=== PATIENT | male | born 1940 | race Caucasian/White ===

== ENCOUNTER 2016-05-03 09:15 | Day surgery (SDC) | payer OTHER ==
[2016-05-03] MEDS ORDERED: ACETAMINOPHEN 500 MG TABLET (FP) PO PRN (09:36)
[2016-05-03 09:57] VITALS: BP 121/79; PULSE 64; TEMP 97.5
[2016-05-03] MEDS ORDERED: DENOSUMAB 120 MG/1.7 ML VIAL SQ ONE (10:00)
[2016-05-03 11:01] LABS: ALBUMIN 3.2 g/dl (3.4-5.0); ALK PHOS 76 U/L (45-117); ANION GAP 7 (8-16); BILIRUBIN,TOTAL 0.5 mg/dL (0.2-1.0); CALCIUM 8.6 mg/dL (8.5-10.1); CO2 28 mmol/L (21-32); CREATININE 1.1 mg/dL (0.7-1.3); GLUCOSE,RANDOM 134 mg/dL (74-106); SGOT/AST 11 U/L (15-37); SGPT/ALT 16 U/L (12-78); TOT PROT 6.2 g/dl (6.4-8.2)
== END 2016-05-03 12:00 | disposition home or self-care (01) ==
LOC: JINFUSION 09:15 → J7W 09:16 → JINFUSION 12:00
PROVIDERS: ATTEND Internal Medicine
PROC: 3E013GC Introduction of Other Therapeutic Substance into Subcutaneous Tissue, Percutaneous Approach (ICD-10-PCS; principal; 2016-05-03)
DX: C73 Malignant neoplasm of thyroid gland (principal); C79.51 Secondary malignant neoplasm of bone
CPT/HCPCS: 96372; J0897; 36415; 80053; 96401

== ENCOUNTER 2016-07-06 10:57 | Day surgery (SDC) | payer OTHER ==
[2016-07-06] MEDS ORDERED: ACETAMINOPHEN 500 MG TABLET (FP) PO PRN (13:26)
[2016-07-06] MEDS ORDERED: DENOSUMAB 120 MG/1.7 ML VIAL SQ ONE (13:30)
[2016-07-06 14:13] VITALS: BP 129/72; PULSE 69; TEMP 97.6
== END 2016-07-06 14:13 | disposition home or self-care (01) ==
LOC: JCHEMO 10:57
PROVIDERS: ATTEND Internal Medicine
PROC: 3E013GC Introduction of Other Therapeutic Substance into Subcutaneous Tissue, Percutaneous Approach (ICD-10-PCS; principal; 2016-07-06)
DX: C73 Malignant neoplasm of thyroid gland (principal); C79.51 Secondary malignant neoplasm of bone
CPT/HCPCS: 96372; J0897; 96401

== ENCOUNTER 2016-08-26 09:50 | Day surgery (SDC) | payer OTHER ==
[2016-08-26] MEDS ORDERED: ACETAMINOPHEN 500 MG TABLET (FP) PO PRN (10:06)
[2016-08-26] MEDS ORDERED: DENOSUMAB 120 MG/1.7 ML VIAL SQ ONE (10:30)
[2016-08-26 11:05] VITALS: BP 112/56; PULSE 66; TEMP 98.8
== END 2016-08-26 11:05 | disposition home or self-care (01) ==
LOC: JINFUSION 09:50
PROVIDERS: ATTEND Internal Medicine
PROC: 3E033GC Introduction of Other Therapeutic Substance into Peripheral Vein, Percutaneous Approach (ICD-10-PCS; principal; 2016-08-26)
DX: C73 Malignant neoplasm of thyroid gland (principal); C79.51 Secondary malignant neoplasm of bone
CPT/HCPCS: 96372; 96401; J0897

== ENCOUNTER 2016-10-07 10:52 | Day surgery (SDC) | payer OTHER ==
[2016-10-07] MEDS ORDERED: ACETAMINOPHEN 500 MG TABLET (FP) PO PRN (11:20)
[2016-10-07] MEDS ORDERED: DENOSUMAB 120 MG/1.7 ML VIAL SQ ONE (11:30)
[2016-10-07 11:36] VITALS: BP 144/88; PULSE 62; TEMP 97.9
== END 2016-10-07 11:42 | disposition home or self-care (01) ==
LOC: JCHEMO 10:52
PROVIDERS: ATTEND Internal Medicine
PROC: 3E013GC Introduction of Other Therapeutic Substance into Subcutaneous Tissue, Percutaneous Approach (ICD-10-PCS; principal; 2016-10-07)
DX: C73 Malignant neoplasm of thyroid gland (principal); C79.51 Secondary malignant neoplasm of bone
CPT/HCPCS: 96372; J0897; 96401

== ENCOUNTER 2016-11-08 10:58 | Day surgery (SDC) | payer OTHER ==
[2016-11-08] MEDS ORDERED: ACETAMINOPHEN 500 MG TABLET (FP) PO PRN (11:13)
[2016-11-08] MEDS ORDERED: ACETAMINOPHEN 500 MG TABLET (FP) ONE (11:25)
[2016-11-08] MEDS ORDERED: DENOSUMAB 120 MG/1.7 ML VIAL SQ ONE (11:30)
[2016-11-08 11:57] VITALS: BP 133/83; PULSE 53; TEMP 97.8
== END 2016-11-08 11:55 | disposition home or self-care (01) ==
LOC: JCHEMO 10:58
PROVIDERS: ATTEND Internal Medicine
PROC: 3E013GC Introduction of Other Therapeutic Substance into Subcutaneous Tissue, Percutaneous Approach (ICD-10-PCS; principal; 2016-11-08)
DX: C73 Malignant neoplasm of thyroid gland (principal); C79.51 Secondary malignant neoplasm of bone
CPT/HCPCS: 96372; 96401; J0897

== ENCOUNTER 2016-12-08 10:03 | Day surgery (SDC) | payer OTHER ==
[2016-12-08] MEDS ORDERED: ACETAMINOPHEN 500 MG TABLET (FP) PO PRN (10:41)
[2016-12-08] MEDS ORDERED: DENOSUMAB 120 MG/1.7 ML VIAL SQ ONE (10:45)
[2016-12-08 11:13] VITALS: BP 140/94; PULSE 76; TEMP 97.9
== END 2016-12-08 11:13 | disposition home or self-care (01) ==
LOC: JASU-ENDO 10:03
PROVIDERS: ATTEND Internal Medicine
PROC: 3E013GC Introduction of Other Therapeutic Substance into Subcutaneous Tissue, Percutaneous Approach (ICD-10-PCS; principal; 2016-12-08)
DX: C73 Malignant neoplasm of thyroid gland (principal); C79.51 Secondary malignant neoplasm of bone
CPT/HCPCS: 96372; J0897

== ENCOUNTER 2017-01-10 11:03 | Day surgery (SDC) | payer OTHER ==
[2017-01-10] MEDS ORDERED: ACETAMINOPHEN 500 MG TABLET (FP) PO PRN (11:23)
[2017-01-10] MEDS ORDERED: DENOSUMAB 120 MG/1.7 ML VIAL SQ ONE (11:30)
[2017-01-10] MEDS ORDERED: ACETAMINOPHEN 500 MG TABLET (FP) ONE (11:40)
[2017-01-10 14:28] VITALS: BP 132/87; PULSE 63; TEMP 97.8
== END 2017-01-10 11:50 | disposition home or self-care (01) ==
LOC: JCHEMO 11:03
PROVIDERS: ATTEND Internal Medicine
PROC: 3E013GC Introduction of Other Therapeutic Substance into Subcutaneous Tissue, Percutaneous Approach (ICD-10-PCS; principal; 2017-01-10)
DX: C73 Malignant neoplasm of thyroid gland (principal); C79.51 Secondary malignant neoplasm of bone
CPT/HCPCS: 96372; J0897

== ENCOUNTER 2017-02-03 10:59 | Day surgery (SDC) | payer OTHER ==
[2017-02-03] MEDS ORDERED: ACETAMINOPHEN 325 MG TABLET (FP) ONE (11:09)
[2017-02-03 11:16] VITALS: BP 132/89; PULSE 59; TEMP 98.1
[2017-02-03] MEDS ORDERED: ACETAMINOPHEN 500 MG TABLET (FP) PO PRN (11:23)
[2017-02-03] MEDS ORDERED: DENOSUMAB 120 MG/1.7 ML VIAL SQ ONE (12:15)
== END 2017-02-03 14:34 | disposition home or self-care (01) ==
LOC: JASU-ENDO 10:59
PROVIDERS: ATTEND Internal Medicine
PROC: 3E013GC Introduction of Other Therapeutic Substance into Subcutaneous Tissue, Percutaneous Approach (ICD-10-PCS; principal; 2017-02-03)
DX: C73 Malignant neoplasm of thyroid gland (principal)
CPT/HCPCS: 96372; 96401

== ENCOUNTER 2017-05-03 09:16 | Day surgery (SDC) | payer OTHER ==
[2017-05-03] MEDS ORDERED: ACETAMINOPHEN 500 MG TABLET (FP) PO PRN (09:31)
[2017-05-03] MEDS ORDERED: DENOSUMAB 120 MG/1.7 ML VIAL SQ ONE (10:00)
[2017-05-03 12:18] VITALS: BP 147/93; PULSE 60; TEMP 97.8
== END 2017-05-03 10:35 | disposition home or self-care (01) ==
LOC: JASU-ENDO 09:16
PROVIDERS: ATTEND Internal Medicine
PROC: 3E013GC Introduction of Other Therapeutic Substance into Subcutaneous Tissue, Percutaneous Approach (ICD-10-PCS; principal; 2017-05-03)
DX: C73 Malignant neoplasm of thyroid gland (principal); C79.51 Secondary malignant neoplasm of bone
CPT/HCPCS: 96372; 96401; J0897

== ENCOUNTER 2017-09-09 10:16 | Day surgery (SDC) | payer OTHER ==
[2017-09-09] MEDS ORDERED: ACETAMINOPHEN 500 MG TABLET (FP) PO PRN (10:35)
[2017-09-09 10:45] VITALS: BP 123/74; PULSE 59; TEMP 97
[2017-09-09] MEDS ORDERED: DENOSUMAB 120 MG/1.7 ML VIAL SQ ONE (10:45)
== END 2017-09-09 11:47 | disposition home or self-care (01) ==
LOC: JINFUSION 10:16
PROVIDERS: ATTEND Internal Medicine
PROC: 3E013GC Introduction of Other Therapeutic Substance into Subcutaneous Tissue, Percutaneous Approach (ICD-10-PCS; principal; 2017-09-09)
DX: C73 Malignant neoplasm of thyroid gland (principal); C79.51 Secondary malignant neoplasm of bone
CPT/HCPCS: 96372; 96401; J0897

== ENCOUNTER 2017-12-15 10:25 | Day surgery (SDC) | payer OTHER ==
[~2017-12-15 10:25] MED LIST: ACETAMINOPHEN 500 MG TABLET (FP) PO PRN; DENOSUMAB 120 MG/1.7 ML VIAL SQ ONE
[2017-12-15 11:23] VITALS: PULSE 54
[2017-12-15 11:48] VITALS: BP 143/73; TEMP 98.3
== END 2017-12-15 11:49 | disposition home or self-care (01) ==
LOC: JINFUSION 10:25
PROVIDERS: ATTEND Internal Medicine
PROC: 3E013GC Introduction of Other Therapeutic Substance into Subcutaneous Tissue, Percutaneous Approach (ICD-10-PCS; principal; 2017-12-15)
DX: C73 Malignant neoplasm of thyroid gland (principal); C79.51 Secondary malignant neoplasm of bone
CPT/HCPCS: 96372; 96401; J0897

== ENCOUNTER 2018-02-06 19:29 | Emergency (ER) | payer OTHER ==
[2018-02-06] MEDS ORDERED: DIPHTH,PERTUSS(ACELL),TET 0.5 ML DISP.SYRIN IM ONE (19:37)
--- NOTE | 2018-02-06 19:40 | PDOC ---
Rapid Medical Evaluation Chief Complaint: Bite Time Seen by Provider: 02/06/18 19:35 Medical Evaluation: Allergies Allergy/AdvReac Type Severity Reaction Status Date / Time No Known Drug Allergies Allergy Verified 11/08/17 11:14 02/06/18 19:36 I have performed a brief in-person evaluation of this patient. The patient presents with a chief complaint of: states was on porch where Raccoon was climbing up railing . and animal scratched/ bite? - washed with soap and water. Pertinent physical exam findings: scratches and puncture to dorsum of left hand , 3rd digit. I have ordered the following: Rabies Vaccine/ prophylaxis needed.. Boostrix The patient will proceed to the ED for further evaluation. 02/06/18 19:38
[2018-02-06 19:45] VITALS: BP 145/79; PULSE 75; TEMP 98; BMI 20.3
[2018-02-06] MEDS ORDERED: RABIES IMMUNE GLOBULIN 300 UNITS/1 ML VIAL IM ONE (20:25)
[2018-02-06] MEDS ORDERED: RABIES VACCINE (PCEC)/PF 2.5 UNIT/VIAL IM ONE (20:25)
[2018-02-06] MEDS ORDERED: AMOX TR/POT CLAV 875MG/125MG TABLETS (FP) PO ONE (20:53)
--- NOTE | 2018-02-06 20:59 | PDOC ---
History of Present Illness - General Chief Complaint: Bite Stated Complaint: ANIMAL BITE Time Seen by Provider: 02/06/18 19:35 - History of Present Illness Initial Comments: 02/06/18 20:50 77-year-old male currently undergoing chemotherapy for thyroid cancer was bitten by a raccoon today while smoking a cigarette on his deck. Past History - Past Medical History Allergies/Adverse Reactions: Allergies Allergy/AdvReac Type Severity Reaction Status Date / Time No Known Drug Allergies Allergy Verified 02/06/18 19:38 Home Medications: Ambulatory Orders Atorvastatin Ca [Lipitor] 20 mg PO HS 06/17/11 clonazePAM [Klonopin -] 0.25 mg PO DAILY 06/17/11 Escitalopram Oxalate [Lexapro -] 20 mg PO DAILY 07/18/15 Levothyroxine Sodium [Unithroid] 175 mcg PO ASDIR 07/24/15 Cholecalciferol (Vitamin D3) [Vitamin D3] 1,000 unit PO DAILY 07/25/15 Vitamin E 400 unit PO DAILY 07/25/15 Acetaminophen [Pain Reliever] 500 mg PO PRN PRN 10/07/16 Cyanocobalamin Vit B-12 Inj. [Redisol] 1,000 mcg IM MONTHLY 10/07/16 Denosumab [Xgeva] 120 mg SCJ MONTHLY 10/07/16 Lenvatinib Mesylate [Lenvima] 24 mg PO DAILY 10/07/16 Amox-Tr/K Cl [Augmentin - 875Mg Tablet] 1 tab PO BID #20 tablet 02/06/18 Atenolol [Tenormin -] 25 mg PO DAILY 02/06/18 Anemia: Yes Asthma: No Cancer: Yes (papillary thryroid ca) Cardiac Disorders: No CVA: No COPD: No CHF: No Dementia: No Diabetes: No GI Disorders: Yes (GASTRIC ULCER) Disorders: No HTN: No Hypercholesterolemia: Yes Liver Disease: No Psychiatric Problems: Yes Seizures: No Thyroid Disease: Yes (thyroid ca) - Surgical History Abdominal Surgery: Yes (BILATERAL INGUINAL HERNIA,) Appendectomy: No Cardiac Surgery: No Cholecystectomy: No GI Surgery: Yes (DUODEAL ULCER GASTRECTOMY) Lung Surgery: No Neurologic Surgery: No Orthopedic Surgery: No - Immunization History Immunization Up to Date: Yes - Suicide/Smoking/Psychosocial Hx Smoking History: Current some day smoker Have you smoked in the past 12 months: Yes Number of Cigarettes Smoked Daily: 10 Information on smoking cessation initiated: No 'Breaking Loose' booklet given: 10/17/14 Hx Alcohol Use: No Drug/Substance Use Hx: No Substance Use Type: None Hx Substance Use Treatment: No Review of Systems - Review of Systems Integumentary: Yes: See HPI *Physical Exam - Vital Signs Last Vital Signs Temp Pulse Resp BP Pulse Ox 98 F 75 18 145/79 98 02/06/18 19:31 02/06/18 19:31 02/06/18 19:31 02/06/18 19:31 02/06/18 19:31 - Physical Exam Comments: 02/06/18 20:51 HEAD: NC/AT EYES: Conjuntiva clear MS: Full ROM in all joints without edema NEUROLOGIC: No gross sensory or motor deficits, NVID SKIN: Normal color and temperature no lesions or rashes There are 3 superficial abrasions on the left hand which were cleaned day. To be superficial dermal avulsions. Medical Decision Making - Medical Decision Making 02/06/18 20:52 Rabies vaccine tetanus immunoglobulin given. I will given the rabies vaccination schedule based on his immunocompromise status Augmentin also sent to his pharmacy *DC/Admit/Observation/Transfer Diagnosis at time of Disposition: Raccoon bite - Discharge Dispostion Disposition: HOME Condition at time of disposition: Stable Decision to Admit order: No - Referrals Referrals: Mariam May MD [Primary Care Provider] - - Patient Instructions Printed Discharge Instructions: DI for Animal Bites Additional Instructions: Return to the Emergency Room the following dates for continuation of rabies vaccination schedule. 02/09/18 02/13/18 02/10/18 03/06/18 Please take the antibiotics as prescribed and finish the entire course. Keep your hand clean with soap and water and left open to air. Follow-up with your primary care physician for further evaluation and wound management as well as and surgery for further evaluation and wound management. Vaccination will be given in the emergency room return to the emergency room sooner if problems develop - Post Discharge Activity
[2018-02-06] MEDS ORDERED: AMOX TR/POT CLAV 875MG/125MG TABLETS (FP) ONE (21:08)
== END 2018-02-06 21:17 | disposition home or self-care (01) ==
LOC: JER 19:29 → JERFT 19:29
PROC: 3E0234Z Introduction of Serum, Toxoid and Vaccine into Muscle, Percutaneous Approach (ICD-10-PCS; principal; 2018-02-06)
PROC: 3E0234Z Introduction of Serum, Toxoid and Vaccine into Muscle, Percutaneous Approach (ICD-10-PCS; 2018-02-06)
PROC: 3E0234Z Introduction of Serum, Toxoid and Vaccine into Muscle, Percutaneous Approach (ICD-10-PCS; 2018-02-06)
DX: S61.253A Open bite of left middle finger without damage to nail, initial encounter (principal); S60.512A Abrasion of left hand, initial encounter; W55.51XA Bitten by raccoon, initial encounter; Y93.89 Activity, other specified; Y92.018 Other place in single-family (private) house as the place of occurrence of the external cause; Y99.8 Other external cause status; D64.9 Anemia, unspecified; E78.00 Pure hypercholesterolemia, unspecified; C73 Malignant neoplasm of thyroid gland
CPT/HCPCS: 90375; 90471; 90675; 90715; 96372; 99281-25

== ENCOUNTER 2018-02-09 09:19 | Emergency (ER) | payer OTHER ==
[2018-02-09 09:31] VITALS: BP 133/77; PULSE 67; TEMP 97.8; BMI 20.3
[2018-02-09] MEDS ORDERED: RABIES VACCINE (PCEC)/PF 2.5 UNIT/VIAL IM ONE (10:47)
--- NOTE | 2018-02-09 10:58 | PDOC ---
History of Present Illness - General Chief Complaint: Revisit,Rabies Injection Stated Complaint: REVISIT, RABIES INJECTION Time Seen by Provider: 02/09/18 10:35 History Source: Patient Exam Limitations: No Limitations - History of Present Illness Initial Comments: 02/09/18 10:59 Patient came for second rabies vaccination. Was exposed and bitten by a stray/ wild raccoon 3 days ago, came for rabies evaluation and was treated with immunoglobulin and first rabies vaccine. Patient denies any fevers, problems with the vaccinations, or any problems with the wounds. Has been using soap and water and dressing those wounds as needed. Pain Location: reports: upper extremity (left hand) Past History - Travel Traveled outside of the country in the last 30 days: No Close contact w/someone who was outside of country & ill: No - Past Medical History Allergies/Adverse Reactions: Allergies Allergy/AdvReac Type Severity Reaction Status Date / Time No Known Drug Allergies Allergy Verified 02/09/18 09:25 Home Medications: Ambulatory Orders Atorvastatin Ca [Lipitor] 20 mg PO HS 06/17/11 clonazePAM [Klonopin -] 0.25 mg PO DAILY 06/17/11 Escitalopram Oxalate [Lexapro -] 20 mg PO DAILY 07/18/15 Levothyroxine Sodium [Unithroid] 175 mcg PO ASDIR 07/24/15 Cholecalciferol (Vitamin D3) [Vitamin D3] 1,000 unit PO DAILY 07/25/15 Vitamin E 400 unit PO DAILY 07/25/15 Acetaminophen [Pain Reliever] 500 mg PO PRN PRN 10/07/16 Cyanocobalamin Vit B-12 Inj. [Redisol] 1,000 mcg IM MONTHLY 10/07/16 Denosumab [Xgeva] 120 mg SCJ MONTHLY 10/07/16 Lenvatinib Mesylate [Lenvima] 24 mg PO DAILY 10/07/16 Amox-Tr/K Cl [Augmentin - 875Mg Tablet] 1 tab PO BID #20 tablet 02/06/18 Atenolol [Tenormin -] 25 mg PO DAILY 02/06/18 Anemia: Yes Asthma: No Cancer: Yes (papillary thryroid ca) Cardiac Disorders: No CVA: No COPD: No CHF: No Dementia: No Diabetes: No GI Disorders: Yes (GASTRIC ULCER) Disorders: No HTN: No Hypercholesterolemia: Yes Liver Disease: No Psychiatric Problems: Yes Seizures: No Thyroid Disease: Yes (thyroid ca) - Surgical History Abdominal Surgery: Yes (BILATERAL INGUINAL HERNIA,) Appendectomy: No Cardiac Surgery: No Cholecystectomy: No GI Surgery: Yes (DUODEAL ULCER GASTRECTOMY) Lung Surgery: No Neurologic Surgery: No Orthopedic Surgery: No - Immunization History Immunization Up to Date: Yes - Suicide/Smoking/Psychosocial Hx Smoking History: Current some day smoker Have you smoked in the past 12 months: Yes Number of Cigarettes Smoked Daily: 10 Information on smoking cessation initiated: No 'Breaking Loose' booklet given: 10/17/14 Hx Alcohol Use: No Drug/Substance Use Hx: No Substance Use Type: None Hx Substance Use Treatment: No *Physical Exam - Vital Signs Last Vital Signs Temp Pulse Resp BP Pulse Ox 97.8 F 67 17 133/77 100 02/09/18 09:25 02/09/18 09:25 02/09/18 09:25 02/09/18 09:25 02/09/18 09:25 - Physical Exam General Appearance: Yes: Nourished, Appropriately Dressed. No: Apparent Distress HEENT: positive: RUPERT, Normal ENT Inspection, TMs Normal, Pharynx Normal Neck: positive: Supple. negative: Tender Extremity: positive: Normal Capillary Refill, Normal Range of Motion. negative : Normal Inspection (healing scabs to left thumb, and dorsum of left hand. No redness, swelling, exudate or evidence of infection) Integumentary: positive: Dry, Bruising Neurologic: positive: account executive key accounts II-XII NML intact, Fully Oriented, Alert, Normal Mood/ Affect, Normal Response, Motor Strength 5/5 *DC/Admit/Observation/Transfer Diagnosis at time of Disposition: Need for rabies vaccination - Discharge Dispostion Disposition: HOME Condition at time of disposition: Stable Decision to Admit order: No - Referrals Referrals: Mariam May MD [Primary Care Provider] - - Patient Instructions Printed Discharge Instructions: DI for Rabies Vaccine Additional Instructions: Return on February 13 rabies vaccination as directed wound care until healed - Post Discharge Activity
== END 2018-02-09 11:06 | disposition home or self-care (01) ==
LOC: JERFT 09:19
PROC: 3E0234Z Introduction of Serum, Toxoid and Vaccine into Muscle, Percutaneous Approach (ICD-10-PCS; principal; 2018-02-09)
DX: Z20.3 Contact with and (suspected) exposure to rabies (principal); W55.51XD Bitten by raccoon, subsequent encounter
CPT/HCPCS: 90675; 99281-25

== ENCOUNTER 2018-02-13 09:32 | Emergency (ER) | payer OTHER ==
[2018-02-13 09:37] VITALS: BP 152/81; PULSE 71; TEMP 97.8; BMI 20.3
[2018-02-13] MEDS ORDERED: RABIES VACCINE (PCEC)/PF 2.5 UNIT/VIAL IM ONE (10:04)
--- NOTE | 2018-02-13 10:08 | PDOC ---
Rapid Medical Evaluation Chief Complaint: Revisit,Rabies Injection Time Seen by Provider: 02/13/18 10:04 Medical Evaluation: Allergies Allergy/AdvReac Type Severity Reaction Status Date / Time No Known Drug Allergies Allergy Verified 02/13/18 09:37 Vital Signs Temp Pulse Resp BP Pulse Ox 97.8 F 71 16 152/81 98 02/13/18 09:35 02/13/18 09:35 02/13/18 09:35 02/13/18 09:35 02/13/18 09:35 I have performed a brief in-person evaluation of this patient. The patient presents with a chief complaint of: Patient present for rabbis vaccine s/p being bit by a raccoon on 02/06/18 to right hand. patient report no complains . Denies pain or redness to bite area. Pertinent physical exam findings: no erythema or swelling to bite area. no evidence of wound infection. no pain to bite site I have ordered the following: rabbis vaccine Discharge Disposition - Diagnosis Need for rabies vaccination - Discharge Dispostion Disposition: HOME Condition at time of disposition: Stable Last Admission D/C Date: 01/04/14 Decision to Admit order: No - Referrals - Patient Instructions Printed Discharge Instructions: DI for Rabies Vaccine Additional Instructions: come back on 02/20 for 3rd dose of vaccine - Post Discharge Activity
== END 2018-02-13 10:13 | disposition home or self-care (01) ==
LOC: JERFT 09:32
PROC: 3E0234Z Introduction of Serum, Toxoid and Vaccine into Muscle, Percutaneous Approach (ICD-10-PCS; principal; 2018-02-13)
DX: Z20.3 Contact with and (suspected) exposure to rabies (principal); W55.51XD Bitten by raccoon, subsequent encounter
CPT/HCPCS: 90471; 90675; 99281-25

== ENCOUNTER 2018-02-20 09:30 | Emergency (ER) | payer OTHER ==
[2018-02-20 09:45] VITALS: BP 134/70; PULSE 61; TEMP 98.2; BMI 20.3
[2018-02-20] MEDS ORDERED: RABIES VACCINE (PCEC)/PF 2.5 UNIT/VIAL IM ONE (09:59)
--- NOTE | 2018-02-20 09:59 | PDOC ---
History of Present Illness - General Chief Complaint: Revisit,Rabies Injection Stated Complaint: RABIES SHOT Time Seen by Provider: 02/20/18 09:45 - History of Present Illness Initial Comments: 02/20/18 10:29 Patient is a 77-year-old male with past medical history of metastatic thyroid cancer, who presents to the emergency department today for his fourth rabies vaccination. Patient also states he has swelling to his legs. He was seen by his cancer doctor for this who thinks it might be due to his new cancer medication. He was started on Lasix 20 mg daily. He states that he still has swelling. Denies fevers, chills, shortness of breath, difficulty breathing, difficulty breathing on exertion, orthopnea, chest pain, palpitations, nausea, vomiting and diarrhea. New cancer medication dabrafenib 75mg BID, trametinib 2mg daily Past History - Travel Traveled outside of the country in the last 30 days: No Close contact w/someone who was outside of country & ill: No - Past Medical History Allergies/Adverse Reactions: Allergies Allergy/AdvReac Type Severity Reaction Status Date / Time No Known Drug Allergies Allergy Verified 02/20/18 09:43 Home Medications: Ambulatory Orders Atorvastatin Ca [Lipitor] 20 mg PO HS 06/17/11 clonazePAM [Klonopin -] 0.25 mg PO DAILY 06/17/11 Escitalopram Oxalate [Lexapro -] 20 mg PO DAILY 07/18/15 Levothyroxine Sodium [Unithroid] 175 mcg PO ASDIR 07/24/15 Cholecalciferol (Vitamin D3) [Vitamin D3] 1,000 unit PO DAILY 07/25/15 Vitamin E 400 unit PO DAILY 07/25/15 Acetaminophen [Pain Reliever] 500 mg PO PRN PRN 10/07/16 Cyanocobalamin Vit B-12 Inj. [Redisol] 1,000 mcg IM MONTHLY 10/07/16 Denosumab [Xgeva] 120 mg SCJ MONTHLY 10/07/16 Lenvatinib Mesylate [Lenvima] 24 mg PO DAILY 10/07/16 Amox-Tr/K Cl [Augmentin - 875Mg Tablet] 1 tab PO BID #20 tablet 02/06/18 Atenolol [Tenormin -] 25 mg PO DAILY 02/06/18 Anemia: Yes Asthma: No Cancer: Yes (papillary thryroid ca) Cardiac Disorders: No CVA: No COPD: No CHF: No Dementia: No Diabetes: No GI Disorders: Yes (GASTRIC ULCER) Disorders: No HTN: No Hypercholesterolemia: Yes Liver Disease: No Psychiatric Problems: Yes Seizures: No Thyroid Disease: Yes (thyroid ca) - Surgical History Abdominal Surgery: Yes (BILATERAL INGUINAL HERNIA,) Appendectomy: No Cardiac Surgery: No Cholecystectomy: No GI Surgery: Yes (DUODEAL ULCER GASTRECTOMY) Lung Surgery: No Neurologic Surgery: No Orthopedic Surgery: No - Immunization History Immunization Up to Date: Yes - Suicide/Smoking/Psychosocial Hx Smoking History: Never smoked Have you smoked in the past 12 months: No Number of Cigarettes Smoked Daily: 10 'Breaking Loose' booklet given: 10/17/14 Hx Alcohol Use: No Drug/Substance Use Hx: No Substance Use Type: None Hx Substance Use Treatment: No Review of Systems - Review of Systems Able to Perform ROS?: Yes Comments:: 02/20/18 11:36 CONSTITUTIONAL: Absent: fever, chills, diaphoresis, generalized weakness, malaise, loss of appetite HEENT: Absent: rhinorrhea, nasal congestion, throat pain, throat swelling, difficulty swallowing, mouth swelling, ear pain, eye pain, visual Changes CARDIOVASCULAR: Present: edema Absent: chest pain, loss of consciousness, palpitations, irregular heart rate RESPIRATORY: Absent: cough, shortness of breath, dyspnea with exertion, orthopnea, wheezing, stridor, hemoptysis GASTROINTESTINAL: Absent: abdominal pain, abdominal distension, nausea, vomiting, diarrhea, constipation, melena, hematochezia GENITOURINARY: Absent: dysuria, frequency, urgency, hesitancy, hematuria, flank pain, genital pain MUSCULOSKELETAL: Absent: myalgia, arthralgia, joint swelling SKIN: Absent: rash, itching, pallor HEMATOLOGIC/IMMUNOLOGIC: Absent: easy bleeding, easy bruising, lymphadenopathy, frequent infections ENDOCRINE: Absent: unexplained weight gain, unexplained weight loss, heat intolerance, cold intolerance NEUROLOGIC: Absent: headache, focal weakness or paresthesias, dizziness, unsteady gait, seizure, mental status changes, bladder or bowel incontinence PSYCHIATRIC: Absent: anxiety, depression, suicidal or homicidal ideation, hallucinations. Is the patient limited Latvian proficient: No *Physical Exam - Vital Signs Last Vital Signs Temp Pulse Resp BP Pulse Ox 98.2 F 61 15 134/70 98 02/20/18 09:43 02/20/18 09:43 02/20/18 09:43 02/20/18 09:43 02/20/18 09:43 - Physical Exam Comments: 02/20/18 11:37 GENERAL: Well developed, well nourished. Awake and alert. No acute distress. HEENT: Normocephalic, atraumatic. PERRLA, EOMI. No conjunctival pallor. Sclera are non- icteric. Moist mucous membranes. Oropharynx is clear. NECK: Supple. Full ROM. No JVD. Carotid pulses 2+ and symmetric, without bruits. No thyromegaly. No lymphadenopathy. CARDIOVASCULAR: Regular rate and rhythm. No murmurs, rubs, or gallops. Distal pulses are 2+ and symmetric. PULMONARY: No evidence of respiratory distress. Lungs clear to auscultation bilaterally. No wheezing, rales or rhonchi. ABDOMINAL: Soft. Non-tender. Non-distended. No rebound or guarding. No organomegaly. Normoactive bowel sounds. MUSCULOSKELETAL Normal range of motion at all joints. No bony deformities or tenderness. No CVA tenderness. EXTREMITIES: 3+ pitting edema to the knees. No cyanosis. No clubbing. No calf tenderness. SKIN: Warm and dry. Normal capillary refill. No rashes. No jaundice. NEUROLOGICAL: Alert, awake, appropriate. Cranial nerves 2-12 intact. No deficits to light touch and temperature in face, upper extremities and lower extremities. No motor deficits in the in face, upper extremities and lower extremities. Normoreflexic in the upper and lower extremities. Normal speech. Toes are down- going bilaterally. Gait is normal without ataxia. PSYCHIATRIC: Cooperative. Good eye contact. Appropriate mood and affect. Medical Decision Making - Medical Decision Making 02/20/18 11:39 Patient is a 77-year-old male with past medical history of patient is a 77-year- old male past medical history of metastatic thyroid cancer, who presents to the emergency department today for his fourth rabies vaccination as well as edema to his lower extremities. -On exam patient with 3+ pitting edema to the knees bilaterally. Lungs are clear to auscultation bilaterally without crackles or rales. -Patient reports feeling fine despite the edema. Denies chest pain, SOB, orthopnea -Patient currently taking 20 mg of Lasix daily. -Possible that the edema is from his new cancer medications -Rabies vaccination administered today. -Patient to come back on 03/07/18 for his last vaccination. -Patient feels comfortable following up with his primary care doctor tomorrow regarding his edema. We'll discharge home. -I discussed the physical exam findings, ancillary test results and final diagnoses with the patient. I answered all of the patient's questions. The patient was satisfied with the care received and felt comfortable with the discharge plan and treatment plan. The Patient agrees to follow up with the primary care physician/specialist within 24-72 hours. Return precautions were given. *DC/Admit/Observation/Transfer Diagnosis at time of Disposition: Need for rabies vaccination Edema Qualifiers: Edema type: unspecified Qualified Code(s): R60.9 - Edema, unspecified - Discharge Dispostion Disposition: HOME Condition at time of disposition: Stable Decision to Admit order: No - Referrals Referrals: Mariam May MD [Primary Care Provider] - - Patient Instructions Additional Instructions: You had her next rabies shot today. Your next and final rabies shot is for 03/06/18. You also have edema or swelling to your legs Continue your Lasix as previously prescribed. Follow up with her primary care doctor tomorrow. Return to emergency department for shortness of breath, difficulty breathing, chest pain, or if you have any changes in your symptoms. - Post Discharge Activity
== END 2018-02-20 10:43 | disposition home or self-care (01) ==
LOC: JERFT 09:30
PROC: 3E0234Z Introduction of Serum, Toxoid and Vaccine into Muscle, Percutaneous Approach (ICD-10-PCS; principal; 2018-02-20)
DX: Z20.3 Contact with and (suspected) exposure to rabies (principal); W55.51XD Bitten by raccoon, subsequent encounter; R60.0 Localized edema
CPT/HCPCS: 90471; 90675; 99281-25

== ENCOUNTER 2018-02-27 12:05 | Emergency (ER) | payer OTHER ==
[2018-02-27 12:23] VITALS: BP 131/65; PULSE 65; TEMP 97.9; BMI 20.3
--- NOTE | 2018-02-27 12:47 | PDOC ---
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 As per patient, he was on 20mg once a day of Lasix which was recently raised to 20mg BID, without relief. He denies any recent fevers, chills, headache or dizziness. He denies any recent nausea, vomit, diarrhea or constipation. He denies any recent chest pain or shortness of breath. He denies any recent dysuria, frequency, urgency or hematuria. Allergies: NKDA. Social History: Current some day smoker. No reported alcohol or drug use. Surgical History: Bilateral inguinal hernia PCP: Dr. May - Physicial Exam PE: 02/27/18 15:19 Exam: Vitals: Triage Vital signs reviewed General Appearance: no acute distress, well nourished well developed, Head: Atraumatic, normocephalic Neck: Supple;No Nuchal rigidity Chest Wall: Nontender Cardiac: Regular rate and rhythm, no murmurs, no rubs, no gallops, Lungs: Clear to auscultation bilateral, good air movement bilaterally, Abdomen: Soft, nondistended, normal bowel sounds, nontender to palpation Rectal: Exam deferred Extremities: 2+ pitting edema to the bilateral lower extremities with mild redness, not cellulitic. No streaking or purulent discharge. Full range of motion to all extremities, no cyanosis or clubbing Neuro: AOX3; Cranial Nerves 2-12 grossly intact, Strength intact to all extremities, Sensation intact to all extremities Psych: normal mood, normal affect <Sunil Esteban - Last Filed: 02/27/18 15:16> - Resident Resident Name: Becki Coelho - ED Attending Attestation I have performed the following: I have examined & evaluated the patient, The case was reviewed & discussed with the resident, I agree w/resident's findings & plan, Exceptions are as noted - Medical Decision Making 02/27/18 16:33 Well-appearing no apparent distress chronic lower extremity swelling not responding to Lasix DVT study negative Creatinine within normal limits. We will increase Lasix to 40 mg twice a day patient has follow-up with his doctor on Tuesday. Pt. with chronic hypocalcemia no evidence of physical exam of symptomatic hypocalcemia. Findings, need for follow-up and strict return instructions discussed with patient. <Jaxon Cooper - Last Filed: 02/27/18 16:33> Attestations - Attestations 02/27/18 15:16 Documentation prepared by Sunil Esteban, acting as medical record administrator for Jaxon Cooper MD. <Sunil Esteban - Last Filed: 02/27/18 15:16>
--- NOTE | 2018-02-27 12:52 | PDOC ---
History of Present Illness - General Chief Complaint: Edema Stated Complaint: SWOLLEN ANKLE Time Seen by Provider: 02/27/18 12:26 History Source: Patient Exam Limitations: No Limitations - History of Present Illness Initial Comments: 02/27/18 14:00 Pt is a 78yo m with PMH of metastatic thyroid ca s/p thyroidectomy 4 years ago presenting to ED with one week of worsening lower extremity edema. Pt says he has been having bilateral painless leg swelling for the past week. He denies pain in the calves, shortness of breath, chest pain, syncope, lightheadedness, palpitations, difficulty walking, new numbness/tingling, recent travel, hemoptysis, fevers/chills, abdominal pain, n/v/d. He is not taking blood thinners. He was started on Lasix but it has not reduced the swelling. PMD: Yadira PMH: see hpi PSH: see hpi Meds: see med rec Social: smokes 10 cigarettes/day Allergies: nkda Past History - Past Medical History Allergies/Adverse Reactions: Allergies Allergy/AdvReac Type Severity Reaction Status Date / Time No Known Drug Allergies Allergy Verified 02/20/18 09:43 Home Medications: Ambulatory Orders Atorvastatin Ca [Lipitor] 20 mg PO HS 06/17/11 clonazePAM [Klonopin -] 0.25 mg PO DAILY 06/17/11 Escitalopram Oxalate [Lexapro -] 20 mg PO DAILY 07/18/15 Levothyroxine Sodium [Unithroid] 175 mcg PO ASDIR 07/24/15 Cholecalciferol (Vitamin D3) [Vitamin D3] 1,000 unit PO DAILY 07/25/15 Vitamin E 400 unit PO DAILY 07/25/15 Acetaminophen [Pain Reliever] 500 mg PO PRN PRN 10/07/16 Cyanocobalamin Vit B-12 Inj. [Redisol] 1,000 mcg IM MONTHLY 10/07/16 Atenolol [Tenormin -] 25 mg PO DAILY 02/06/18 Dabrafenib Mesylate [Tafinlar] 150 mg PO Q12H 02/27/18 Denosumab [Xgeva] 120 mg SQ MONTHLY 02/27/18 Furosemide [Lasix -] 40 mg PO BID #10 tablet 02/27/18 Trametinib Dimethyl Sulfoxide [Mekinist] 2 mg PO DAILY 02/27/18 Anemia: Yes Asthma: No Cancer: Yes (papillary thryroid ca) Cardiac Disorders: No CVA: No COPD: No CHF: No Dementia: No Diabetes: No GI Disorders: Yes (GASTRIC ULCER) Disorders: No HTN: No Hypercholesterolemia: Yes Liver Disease: No Psychiatric Problems: Yes Seizures: No Thyroid Disease: Yes (thyroid ca) - Surgical History Abdominal Surgery: Yes (BILATERAL INGUINAL HERNIA,) Appendectomy: No Cardiac Surgery: No Cholecystectomy: No GI Surgery: Yes (DUODEAL ULCER GASTRECTOMY) Lung Surgery: No Neurologic Surgery: No Orthopedic Surgery: No - Immunization History Immunization Up to Date: Yes - Suicide/Smoking/Psychosocial Hx Smoking History: Former smoker Have you smoked in the past 12 months: No Number of Cigarettes Smoked Daily: 10 Information on smoking cessation initiated: No 'Breaking Loose' booklet given: 10/17/14 Hx Alcohol Use: No Drug/Substance Use Hx: No Substance Use Type: None Hx Substance Use Treatment: No Review of Systems - Review of Systems Constitutional: Yes: Weight Stable. No: Chills, Fever, Weakness HEENTM: No: Blurred Vision, Recent change in vision Respiratory: No: Cough, Orthopnea, Shortness of Breath, Hemoptysis Cardiac (ROS): Yes: See HPI, Edema. No: Chest Pain, Lightheadedness, Palpitations, Syncope ABD/GI: No: Constipated, Diarrhea, Nausea, Rectal Bleeding, Vomiting : No: Burning, Dysuria, Incontinence Musculoskeletal: No: Back Pain, Joint Pain, Neck Pain Integumentary: No: Bruising, Dryness, Erythema, Pruritus, Rash Neurological: No: Headache, Numbness, Weakness *Physical Exam - Vital Signs Last Vital Signs Temp Pulse Resp BP Pulse Ox 97.9 F 65 20 131/65 97 02/27/18 12:22 02/27/18 12:22 02/27/18 12:22 02/27/18 12:22 02/27/18 12:22 - Physical Exam General Appearance: Yes: Appropriately Dressed, Thin. No: Apparent Distress HEENT: positive: EOMI, RUPERT, Pharynx Normal. negative: Pale Conjunctivae, Scleral Icterus (R), Scleral Icterus (L) Neck: positive: Trachea midline, Supple. negative: Lymphadenopathy (R), Lymphadenopathy (L) Respiratory/Chest: positive: Crackles (lower lung bases). negative: Accessory Muscle Use Cardiovascular: positive: Regular Rhythm, Regular Rate, S1, S2. negative: Edema , JVD, Murmur Vascular Pulses: Carotid (R): 2+, Carotid (L): 2+ Gastrointestinal/Abdominal: positive: Normal Bowel Sounds, Soft. negative: Distended, Guarding, Rebound, Tenderness Musculoskeletal: negative: CVA Tenderness Extremity: positive: Normal Capillary Refill, Pelvis Stable, Pedal Edema ( bilateral pitting edema to knees), Swelling. negative: Coldness, Cyanosis, Calf Tenderness, Erythema Integumentary: positive: Normal Color, Dry, Warm, Other (no signs of skin breakdown, no varicose veins). negative: Cyanotic, Clammy, Diaphoresis, Rash, Ecchymosis, Bruising Neurologic: positive: manager [place] II-XII NML intact, Fully Oriented, Alert, Normal Mood/ Affect, Normal Response, Motor Strength 5/5 Deep Tendon Reflexes: Knee (L): 2+, Knee (R): 2+ Moderate Sedation - Procedure Monitoring Vital Signs: Procedure Monitoring Vital Signs Temperature 97.9 F 02/27/18 12:22 Pulse Rate 65 02/27/18 12:22 Respiratory Rate 20 02/27/18 12:22 Blood Pressure 131/65 02/27/18 12:22 O2 Sat by Pulse Oximetry (%) 97 02/27/18 12:22 ED Treatment Course - LABORATORY CBC & Chemistry Diagram: 02/27/18 13:00 02/27/18 13:00 Medical Decision Making - Medical Decision Making 02/27/18 12:52 Pt is a 78yo m with PMH of metastatic thyroid ca s/p thyroidectomy 4 years ago presenting to ED with one week of worsening lower extremity edema. Pt says he has been having bilateral painless leg swelling for the past week. Vitals: wnl PE: bilateral pitting edema to knees, not tender to palpation, no visible veins. Crackles at lower lung bases DDx: DVT, CHF, NICOLE, dependent edema, cellulitis, compression of lymphatics Because of history of malignancy will order u/s to check for DVT. CXR ordered to check for fluid, however pt is on lasix. No symptoms of sob, cp, lightheadedness. have lower suspicion for chf/copd. Labs do not show evidence of kidney injury. blood counts wnl. Calcium 7.7 however pt does not have signs of hypocalcemia (negative [place] and Trousseau) CXR does not show acute changes from prior cxr. DVT study: negative for DVT. Will increase dose of Lasix to 40mg BID. Pt has follow up on Tuesday, no DVT, no signs of CHF. Can be dc home. Pt given strict return precautions and verbalized understanding. *DC/Admit/Observation/Transfer Diagnosis at time of Disposition: Lower extremity edema - Discharge Dispostion Disposition: HOME Condition at time of disposition: Good Decision to Admit order: No - Prescriptions Prescriptions: Furosemide [Lasix -] 40 mg PO BID #10 tablet - Referrals Referrals: Mariam May MD [Primary Care Provider] - - Patient Instructions Additional Instructions: You were seen here today for swelling of your legs. Your blood tests, xray and ultrasound studies were normal. Your calcium level is a little low. Please continue to see Dr. May for further evaluation and management of your symptoms. Please keep your oncology appointments as well. Keep your legs propped up when you are sitting or sleeping and wear compression stockings. A prescription was sent to your pharmacy for Lasix 40mg Take it twice a day unless otherwise directed by your doctor. Come back to the emergency room if: swelling gets worse, you develop chest pain , you pass out, you feel short of breath, you have palpitations, you develop fever, your skin starts changing colors or if any new concerning symptom develops. Thank you - Post Discharge Activity
[2018-02-27 13:05] LABS: EOS % 2.6 % (0-4.5); HEMATOCRIT 38.8 % (35.4-49); LYMPH % 25.8 % (8-40); MCH 31.5 pg (25.7-33.7); MCHC 33.6 g/dl (32.0-35.9); MEAN CELL VOLUME 93.9 fl (80-96); MEAN PLT VOLUME 7.4 fl (7.5-11.1); MONO % 11.6 % (3.8-10.2); PLATELET COUNT 208 K/MM3 (134-434); RBC 4.13 M/mm3 (4.00-5.60); RDW 16.7 % (11.9-15.9); WHITE BLOOD COUNT 5.7 K/mm3 (4.0-10.0)
[2018-02-27 13:23] LABS: ALBUMIN 2.6 g/dl (3.4-5.0); ALK PHOS 120 U/L (45-117); ANION GAP 8 MMOL/L (8-16); BILIRUBIN,TOTAL 0.2 mg/dL (0.2-1); BLOOD UREA NITROGEN 47 mg/dL (7-18); CALCIUM 7.7 mg/dL (8.5-10.1); CHLORIDE 104 mmol/L (98-107); CO2 29 mmol/L (21-32); CREATININE 0.9 mg/dL (0.55-1.3); GLUCOSE,RANDOM 172 mg/dL (74-106); POTASSIUM 3.9 mmol/L (3.5-5.1); SGOT/AST 26 U/L (15-37); SGPT/ALT 26 U/L (13-61); SODIUM 142 mmol/L (136-145); TOT PROT 5.7 g/dl (6.4-8.2)
== END 2018-02-27 16:01 | disposition home or self-care (01) ==
LOC: JER 12:05
DX: M79.89 Other specified soft tissue disorders (principal); Z85.850 Personal history of malignant neoplasm of thyroid; Z87.891 Personal history of nicotine dependence; E78.00 Pure hypercholesterolemia, unspecified
CPT/HCPCS: 36415; 71046-TC-FY; 80053; 85025; 93970-TC; 99282-25

== ENCOUNTER 2018-03-07 10:37 | Emergency (ER) | payer OTHER ==
[2018-03-07 10:57] VITALS: TEMP 97.6; BMI 20.9
[2018-03-07] MEDS ORDERED: RABIES VACCINE (PCEC)/PF 2.5 UNIT/VIAL IM ONE ×2 (11:14→11:21)
--- NOTE | 2018-03-07 11:21 | PDOC ---
History of Present Illness - General Chief Complaint: Revisit,Wound Recheck Stated Complaint: TREATMENT Time Seen by Provider: 03/07/18 11:14 History Source: Patient Exam Limitations: No Limitations - History of Present Illness Initial Comments: 03/07/18 11:15 Here for last of rabies vaccine series. Denies any issues with previous injections. With this discussion patient reports that he has recurrence and worsening of his bilateral lower extremity edema. Was seen on February 27 in this ER for same. Was recommended compression stockings Lasix and followed up with his PMD. States PMD recommended same treatment but those recommendations have not resolved issue. Denies fevers, denies chest pain or palpitations, denies any breathing problems or shortness of breath. Denies any changes in his activity although is primarily sedentary due to chronic low back pain. 03/07/18 11:19 Timing/Duration: unsure Severity: moderate, severe Past History - Travel Traveled outside of the country in the last 30 days: No Close contact w/someone who was outside of country & ill: No - Past Medical History Allergies/Adverse Reactions: Allergies Allergy/AdvReac Type Severity Reaction Status Date / Time No Known Drug Allergies Allergy Verified 02/20/18 09:43 Home Medications: Ambulatory Orders Atorvastatin Ca [Lipitor] 20 mg PO HS 06/17/11 clonazePAM [Klonopin -] 0.25 mg PO DAILY 06/17/11 Escitalopram Oxalate [Lexapro -] 20 mg PO DAILY 07/18/15 Levothyroxine Sodium [Unithroid] 175 mcg PO ASDIR 07/24/15 Cholecalciferol (Vitamin D3) [Vitamin D3] 1,000 unit PO DAILY 07/25/15 Vitamin E 400 unit PO DAILY 07/25/15 Acetaminophen [Pain Reliever] 500 mg PO PRN PRN 10/07/16 Cyanocobalamin Vit B-12 Inj. [Redisol] 1,000 mcg IM MONTHLY 10/07/16 Atenolol [Tenormin -] 25 mg PO DAILY 02/06/18 Dabrafenib Mesylate [Tafinlar] 150 mg PO Q12H 02/27/18 Denosumab [Xgeva] 120 mg SQ MONTHLY 02/27/18 Furosemide [Lasix -] 40 mg PO BID #10 tablet 02/27/18 Trametinib Dimethyl Sulfoxide [Mekinist] 2 mg PO DAILY 02/27/18 Furosemide [Lasix -] 40 mg PO BID #14 tablet 03/07/18 Anemia: Yes Asthma: No Cancer: Yes (papillary thryroid ca) Cardiac Disorders: No CVA: No COPD: No CHF: No Dementia: No Diabetes: No GI Disorders: Yes (GASTRIC ULCER) Disorders: No HTN: No Hypercholesterolemia: Yes Liver Disease: No Psychiatric Problems: Yes Seizures: No Thyroid Disease: Yes (thyroid ca) - Surgical History Abdominal Surgery: Yes (BILATERAL INGUINAL HERNIA,) Appendectomy: No Cardiac Surgery: No Cholecystectomy: No GI Surgery: Yes (DUODEAL ULCER GASTRECTOMY) Lung Surgery: No Neurologic Surgery: No Orthopedic Surgery: No - Immunization History Immunization Up to Date: Yes - Suicide/Smoking/Psychosocial Hx Smoking History: Current every day smoker Have you smoked in the past 12 months: No Number of Cigarettes Smoked Daily: 10 Information on smoking cessation initiated: No 'Breaking Loose' booklet given: 10/17/14 Hx Alcohol Use: No Drug/Substance Use Hx: No Substance Use Type: None Hx Substance Use Treatment: No Review of Systems - Review of Systems Able to Perform ROS?: Yes Is the patient limited [place] proficient: Yes Constitutional: Yes: Symptoms Reported, See HPI, Malaise. No: Chills, Fever, Loss of Appetite HEENTM: Yes: See HPI. No: Symptoms Reported Respiratory: Yes: See HPI. No: Cough, Shortness of Breath, Wheezing ABD/GI: No: Symptoms Reported : No: Symptoms Reported Musculoskeletal: Yes: Symptoms Reported, See HPI, Back Pain (chronic) Integumentary: Yes: Symptoms Reported, See HPI, Pallor, Pruritus (weeping and swollen) All Other Systems: Reviewed and Negative *Physical Exam - Vital Signs Last Vital Signs Temp Pulse Resp BP Pulse Ox 97.6 F 64 16 122/62 98 03/07/18 10:55 03/07/18 10:55 03/07/18 10:55 03/07/18 10:55 03/07/18 10:55 - Physical Exam General Appearance: Yes: Nourished, Appropriately Dressed, Apparent Distress HEENT: positive: RUPERT, TMs Normal Neck: positive: Supple. negative: Tender, Lymphadenopathy (R), Lymphadenopathy (L) Respiratory/Chest: positive: Lungs Clear (but diminshed. ), Normal Breath Sounds Gastrointestinal/Abdominal: positive: Soft Extremity: positive: Normal Capillary Refill, Tender, Other (weeping and pitting edema to bilateral lower extremities , severe pVD skin changes and sensation diminished ~ mid tibial ). negative: Normal Inspection, Normal Range of Motion Integumentary: positive: Warm, Pale Neurologic: positive: auditor internal II-XII NML intact, Fully Oriented, Alert, Normal Mood/ Affect, Normal Response, Motor Strength 5/5 Moderate Sedation - Procedure Monitoring Vital Signs: Procedure Monitoring Vital Signs Temperature 97.6 F 03/07/18 10:55 Pulse Rate 64 03/07/18 10:55 Respiratory Rate 16 03/07/18 10:55 Blood Pressure 122/62 03/07/18 10:55 O2 Sat by Pulse Oximetry (%) 98 03/07/18 10:55 ED Treatment Course - LABORATORY CBC & Chemistry Diagram: 03/07/18 13:26 03/07/18 13:26 Medical Decision Making - Medical Decision Making 03/07/18 11:35 RABIES VACCINE GIVEN- last of series for prophylaxis. Due to more extensive nature of complaints, patient requests to be seen in Main ER as knows may need another workup for worsening peripheral edema. Taken to [facility],laboratory cureman Elizabeth hodgson, will give turnover when Dr assigned. 03/07/18 11:35 *DC/Admit/Observation/Transfer Diagnosis at time of Disposition: Lower extremity edema - Discharge Dispostion Disposition: HOME Condition at time of disposition: Stable Decision to Admit order: No - Prescriptions Prescriptions: Furosemide [Lasix -] 40 mg PO BID #14 tablet - Referrals Referrals: Mariam May MD [Primary Care Provider] - - Patient Instructions Printed Discharge Instructions: DI for Peripheral Edema -- Bilateral Additional Instructions: You were seen for swelling in your lower extremities. The ultrasound and lab work were normal other than a low albumin level which is likely contributing to the swelling in your legs. Please follow up with your primary care physician in 1-3 days. Please return to the ER if you have any signs or symptoms of chest pain, shortness of breath, uncontrollable fever, chills, nausea, vomiting, numbness, tingling, or weakness in any part of your body, changes in vision, or slurred speech.. Please take your medications as prescribed. Please return to the ER if symptoms persist, worsen, or new symptoms arise. - Post Discharge Activity
--- NOTE | 2018-03-07 13:48 | PDOC ---
History of Present Illness - General Chief Complaint: Revisit,Wound Recheck Stated Complaint: TREATMENT Time Seen by Provider: 03/07/18 11:14 History Source: Patient Exam Limitations: No Limitations - History of Present Illness Initial Comments: 03/07/18 13:48 The patient is a 78M with a PMH of metastatic thyroid cancer w/ mets to lung and bones on oral chemo, HTN, sciatica who presents to the ER with complaints of leg swelling. The patient was seen in our fast track for rabies and then expressed concern of worsening leg swelling. The patient states that for the last 2 weeks, his b/l lower extremities have had worsening swelling with weeping. He denies any CP, SOB, numbness, tingling, and weakness. Past History - Past Medical History Allergies/Adverse Reactions: Allergies Allergy/AdvReac Type Severity Reaction Status Date / Time No Known Drug Allergies Allergy Verified 02/20/18 09:43 Home Medications: Ambulatory Orders Atorvastatin Ca [Lipitor] 20 mg PO HS 06/17/11 clonazePAM [Klonopin -] 0.25 mg PO DAILY 06/17/11 Escitalopram Oxalate [Lexapro -] 20 mg PO DAILY 07/18/15 Levothyroxine Sodium [Unithroid] 175 mcg PO ASDIR 07/24/15 Cholecalciferol (Vitamin D3) [Vitamin D3] 1,000 unit PO DAILY 07/25/15 Vitamin E 400 unit PO DAILY 07/25/15 Acetaminophen [Pain Reliever] 500 mg PO PRN PRN 10/07/16 Cyanocobalamin Vit B-12 Inj. [Redisol] 1,000 mcg IM MONTHLY 10/07/16 Atenolol [Tenormin -] 25 mg PO DAILY 02/06/18 Dabrafenib Mesylate [Tafinlar] 150 mg PO Q12H 02/27/18 Denosumab [Xgeva] 120 mg SQ MONTHLY 02/27/18 Furosemide [Lasix -] 40 mg PO BID #10 tablet 02/27/18 Trametinib Dimethyl Sulfoxide [Mekinist] 2 mg PO DAILY 02/27/18 Anemia: Yes Asthma: No Cancer: Yes (papillary thryroid ca) Cardiac Disorders: No CVA: No COPD: No CHF: No Dementia: No Diabetes: No GI Disorders: Yes (GASTRIC ULCER) Disorders: No HTN: No Hypercholesterolemia: Yes Liver Disease: No Psychiatric Problems: Yes Seizures: No Thyroid Disease: Yes (thyroid ca) - Surgical History Abdominal Surgery: Yes (BILATERAL INGUINAL HERNIA,) Appendectomy: No Cardiac Surgery: No Cholecystectomy: No GI Surgery: Yes (DUODEAL ULCER GASTRECTOMY) Lung Surgery: No Neurologic Surgery: No Orthopedic Surgery: No - Immunization History Immunization Up to Date: Yes - Suicide/Smoking/Psychosocial Hx Smoking History: Current every day smoker Have you smoked in the past 12 months: No Number of Cigarettes Smoked Daily: 10 Information on smoking cessation initiated: No 'Breaking Loose' booklet given: 10/17/14 Hx Alcohol Use: No Drug/Substance Use Hx: No Substance Use Type: None Hx Substance Use Treatment: No Review of Systems - Review of Systems Able to Perform ROS?: Yes Comments:: 03/07/18 14:00 GENERAL/CONSTITUTIONAL: No fever or chills. No weakness. HEAD, EYES, EARS, NOSE AND THROAT: No change in vision. No ear pain or discharge. No sore throat. CARDIOVASCULAR: No chest pain, palpitations, or lightheadedness. RESPIRATORY: No cough, wheezing, shortness of breath, or hemoptysis. GASTROINTESTINAL: No nausea, vomiting, diarrhea, constipation, or abdominal pain. GENITOURINARY: No dysuria, frequency, hematuria, or change in urination. MUSCULOSKELETAL: Positive for b/l LE edema. No joint or muscle swelling or pain. No neck or back pain. SKIN: No rash or lesions. NEUROLOGIC: No headache, numbness, tingling, focal weakness, loss of consciousness, or change in strength/sensation. Is the patient limited [place] proficient: No *Physical Exam - Vital Signs Last Vital Signs Temp Pulse Resp BP Pulse Ox 97.6 F 64 16 122/62 98 03/07/18 10:55 03/07/18 10:55 03/07/18 10:55 03/07/18 10:55 03/07/18 10:55 - Physical Exam Comments: 03/07/18 14:01 GENERAL: Well developed, well nourished. Awake and alert. No acute distress. HEENT: Normocephalic, atraumatic. Hearing grossly normal. Moist mucous membranes. PERRLA, EOMI. No conjunctival pallor. Sclera are non-icteric. NECK: Supple. Full ROM. No JVD. CARDIOVASCULAR: Regular rate and rhythm. No murmurs, rubs, or gallops. PULMONARY: No evidence of respiratory distress. Diffuse rales in all lung zamorano. ABDOMINAL: Soft. Non-tender. Non-distended. No rebound or guarding. GENITOURINARY: No CVA tenderness bilaterally. MUSCULOSKELETAL: Normal range of motion at all joints. No bony deformities or tenderness. EXTREMITIES: No cyanosis. No clubbing. 3-4+ pitting edema in b/l LE, R>L. No calf tenderness or swelling. SKIN: Warm and dry. Normal capillary refill. No rashes. No jaundice. NEUROLOGICAL: Alert, awake, appropriate. Cranial nerves 2-12 grossly intact. Normal speech. Gait is normal without ataxia. PSYCHIATRIC: Cooperative. Good eye contact. Appropriate mood and affect. Moderate Sedation - Procedure Monitoring Vital Signs: Procedure Monitoring Vital Signs Temperature 97.6 F 03/07/18 10:55 Pulse Rate 64 03/07/18 10:55 Respiratory Rate 16 03/07/18 10:55 Blood Pressure 122/62 03/07/18 10:55 O2 Sat by Pulse Oximetry (%) 98 03/07/18 10:55 ED Treatment Course - LABORATORY CBC & Chemistry Diagram: 03/07/18 13:26 03/07/18 13:26 - RADIOLOGY Radiology Studies Ordered: Category Date Time Status CHEST PA & LAT [RAD] Stat Radiology 03/07/18 13:14 Ordered DUPLEX VASCUL US-2LEGS [US] Stat Ultrasound 03/07/18 13:15 Ordered - Medications Given in the ED: ED Medications Discontinued Medications Generic Name Dose Route Start Last Admin Trade Name Freq PRN Reason Stop Dose Admin Rabies Vaccine 2.5 unit 03/07/18 11:14 03/07/18 11:27 Rabavert Rabies Vaccine IM 03/07/18 11:15 2.5 unit .ONCE ONE Administration Medical Decision Making - Medical Decision Making 03/07/18 13:50 The patient is a 78M with a PMH of metastatic thyroid CA, HTN, and chronic LE edema who presents to the ER for subjectively worsening lower extremity edema. I have spoken with the pt's PCP who states that the patient chronically has hypoalbuminemia and venous stasis. He has not had an echo recently at her office , but may have been done at [facility] (Dr. Marek Aguilar). The patient was seen here 1 week ago but did not have rales on their exam. Ordering duplex of b/l LE , BNP, troponin, and CXR to evaluate for new causes of edema. 03/07/18 14:58 Preliminary read of CXR negative. Pt has low albumin on labs, BNP in 600's, with unremarkable CXR likely not CHF exacerbation. DVT study negative. Will refill lasix and d/c with PCP f/u. *DC/Admit/Observation/Transfer Diagnosis at time of Disposition: Lower extremity edema - Discharge Dispostion Disposition: HOME Condition at time of disposition: Stable Decision to Admit order: No - Referrals Referrals: Mariam May MD [Primary Care Provider] - - Patient Instructions Printed Discharge Instructions: Getting to the Heart of a Healthy Diet: Protein -Rich Foods Additional Instructions: You were seen for swelling in your lower extremities. The ultrasound and labwork were normal. Please follow up with your primary care physician in 1-3 days. Please return to the ER if you have any signs or symptoms of chest pain, shortness of breath, uncontrollable fever, chills, nausea, vomiting, numbness, tingling, or weakness in any part of your body, changes in vision, or slurred speech. Please take your medications as prescribed. Please return to the ER if symptoms persist, worsen, or new symptoms arise. - Post Discharge Activity
[2018-03-07] MEDS ORDERED: FUROSEMIDE 40 MG/4 ML INJECTABLE VIAL ONE (13:50)
[2018-03-07 14:05] LABS: EOS % 3.2 % (0-4.5); HEMATOCRIT 35.6 % (35.4-49); HEMOGLOBIN 11.1 GM/dL (11.7-16.9); LYMPH % 22.5 % (8-40); MCH 30.2 pg (25.7-33.7); MCHC 31.1 g/dl (32.0-35.9); MEAN CELL VOLUME 96.9 fl (80-96); MEAN PLT VOLUME 7.1 fl (7.5-11.1); NEUT % 62.3 % (42.8-82.8); PLATELET COUNT 218 K/MM3 (134-434); RBC 3.67 M/mm3 (4.00-5.60); RDW 16.6 % (11.9-15.9); WHITE BLOOD COUNT 6.8 K/mm3 (4.0-10.0)
[2018-03-07 14:38] LABS: ALBUMIN 2.4 g/dl (3.4-5.0); ALK PHOS 87 U/L (45-117); ANION GAP 5 MMOL/L (8-16); BILIRUBIN,TOTAL 0.2 mg/dL (0.2-1); BLOOD UREA NITROGEN 36 mg/dL (7-18); CALCIUM 8.2 mg/dL (8.5-10.1); CHLORIDE 106 mmol/L (98-107); CO2 33 mmol/L (21-32); CREATININE 0.9 mg/dL (0.55-1.3); GLUCOSE,RANDOM 81 mg/dL (74-106); POTASSIUM 4.6 mmol/L (3.5-5.1); SGOT/AST 27 U/L (15-37); SGPT/ALT 33 U/L (13-61); SODIUM 144 mmol/L (136-145); TOT PROT 5.5 g/dl (6.4-8.2)
[2018-03-07] MEDS: FUROSEMIDE 40 MG/4 ML INJECTABLE VIAL IVPUSH ONE ×2 (14:39→15:03)
[2018-03-07] MEDS ORDERED: FUROSEMIDE 40 MG TABLET (FP) PO ONE (14:52)
--- NOTE | 2018-03-07 15:02 | PDOC ---
Attending Attestation - Resident Resident Name: Tip Salguero - ED Attending Attestation I have performed the following: I have examined & evaluated the patient, The case was reviewed & discussed with the resident, I agree w/resident's findings & plan, Exceptions are as noted - HPI HPI: 03/07/18 15:01 The patient is a 78 year old male with a significant PMH of metastatic thyroid cancer and HTN who presents to the emergency department initially for his last rabies vaccine for a raccoon bite but is also complaining of recurrent lower extremity swelling. Patient was seen on February 27 in this ER for similar symptoms and was prescribed lasix 40mg BID. Patient states the lasix has helped with the swelling but ran out of it yesterday morning. at bedside, states the patient's oncologist told them the lower leg swelling may be a result of a new thyroid cancer medicine he is on. We also spoke with Dr. Garcia, PCP, who states he always has lower extremity edema and it is a chronic issue. The patient denies chest pain, shortness of breath, headache and dizziness. Denies fever, chills, nausea, vomit, diarrhea and constipation. Denies dysuria, frequency, urgency and hematuria. Allergies: NKA Past surgical history: None reported. Social history: No reported alcohol, drug or cigarette use. - Physicial Exam PE: 03/07/18 15:02 GENERAL: Awake, alert, and fully oriented, in no acute distress EYES: PERRLA, EOMI, sclera anicteric, conjunctiva clear ENT: Oropharynx clear without exudates. Moist mucosa NECK: Normal ROM, supple, no lymphadenopathy, JVD, or masses LUNGS: Breath sounds equal, clear to auscultation bilaterally. No wheezes, and no crackles HEART: Regular rate and rhythm, normal S1 and S2, no murmurs, rubs or gallops ABDOMEN: Soft, nontender, normoactive bowel sounds. No guarding, no rebound. No masses EXTREMITIES: Normal range of motion, 1+ pitting edema to the knees b/l RLE>LLE. No clubbing or cyanosis. No cords, erythema, or tenderness BACK: No midline spinal tenderness in cervical/thoracic/lumbar region NEUROLOGICAL: Normal speech, cranial nerves intact, equal strength and sensation b/l SKIN: Warm, Dry, normal turgor, no rashes or lesions noted. - Medical Decision Making 03/07/18 15:09 78yo M presents to the ED for rabies vaccine redose as well as for increasing LE edema. Vitals wnl. Exam with clear lungs, +R>L LE edema. Per PMD, pt has chronic LE edema due to venous stasis as well as hypoalbuminemia. also reports their oncologist reported the new thyroid ca could exacerbate LE swelling. Labs here unremarkable. BNP mildly elevated but pt does not appear to be in CHF , lungs clear, CXR clear on my read, satting well, in no resp distress Rpt US neg for DVT Swelling likely 2/2 hypoalbuminema, venous stasis, and new chemo medication Will refill lasix 40mg BID as states his swelling improved when he was taking it Pt feels well, will f/u with PMD in 1-2 days I discussed the physical exam findings, ancillary test results and final diagnoses with the patient. I answered all of the patient's questions. The patient was satisfied with the care received and felt comfortable with the discharge plan and treatment plan. The patient will call their primary care physician within 24 hours to arrange follow-up and will return to the Emergency Department with any new, persistent or worsening symptoms. Heart Score/ECG Review #1 03/07/18 15:25 Twelve-lead EKG was performed and reviewed by me. Sinus rhythm, rate 62. + PACs. When compared to EKG from 11/08/2017, no significant changes.
[2018-03-07] MEDS ORDERED: FUROSEMIDE 40 MG TABLET (FP) ONE (15:03)
[2018-03-07 15:11] VITALS: BP 138/78; PULSE 77
--- NOTE | 2018-03-07 15:31 | EKG ---
Test Reason : Blood Pressure : / mmHG Vent. Rate : 062 BPM Atrial Rate : 062 BPM P-R Int : 124 ms QRS Dur : 086 ms QT Int : 466 ms P-R-T Axes : 000 -03 034 degrees QTc Int : 472 ms POOR DATA QUALITY, INTERPRETATION MAY BE ADVERSELY AFFECTED SINUS RHYTHM WITH PREMATURE SUPRAVENTRICULAR COMPLEXES NONSPECIFIC T WAVE ABNORMALITY ABNORMAL ECG WHEN COMPARED WITH ECG OF 08-NOV-2017 11:56, NO SIGNIFICANT CHANGE WAS FOUND Confirmed by Simon Marinelli ([id number]) on 03/07/2018 3:31:14 PM Referred By: Confirmed By:Simon Marinelli
== END 2018-03-07 15:11 | disposition home or self-care (01) ==
LOC: JERFT 10:37 → JER 10:37
PROC: 3E0234Z Introduction of Serum, Toxoid and Vaccine into Muscle, Percutaneous Approach (ICD-10-PCS; principal; 2018-03-07)
DX: M79.89 Other specified soft tissue disorders (principal); I10 Essential (primary) hypertension; Z85.850 Personal history of malignant neoplasm of thyroid
CPT/HCPCS: 36415; 71046-TC-FY; 80053; 83880; 85025; 90471; 90675; 93005; 93010; 93970-TC; 99283-25

== ENCOUNTER 2018-03-18 13:10 | Inpatient (IN) | payer OTHER ==
--- NOTE | 2018-03-18 13:28 | PDOC ---
History of Present Illness - General Chief Complaint: Edema Stated Complaint: SWOLLEN LEGS, BLISTERS TO LEGS Time Seen by Provider: 03/18/18 13:23 - History of Present Illness Initial Comments: 03/18/18 14:19 78yo male with hx of thyroid ca on 2 oral chemo agents x 2 months presents for eval of persistent LE swelling and drainage. Pt has been seen multiple times in the ED at [facility] for the swelling - has increased dose of lasix. Pt follows with Heme/Onc at [facility]. States LE swelling is a side effect of his chemo agents and to continue lasix therapy. Pt states despite lasix therapy, the swelling has continued to increase - now with blistering and redness. Now with purulent drainage from the blisters and increased redness. No ttp. No warmth. Pt with 4+ pitting edema to LE. Multiple duplex ultrasound negative for dvt. Pt also with a nonproductive cough x 2 weeks. No f/c. No cp/sob. No abd pain. No n/v/d. No rhinorrhea or sore throat. No dysuria. No other complaints. 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 on oral chemo, HTN, sciatica pshx: thyroidectomy allergies: NKDA 03/18/18 14:23 Past History - Past Medical History Allergies/Adverse Reactions: Allergies Allergy/AdvReac Type Severity Reaction Status Date / Time No Known Drug Allergies Allergy Verified 03/18/18 13:17 Home Medications: Ambulatory Orders Atenolol [Tenormin -] 25 mg PO DAILY 03/18/18 Atorvastatin Ca [Lipitor] 40 mg PO DAILY 03/18/18 Calcium Carbonate [Oysco-500] 500 mg PO DAILY 03/18/18 Cholecalciferol (Vitamin D3) [Vitamin D3] 1,000 unit PO DAILY 03/18/18 Clonazepam 0.5 mg PO DAILY 03/18/18 Dabrafenib Mesylate [Tafinlar] 75 mg PO Q12H 03/18/18 Denosumab [Xgeva] 120 mg IJ ASDIR 03/18/18 Escitalopram Oxalate [Lexapro -] 20 mg PO DAILY 03/18/18 Ferrous Sulfate 325 mg PO DAILY 03/18/18 Furosemide 20 mg PO BID 03/18/18 Levothyroxine Sodium [Synthroid] 225 mcg PO DAILY 03/18/18 Anemia: Yes Asthma: No Cancer: Yes (papillary thryroid ca) Cardiac Disorders: No CVA: No COPD: No CHF: No Dementia: No Diabetes: No GI Disorders: Yes (GASTRIC ULCER) Disorders: No HTN: No Hypercholesterolemia: Yes Liver Disease: No Psychiatric Problems: Yes Seizures: No Thyroid Disease: Yes (thyroid ca) - Surgical History Abdominal Surgery: Yes (BILATERAL INGUINAL HERNIA,) Appendectomy: No Cardiac Surgery: No Cholecystectomy: No GI Surgery: Yes (DUODEAL ULCER GASTRECTOMY) Lung Surgery: No Neurologic Surgery: No Orthopedic Surgery: No - Immunization History Immunization Up to Date: Yes - Suicide/Smoking/Psychosocial Hx Smoking History: Current every day smoker Have you smoked in the past 12 months: No Number of Cigarettes Smoked Daily: 10 'Breaking Loose' booklet given: 10/17/14 Hx Alcohol Use: No Drug/Substance Use Hx: No Substance Use Type: None Hx Substance Use Treatment: No Review of Systems - Review of Systems Able to Perform ROS?: Yes Is the patient limited Arabic proficient: No Constitutional: No: Chills, Fever HEENTM: No: Nose Congestion, Throat Pain Respiratory: Yes: Cough. No: Shortness of Breath, SOB with Exertion, SOB at Rest, Productive cough Cardiac (ROS): Yes: Edema. No: Chest Pain, Lightheadedness, Palpitations ABD/GI: No: Abdominal Distended, Diarrhea, Nausea, Vomiting, Indigestion : No: Burning, Dysuria Musculoskeletal: No: Back Pain Integumentary: Yes: Erythema, Rash, Other (swelling to b/l LE with blisters and purulent drainage from the wounds) Neurological: No: Headache, Numbness, Paresthesia, Tingling All Other Systems: Reviewed and Negative *Physical Exam - Vital Signs 03/18/18 14:25 Selected Entries 03/18/18 13:10 Temperature 97.8 F Pulse Rate 70 Respiratory 18 Rate Respiratory Normal Depth Respiratory Non-Labored Effort Blood Pressure 137/73 Blood Pressure 94 Mean O2 Sat by Pulse 96 Oximetry (%) Weight 70.307 kg - Physical Exam General Appearance: Yes: Nourished, Appropriately Dressed. No: Apparent Distress HEENT: positive: EOMI, Normal Voice Neck: positive: Supple Respiratory/Chest: positive: Crackles (L base). negative: Chest Tender, Respiratory Distress, Rales, Rhonchi, Wheezing Cardiovascular: positive: Regular Rhythm, Regular Rate, S1, S2, Edema Gastrointestinal/Abdominal: positive: Normal Bowel Sounds, Soft. 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 operator II-XII NML intact, Alert, Motor Strength 07/30 ED Treatment Course - LABORATORY CBC & Chemistry Diagram: 03/18/18 13:54 03/18/18 13:54 Medical Decision Making - Medical Decision Making 03/18/18 14:27 a/p: 78yo male with b/l LE swelling, blisters, now with purulent drainage -increasing swelling despite increased lasix dosing -now with redness, blisters, purulent drainage -concern for infected blisters to LE -will send labs, cultures, lactate also cough - on oral chemo -will send labs, cxr -will monitor and reassess pt is nontoxic in appearance and speaking in full sentences 03/18/18 14:31 cxr clear increasing wbc will start iv vanco will send microblog to [facility] will admit for iv abx 03/18/18 14:42 pt updated on labs and cxr findings case discussed with Dr. Holloway from [facility] who accepts pt to service 03/18/18 14:45 pt agrees to stay for further eval *DC/Admit/Observation/Transfer Diagnosis at time of Disposition: Cellulitis, Cough - Discharge Dispostion Condition at time of disposition: Fair Decision to Admit order: Yes - Referrals Referrals: Mariam May MD [Primary Care Provider] - - Patient Instructions - Post Discharge Activity
[2018-03-18 14:11] LABS: BASO % 0.5 % (0-2.0); EOS % 0.8 % (0-4.5); HEMATOCRIT 33.3 % (35.4-49); HEMOGLOBIN 10.6 GM/dl (11.7-16.9); LYMPH % 13.6 % (8-40); MCH 31.3 pg (25.7-33.7); MCHC 31.7 g/dl (32.0-35.9); MEAN CELL VOLUME 98.7 fl (80-96); MEAN PLT VOLUME 7.3 fl (7.5-11.1); MONO % 5.8 % (3.8-10.2); NEUT % 79.3 % (42.8-82.8); PLATELET COUNT 312 K/MM3 (134-434); RBC 3.37 M/mm3 (4.00-5.60); RDW 15.3 % (11.9-15.9); WHITE BLOOD COUNT 13.9 K/mm3 (4.0-10.8)
[2018-03-18 14:20] LABS: ACTIVATED PTT 29.1 SECONDS (25.2-36.5)
[2018-03-18 14:22] LABS: ALBUMIN 2.5 g/dl (3.5-5.0); ALK PHOS 68 U/L (32-92); ANION GAP 10 MMOL/L (8-16); BILIRUBIN,TOTAL 0.5 mg/dl (0.2-1.0); BLOOD UREA NITROGEN 34 mg/dl (7-18); CALCIUM 7.5 mg/dl (8.4-10.2); CHLORIDE 100 mmol/L (98-107); CO2 29 mmol/L (22-28); GLUCOSE,RANDOM 93 mg/dl (74-106); MAGNESIUM 2.2 mg/dL (1.8-2.4); POTASSIUM 4.1 mmol/L (3.5-5.1); SGOT/AST 30 U/L (10-42); SGPT/ALT 25 U/L (10-40); SODIUM 139 mmol/L (136-145); TOT PROT 5.6 g/dl (6.4-8.3)
[2018-03-18 14:24] LABS: INR 1.21 (0.82-1.09); PROTHROMBIN TIME (PATIENT) 13.5 SEC (10.2-13.0)
[2018-03-18] MEDS ORDERED: VANCOMYCIN 1 GRAM (PRE-DOCKED) 1,000 MG/250 ML BAG IVPB ONE (14:33)
[2018-03-18] MEDS ORDERED: VANCOMYCIN 1,000 MG VIAL (RESTRICTED TO ID ONLY) ONE (14:40)
--- NOTE | 2018-03-18 15:38 | EKG ---
Test Reason : Blood Pressure : / mmHG Vent. Rate : 074 BPM Atrial Rate : 074 BPM P-R Int : 138 ms QRS Dur : 086 ms QT Int : 454 ms P-R-T Axes : 054 011 028 degrees QTc Int : 503 ms SINUS RHYTHM WITH PREMATURE ATRIAL COMPLEXES WITH ABERRANT CONDUCTION PROLONGED QT ABNORMAL ECG WHEN COMPARED WITH ECG OF 07-MAR-2018 14:42, NO SIGNIFICANT CHANGE WAS FOUND Confirmed by GRACIE MILAN, EVGENY ([id number]) on 03/18/2018 3:38:26 PM Referred By: BARBI TAYLOR Confirmed By:EVGENY BOWMAN MD
[2018-03-18 16:49] VITALS: BMI 24.6
[2018-03-18] MEDS: HEPARIN NA (PORCINE) 5,000 UNITS/ML 1ML VIAL SQ SCH (22:02)
--- NOTE | 2018-03-18 22:17 | HP ---
Admitting History and Physical - Primary Care Physician PCP: Mariam May - Admission Chief Complaint: Lower Extremity Swelling, Redness and Discharge History of Present Illness: This is a 78 y/o man with a PMHx of:Thyroid Ca w/mets Lung, Bone (on Chemo), HTN, HLD, Sciatica. Who presents to the ED with increased swelling, redness and weeping to his lower extremities started 2 weeks ago worse today. Patient reports having a productive cough with thick white phlegm. Patient reports having Doppler studies of bilateral LE 02/27, 03/07- neg DVT. Patient denies fever,dizziness, SOLANO, CP, palpitations, AP, N/V/D, constipation, dysuria. Patient reports being UTD with Influenza and Pneumoccal vaccines. 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) - Past Surgical History Past Surgical History: Yes: Hernia Repair (thyroidectomy) - Smoking History Smoking history: Current every day smoker Have you smoked in the past 12 months: Yes Aproximately how many cigarettes per day: 10 - Alcohol/Substance Use Hx Alcohol Use: No History of Substance Use: reports: None - Social History Usual Living Arrangement: Yes: With Spouse ADL: Independent (with walker) History of Recent Travel: No Home Medications - Allergies Allergies/Adverse Reactions: Allergies Allergy/AdvReac Type Severity Reaction Status Date / Time No Known Drug Allergies Allergy Verified 03/18/18 13:17 - Home Medications Home Medications: Ambulatory Orders Atenolol [Tenormin -] 25 mg PO DAILY 03/18/18 Atorvastatin Ca [Lipitor] 40 mg PO DAILY 03/18/18 Calcium Carbonate [Oysco-500] 500 mg PO DAILY 03/18/18 Cholecalciferol (Vitamin D3) [Vitamin D3] 1,000 unit PO DAILY 03/18/18 Clonazepam 0.5 mg PO DAILY 03/18/18 Dabrafenib Mesylate [Tafinlar] 75 mg PO Q12H 03/18/18 Denosumab [Xgeva] 120 mg IJ ASDIR 03/18/18 Escitalopram Oxalate [Lexapro -] 20 mg PO DAILY 03/18/18 Ferrous Sulfate 325 mg PO DAILY 03/18/18 Furosemide 20 mg PO BID 03/18/18 Levothyroxine Sodium [Synthroid] 225 mcg PO DAILY 03/18/18 Trametinib Dimethyl Sulfoxide [Mekinist] 2 mg PO DAILY 03/18/18 Review of Systems - Review of Systems Constitutional: reports: Chills. denies: Fever Eyes: reports: No Symptoms HENT: reports: No Symptoms Neck: reports: No Symptoms Cardiovascular: reports: No Symptoms Respiratory: reports: Cough Gastrointestinal: reports: No Symptoms Genitourinary: reports: No Symptoms Breasts: reports: No Symptoms Reported Musculoskeletal: reports: No Symptoms Integumentary: reports: Erythema (weeping to LE) Neurological: reports: Unsteady Gait Endocrine: reports: No Symptoms Hematology/Lymphatic: reports: No Symptoms Psychiatric: reports: No Symptoms Physical Examination Vital Signs: Vital Signs Temperature 99.5 F 03/18/18 21:57 Pulse Rate 83 03/18/18 21:57 Respiratory Rate 18 03/18/18 21:57 Blood Pressure 115/65 03/18/18 21:57 O2 Sat by Pulse Oximetry (%) 95 03/18/18 21:58 Constitutional: Yes: Ashen, Diaphoresis Eyes: Yes: Conjunctiva Clear, EOM Intact, PERRL HENT: Yes: WNL, Atraumatic, Normocephalic Neck: Yes: Supple, Trachea Midline Cardiovascular: Yes: Regular Rate and Rhythm, Murmur, S1, S2 Respiratory: Yes: Rhonchi, Wheezes Gastrointestinal: Yes: WNL, Normal Bowel Sounds, Soft Renal/: Yes: WNL Breast(s): Yes: WNL Musculoskeletal: Yes: WNL Extremities: Yes: Erythema (b/l LE) Edema: Yes Edema: LLE: 2+, RLE: 3+ Peripheral Pulses WNL: Yes Integumentary: Yes: Erythema, Venous Stasis Changes Wound/Incision: Yes: Reddened Neurological: Yes: Alert, Oriented, Ataxia, Tremors (upper extremities), Unsteady Gait Psychiatric: Yes: WNL, Alert, Oriented Labs: CBC, BMP 03/18/18 13:54 03/18/18 13:54 Laboratory Results - last 24 hr 03/18/18 03/18/18 03/18/18 13:54 13:54 13:54 WBC RBC Hgb Hct MCV MCH MCHC RDW Plt Count MPV Absolute Neuts (auto) Neutrophils % Lymphocytes % Monocytes % Eosinophils % Basophils % PT with INR 13.5 H INR 1.21 PTT (Actin FS) 29.1 Sodium 139 Potassium 4.1 Chloride 100 Carbon Dioxide 29 H Anion Gap 10 BUN 34 H Creatinine 1.0 Creat Clearance w eGFR > 60 Random Glucose 93 Lactic Acid 1.8 Calcium 7.5 L Magnesium 2.2 Total Bilirubin 0.5 AST 30 ALT 25 D Alkaline Phosphatase 68 Creatine Kinase Creatine Kinase Index CK-MB (CK-2) Troponin I B-Natriuretic Peptide Total Protein 5.6 L Albumin 2.5 L 03/18/18 03/18/18 03/18/18 13:54 13:54 13:54 WBC 13.9 H RBC 3.37 L Hgb 10.6 L Hct 33.3 L MCV 98.7 H MCH 31.3 MCHC 31.7 L RDW 15.3 Plt Count 312 D MPV 7.3 L Absolute Neuts (auto) 11.0 Neutrophils % 79.3 Lymphocytes % 13.6 Monocytes % 5.8 Eosinophils % 0.8 Basophils % 0.5 PT with INR INR PTT (Actin FS) Sodium Potassium Chloride Carbon Dioxide Anion Gap BUN Creatinine Creat Clearance w eGFR Random Glucose Lactic Acid Calcium Magnesium Total Bilirubin AST ALT Alkaline Phosphatase Creatine Kinase Creatine Kinase Index CK-MB (CK-2) Troponin I < 0.03 B-Natriuretic Peptide 290.8 Total Protein Albumin 03/18/18 13:54 WBC RBC Hgb Hct MCV MCH MCHC RDW Plt Count MPV Absolute Neuts (auto) Neutrophils % Lymphocytes % Monocytes % Eosinophils % Basophils % PT with INR INR PTT (Actin FS) Sodium Potassium Chloride Carbon Dioxide Anion Gap BUN Creatinine Creat Clearance w eGFR Random Glucose Lactic Acid Calcium Magnesium Total Bilirubin AST ALT Alkaline Phosphatase Creatine Kinase 278 Creatine Kinase Index 1.9 CK-MB (CK-2) 5.4 H Troponin I B-Natriuretic Peptide Total Protein Albumin Intake & Output 03/16/18 03/17/18 03/18/18 03/19/18 23:59 23:59 23:59 23:59 Intake Total 490 120 Output Total 100 Balance 490 20 Weight 75.756 kg 72.595 kg Current Medications Generic Name Dose Route Start Last Admin Trade Name Freq PRN Reason Stop Dose Admin Albuterol/Ipratropium 1 amp 03/19/18 06:36 Duoneb - NEB Q6H PRN SHORTNESS OF BREATH Atorvastatin Calcium 40 mg 03/19/18 22:00 Lipitor - PO HS JOCE Calcium Carbonate 500 mg 03/19/18 10:00 Os-Sergio 500mg - PO DAILY JOCE Cholecalciferol 1,000 unit 03/19/18 10:00 Vitamin D3 - PO DAILY JOCE Clonazepam 0.5 mg 03/19/18 01:10 Klonopin - PO DAILY PRN ANXIETY Escitalopram Oxalate 20 mg 03/19/18 10:00 Lexapro - PO DAILY JOCE Ferrous Sulfate 325 mg 03/19/18 10:00 Feosol - PO DAILY JOCE Furosemide 20 mg 03/19/18 06:00 03/19/18 06:41 Lasix - PO 20 mg BIDLASIX JOCE Administration Heparin Sodium (Porcine) 5,000 unit 03/18/18 22:00 03/19/18 06:41 Heparin - SQ 5,000 unit TID JOCE Administration Vancomycin HCl 1,000 mg in 250 mls @ 166.667 mls/hr 03/19/18 10:00 Vancomycin (Pre-Docked) IVPB Q12H [facility] Protocol Levothyroxine Sodium 125 mcg/ 225 mcg 03/19/18 07:00 03/19/18 06:40 Levothyroxine Sodium 100 mcg PO 225 mcg DAILY@0700 JOCE Administration Non-Formulary Medication 2 mg 03/19/18 10:00 Trametinib Dimethyl Sulfoxide [Mekinist] PO DAILY JOCE Vancomycin HCl 1,000 mg 03/19/18 10:00 Vancomycin (Pre-Docked) IVPB 03/19/18 10:01 ONCE ONE Imaging - Results Chest X-ray: Report Reviewed, Image Reviewed EKG: Report Reviewed, Image Reviewed Problem List - Problems (1) Cellulitis Assessment/Plan: Patient reports increased swelling with erythema and weeping Blood Cultures-pending Vancomycin for MRSA Appreciate ID consult Will monitor CBC, BMP Monitor vitals Code(s): L03.90 - CELLULITIS, UNSPECIFIED (2) Lower extremity edema Assessment/Plan: Likely secondary to Cellulitis vs Lymph Edema from Chemo vs DVT Blood Cultures- pending WBC 13.9, LA-nl Vancomycin given in ED, will continue Vancomycin Trough in am Appreciate ID consult Elevate extremities Wells Score 2 Duplex of LE done 02/27, 03/07- both neg DVT Compression hose CBC, BMP in am Code(s): R60.0 - LOCALIZED EDEMA (3) Cough Assessment/Plan: Likely secondary to COPD vs Lung Mets Duonebs prn Guaifenesin prn Monitor vitals Code(s): R05 - COUGH (4) Thyroid cancer Assessment/Plan: s/p Thyroidectomy Continue Mekinist Code(s): C73 - MALIGNANT NEOPLASM OF THYROID GLAND (5) HTN (hypertension) Assessment/Plan: Stable Monitor BP Continue home meds Monitor renal function Code(s): I10 - ESSENTIAL (PRIMARY) HYPERTENSION (6) HLD (hyperlipidemia) Assessment/Plan: Stable Continue Lipitor Monitor LFTs Code(s): E78.5 - HYPERLIPIDEMIA, UNSPECIFIED (7) Hypothyroid Assessment/Plan: Stable Continue Levothyroxine TSH in am Code(s): E03.9 - HYPOTHYROIDISM, UNSPECIFIED (8) Hypocalcemia Assessment/Plan: corrected calcium 8.7 Code(s): E83.51 - HYPOCALCEMIA (9) Ataxia, unspecified Assessment/Plan: Likely secondary to Chemo vs Sciatica PT eval Bedrest Fall Precautions Code(s): R27.0 - ATAXIA, UNSPECIFIED Assessment/Plan This is a 78 y/o man with a PMHx of: Thyroid Ca with mets Lung/Bone (on Chemo), HTN, HLD, Sciatica. Admitted for Cellulitis of Lower Extremity, Lymph Edema for further evaluation of their emergent condition. Plan: FEN Fluid Restriction 1L Replete lytes prn Low Na Diet DVT ppx OOB Heparin SQ Dispo: Requires Inpatient Care Visit type - Emergency Visit Emergency Visit: Yes ED Registration Date: 03/18/18 Care time: The patient presented to the Emergency Department on the above date and was hospitalized for further evaluation of their emergent condition. - New Patient This patient is new to me today: Yes Date on this admission: 03/18/18 - Critical Care Critical Care patient: No
[2018-03-19] MEDS ORDERED: MELATONIN 5 MG TABLETS PO ONE (01:09)
[2018-03-19] MEDS ORDERED: ALBUTEROL SO4 2.5/IPRATROPIUM 0.5 INH SOL 3 ML VIAL.NEB. NEB PRN (06:36)
[2018-03-19] MEDS ORDERED: LEVOTHYROXINE NA 125 MCG TABLET (FP) ONE (06:37)
[2018-03-19] MEDS ORDERED: LEVOTHYROXINE NA 100 MCG TABLET (FP) ONE (06:37)
[2018-03-19] MEDS: LEVOTHYROXINE 125 MCG, LEVOTHYROXINE 100 MCG PO SCH (06:40)
[2018-03-19] MEDS: HEPARIN NA (PORCINE) 5,000 UNITS/ML 1ML VIAL SQ SCH ×3 (06:41→21:18)
[2018-03-19] MEDS: FUROSEMIDE 20 MG TABLET (FP) PO SCH ×2 (06:41→13:39)
[2018-03-19 09:36] LABS: ANION GAP 8 MMOL/L (8-16); BLOOD UREA NITROGEN 29 mg/dl (7-18); CHLORIDE 104 mmol/L (98-107); CO2 27 mmol/L (22-28); CREATININE 0.9 mg/dl (0.6-1.3); GLUCOSE,RANDOM 92 mg/dl (74-106); POTASSIUM 4.5 mmol/L (3.5-5.1); SODIUM 139 mmol/L (136-145)
[2018-03-19 09:38] LABS: BASO % 0.5 % (0-2.0); EOS % 0.7 % (0-4.5); HEMATOCRIT 30.4 % (35.4-49); HEMOGLOBIN 9.6 GM/dl (11.7-16.9); LYMPH % 15.4 % (8-40); MCH 30.9 pg (25.7-33.7); MCHC 31.5 g/dl (32.0-35.9); MEAN CELL VOLUME 98.3 fl (80-96); MEAN PLT VOLUME 7.8 fl (7.5-11.1); MONO % 7.7 % (3.8-10.2); NEUT % 75.7 % (42.8-82.8); PLATELET COUNT 285 K/MM3 (134-434); RBC 3.09 M/mm3 (4.00-5.60); RDW 15.7 % (11.9-15.9); WHITE BLOOD COUNT 12.8 K/mm3 (4.0-10.8)
--- NOTE | 2018-03-19 09:56 | PN ---
Progress Note (short form) - Note Progress Note: ID Consult dictated Cellulitis LE bilaterally R >L Leukocytosis possible sepsis secondary to skin source L groin cellulitis ? Lymphadenopathy/ lymphangitis Metastatic thyroid ca Await c/s Empiric vancomycin/ cerftriaxone
[2018-03-19] MEDS ORDERED: CEFTRIAXONE 2 GM-D5W BAG 2 GM/50 ML BAG IVPB SCH (10:00)
[2018-03-19] MEDS ORDERED: VANCOMYCIN 1 GRAM (PRE-DOCKED) 1,000 MG/250 ML BAG IVPB SCH (10:00)
[2018-03-19] MEDS ORDERED: VANCOMYCIN 1 GRAM (PRE-DOCKED) 1,000 MG/250 ML BAG IVPB ONE (10:00)
[2018-03-19] MEDS ORDERED: TRAMETINIB DIMETHYL SULFOXIDE 2 MG PO SCH (10:00)
[2018-03-19] MEDS ORDERED: VANCOMYCIN 1,000 MG in DEXTROSE 5%-WATER - 250 ML IVPB SCH (10:00)
[2018-03-19] MEDS ORDERED: LEVOTHYROXINE NA 88 MCG TABLET (FP) PO SCH (10:00)
[2018-03-19] MEDS: FERROUS SO4 325 MG TABLET (FP) PO SCH (10:11)
[2018-03-19] MEDS: CHOLECALCIFEROL (VITAMIN D3) 1,000 UNIT TABLET (FP) PO SCH (10:11)
[2018-03-19] MEDS: ESCITALOPRAM OXALATE 20 MG TABLET (FP) PO SCH (10:11)
[2018-03-19] MEDS: CALCIUM (OYSTER SHELL) 500 MG TABLET (FP) PO SCH (10:11)
[2018-03-19] MEDS: clonazePAM 0.5 MG TABLET PO PRN (10:12)
--- NOTE | 2018-03-19 11:23 | CONS ---
DATE OF CONSULTATION: DATE OF DICTATION: 03/19/2018 The patient is a 78-year-old male evaluated for bilateral lower extremity cellulitis. He has a history of metastatic thyroid cancer and is followed at [facility]. He is on chemotherapy. He has had chronic lower extremity swelling. Most recently, he developed worsening swelling associated with development of blisters and erythema. He noted weepage and then drainage of prince pus. According to the notes, he has had several emergency room visits, where he was evaluated and treated symptomatically. He now reports worsening erythema, warmth, and swelling of the lower extremities, right greater than left. He denies any associated fever or chills. He is up-to-date with respect to his influenza and pneumococcal vaccines. He denies any traumatic injury to his lower extremities. No insect or animal bites or scratches. PAST MEDICAL HISTORY: Positive for metastatic thyroid cancer with lung and bone involvement, on chemotherapy, history of hypertension, hyperlipidemia, sciatica, COPD. PAST SURGICAL HISTORY: Status post thyroid surgery and bilateral inguinal hernia repair. No known allergies. MEDICATIONS: Atenolol; Lipitor; clonazepam; Lexapro; Lasix; Synthroid; Tafinlar. Medications at the present time include heparin; Lexapro; Klonopin; DuoNeb; Robitussin; Lipitor; Lasix; levothyroxine. SOCIAL HISTORY: Positive for tobacco use. Lives at home in the community. SYSTEMS REVIEW: Neurologic: No loss of consciousness, seizure activity, focal weakenss. Cardiac: Negative chest pain or palpitations. Respiratory: Positive for cough, nonproductive. No chest pain or dyspnea. Gastrointestinal: Negative vomiting or diarrhea. Genitourinary: Negative for urinary tract infection. LABORATORY DATA: White count 13.9 with 79% neutrophils, hematocrit 33.3, platelet count 312. BUN 34, creatinine 1.0. Blood and wound cultures are pending. PHYSICAL EXAMINATION: General: He is out of bed to chair. He is not acutely toxic-appearing. Vital Signs: Temperature 98.5, blood pressure 94/78, pulse 76 and regular, respirations 18/min. HEENT: Sclerae anicteric. Heart Sounds: S1, S2. Lungs: Few rhonchi bilaterally. Abdomen: Soft. No tenderness elicited. No mass, rebound, or rigidity. On examination of the right groin, there is slight erythema present in the right inguinal area above the inguinal ligament with induration. Lower Extremities: Two-plus lower extremity edema bilaterally. There is confluent erythema present in the right pretibial area, approximately 12 x 6 cm. There are shallow-based ulcers present with no purulent drainage. On examination of the left lower extremity, patchy erythema present to a lesser extent. No purulent drainage is noted. IMPRESSION: 1. Cellulitis, lower extremities, bilaterally, right greater than left. 2. Right groin cellulitis with induration, possible lymphadenopathy. 3. Metastatic thyroid cancer. Await culture results, empiric antibiotic coverage with vancomycin and ceftriaxone, elevation, local wound care. Thank you for the kind referral. ARMANDO GARCIA M.D. OCTAVIO/[id number]
--- NOTE | 2018-03-19 12:26 | PN ---
Progress Note (short form) - Note Progress Note: Subjective: The patient was seen and examined at the bedside, is at the bedside as well. Both report worsening lower extremity pustules and drainage. However, the is reporting the erythema has improved since yesterday. Chest X-ray with no acute process Seen by Dr. Hart and placed on empiric Vancomycin and Ceftriaxone Call placed to Dr. Merritt (patients oncologist- ), spoke to covering physician, Dr. Evelia Morillo who is recommending holding oral chemotherapy , Mekinist, until he is reevaluated by Dr. Merritt Current Medications Generic Name Dose Route Start Last Admin Trade Name Freq PRN Reason Stop Dose Admin Albuterol/Ipratropium 1 amp 03/19/18 06:36 Duoneb - NEB Q6H PRN SHORTNESS OF BREATH Atorvastatin Calcium 40 mg 03/19/18 22:00 Lipitor - PO HS JOCE Calcium Carbonate 500 mg 03/19/18 10:00 03/19/18 10:11 Os-Sergio 500mg - PO 500 mg DAILY JOCE Administration Cholecalciferol 1,000 unit 03/19/18 10:00 03/19/18 10:11 Vitamin D3 - PO 1,000 unit DAILY JOCE Administration Clonazepam 0.5 mg 03/19/18 01:10 03/19/18 10:12 Klonopin - PO 0.5 mg DAILY PRN Administration ANXIETY Escitalopram Oxalate 20 mg 03/19/18 10:00 03/19/18 10:11 Lexapro - PO 20 mg DAILY JOCE Administration Ferrous Sulfate 325 mg 03/19/18 10:00 03/19/18 10:11 Feosol - PO 325 mg DAILY JOCE Administration Furosemide 20 mg 03/19/18 06:00 03/19/18 06:41 Lasix - PO 20 mg BIDLASIX JOCE Administration Guaifenesin 10 ml 03/19/18 06:57 Robitussin - PO Q6H PRN COUGH Heparin Sodium (Porcine) 5,000 unit 03/18/18 22:00 03/19/18 06:41 Heparin - SQ 5,000 unit TID JOCE Administration Vancomycin HCl 1,000 mg/ 250 mls @ 166.667 mls/hr 03/19/18 10:00 03/19/18 11: 00 Dextrose IVPB 166.667 mls/hr Q12H JOCE Administration Protocol Ceftriaxone Sodium 2 gm in 50 mls @ 100 mls/hr 03/19/18 10:00 03/19/18 10:10 Ceftriaxone 2 Gm-D5w Bag IVPB 100 mls/hr DAILY JOCE Administration Protocol Levothyroxine Sodium 125 mcg/ 225 mcg 03/19/18 07:00 03/19/18 06:40 Levothyroxine Sodium 100 mcg PO 225 mcg DAILY@0700 JOCE Administration Non-Formulary Medication 2 mg 03/19/18 10:00 Trametinib Dimethyl Sulfoxide [Mekinist] PO DAILY JOCE Objective: Vital Signs Period Temp Pulse Resp BP Sys/Perez Pulse Ox Last 24 Hr 97.8 F-99.5 F 70-88 17-22 94-137/56-78 93-98 Physical Exam: General: NAD, A&Ox3 Lungs: + cough. B/l rhonchi Heart: RRR, S1S2 Abd: Soft, non-tender, non-distended Ext: B/l lower extremity cellulitis R>L. Open wound with purulent drainage b/l. + Edema bilaterally CBCD WBC 12.8 K/mm3 (4.0-10.8) H 03/19/18 08:00 RBC 3.09 M/mm3 (4.00-5.60) L 03/19/18 08:00 Hgb 9.6 GM/dl (11.7-16.9) L 03/19/18 08:00 Hct 30.4 % (35.4-49) L 03/19/18 08:00 MCV 98.3 fl (80-96) H 03/19/18 08:00 MCHC 31.5 g/dl (32.0-35.9) L 03/19/18 08:00 RDW 15.7 % (11.9-15.9) 03/19/18 08:00 Plt Count 285 K/MM3 (134-434) 03/19/18 08:00 MPV 7.8 fl (7.5-11.1) 03/19/18 08:00 CMP Sodium 139 mmol/L (136-145) 03/19/18 08:00 Potassium 4.5 mmol/L (3.5-5.1) 03/19/18 08:00 Chloride 104 mmol/L (98-107) 03/19/18 08:00 Carbon Dioxide 27 mmol/L (22-28) 03/19/18 08:00 Anion Gap 8 MMOL/L (8-16) 03/19/18 08:00 BUN 29 mg/dl (7-18) H 03/19/18 08:00 Creatinine 0.9 mg/dl (0.6-1.3) 03/19/18 08:00 Creat Clearance w eGFR > 60 (>60) 03/19/18 08:00 Random Glucose 92 mg/dl (74-106) 03/19/18 08:00 Calcium 7.0 mg/dl (8.4-10.2) L 03/19/18 08:00 Total Bilirubin 0.5 mg/dl (0.2-1.0) 03/18/18 13:54 AST 30 U/L (10-42) 03/18/18 13:54 ALT 25 U/L (10-40) D 03/18/18 13:54 Alkaline Phosphatase 68 U/L (32-92) 03/18/18 13:54 Total Protein 5.6 g/dl (6.4-8.3) L 03/18/18 13:54 Albumin 2.5 g/dl (3.5-5.0) L 03/18/18 13:54 CARDIAC ENZYMES Creatine Kinase 278 IU/L (26-308) 03/18/18 13:54 Troponin I < 0.03 ng/ml (0.00-0.06) 03/18/18 13:54 Assessment: This is a 78 year old male with PMHx of thyroid cancer with mets to lung, bone (on Mekinist oral chemo), HTN, hyperlipidemia, sciatica, who presented to the ED with b/l lower extremity erythema and edema. Plan: 1) B/l lower extremity cellulitis - WBC remain elevated, trending down 13.9->12.8 - Remains afebrile - F/u cultures - Continue empiric Vancomycin and Ceftriaxone - Appreciate ID consult 2) Metastatic thyroid cancer - Discussed with Dr. Morillo, holding Mekinist (oral chemo) until reevaluated by outpatient oncologist 3) Hypothyroidism - TSH now low, 0.07 - F/u T3, T4 - Continue same dose of Synthroid for now 4) HTN - Continue home medications 5) Hyperlipidemia - Continue Lipitor 6) F/E/N: - Sodium controlled diet - Monitor electrolytes 7) Dispo: - Requires continued inpatient care CODE STATUS: FULL CODE Visit type - Emergency Visit Emergency Visit: Yes ED Registration Date: 03/18/18 Care time: The patient presented to the Emergency Department on the above date and was hospitalized for further evaluation of their emergent condition. - New Patient This patient is new to me today: Yes Date on this admission: 03/19/18 - Critical Care Critical Care patient: No
[2018-03-19] MEDS: VANCOMYCIN 1 GRAM (PRE-DOCKED) 1,000 MG/250 ML BAG IVPB SCH (12:33)
[2018-03-19] MEDS: guaiFENesin 200 MG/10 ML 10 ML UNIT-DOSE CUPS PO PRN ×2 (13:19→21:19)
[2018-03-19] MEDS: ATORVASTATIN CA 40 MG TABLET (FP) PO SCH (21:18)
[2018-03-19] MEDS: MELATONIN 5 MG TABLETS PO PRN (21:19)
[2018-03-20] MEDS: VANCOMYCIN 1 GRAM (PRE-DOCKED) 1,000 MG/250 ML BAG IVPB SCH ×2 (00:40→15:35)
[2018-03-20] MEDS ORDERED: LEVOTHYROXINE NA 100 MCG TABLET (FP) ONE (06:02)
[2018-03-20] MEDS ORDERED: LEVOTHYROXINE NA 125 MCG TABLET (FP) ONE (06:02)
[2018-03-20] MEDS: LEVOTHYROXINE 125 MCG, LEVOTHYROXINE 100 MCG PO SCH (06:08)
[2018-03-20] MEDS: FUROSEMIDE 20 MG TABLET (FP) PO SCH ×2 (06:08→15:22)
[2018-03-20] MEDS: HEPARIN NA (PORCINE) 5,000 UNITS/ML 1ML VIAL SQ SCH ×3 (06:08→22:50)
[2018-03-20 08:26] LABS: BASO % 0.6 % (0-2.0); HEMATOCRIT 31.6 % (35.4-49); HEMOGLOBIN 9.9 GM/dl (11.7-16.9); MCHC 31.5 g/dl (32.0-35.9); MEAN CELL VOLUME 98.4 fl (80-96); MEAN PLT VOLUME 7.4 fl (7.5-11.1); MONO % 7.3 % (3.8-10.2); NEUT % 77.1 % (42.8-82.8); PLATELET COUNT 310 K/MM3 (134-434); RBC 3.21 M/mm3 (4.00-5.60); RDW 15.4 % (11.9-15.9); WHITE BLOOD COUNT 11.5 K/mm3 (4.0-10.8)
[2018-03-20 08:42] LABS: ALBUMIN 2.2 g/dl (3.5-5.0); ALK PHOS 74 U/L (32-92); ANION GAP 8 MMOL/L (8-16); BILIRUBIN,TOTAL 0.7 mg/dl (0.2-1.0); BLOOD UREA NITROGEN 23 mg/dl (7-18); CALCIUM 7.3 mg/dl (8.4-10.2); CHLORIDE 102 mmol/L (98-107); CO2 27 mmol/L (22-28); CREATININE 0.8 mg/dl (0.6-1.3); GLUCOSE,RANDOM 94 mg/dl (74-106); POTASSIUM 4.6 mmol/L (3.5-5.1); SGOT/AST 36 U/L (10-42); SGPT/ALT 33 U/L (10-40); SODIUM 137 mmol/L (136-145); TOT PROT 5.2 g/dl (6.4-8.3)
[2018-03-20] MEDS ORDERED: DEXTROSE 5%-WATER 100 ML IVPB ONE (09:30)
[2018-03-20] MEDS: CEFTRIAXONE 2 GM in DEXTROSE 5%-WATER 100 ML IVPB SCH (09:38)
[2018-03-20] MEDS: CALCIUM (OYSTER SHELL) 500 MG TABLET (FP) PO SCH (09:38)
[2018-03-20] MEDS: ESCITALOPRAM OXALATE 20 MG TABLET (FP) PO SCH (09:38)
[2018-03-20] MEDS: FERROUS SO4 325 MG TABLET (FP) PO SCH (09:38)
[2018-03-20] MEDS: CHOLECALCIFEROL (VITAMIN D3) 1,000 UNIT TABLET (FP) PO SCH (10:00)
--- NOTE | 2018-03-20 10:26 | PN ---
Physical Exam: SUBJECTIVE: Patient seen and examined at bedside. Voices no complaints. OBJECTIVE: Vital Signs Period Temp Pulse Resp BP Sys/Perez Pulse Ox Last 24 Hr 98.4 F-99.0 F 78-84 18-20 117-132/58-80 94-95 GENERAL: The patient is awake, alert, and fully oriented, in no acute distress. LUNGS: Breath sounds equal, clear to auscultation bilaterally, no wheezes, no crackles, no accessory muscle use. HEART: Regular rate and rhythm, S1, S2 ABDOMEN: Soft, nontender, nondistended LEFT GROIN: 6cm area of induration, skin is erythematous and warm to touch, + tenderness EXTREMITIES: bilateral erythema R>L; multiple excoriations on left which are prurulent NEUROLOGICAL: Cranial nerves II through XII grossly intact. Normal speech, gait not observed. SKIN: Papular rash across chest, neck Laboratory Results - last 24 hr 03/19/18 03/19/18 03/20/18 08:00 08:00 07:27 WBC RBC Hgb Hct MCV MCH MCHC RDW Plt Count MPV Absolute Neuts (auto) Neutrophils % Lymphocytes % Monocytes % Eosinophils % Basophils % Sodium 137 Potassium 4.6 Chloride 102 Carbon Dioxide 27 Anion Gap 8 BUN 23 H Creatinine 0.8 Creat Clearance w eGFR > 60 Random Glucose 94 Calcium 7.3 L Total Bilirubin 0.7 AST 36 ALT 33 D Alkaline Phosphatase 74 Total Protein 5.2 L Albumin 2.2 L TSH 0.07 L D Random Vancomycin 5.2 L 03/20/18 07:27 WBC 11.5 H RBC 3.21 L Hgb 9.9 L Hct 31.6 L MCV 98.4 H MCH 31.0 MCHC 31.5 L RDW 15.4 Plt Count 310 MPV 7.4 L Absolute Neuts (auto) 8.9 Neutrophils % 77.1 Lymphocytes % 14.0 Monocytes % 7.3 Eosinophils % 1.0 Basophils % 0.6 Sodium Potassium Chloride Carbon Dioxide Anion Gap BUN Creatinine Creat Clearance w eGFR Random Glucose Calcium Total Bilirubin AST ALT Alkaline Phosphatase Total Protein Albumin TSH Random Vancomycin Active Medications Generic Name Dose Route Start Last Admin Trade Name Freq PRN Reason Stop Dose Admin Albuterol/Ipratropium 1 amp 03/19/18 06:36 03/19/18 13:18 Duoneb - NEB 1 amp Q6H PRN Administration SHORTNESS OF BREATH Atorvastatin Calcium 40 mg 03/19/18 22:00 03/19/18 21:18 Lipitor - PO 40 mg HS JOCE Administration Calcium Carbonate 500 mg 03/19/18 10:00 03/20/18 09:38 Os-Sergio 500mg - PO 500 mg DAILY JOCE Administration Cholecalciferol 1,000 unit 03/19/18 10:00 03/19/18 10:11 Vitamin D3 - PO 1,000 unit DAILY JOCE Administration Clonazepam 0.5 mg 03/19/18 01:10 03/19/18 10:12 Klonopin - PO 0.5 mg DAILY PRN Administration ANXIETY Escitalopram Oxalate 20 mg 03/19/18 10:00 03/20/18 09:38 Lexapro - PO 20 mg DAILY JOCE Administration Ferrous Sulfate 325 mg 03/19/18 10:00 03/20/18 09:38 Feosol - PO 325 mg DAILY JOCE Administration Furosemide 20 mg 03/19/18 06:00 03/20/18 06:08 Lasix - PO 20 mg BIDLASIX JOCE Administration Guaifenesin 10 ml 03/19/18 06:57 03/19/18 21:19 Robitussin - PO 10 ml Q6H PRN Administration COUGH Heparin Sodium (Porcine) 5,000 unit 03/18/18 22:00 03/20/18 06:08 Heparin - SQ 5,000 unit TID JOCE Administration Ceftriaxone Sodium 2 gm/ 100 mls @ 100 mls/hr 03/19/18 12:29 03/20/18 09:38 Dextrose IVPB 100 mls/hr DAILY JOCE Administration Protocol Vancomycin HCl 1,000 mg in 250 mls @ 166.667 mls/hr 03/19/18 12:31 03/20/18 00:40 Vancomycin (Pre-Docked) IVPB 166.667 mls/hr Q12H JOCE Administration Protocol Levothyroxine Sodium 125 mcg/ 225 mcg 03/19/18 07:00 03/20/18 06:08 Levothyroxine Sodium 100 mcg PO 225 mcg DAILY@0700 JOCE Administration Melatonin 5 mg 03/19/18 20:57 03/19/18 21:19 Melatonin PO 5 mg HS PRN Administration INSOMNIA ASSESSMENT/PLAN 78 year-old male with PMH of HTN, HLD, COPD, metastatic thyroid cancer (on Mekinist oral chemo), s/p infrarenal AAA repair (2013), s/p bilateral open inguinal repair (x 20 years). Recent raccoon bit 02/06/18. Admitted for bilateral LE cellulitis. Now with left groin collection. Bilateral lower extremity MRSA cellulitis --immunocompromised on Mikinist (on hold) --WBC 13.9k on admission, trending down 11.5k today; afebrile --culture presumptive +MRSA and GNB --continue vanc (day #2) and ceftriaxone (day #2) --daily dressing changes --ID following Left groin collection and cellulitis --remote h/o bilateral hernia repair --03/20 US: well-circumscribed complex fluid collection 4.6 x 4.5 x 3.6cm, abscess v. hematoma --CT w/contrast ordered --surgery consult requested Recent raccoon bite on left hand --received immunoglobin, rabies series completed on 03/07/18 --also treated with Augmentin Metastatic follicuar thyroid cancer --s/p thyroidectomy 2013 --per patient's oncology team, hold Mekinist until reevaluated as outpatient Hypothyroidism --TSH low, 0.07 --free T3, free T4 pending --continue same dose of Synthroid for now Hypertension --BP stable --not on home antihypertensives Hyperlipidemia --continue atorvastatin Anxiety --continue lexapro, clonazepam PRN COPD --stable --duonebs PRN FEN Fluids: PO intake adequate Electrolytes: replete as indicated Nutrition: low sodium DVT prophylaxis: subq heparin Physical therapy Dispo: continues to require inpatient care. Full code. Visit type - Emergency Visit Emergency Visit: Yes ED Registration Date: 03/18/18 Care time: The patient presented to the Emergency Department on the above date and was hospitalized for further evaluation of their emergent condition. - New Patient This patient is new to me today: Yes Date on this admission: 03/20/18 - Critical Care Critical Care patient: No
[2018-03-20] MEDS ORDERED: KETOCONAZOLE 2% CREAM - 60GM TUBE TP SCH (11:30)
[2018-03-20] MEDS ORDERED: PT OWN MED DRAWER 7, Y5N ONE (14:56)
[2018-03-20] MEDS: ATENOLOL 25 MG TABLET (FP) PO SCH (15:21)
[2018-03-20] MEDS: KETOCONAZOLE 2% CREAM - 60GM TUBE TP SCH (15:21)
--- NOTE | 2018-03-20 16:26 | CONSULT ---
- Consultation REQUESTING PROVIDER: Neetu Cool DIRECTOR OF MANUFACTURING OPERATIONS CONSULT REQUEST: We have been asked to surgically evaluate this patient for e/m of a mass of the left groin PCP:Agnes Cool HISTORY OF PRESENT ILLNESS: Admitted for infected lower extremity ulcers and cellulitis and found to have a mass in the left groin which a/t the patient has been present for a long time and that his Vascular Surgeon; Dr. Swartz has been well aware of again a/t the patient. PMHx: HTN; PVD/thyroid disease/ PSHx: endovascular AAA Home Medications Medication Instructions Recorded Atenolol [Tenormin -] 25 mg PO DAILY 03/18/18 Atorvastatin Ca [Lipitor] 40 mg PO DAILY 03/18/18 Calcium Carbonate [Oysco-500] 500 mg PO DAILY 03/18/18 Cholecalciferol (Vitamin D3) 1,000 unit PO DAILY 03/18/18 [Vitamin D3] Clonazepam 0.5 mg PO DAILY 03/18/18 Dabrafenib Mesylate [Tafinlar] 75 mg PO Q12H 03/18/18 Denosumab [Xgeva] 120 mg IJ ASDIR 03/18/18 Escitalopram Oxalate [Lexapro -] 20 mg PO DAILY 03/18/18 Ferrous Sulfate 325 mg PO DAILY 03/18/18 Furosemide 20 mg PO BID 03/18/18 Levothyroxine Sodium [Synthroid] 225 mcg PO DAILY 03/18/18 Trametinib Dimethyl Sulfoxide 2 mg PO DAILY 03/18/18 [Mekinist] Allergies Allergy/AdvReac Type Severity Reaction Status Date / Time No Known Drug Allergies Allergy Verified 03/18/18 13:17 PHYSICAL EXAM: GENERAL: Awake, alert, and fully oriented, in no acute distress. HEAD: Normal with no signs of trauma. EYES: sclera anicteric, conjunctiva clear. NECK: Normal ROM, supple without lymphadenopathy, JVD, or masses. ABDOMEN: Soft, nontender, not distended, normoactive bowel sounds, no guarding, no rebound, no masses. No organomegaly. MUSCULOSKELETAL: Normal ROM at all joints. No bony deformities or tenderness. No CVA tenderness. UPPER EXTREMITIES: 2+ pulses, warm, well-perfused. No cyanosis. Cap refill <2 seconds. peripheral edema is present. LOWER EXTREMITIES: 2+ pulses, warm, well-perfused. No calf tenderness. peripheral edema is present. NEUROLOGICAL: Normal speech, gait not observed. PSYCH: Cooperative. Good eye contact. Appropriate mood and affect. SKIN: Warm, dry, normal turgor, no rashes or lesions noted.Cellulitis and open wounds of both lowere extremities; soft tissue mass left groin; appears fluid filled. Vital Signs Temperature 98.1 F 03/20/18 14:22 Pulse Rate 99 H 03/20/18 14:22 Respiratory Rate 18 03/20/18 14:22 Blood Pressure 130/74 03/20/18 14:22 O2 Sat by Pulse Oximetry (%) 95 03/20/18 14:22 Lab Results WBC 11.5 K/mm3 (4.0-10.8) H 03/20/18 07:27 RBC 3.21 M/mm3 (4.00-5.60) L 03/20/18 07:27 Hgb 9.9 GM/dl (11.7-16.9) L 03/20/18 07:27 Hct 31.6 % (35.4-49) L 03/20/18 07:27 MCV 98.4 fl (80-96) H 03/20/18 07:27 MCHC 31.5 g/dl (32.0-35.9) L 03/20/18 07:27 RDW 15.4 % (11.9-15.9) 03/20/18 07:27 Plt Count 310 K/MM3 (134-434) 03/20/18 07:27 Sodium 137 mmol/L (136-145) 03/20/18 07:27 Potassium 4.6 mmol/L (3.5-5.1) 03/20/18 07:27 Chloride 102 mmol/L (98-107) 03/20/18 07:27 Carbon Dioxide 27 mmol/L (22-28) 03/20/18 07:27 Anion Gap 8 MMOL/L (8-16) 03/20/18 07:27 BUN 23 mg/dl (7-18) H 03/20/18 07:27 Creatinine 0.8 mg/dl (0.6-1.3) 03/20/18 07:27 Random Glucose 94 mg/dl (74-106) 03/20/18 07:27 Calcium 7.3 mg/dl (8.4-10.2) L 03/20/18 07:27 INR 1.21 (0.82-1.09) 03/18/18 13:54 imaging reviewed IMP: soft tissue mass appears by hx. and imaging to be related to previous vascular surgery intervention. PLAN: Suggest Vascular Surgery evaluation by DR. Clem Swartz on a nonurgent basis. Jeferson Holley MD FACS
--- NOTE | 2018-03-20 21:26 | ED.PROV ---
Physicial Exam I was called to see this pateint s/p fall from standing I saw this patient in his room He was trying to get to the bathroom, did not wait for help He was found falling down the door He landed on his bottom No LOC, no amnesia no vomiting - Vital Signs Last Vital Signs Temp Pulse Resp BP Pulse Ox 98.0 F 93 H 17 131/77 94 L 03/20/18 18:00 03/20/18 18:00 03/20/18 18:00 03/20/18 18:00 03/20/18 18:00 - Physical Exam Reason for Response: 03/20/18 21:22 Fall from standing in his room General Appearance: Yes: Nourished. No: Apparent Distress, Mild Distress, Moderate Distress HEENT: positive: EOMI, Normal Voice Neck: positive: Supple. negative: Tender, Decreased range of motion, Tender midline Respiratory/Chest: positive: Lungs Clear, Normal Breath Sounds, Crackles. negative: Chest Tender, Respiratory Distress Cardiovascular: positive: Regular Rhythm, Regular Rate, S1, S2 Gastrointestinal/Abdominal: positive: Soft. negative: Tender, Flat, Organomegaly Musculoskeletal: positive: Normal Inspection, Other (Normal range of motion) Extremity: positive: Normal Capillary Refill, Normal Inspection, Normal Range of Motion, Pelvis Stable. negative: Tender, Erythema Integumentary: positive: Bruising (on arms, no bruising noted on buttocks) Neurologic: positive: appian bpm developer II-XII NML intact, Fully Oriented, Alert, Normal Response, Motor Strength 5/5 Critical Care Time/MDM Note - Medical Decision Making Note: 03/20/18 21:24 Pt not on any oral anticoagulants (on hep subq) Will send for CT head 03/21/18 00:37 CT negative for acute intracranial pathology Pt did not require xrays of the long bones
[2018-03-20] MEDS: MELATONIN 5 MG TABLETS PO PRN (22:50)
[2018-03-20] MEDS: ATORVASTATIN CA 40 MG TABLET (FP) PO SCH (22:50)
[2018-03-21] MEDS: VANCOMYCIN 1 GRAM (PRE-DOCKED) 1,000 MG/250 ML BAG IVPB SCH ×2 (00:44→14:18)
[2018-03-21] MEDS ORDERED: LEVOTHYROXINE NA 100 MCG TABLET (FP) ONE (06:05)
[2018-03-21] MEDS ORDERED: LEVOTHYROXINE NA 125 MCG TABLET (FP) ONE (06:06)
[2018-03-21] MEDS: LEVOTHYROXINE 125 MCG, LEVOTHYROXINE 100 MCG PO SCH (06:08)
[2018-03-21] MEDS: HEPARIN NA (PORCINE) 5,000 UNITS/ML 1ML VIAL SQ SCH ×3 (06:08→21:43)
[2018-03-21] MEDS: FUROSEMIDE 20 MG TABLET (FP) PO SCH ×2 (06:09→14:18)
[2018-03-21] MEDS: clonazePAM 0.5 MG TABLET PO PRN (06:17)
[2018-03-21] MEDS ORDERED: DEXTROSE 5%-WATER 100 ML IVPB ONE (09:34)
[2018-03-21] MEDS: CEFTRIAXONE 2 GM in DEXTROSE 5%-WATER 100 ML IVPB SCH (09:44)
[2018-03-21] MEDS: FERROUS SO4 325 MG TABLET (FP) PO SCH (09:45)
[2018-03-21] MEDS: ESCITALOPRAM OXALATE 20 MG TABLET (FP) PO SCH (09:45)
[2018-03-21] MEDS: CALCIUM (OYSTER SHELL) 500 MG TABLET (FP) PO SCH (09:45)
[2018-03-21] MEDS: CHOLECALCIFEROL (VITAMIN D3) 1,000 UNIT TABLET (FP) PO SCH (09:45)
[2018-03-21] MEDS: KETOCONAZOLE 2% CREAM - 60GM TUBE TP SCH (09:46)
[2018-03-21] MEDS: ATENOLOL 25 MG TABLET (FP) PO SCH (09:46)
--- NOTE | 2018-03-21 18:19 | PN ---
Physical Exam: SUBJECTIVE: Patient seen and examined. S/p fall overnight. No injury. Pt denies complaints. Would like to go home. Pt reports normal BMs OBJECTIVE: Vital Signs 3 Period Temp Pulse Resp BP Sys/Perez Pulse Ox Last 24 Hr 98.1 F-98.9 F 64-99 17-20 93-141/58-74 94-98 GENERAL: The patient is awake, alert, and fully oriented, in no acute distress. HEAD: Normal with no signs of trauma. EYES: PERRL, extraocular movements intact, sclera anicteric, conjunctiva clear. No ptosis. ENT: Ears normal, nares patent, oropharynx clear without exudates, moist mucous membranes. NECK: Trachea midline, full range of motion, supple. LUNGS: Breath sounds equal, mild expiratory wheezing bilat meron upper, no crackles, no accessory muscle use. HEART: Regular rate and rhythm, S1, S2 without murmur, rub or gallop. ABDOMEN: Soft, nontender, nondistended, normoactive bowel sounds, no guarding, no rebound, no hepatosplenomegaly, no masses. LEFT GROIN: 6cm area of induration, skin is erythematous and warm to touch, + tenderness EXTREMITIES: 2+ pulses, warm, well-perfused, no edema left lower extremity. 1+ right, mild erythema surrounding abrasions right anterior lower leg NEUROLOGICAL: Cranial nerves II through XII grossly intact. Normal speech, gait not observed. PSYCH: Normal mood, normal affect. SKIN: Warm, dry, normal turgor, no rashes or lesions noted Laboratory Results - last 24 hr 3 03/20/18 03/20/18 03/21/18 07:27 21:23 11:30 POC Glucometer 162 Free T3 1.8 L Vancomycin Pre-Dose 14.2 L Active Medications 3 Generic Name Dose Route Start Last Admin Trade Name Freq PRN Reason Stop Dose Admin Albuterol/Ipratropium 1 amp 03/19/18 06:36 03/19/18 13:18 Duoneb - NEB 1 amp Q6H PRN Administration SHORTNESS OF BREATH Atenolol 25 mg 03/20/18 12:15 03/21/18 09:46 Tenormin - PO Not Given DAILY JOCE Atorvastatin Calcium 40 mg 03/19/18 22:00 03/20/18 22:50 Lipitor - PO 40 mg HS JOCE Administration Calcium Carbonate 500 mg 03/19/18 10:00 03/21/18 09:45 Os-Sergio 500mg - PO 500 mg DAILY JOCE Administration Cholecalciferol 1,000 unit 03/19/18 10:00 03/21/18 09:45 Vitamin D3 - PO 1,000 unit DAILY JOCE Administration Clonazepam 0.5 mg 03/19/18 01:10 03/21/18 06:17 Klonopin - PO 0.5 mg DAILY PRN Administration ANXIETY Escitalopram Oxalate 20 mg 03/19/18 10:00 03/21/18 09:45 Lexapro - PO 20 mg DAILY JOCE Administration Ferrous Sulfate 325 mg 03/19/18 10:00 03/21/18 09:45 Feosol - PO 325 mg DAILY JOCE Administration Furosemide 20 mg 03/19/18 06:00 03/21/18 14:18 Lasix - PO 20 mg BIDLASIX JOCE Administration Guaifenesin 10 ml 03/19/18 06:57 03/19/18 21:19 Robitussin - PO 10 ml Q6H PRN Administration COUGH Heparin Sodium (Porcine) 5,000 unit 03/18/18 22:00 03/21/18 14:17 Heparin - SQ 5,000 unit TID JOCE Administration Ceftriaxone Sodium 2 gm/ 100 mls @ 100 mls/hr 03/19/18 12:29 03/21/18 09:44 Dextrose IVPB 100 mls/hr DAILY JOCE Administration Protocol Vancomycin HCl 1,000 mg in 250 mls @ 166.667 mls/hr 03/19/18 12:31 03/21/18 14:18 Vancomycin (Pre-Docked) IVPB 166.667 mls/hr Q12H JOCE Administration Protocol Ketoconazole 1 applic 03/20/18 11:30 03/21/18 09:46 Nizoral 2% Cream - TP 1 applic DAILY JOCE Administration Levothyroxine Sodium 125 mcg/ 225 mcg 03/19/18 07:00 03/21/18 06:08 Levothyroxine Sodium 100 mcg PO 225 mcg DAILY@0700 JOCE Administration Melatonin 5 mg 03/19/18 20:57 03/20/18 22:50 Melatonin PO 5 mg HS PRN Administration INSOMNIA CT abd/pelvis: Impression: In comparison to a 2014 CT study interval development of an approximately 5.3 x 4.3 x 3.9 cm nonspecific mildly thick-walled nonenhancing fluid structure is seen within the left inguinal subcutaneous region centered over the lower aspect of the common femoral artery - ? Chronic hematoma , abscess, thrombosed pseudoaneurysm. Status post endovascular repair of an abdominal aortic aneurysm with aortobiiliac endograft in place as on the prior study. 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 Diminished size of the infrarenal aortic aneurysm sac is seen currently measuring 5.7 cm in diameter, previously 7 cm. Bilateral flank subcutaneous edema is noted which may be mildly increased. Prominent diffuse colonic fecal retention. Stable L4 vertebral body osteolytic lesion with an associated moderate chronic compression fracture. Correlate with medical history. Reported By: Madi Littlejohn MD 03/20/182016 ASSESSMENT/PLAN: 78 year-old male with PMH of HTN, HLD, COPD, metastatic thyroid cancer (on Mekinist oral chemo), s/p infrarenal AAA repair (2013), s/p bilateral open inguinal repair (x 20 years). Recent raccoon bit 02/06/18. Admitted for bilateral LE cellulitis. Now with left groin collection. Bilateral lower extremity MRSA cellulitis - immunocompromised on Mikinist (on hold) - WBC 13.9k on admission, trending down 11.5k today; afebrile - culture presumptive +MRSA and GNB - continue vanc (day #3) and ceftriaxone (day #3) - daily dressing changes - ID following Left groin collection and cellulitis - remote h/o bilateral hernia repair - 03/20 US: well-circumscribed complex fluid collection 4.6 x 4.5 x 3.6cm, abscess v. hematoma - CT w/contrast done, results above - surgery consult appreciated, rec f/u as outpt with mansi (vascular sx ) Metastatic follicuar thyroid cancer - s/p thyroidectomy 2013 - per patient's oncology team, hold Mekinist until reevaluated as outpatient Hypothyroidism - TSH low, 0.07 - free T3 low, free T4 slightly elevated - continue same dose of Synthroid for now, consider endo consult Hypertension - BP stable - not on home antihypertensives, cont to monitor BP Hyperlipidemia - continue atorvastatin Anxiety - continue lexapro, clonazepam PRN COPD - slight wheeze noted today - cont duonebs PRN FEN Fluids: PO intake adequate Electrolytes: replete as indicated Nutrition: low sodium DVT prophylaxis: subq heparin Cont Physical therapy Dispo: continues to require inpatient care. Full code. Visit type - Emergency Visit Emergency Visit: Yes ED Registration Date: 03/18/18 Care time: The patient presented to the Emergency Department on the above date and was hospitalized for further evaluation of their emergent condition. - New Patient This patient is new to me today: Yes Date on this admission: 03/21/18 - Critical Care Critical Care patient: No
[2018-03-21] MEDS: MELATONIN 5 MG TABLETS PO PRN (21:43)
[2018-03-21] MEDS: ATORVASTATIN CA 40 MG TABLET (FP) PO SCH (21:43)
[2018-03-22] MEDS: VANCOMYCIN 1 GRAM (PRE-DOCKED) 1,000 MG/250 ML BAG IVPB SCH ×2 (00:26→12:15)
[2018-03-22] MEDS: clonazePAM 0.5 MG TABLET PO PRN (03:11)
[2018-03-22] MEDS ORDERED: LEVOTHYROXINE NA 100 MCG TABLET (FP) ONE (06:10)
[2018-03-22] MEDS ORDERED: LEVOTHYROXINE NA 125 MCG TABLET (FP) ONE (06:10)
[2018-03-22] MEDS: LEVOTHYROXINE 125 MCG, LEVOTHYROXINE 100 MCG PO SCH (06:15)
[2018-03-22] MEDS: HEPARIN NA (PORCINE) 5,000 UNITS/ML 1ML VIAL SQ SCH (06:15)
[2018-03-22] MEDS: FUROSEMIDE 20 MG TABLET (FP) PO SCH (06:15)
[2018-03-22 08:42] LABS: ANION GAP 7 MMOL/L (8-16); BLOOD UREA NITROGEN 24 mg/dl (7-18); CALCIUM 7.8 mg/dl (8.4-10.2); CHLORIDE 104 mmol/L (98-107); CO2 29 mmol/L (22-28); CREATININE 0.9 mg/dl (0.6-1.3); GLUCOSE,RANDOM 105 mg/dl (74-106); PHOSPHOROUS 4.1 mg/dl (2.5-4.6); POTASSIUM 4.9 mmol/L (3.5-5.1); SODIUM 140 mmol/L (136-145)
[2018-03-22 08:44] LABS: BASO % 0.4 % (0-2.0); EOS % 1.6 % (0-4.5); HEMATOCRIT 31.1 % (35.4-49); HEMOGLOBIN 9.8 GM/dl (11.7-16.9); LYMPH % 13.8 % (8-40); MCH 30.9 pg (25.7-33.7); MCHC 31.6 g/dl (32.0-35.9); MEAN CELL VOLUME 97.7 fl (80-96); MEAN PLT VOLUME 7.7 fl (7.5-11.1); MONO % 9.2 % (3.8-10.2); PLATELET COUNT 316 K/MM3 (134-434); RBC 3.18 M/mm3 (4.00-5.60); RDW 15.7 % (11.9-15.9); WHITE BLOOD COUNT 11.7 K/mm3 (4.0-10.8)
[2018-03-22 09:10] VITALS: BP 110/69; PULSE 72; TEMP 97.5
[2018-03-22] MEDS ORDERED: DEXTROSE 5%-WATER 100 ML IVPB ONE (09:25)
--- NOTE | 2018-03-22 09:25 | PN ---
Progress Note, Physician History of Present Illness: Awake, alert Supine in bed No c/o leg pain No fever/ chills Wound c/s polymicrobial - Current Medication List Current Medications: Active Medications Albuterol/Ipratropium (Duoneb -) 1 amp NEB Q6H PRN PRN Reason: SHORTNESS OF BREATH Last Admin: 03/19/18 13:18 Dose: 1 amp Atenolol (Tenormin -) 25 mg PO DAILY [facility] Last Admin: 03/21/18 09:46 Dose: Not Given Atorvastatin Calcium (Lipitor -) 40 mg PO HS [facility] Last Admin: 03/21/18 21:43 Dose: 40 mg Calcium Carbonate (Os-Sergio 500mg -) 500 mg PO DAILY [facility] Last Admin: 03/21/18 09:45 Dose: 500 mg Cholecalciferol (Vitamin D3 -) 1,000 unit PO DAILY [facility] Last Admin: 03/21/18 09:45 Dose: 1,000 unit Clonazepam (Klonopin -) 0.5 mg PO DAILY PRN PRN Reason: ANXIETY Last Admin: 03/22/18 03:11 Dose: 0.5 mg Escitalopram Oxalate (Lexapro -) 20 mg PO DAILY [facility] Last Admin: 03/21/18 09:45 Dose: 20 mg Ferrous Sulfate (Feosol -) 325 mg PO DAILY [facility] Last Admin: 03/21/18 09:45 Dose: 325 mg Furosemide (Lasix -) 20 mg PO BIDLASIX [facility] Last Admin: 03/22/18 06:15 Dose: 20 mg Guaifenesin (Robitussin -) 10 ml PO Q6H PRN PRN Reason: COUGH Last Admin: 03/19/18 21:19 Dose: 10 ml Heparin Sodium (Porcine) (Heparin -) 5,000 unit SQ TID [facility] Last Admin: 03/22/18 06:15 Dose: 5,000 unit Ceftriaxone Sodium 2 gm/ (Dextrose) 100 mls @ 100 mls/hr IVPB DAILY [facility]; Protocol Last Admin: 03/21/18 09:44 Dose: 100 mls/hr Vancomycin HCl (Vancomycin (Pre-Docked)) 1,000 mg in 250 mls @ 166.667 mls/hr IVPB Q12H [facility]; Protocol Last Admin: 03/22/18 00:26 Dose: 166.667 mls/hr Ketoconazole (Nizoral 2% Cream -) 1 applic TP DAILY [facility] Last Admin: 03/21/18 09:46 Dose: 1 applic Levothyroxine Sodium 125 mcg/ (Levothyroxine Sodium 100 mcg) 225 mcg PO DAILY@ 0700 [facility] Last Admin: 03/22/18 06:15 Dose: 225 mcg Melatonin (Melatonin) 5 mg PO HS PRN PRN Reason: INSOMNIA Last Admin: 03/21/18 21:43 Dose: 5 mg - Objective Vital Signs: Vital Signs Temperature 97.5 F L 03/22/18 09:00 Pulse Rate 72 03/22/18 09:00 Respiratory Rate 18 03/22/18 09:00 Blood Pressure 110/69 03/22/18 09:00 O2 Sat by Pulse Oximetry (%) 96 03/22/18 09:00 Constitutional: Yes: No Distress Eyes: Yes: Conjunctiva Clear Cardiovascular: Yes: Regular Rate and Rhythm, S1, S2 Respiratory: Yes: CTA Bilaterally Gastrointestinal: Yes: Normal Bowel Sounds, Soft. No: Tenderness Extremities: Yes: Other (erythema R LE almost completely resolved. Wounds dry) Labs: CBC, BMP 03/22/18 07:30 03/22/18 07:30 INR, PTT INR 1.21 (0.82-1.09) 03/18/18 13:54 Assessment/Plan Cellulitis LE Leukocytosis improved Substitute Bactrim DS po bid x 7d
[2018-03-22] MEDS: FERROUS SO4 325 MG TABLET (FP) PO SCH (10:41)
[2018-03-22] MEDS: CHOLECALCIFEROL (VITAMIN D3) 1,000 UNIT TABLET (FP) PO SCH (10:41)
[2018-03-22] MEDS: CEFTRIAXONE 2 GM in DEXTROSE 5%-WATER 100 ML IVPB SCH (10:41)
[2018-03-22] MEDS: CALCIUM (OYSTER SHELL) 500 MG TABLET (FP) PO SCH (10:41)
[2018-03-22] MEDS: ATENOLOL 25 MG TABLET (FP) PO SCH (10:41)
[2018-03-22] MEDS: ESCITALOPRAM OXALATE 20 MG TABLET (FP) PO SCH (10:41)
[2018-03-22] MEDS: MELATONIN 5 MG TABLETS PO PRN (10:42)
[2018-03-22] MEDS: KETOCONAZOLE 2% CREAM - 60GM TUBE TP SCH (10:43)
--- NOTE | 2018-03-22 12:07 | PN ---
Physical Exam: SUBJECTIVE: Patient seen and examined at bedside. OBJECTIVE: Vital Signs Period Temp Pulse Resp BP Sys/Perez Pulse Ox Last 24 Hr 97.5 F-99.1 F 71-84 18-19 110-146/63-80 95-98 GENERAL: The patient is awake, alert, and fully oriented, in no acute distress. LUNGS: Breath sounds equal, clear to auscultation bilaterally, no wheezes, no crackles, no accessory muscle use. HEART: Regular rate and rhythm, S1, S2 ABDOMEN: Soft, nontender, nondistended LEFT GROIN: 6cm area of induration, skin is erythematous and warm to touch, tenderness resolved EXTREMITIES: bilateral erythema R>L; multiple excoriations on left which are prurulent NEUROLOGICAL: Cranial nerves II through XII grossly intact. Normal speech, gait not observed. SKIN: Papular rash across chest, neck Laboratory Results - last 24 hr 03/21/18 03/22/18 03/22/18 11:30 07:30 07:30 WBC 11.7 H RBC 3.18 L Hgb 9.8 L Hct 31.1 L MCV 97.7 H MCH 30.9 MCHC 31.6 L RDW 15.7 Plt Count 316 MPV 7.7 Absolute Neuts (auto) 8.8 Neutrophils % 75.0 Lymphocytes % 13.8 Monocytes % 9.2 Eosinophils % 1.6 Basophils % 0.4 Sodium 140 Potassium 4.9 Chloride 104 Carbon Dioxide 29 H Anion Gap 7 L BUN 24 H Creatinine 0.9 Creat Clearance w eGFR > 60 Random Glucose 105 Calcium 7.8 L Phosphorus 4.1 Magnesium 2.0 Vancomycin Pre-Dose 14.2 L Active Medications Generic Name Dose Route Start Last Admin Trade Name Freq PRN Reason Stop Dose Admin Albuterol/Ipratropium 1 amp 03/19/18 06:36 03/19/18 13:18 Duoneb - NEB 1 amp Q6H PRN Administration SHORTNESS OF BREATH Atenolol 25 mg 03/20/18 12:15 03/22/18 10:41 Tenormin - PO 25 mg DAILY [facility] Administration Atorvastatin Calcium 40 mg 03/19/18 22:00 03/21/18 21:43 Lipitor - PO 40 mg HS [facility]OCE Administration Calcium Carbonate 500 mg 03/19/18 10:00 03/22/18 10:41 Os-Sergio 500mg - PO 500 mg DAILY [facility] Administration Cholecalciferol 1,000 unit 03/19/18 10:00 03/22/18 10:41 Vitamin D3 - PO 1,000 unit DAILY [facility] Administration Clonazepam 0.5 mg 03/19/18 01:10 03/22/18 03:11 Klonopin - PO 0.5 mg DAILY PRN Administration ANXIETY Escitalopram Oxalate 20 mg 03/19/18 10:00 03/22/18 10:41 Lexapro - PO 20 mg DAILY [facility] Administration Ferrous Sulfate 325 mg 03/19/18 10:00 03/22/18 10:41 Feosol - PO 325 mg DAILY [facility] Administration Furosemide 20 mg 03/19/18 06:00 03/22/18 06:15 Lasix - PO 20 mg BIDLASIX JOCE Administration Guaifenesin 10 ml 03/19/18 06:57 03/19/18 21:19 Robitussin - PO 10 ml Q6H PRN Administration COUGH Heparin Sodium (Porcine) 5,000 unit 03/18/18 22:00 03/22/18 06:15 Heparin - SQ 5,000 unit TID [facility]OC[facility] Administration Ceftriaxone Sodium 2 gm/ 100 mls @ 100 mls/hr 03/19/18 12:29 03/22/18 10:41 Dextrose IVPB 100 mls/hr DAILY [facility] Administration Protocol Vancomycin HCl 1,000 mg in 250 mls @ 166.667 mls/hr 03/19/18 12:31 03/22/18 00:26 Vancomycin (Pre-Docked) IVPB 166.667 mls/hr Q12H [facility] Administration Protocol Ketoconazole 1 applic 03/20/18 11:30 03/22/18 10:43 Nizoral 2% Cream - TP 1 applic DAILY [facility] Administration Levothyroxine Sodium 125 mcg/ 225 mcg 03/19/18 07:00 03/22/18 06:15 Levothyroxine Sodium 100 mcg PO 225 mcg DAILY@0700 [facility] Administration Melatonin 5 mg 03/19/18 20:57 03/22/18 10:42 Melatonin PO 5 mg HS PRN Administration INSOMNIA ASSESSMENT/PLAN:
--- NOTE | 2018-03-22 12:28 | DS ---
Physical Exam: SUBJECTIVE: Patient seen and examined OBJECTIVE: Vital Signs Period Temp Pulse Resp BP Sys/Perez Pulse Ox Last 24 Hr 97.5 F-99.1 F 71-84 18-19 110-146/63-80 95-98 PHYSICAL EXAM GENERAL: The patient is awake, alert, and fully oriented, in no acute distress. HEAD: Normal with no signs of trauma. EYES: PERRL, extraocular movements intact, sclera anicteric, conjunctiva clear. ENT: Ears normal, nares patent, oropharynx clear without exudates, moist mucous membranes. NECK: Trachea midline, full range of motion, supple. LUNGS: Breath sounds equal, clear to auscultation bilaterally, no wheezes, no crackles, no accessory muscle use. HEART: Regular rate and rhythm, S1, S2 without murmur, rub or gallop. ABDOMEN: Soft, nontender, nondistended, normoactive bowel sounds, no guarding, no rebound, no hepatosplenomegaly, no masses. EXTREMITIES: 2+ pulses, warm, well-perfused, no edema. NEUROLOGICAL: Cranial nerves II through XII grossly intact. Normal speech, gait not observed. PSYCH: Normal mood, normal affect. SKIN: Warm, dry, normal turgor, no rashes or lesions noted. LABS Laboratory Results - last 24 hr 03/21/18 03/22/18 03/22/18 11:30 07:30 07:30 WBC 11.7 H RBC 3.18 L Hgb 9.8 L Hct 31.1 L MCV 97.7 H MCH 30.9 MCHC 31.6 L RDW 15.7 Plt Count 316 MPV 7.7 Absolute Neuts (auto) 8.8 Neutrophils % 75.0 Lymphocytes % 13.8 Monocytes % 9.2 Eosinophils % 1.6 Basophils % 0.4 Sodium 140 Potassium 4.9 Chloride 104 Carbon Dioxide 29 H Anion Gap 7 L BUN 24 H Creatinine 0.9 Creat Clearance w eGFR > 60 Random Glucose 105 Calcium 7.8 L Phosphorus 4.1 Magnesium 2.0 Vancomycin Pre-Dose 14.2 L HOSPITAL COURSE: Date of Admission:03/18/18 Date of Discharge: 03/22/18 Discharge Summary Reason For Visit: CELLULITIS, COUGH Current Active Problems Ataxia, unspecified (Acute) Cellulitis (Acute) Cough (Acute) HLD (hyperlipidemia) (Acute) HTN (hypertension) (Acute) Hypocalcemia (Acute) Hypothyroid (Acute) Thyroid cancer (Acute) Condition: Guarded - Instructions Diet, Activity, Other Instructions: You are signing out of the hospital AGAINST MEDICAL ADVICE. You have been advised that you have a possible abscess, hematoma or pseudoanuerysm in your left groin. You have been told that you also have a new, possible second aneurysm in you left leg. You have been advised that if you leave the hospital you may develop a worsening infection and you could . You have been told that you could develop bleeding, you could lose a limb, and you could . You have chosen to leave the hospital anyway. You are STRONGLY ADVISED to follow up with Dr. Serrano or some other vascular surgeon KEO. An antibiotic has been sent to your pharmacy to continue to treat you cellulitis. Take this medication as directed and be sure to FINISH all the medication. Referrals: Mariam May MD [Staff Physician] - Disposition: AGAINST MEDICAL ADVICE - Home Medications Comprehensive Discharge Medication List: Ambulatory Orders Atenolol [Tenormin -] 25 mg PO DAILY 03/18/18 Atorvastatin Ca [Lipitor] 40 mg PO DAILY 03/18/18 Calcium Carbonate [Oysco-500] 500 mg PO DAILY 03/18/18 Cholecalciferol (Vitamin D3) [Vitamin D3] 1,000 unit PO DAILY 03/18/18 Clonazepam 0.5 mg PO DAILY 03/18/18 Dabrafenib Mesylate [Tafinlar] 75 mg PO Q12H 03/18/18 Denosumab [Xgeva -] 120 mg IJ ASDIR 03/18/18 Escitalopram Oxalate [Lexapro -] 20 mg PO DAILY 03/18/18 Ferrous Sulfate 325 mg PO DAILY 03/18/18 Furosemide 20 mg PO BID 03/18/18 Levothyroxine Sodium [Synthroid] 225 mcg PO DAILY 03/18/18 Sulfamethoxazole/Trimethoprim [Bactrim Ds -] 1 tab PO BID #14 tablet 03/22/18
== END 2018-03-22 12:57 | disposition left against medical advice (07) | DRG 603 ==
LOC: FER 13:10 → FM/S 14:45
PROVIDERS: ATTEND Nurse Practitioner Acute Care
DX: L03.115 Cellulitis of right lower limb (principal); C79.51 Secondary malignant neoplasm of bone; L02.214 Cutaneous abscess of groin; L03.116 Cellulitis of left lower limb; R59.1 Generalized enlarged lymph nodes; C73 Malignant neoplasm of thyroid gland; I72.4 Aneurysm of artery of lower extremity; E78.5 Hyperlipidemia, unspecified; F17.210 Nicotine dependence, cigarettes, uncomplicated; I10 Essential (primary) hypertension; E83.51 Hypocalcemia; E03.9 Hypothyroidism, unspecified; D72.829 Elevated white blood cell count, unspecified; J44.9 Chronic obstructive pulmonary disease, unspecified; F41.9 Anxiety disorder, unspecified
CPT/HCPCS: 36415; 70450-TC; 71046-TC-FY; 74177-TC; 76705; 80048; 80053; 82550; 82553; 82962; 83605; 83735; 83880; 84100; 84439; 84443; 84481; 84484; 85025; 85610; 85730; 87040; 87070; 87186; 87205; 93005; 94640; 97116-GP; 97161-GP; 99285-25; G0480; J1644

== ENCOUNTER 2018-03-25 12:30 | Inpatient (IN) | payer OTHER ==
[2018-03-25 13:04] VITALS: BMI 24.7
--- NOTE | 2018-03-25 14:31 | PDOC ---
History of Present Illness - General Chief Complaint: Redness To Affected Area Stated Complaint: CELLLULITIS History Source: Patient, Family, Spouse Exam Limitations: No Limitations - History of Present Illness Initial Comments: 03/25/18 14:23 Pt. is a 78 y.o. M w/ PMHx. 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 Pt. signed out AMA during last admission and was advised to follow up with Dr. Serrano(on vacation currently) or another vascular surgeon for evaluation of the left groin and 7 day course of Bactrim. Pt. endorses a chronic numbness and weakness in both lower extremities that he feels from the lower back down to the feet. Pt. endorses b/l lower extremity pain that he feels from the buttocks down to the backs of both knees. Pt. states that the numbness, weakness and pain are intermittent, fluctuating in severity depending on the day. Pt. states his extremities are usually cool to touch. Pt. also states that he has developed a non-pruritic skin rash since starting Bactrim on his face, scalp and thorax. CBC, CMP, PT/INR, WCx, BCx, Abdominal US 03/25/18 17:[address] Rodriguez, Pt. to be admitted to Med/Surg. Timing/Duration: changing over time Modifying Factors: improves with: rest Associated Symptoms: reports: rash, weakness. denies: chest pain, cough, fever/ chills, loss of appetite, shortness of breath Aspirin Received prior to arrival: Yes: no aspirin today Beta Mary Kay Taken at Home(Core Measure): Yes Past History - Travel Traveled outside of the country in the last 30 days: No Close contact w/someone who was outside of country & ill: No - Past Medical History Allergies/Adverse Reactions: Allergies Allergy/AdvReac Type Severity Reaction Status Date / Time sulfamethoxazole Allergy Intermediate Hives Verified 03/25/18 14:47 [From Bactrim] trimethoprim [From Bactrim] Allergy Intermediate Hives Verified 03/25/18 14:47 Home Medications: Ambulatory Orders Atenolol [Tenormin -] 25 mg PO DAILY 03/18/18 Atorvastatin Ca [Lipitor] 40 mg PO DAILY 03/18/18 Calcium Carbonate [Oysco-500] 500 mg PO DAILY 03/18/18 Cholecalciferol (Vitamin D3) [Vitamin D3] 1,000 unit PO DAILY 03/18/18 Clonazepam 0.5 mg PO DAILY 03/18/18 Dabrafenib Mesylate [Tafinlar] 75 mg PO Q12H 03/18/18 Denosumab [Xgeva -] 120 mg IJ ASDIR 03/18/18 Escitalopram Oxalate [Lexapro -] 20 mg PO DAILY 03/18/18 Ferrous Sulfate 325 mg PO DAILY 03/18/18 Furosemide 20 mg PO BID 03/18/18 Levothyroxine Sodium [Synthroid] 225 mcg PO DAILY 03/18/18 Sulfamethoxazole/Trimethoprim [Bactrim Ds -] 1 tab PO BID #14 tablet 03/22/18 Anemia: Yes Asthma: No 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) Cardiac Disorders: No CVA: No COPD: Yes CHF: No Dementia: No Diabetes: No GI Disorders: Yes (GASTRIC ULCER) Disorders: No HTN: No Hypercholesterolemia: Yes Liver Disease: No Psychiatric Problems: Yes Seizures: No Thyroid Disease: Yes (thyroid ca) - Surgical History Abdominal Surgery: Yes (BILATERAL INGUINAL HERNIA,) Appendectomy: No Cardiac Surgery: No Cholecystectomy: No GI Surgery: Yes (DUODEAL ULCER GASTRECTOMY) Lung Surgery: No Neurologic Surgery: No Orthopedic Surgery: No Other Surgical History: 03/25/18 14:48 AAA repair, thyroidectomy 03/25/18 14:48 - Immunization History Immunization Up to Date: Yes - Suicide/Smoking/Psychosocial Hx Smoking History: Never smoked Have you smoked in the past 12 months: Yes Number of Cigarettes Smoked Daily: 10 'Breaking Loose' booklet given: 03/18/18 Hx Alcohol Use: No Drug/Substance Use Hx: No Substance Use Type: None Hx Substance Use Treatment: No Review of Systems - Review of Systems Able to Perform ROS?: Yes Is the patient limited Marshallese proficient: No Constitutional: Yes: Weakness. No: Chills, Fever, Loss of Appetite, Malaise HEENTM: No: Recent change in vision, Difficulty Swallowing Respiratory: Yes: SOB with Exertion. No: Cough, Shortness of Breath, Wheezing Cardiac (ROS): Yes: Symptoms Reported, Edema. No: Chest Pain, Lightheadedness, Palpitations, Syncope, Chest Tightness ABD/GI: No: Symptoms Reported, Constipated, Diarrhea, Nausea, Poor Appetite, Rectal Bleeding, Vomiting, Indigestion : No: Symptoms Reported, Burning, Dysuria, Discharge, Frequency, Flank Pain, Hematuria, Incontinence, Pain, Urgency Musculoskeletal: Yes: Symptoms Reported, Back Pain, Joint Pain, Joint Stiffness Integumentary: Yes: Symptoms Reported, Erythema, Rash Neurological: Yes: Numbness, Weakness, Unsteady Gait, Dizziness. No: Seizure *Physical Exam - Vital Signs Last Vital Signs Temp Pulse Resp BP Pulse Ox 97.7 F 64 18 130/70 99 03/25/18 12:59 03/25/18 12:59 03/25/18 12:59 03/25/18 12:59 03/25/18 12:59 - Physical Exam General Appearance: Yes: Nourished, Appropriately Dressed, Mild Distress HEENT: positive: Normal ENT Inspection, Normal Voice, Symmetrical, Pharynx Normal, Hearing Grossly Normal. negative: Scleral Icterus (R), Scleral Icterus (L) Neck: positive: Trachea midline, Supple. negative: Carotid bruit Respiratory/Chest: positive: Lungs Clear, Normal Breath Sounds. negative: Respiratory Distress, Accessory Muscle Use, Crackles, Rales, Rhonchi, Wheezing Cardiovascular: positive: Regular Rate, S1, S2, Edema, JVD, Irregular. negative : Murmur, Bradycardia, Tachycardia Vascular Pulses: Dorsalis-Pedis (R): 0 (radial 2+), Doralis-Pedis (L): 0 ( radial 2+) Gastrointestinal/Abdominal: positive: Normal Bowel Sounds, Soft, Tenderness, Mass (left groin mass). negative: Protuberent, Guarding, Rebound Male Genitalia: positive: normal genitalia Rectal Exam: positive: deferred Musculoskeletal: positive: Normal Inspection. negative: CVA Tenderness Extremity: positive: Coldness, Pedal Edema, Swelling. negative: Calf Tenderness Integumentary: positive: Cold, Hives (face, scalp and thorax ), Rash Neurologic: positive: Fully Oriented, Alert, Normal Response, Numbness Moderate Sedation - Procedure Monitoring Vital Signs: Procedure Monitoring Vital Signs Temperature 97.7 F 03/25/18 12:59 Pulse Rate 64 03/25/18 12:59 Respiratory Rate 18 03/25/18 12:59 Blood Pressure 130/70 03/25/18 12:59 O2 Sat by Pulse Oximetry (%) 99 03/25/18 12:59 ED Treatment Course - LABORATORY CBC & Chemistry Diagram: 03/25/18 15:20 03/25/18 15:20 *DC/Admit/Observation/Transfer Diagnosis at time of Disposition: Abdominopelvic abscess - Discharge Dispostion Decision to Admit order: Yes - Referrals Referrals: Mariam May MD [Primary Care Provider] - - Patient Instructions - Post Discharge Activity
--- NOTE | 2018-03-25 15:12 | PDOC ---
Attending Attestation - HPI HPI: 03/25/18 16:41 The patient is a 78 year old male with a significant past medical history of thyroid ca (mets to lungs and bone), hypertension, hyperlipidemia, anemia and MRSA (+) who presents to the emergency department with worsening groin pain and redness for several days. The patient reports that he was recently seen in the ED for cellulitis 3 days ago by which he signed out AMA. The patient reports that he was sent home with bactrim and, subsequently has been experiencing a reaction to the meds on his skin (facem chest and back); he denies any itching. He reports some associated numbness and weakness in his legs secondary to his cellulitis. The patient reports that he had a mass on his groin previously but, it has gotten progressively bigger and painful. The patient denies other symptoms. He denies any fever, chills, nausea, vomiting, diarrhea, constipation or urinary symptoms. He denies any chest pain, shortness of breath, headache. The patient denies any other symptoms. Documentation prepared by Ravindra Faria, acting as medical front desk coordinator for Brianna Rider MD. <Ravindra Faria - Last Filed: 03/25/18 16:41> - Resident Resident Name: Andrade Rosario - HPI HPI: 03/25/18 22:[address] Brianna Rider attest that the scribes documentation that appears above has been prepared under my direction and personally reviewed by me. - Physicial Exam PE: 03/25/18 22:55 78 y/o male seen and examined in the ED sitting in a wheel chair. PT examined in the prescence of his . General:non toxic appearing and not in acute distress HEENT:NCAT DHRUV Neck: supple Lungs: + bs hardy cta Heart: S1S2 regular abd: + bs abd soft no guarding or tenderness ext: hardy lower extremity edema rt leg gretaer than left leg but recent sono negative for dvt. Left groin mass noted looks like and abcess, but is firm to touch, Skin: pt with rash noted on face and back since taking bactrim for cellulitis and MRSA of lower leg wound Neuro: alert and oriented x3, donaldson;s, no focal deficits - Medical Decision Making 03/25/18 23:05 64 y/o male presents to ED for evaluation of increasing erythema and size of mass vs abcess vs aneurysm to his left groin. Pt signed out ama from hospital a few days ago. Pt was being treated for cellulitis of rt lower leg with MRSA. Pt sent home with Bactrim and then developed rash and groin mass has increased in size prompting his return to the ED. Pt's labs reviewed and noted. Sonogram of left groin mass noted positive for abcess vs hematoma. Will admit to hospital as pt failed out pt antibiotic treatment of this probable abcess. This lesion may require incision and drainage by a surgeon,will obtain blood cultures and start antibiotcs. Pt appears to also have an allergic reaction to Bactrim. Pt has agreed to admisison. Will admit to hospital. <Brianna Rider - Last Filed: 03/25/18 23:10>
[2018-03-25 15:40] LABS: BASO % 1.4 % (0-2.0); EOS % 1.4 % (0-4.5); HEMATOCRIT 31.9 % (35.4-49); HEMOGLOBIN 10.8 GM/dL (11.7-16.9); LYMPH % 11.2 % (8-40); MCH 32.8 pg (25.7-33.7); MCHC 33.8 g/dl (32.0-35.9); MEAN CELL VOLUME 96.9 fl (80-96); MEAN PLT VOLUME 7.5 fl (7.5-11.1); PLATELET COUNT 296 K/MM3 (134-434); RBC 3.29 M/mm3 (4.00-5.60); RDW 16.3 % (11.9-15.9); WHITE BLOOD COUNT 12.6 K/mm3 (4.0-10.0)
[2018-03-25 16:12] LABS: INR 1.06 (0.83-1.09); PROTHROMBIN TIME (PATIENT) 12.5 SEC (9.7-13.0)
[2018-03-25 16:15] LABS: ALBUMIN 2.4 g/dl (3.4-5.0); ALK PHOS 85 U/L (45-117); ANION GAP 7 MMOL/L (8-16); BILIRUBIN,TOTAL 0.2 mg/dL (0.2-1); BLOOD UREA NITROGEN 22 mg/dL (7-18); CALCIUM 7.4 mg/dL (8.5-10.1); CHLORIDE 105 mmol/L (98-107); CO2 29 mmol/L (21-32); CREATININE 1.2 mg/dL (0.55-1.3); GLUCOSE,RANDOM 147 mg/dL (74-106); POTASSIUM 4.6 mmol/L (3.5-5.1); SGOT/AST 29 U/L (15-37); SGPT/ALT 30 U/L (13-61); SODIUM 140 mmol/L (136-145); TOT PROT 5.8 g/dl (6.4-8.2)
[2018-03-25 17:04] LABS: PLATELET ESTIMATE ADEQUATE
[2018-03-25] MEDS ORDERED: ACETAMINOPHEN 325 MG TABLET (FP) PO PRN (17:42)
[2018-03-25] MEDS ORDERED: ONDANSETRON 4 MG/2 ML VIAL IVPUSH PRN (17:42)
--- NOTE | 2018-03-25 17:54 | HP ---
Admitting History and Physical - Primary Care Physician PCP: Mariam May - Admission Chief Complaint: I have a rash History of Present Illness: Mr Marte is a very pleasant 78 year old male who comes in with rash and worsening inguinal mass. He was recently admitted at [facility] where he was being treated for cellulitis of the RLE and possible L inguinal abscess. He decided to leave AMA secondary to "not being able to sleep" ( says it is because he could not smoke), and was discharged on bactrim. He took the bactrim , however he noted that he developed a rash on his face and back. It is unclear if the rash started while in the hospital when he was on IV antibiotics or after starting bactrim. He also noted that his groin mass was worsening. It was growing and becoming more red. He also notes pain associated with it as well, a pinching type of pain. Because of this he decided to come in. Aside from this he is without complaint. He denies fevers, chills, lightheadedness, dizziness, passing out, chest pain, shortness of breath, coughing, abdominal pain, nausea, vomiting, diarrhea, constipation, drainage from site of mass, penile drainage, difficulty or pain on urination. He says the redness of his RLE is unchanged. 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) - Past Surgical History Past Surgical History: Yes: Hernia Repair (thyroidectomy) Additional Past Surgical History: thyroidectomy - Smoking History Smoking history: Current every day smoker Have you smoked in the past 12 months: Yes Aproximately how many cigarettes per day: 10 - Alcohol/Substance Use Hx Alcohol Use: No History of Substance Use: reports: None - Social History Usual Living Arrangement: Yes: With Spouse ADL: Independent (with walker) History of Recent Travel: No Home Medications - Allergies Allergies/Adverse Reactions: Allergies Allergy/AdvReac Type Severity Reaction Status Date / Time sulfamethoxazole Allergy Intermediate Hives Verified 03/25/18 14:47 [From Bactrim] trimethoprim [From Bactrim] Allergy Intermediate Hives Verified 03/25/18 14:47 - Home Medications Home Medications: Ambulatory Orders Atenolol [Tenormin -] 25 mg PO DAILY 12/22/18 Atorvastatin Ca [Lipitor] 40 mg PO DAILY 03/18/18 Calcium Carbonate [Oysco-500] 500 mg PO DAILY 03/18/18 Cholecalciferol (Vitamin D3) [Vitamin D3] 1,000 unit PO DAILY 03/18/18 Clonazepam 0.5 mg PO DAILY 03/18/18 Dabrafenib Mesylate [Tafinlar] 75 mg PO Q12H 03/18/18 Denosumab [Xgeva -] 120 mg IJ ASDIR 03/18/18 Escitalopram Oxalate [Lexapro -] 20 mg PO DAILY 03/18/18 Ferrous Sulfate 325 mg PO DAILY 03/18/18 Furosemide 20 mg PO BID 03/18/18 Levothyroxine Sodium [Synthroid] 225 mcg PO DAILY 03/18/18 Sulfamethoxazole/Trimethoprim [Bactrim Ds -] 1 tab PO BID #14 tablet 03/22/18 Family Disease History - Family Disease History Family History: Denies Review of Systems Findings/Remarks: Full review of systems obtained, as per HPI and otherwise negative Physical Examination Vital Signs: Vital Signs Temperature 36.5 C 03/25/18 12:59 Pulse Rate 64 03/25/18 12:59 Respiratory Rate 18 03/25/18 12:59 Blood Pressure 130/70 03/25/18 12:59 O2 Sat by Pulse Oximetry (%) 99 03/25/18 15:20 Constitutional: Yes: Well Nourished, No Distress, Calm Eyes: Yes: Conjunctiva Clear, EOM Intact, PERRL HENT: Yes: Atraumatic, Normocephalic Cardiovascular: Yes: Regular Rate and Rhythm. No: Gallop, Murmur, Rub Respiratory: Yes: Regular, CTA Bilaterally. No: Rales, Rhonchi, Wheezes Gastrointestinal: Yes: Normal Bowel Sounds, Soft. No: Distention, Tenderness Renal/: Yes: Other (fluctuant L inguinal mass with erythema) Extremities: Yes: Erythema (RLE, with minor ulceration) Edema: No Integumentary: Yes: Rash (diffuse over back and leg with some on face) Labs: CBC, BMP 03/25/18 15:20 03/25/18 15:20 Imaging - Results Ultrasound: Report Reviewed Problem List - Problems (1) Abdominopelvic abscess Assessment/Plan: -patient recently seen at [facility] for abscess -left AMA, discharged on bactrim -also seen by surgery that admission, deferred to vascular surgery for possible pseudoaneurysm -presents here today because feeling worse and had reaction to bactrim -case d/w Dr Shirley who will see for possible drainage since repeat US says no vasculature noted so pseudoaneurysm ruled out -will place on vancomycin and zosyn -consult ID -monitor for improvement Code(s): K65.1 - PERITONEAL ABSCESS (2) Cellulitis Assessment/Plan: -noted on RLE -antibiotics as above Code(s): L03.90 - CELLULITIS, UNSPECIFIED (3) HLD (hyperlipidemia) Assessment/Plan: -continue lipitor Code(s): E78.5 - HYPERLIPIDEMIA, UNSPECIFIED (4) HTN (hypertension) Assessment/Plan: -continue lasix and atenolol Code(s): I10 - ESSENTIAL (PRIMARY) HYPERTENSION (5) Hypothyroid Assessment/Plan: -continue synthroid Code(s): E03.9 - HYPOTHYROIDISM, UNSPECIFIED (6) Thyroid cancer Assessment/Plan: -s/p thyroidectomy Code(s): C73 - MALIGNANT NEOPLASM OF THYROID GLAND (7) Edema Assessment/Plan: -continue lasix Code(s): R60.9 - EDEMA, UNSPECIFIED Qualifiers: Edema type: unspecified Qualified Code(s): R60.9 - Edema, unspecified (8) Hypocalcemia Assessment/Plan: -replace with calcium gluconate -recheck in am Code(s): E83.51 - HYPOCALCEMIA (9) Rash Assessment/Plan: -suspect secondary to bactrim -monitor Code(s): R21 - RASH AND OTHER NONSPECIFIC SKIN ERUPTION
--- NOTE | 2018-03-25 19:01 | CONSULT ---
Consult Consult Specialty:: General Surgery Reason for Consultation:: left groin abscess - History of Present Illness Chief Complaint: left groin infected abscess History of Present Illness: 78yo male PMH PAD, AAA EVAR, COPD, thyroid cancer, presents with a worsening inguinal mass. He was recently admitted at [facility] where he was being treated for cellulitis of the RLE and possible L inguinal abscess. He decided to leave AMA secondary to "not being able to sleep" ( says it is because he could not smoke), and was discharged on bactrim. He took the bactrim, however he noted that he developed a rash on his face and back. It is unclear if the rash started while in the hospital when he was on IV antibiotics or after starting bactrim. He also noted that his groin mass was worsening. It was growing and becoming more red. He also notes pain associated with it as well, a pinching type of pain. Because of this he decided to come in. Aside from this he is without complaint. He denies fevers, chills, lightheadedness, dizziness, passing out, chest pain, shortness of breath, coughing, abdominal pain, nausea, vomiting, diarrhea, constipation, drainage from site of mass, penile drainage, difficulty or pain on urination. He says the redness of his RLE is unchanged. we were asked to assess. 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) - Past Surgical History Past Surgical History: Yes: Hernia Repair (thyroidectomy) - Alcohol/Substance Use Hx Alcohol Use: No History of Substance Use: reports: None - Smoking History Smoking history: Current every day smoker Have you smoked in the past 12 months: Yes Aproximately how many cigarettes per day: 10 - Social History ADL: Independent (with walker) History of Recent Travel: No Home Medications - Allergies Allergies/Adverse Reactions: Allergies Allergy/AdvReac Type Severity Reaction Status Date / Time sulfamethoxazole Allergy Intermediate Hives Verified 03/25/18 14:47 [From Bactrim] trimethoprim [From Bactrim] Allergy Intermediate Hives Verified 03/25/18 14:47 - Home Medications Home Medications: Ambulatory Orders Atenolol [Tenormin -] 25 mg PO DAILY 03/18/18 Atorvastatin Ca [Lipitor] 40 mg PO DAILY 03/18/18 Calcium Carbonate [Oysco-500] 500 mg PO DAILY 03/18/18 Cholecalciferol (Vitamin D3) [Vitamin D3] 1,000 unit PO DAILY 03/18/18 Clonazepam 0.5 mg PO DAILY 03/18/18 Dabrafenib Mesylate [Tafinlar] 75 mg PO Q12H 03/18/18 Denosumab [Xgeva -] 120 mg IJ ASDIR 03/18/18 Escitalopram Oxalate [Lexapro -] 20 mg PO DAILY 03/18/18 Ferrous Sulfate 325 mg PO DAILY 03/18/18 Furosemide 20 mg PO BID 03/18/18 Levothyroxine Sodium [Synthroid] 225 mcg PO DAILY 03/18/18 Sulfamethoxazole/Trimethoprim [Bactrim Ds -] 1 tab PO BID #14 tablet 03/22/18 Review of Systems - Review of Systems Constitutional: denies: Chills, Fever Eyes: denies: Blind Spots, Recent Change in Vision HENT: denies: Difficult Swallowing, Ocular Prosthesis Neck: denies: Decreased ROM, Tenderness Cardiovascular: denies: Chest Pain, Palpitations Respiratory: reports: SOB. denies: Cough Gastrointestinal: denies: Abdominal Pain, Constipation, Diarrhea, Nausea Genitourinary: denies: Burning, Discharge, Dysuria Musculoskeletal: denies: Back Pain, Muscle Cramps, Muscle Weakness Integumentary: denies: Lesions, Lump, Pallor Neurological: denies: Seizure, Syncope Endocrine: denies: Unexplained Weight Gain, Unexplained Weight Loss Hematology/Lymphatic: denies: Easily Bruised, Excessive Bleeding Psychiatric: denies: Anxiety, Depression Physical Exam Vital Signs: Vital Signs Temperature 97.7 F 03/25/18 12:59 Pulse Rate 64 03/25/18 12:59 Respiratory Rate 18 03/25/18 12:59 Blood Pressure 130/70 03/25/18 12:59 O2 Sat by Pulse Oximetry (%) 99 03/25/18 15:20 Constitutional: Yes: Well Nourished, No Distress, Calm Eyes: Yes: Conjunctiva Clear, EOM Intact HENT: Yes: Atraumatic, Normocephalic Neck: Yes: Supple, Trachea Midline Cardiovascular: Yes: Regular Rate and Rhythm Respiratory: Yes: Regular, CTA Bilaterally Gastrointestinal: Yes: Normal Bowel Sounds, Soft ...Rectal Exam: Yes: Deferred Renal/: No: CVA Tenderness - Left, CVA Tenderness - Right Breast(s): No: Gynecomastia, Nipple Inversion, Skin Changes Musculoskeletal: No: Muscle Pain, Muscle Weakness Extremities: No: Cool, Cyanosis Edema: No Peripheral Pulses WNL: Yes Wound/Incision: No: Clean/Dry, Well Approximated Neurological: Yes: Alert, Oriented Psychiatric: Yes: Alert, Oriented Labs: CBC, BMP 03/25/18 15:20 03/25/18 15:20 Imaging - Results Cat Scan: Report Reviewed, Image Reviewed (Groin fluid collection adjacenmt to left femoral vessels) Ultrasound: Report Reviewed, Image Reviewed (not likely comunicating with femoral vessels) Problem List - Problems (1) Abscess of left groin Assessment/Plan: 78 yo male with MMP LE venous changes and cellultitis with draining left groin abscess NPO and IVF hydration IV antibiotics OR for I&D of left groin abscess Discussed with patient risks, benefits and alternatives of laparoscopic possible open ectomy, including but not limited to bleeding, infection, injury to adjacent structures, l, need for further procedures, ; alternatives include antibiotics, delayed or no surgery - risks of this include failure of nonoperative therapy, sepsis, recurrence, . Patient desires to proceed with operation - will take to OR for above. Informed consent signed for same. Thank you for the opportunity to participate in the care of this patient. Code(s): L02.214 - CUTANEOUS ABSCESS OF GROIN (2) NICOLE (acute kidney injury) Code(s): N17.9 - ACUTE KIDNEY FAILURE, UNSPECIFIED (3) HLD (hyperlipidemia) Code(s): E78.5 - HYPERLIPIDEMIA, UNSPECIFIED Qualifiers: Hyperlipidemia type: mixed hyperlipidemia Qualified Code(s): E78.2 - Mixed hyperlipidemia (4) HTN (hypertension) Code(s): I10 - ESSENTIAL (PRIMARY) HYPERTENSION Qualifiers: Hypertension type: essential hypertension Qualified Code(s): I10 - Essential (primary) hypertension (5) Hypothyroid Code(s): E03.9 - HYPOTHYROIDISM, UNSPECIFIED (6) Thyroid cancer Code(s): C73 - MALIGNANT NEOPLASM OF THYROID GLAND
[2018-03-25] MEDS ORDERED: VANCOMYCIN 1 GRAM (PRE-DOCKED) 1,000 MG/250 ML BAG IVPB ONE (20:36)
[2018-03-25] MEDS ORDERED: PIPERACILLIN/TAZOB 3.375 GM 3.375 GM/50 ML BAG IVPB ONE (20:37)
[2018-03-25] MEDS: PIPERACILLIN/TAZOB 3.375 GM 3.375 GM in DEXTROSE 5%-WATER - 50 ML IVPB SCH (20:53)
[2018-03-25] MEDS: VANCOMYCIN 1 GRAM (PRE-DOCKED) 1,000 MG/250 ML BAG IVPB SCH (22:10)
[2018-03-25] MEDS: NICOTINE 14 MG/24 HOURS TOPICAL PATCH TD SCH (23:59)
[2018-03-26] MEDS: HEPARIN NA (PORCINE) 5,000 UNITS/ML 1ML VIAL SQ SCH ×4 (00:13→22:02)
[2018-03-26] MEDS: ATORVASTATIN CA 40 MG TABLET (FP) PO SCH ×2 (00:14→22:03)
[2018-03-26] MEDS ORDERED: ACETAMINOPHEN 325 MG TABLET (FP) ONE ×2 (00:58→10:10)
[2018-03-26] MEDS ORDERED: HEPARIN NA (PORCINE) 5,000 UNITS/ML 1ML VIAL ONE ×2 (00:59→05:59)
[2018-03-26] MEDS ORDERED: ATORVASTATIN CA 40 MG TABLET (FP) ONE ×2 (00:59→21:49)
[2018-03-26] MEDS ORDERED: PIPERACILLIN/TAZOB 3.375 GM 3.375 GM/50 ML BAG IVPB ONE (02:08)
[2018-03-26] MEDS: PIPERACILLIN/TAZOB 3.375 GM 3.375 GM in DEXTROSE 5%-WATER - 50 ML IVPB SCH (02:41)
[2018-03-26 05:45] LABS: BASO % 0.8 % (0-2.0); EOS % 2.1 % (0-4.5); HEMATOCRIT 30.7 % (35.4-49); HEMOGLOBIN 9.8 GM/dL (11.7-16.9); LYMPH % 12.5 % (8-40); MCH 31.2 pg (25.7-33.7); MCHC 31.9 g/dl (32.0-35.9); MEAN CELL VOLUME 97.9 fl (80-96); MEAN PLT VOLUME 7.2 fl (7.5-11.1); MONO % 7.6 % (3.8-10.2); PLATELET COUNT 265 K/MM3 (134-434); RBC 3.13 M/mm3 (4.00-5.60); RDW 16.3 % (11.9-15.9); WHITE BLOOD COUNT 10.8 K/mm3 (4.0-10.0)
[2018-03-26] MEDS ORDERED: FUROSEMIDE 40 MG TABLET (FP) ONE ×2 (05:59→15:23)
[2018-03-26] MEDS ORDERED: VANCOMYCIN 1 GRAM (PRE-DOCKED) 1,000 MG/250 ML BAG IVPB ONE ×2 (05:59→16:20)
[2018-03-26] MEDS: VANCOMYCIN 1 GRAM (PRE-DOCKED) 1,000 MG/250 ML BAG IVPB SCH ×2 (06:08→17:18)
[2018-03-26] MEDS: FUROSEMIDE 20 MG TABLET (FP) PO SCH ×2 (06:08→16:18)
[2018-03-26 06:13] LABS: ANION GAP 5 MMOL/L (8-16); BLOOD UREA NITROGEN 28 mg/dL (7-18); CALCIUM 7.6 mg/dL (8.5-10.1); CHLORIDE 104 mmol/L (98-107); CO2 30 mmol/L (21-32); CREATININE 1.1 mg/dL (0.55-1.3); GLUCOSE,RANDOM 97 mg/dL (74-106); MAGNESIUM 2.1 mg/dL (1.8-2.4); PHOSPHOROUS 4.2 mg/dL (2.5-4.9); POTASSIUM 4.6 mmol/L (3.5-5.1); SODIUM 139 mmol/L (136-145)
[2018-03-26] MEDS: LEVOTHYROXINE 200 MCG, LEVOTHYROXINE 25 MCG PO SCH (07:17)
[2018-03-26] MEDS ORDERED: clonazePAM 0.5 MG TABLET ONE ×2 (08:37→10:06)
[2018-03-26] MEDS: clonazePAM 0.5 MG TABLET PO SCH ×2 (08:38→10:25)
--- NOTE | 2018-03-26 09:56 | PN ---
Progress Note, Physician Chief Complaint: Mr Marte says he is doing well. Denies cp, sob, n/v. When asked about abscess , he says it is hurting worse and inquiring if it will be drained soon. - Current Medication List Current Medications: Active Medications Acetaminophen (Tylenol -) 650 mg PO Q4H PRN PRN Reason: FEVER Atenolol (Tenormin -) 25 mg PO DAILY [facility] Atorvastatin Calcium (Lipitor -) 40 mg PO HS [facility] Last Admin: 03/26/18 00:14 Dose: 40 mg Calcium Carbonate (Os-Sergio 500mg -) 500 mg PO DAILY [facility] Cholecalciferol (Vitamin D3 -) 1,000 unit PO DAILY [facility] Clonazepam (Klonopin -) 0.5 mg PO DAILY [facility] Last Admin: 03/26/18 08:38 Dose: 0.5 mg Escitalopram Oxalate (Lexapro -) 20 mg PO DAILY [facility] Ferrous Sulfate (Feosol -) 325 mg PO DAILY [facility] Furosemide (Lasix -) 20 mg PO BIDLASIX [facility] Last Admin: 03/26/18 06:08 Dose: 20 mg Heparin Sodium (Porcine) (Heparin -) 5,000 unit SQ TID [facility] Last Admin: 03/26/18 06:08 Dose: 5,000 unit Vancomycin HCl 1,000 mg/ (Dextrose) 250 mls @ 166.667 mls/hr IVPB Q12H [facility]; Protocol Piperacillin Sod/Tazobactam (Sod 3.375 gm/ Dextrose) 50 mls @ 100 mls/hr IVPB Q8H-IV JOCE; Protocol Levothyroxine Sodium 200 mcg/ (Levothyroxine Sodium 25 mcg) 225 mcg PO DAILY@ 0700 [facility] Last Admin: 03/26/18 07:17 Dose: 225 mcg Nicotine (Nicoderm Patch -) 14 mg TD DAILY [facility] Last Admin: 03/25/18 23:59 Dose: Not Given - Objective Vital Signs: Vital Signs Temperature 36.4 C 03/25/18 21:15 Pulse Rate 70 03/25/18 21:15 Respiratory Rate 17 03/25/18 21:15 Blood Pressure 128/59 L 03/25/18 21:15 O2 Sat by Pulse Oximetry (%) 99 03/25/18 23:00 Constitutional: Yes: Well Nourished, No Distress, Calm Cardiovascular: Yes: Regular Rate and Rhythm. No: Gallop, Murmur, Rub Respiratory: Yes: Regular, CTA Bilaterally. No: Rales, Rhonchi, Wheezes Gastrointestinal: Yes: Normal Bowel Sounds, Soft. No: Distention, Tenderness Genitourinary: Yes: Other (inguinal hernia with increased erythema) Extremities: Yes: Erythema (much improved) Edema: No Labs: CBC, BMP 03/26/18 05:18 03/26/18 05:18 INR, PTT INR 1.06 (0.83-1.09) 03/25/18 15:20 Problem List - Problems (1) Abdominopelvic abscess Code(s): K65.1 - PERITONEAL ABSCESS (2) Cellulitis Code(s): L03.90 - CELLULITIS, UNSPECIFIED (3) HLD (hyperlipidemia) Code(s): E78.5 - HYPERLIPIDEMIA, UNSPECIFIED (4) HTN (hypertension) Code(s): I10 - ESSENTIAL (PRIMARY) HYPERTENSION (5) Hypothyroid Code(s): E03.9 - HYPOTHYROIDISM, UNSPECIFIED (6) Thyroid cancer Code(s): C73 - MALIGNANT NEOPLASM OF THYROID GLAND (7) Edema Code(s): R60.9 - EDEMA, UNSPECIFIED Qualifiers: Edema type: unspecified Qualified Code(s): R60.9 - Edema, unspecified (8) Hypocalcemia Code(s): E83.51 - HYPOCALCEMIA (9) Rash Code(s): R21 - RASH AND OTHER NONSPECIFIC SKIN ERUPTION Assessment/Plan (1) Abdominopelvic abscess Assessment/Plan: -patient says it feels worse today -with increased erythema -continue vancomycin and zosyn -ID and surgery consulted Code(s): K65.1 - PERITONEAL ABSCESS (2) Cellulitis Assessment/Plan: -improved -continue above antibiotics -ID consulted Code(s): L03.90 - CELLULITIS, UNSPECIFIED (3) HLD (hyperlipidemia) Assessment/Plan: -continue lipitor Code(s): E78.5 - HYPERLIPIDEMIA, UNSPECIFIED (4) HTN (hypertension) Assessment/Plan: -continue lasix and atenolol Code(s): I10 - ESSENTIAL (PRIMARY) HYPERTENSION (5) Hypothyroid Assessment/Plan: -continue synthroid Code(s): E03.9 - HYPOTHYROIDISM, UNSPECIFIED (6) Thyroid cancer Assessment/Plan: -s/p thyroidectomy Code(s): C73 - MALIGNANT NEOPLASM OF THYROID GLAND (7) Edema Assessment/Plan: -continue lasix Code(s): R60.9 - EDEMA, UNSPECIFIED Qualifiers: Edema type: unspecified Qualified Code(s): R60.9 - Edema, unspecified (8) Hypocalcemia Assessment/Plan: -replaced Code(s): E83.51 - HYPOCALCEMIA (9) Rash Assessment/Plan: -suspect secondary to bactrim -stable Code(s): R21 - RASH AND OTHER NONSPECIFIC SKIN ERUPTION
[2018-03-26] MEDS ORDERED: LEVOTHYROXINE NA 88 MCG TABLET (FP) PO SCH (10:00)
[2018-03-26] MEDS ORDERED: ATENOLOL 25 MG TABLET (FP) ONE (10:06)
[2018-03-26] MEDS ORDERED: ESCITALOPRAM OXALATE 10 MG TABLET (FP) ONE (10:07)
[2018-03-26] MEDS ORDERED: FERROUS SO4 325 MG TABLET (FP) ONE ×2 (10:07)
[2018-03-26] MEDS: ESCITALOPRAM OXALATE 20 MG TABLET (FP) PO SCH (10:20)
[2018-03-26] MEDS: ATENOLOL 25 MG TABLET (FP) PO SCH (10:35)
[2018-03-26] MEDS: FERROUS SO4 325 MG TABLET (FP) PO SCH (10:35)
--- NOTE | 2018-03-26 14:17 | PN ---
Progress Note (short form) - Note Progress Note: ID consult dictated 78 yo man returns to ED after leaving [facility] AMA on 03/22 on bactrim for a left groin abscess/cellulitis he now has a diffuse rash on his back and a pustular rash on his upper chest and face that his daughter states began while in the hospital at [facility] no fevers groin swelling for 2 weeks now suggest vancomycin and azactam surgery evaluation d/w dr cueto Problem List - Problems (1) Abdominopelvic abscess Code(s): K65.1 - PERITONEAL ABSCESS (2) Drug rash Code(s): L27.0 - GEN SKIN ERUPTION DUE TO DRUGS AND MEDS TAKEN INTERNALLY (3) Thyroid cancer Code(s): C73 - MALIGNANT NEOPLASM OF THYROID GLAND
[2018-03-26] MEDS ORDERED: AZTREONAM 1 GM VIAL (RESTRICTED TO ID) IVPB SCH (14:30)
[2018-03-26] MEDS: NICOTINE 14 MG/24 HOURS TOPICAL PATCH TD SCH (15:20)
[2018-03-26] MEDS: CHOLECALCIFEROL (VITAMIN D3) 1,000 UNIT TABLET (FP) PO SCH (15:20)
[2018-03-26] MEDS: CALCIUM (OYSTER SHELL) 500 MG TABLET (FP) PO SCH (15:20)
[2018-03-26] MEDS: AZTREONAM 1 GM in DEXTROSE 5%-WATER - 50 ML IVPB SCH ×2 (16:18→22:02)
--- NOTE | 2018-03-26 18:42 | CONS ---
INFECTIOUS DISEASE CONSULTATION DATE OF CONSULTATION: DATE OF DICTATION: 03/26/2018 REQUESTED BY: Rehan Cardenas MD HISTORY OF PRESENT ILLNESS: This is a 78-year-old man who returns to the emergency room after leaving [facility] on March 22 when he was hospitalized there for 4 days with a left groin abscess and cellulitis. He was placed on Bactrim at the time of discharge. He now returns with a diffuse rash on his back, pustular rash on his upper chest and face that his daughter thinks began while he was in the hospital at [facility]. He has no fevers. He gives a history of 2 weeks of groin swelling. He denies any fevers or chills and otherwise feels at his baseline. He originally presented to [facility] with lower extremity swelling as well as his left groin abscess. He is up-to-date with influenza and pneumococcal vaccine. He denies any cough, shortness of breath, fevers or chills. PAST MEDICAL HISTORY: Notable for metastatic thyroid cancer with lung and bone involvement. He is on chemotherapy. He has a history of hypertension, hyperlipidemia, sciatica and COPD. Status post thyroid surgery. He has had bilateral inguinal hernia repair. He has had a thyroidectomy. SOCIAL HISTORY: He lives in the community. He is retired from [employer]. He is an every-day current smoker. There is no history of any substance use. He lives with his spouse. He walks with a walker. MEDICATIONS AT HOME: Include atenolol, atorvastatin, calcium carbonate, vitamin D3, clonazepam, dabrafenib, denosumab, Lexapro, ferrous sulfate, furosemide, Synthroid and Bactrim, which he was just started on the . FAMILY HISTORY: Unremarkable. REVIEW OF SYSTEMS: Is as per HPI. PHYSICAL EXAMINATION: Vital Signs: He is afebrile. Temperature is 98.1, pulse is 67, blood pressure 126/72, respiratory rate is 20. He is saturating 99% on room air. General: He is a pleasant man in no acute distress. HEENT: He is normocephalic. His eyes are anicteric. Neck: Supple. Lungs: Clear to auscultation. Heart: Regular rate and rhythm. Abdomen: Soft. In his inguinal area he has a large left inguinal lesion which appears fluctuant and painful. Extremities: Notable for 1+ edema. He has some excoriations on both legs with minimal erythema. Skin: He has a diffuse rash on his back. He has a pustular rash on his face and upper chest which he attributes just to chemotherapy. DIAGNOSTIC DATA: He had an ultrasound of his left groin abscess that is consistent with a left groin complex fluid collection. IN SUMMARY: 1. This is a 78-year-old man with metastatic thyroid cancer who has evidence of a left groin abscess and a drug rash. Daughter insists this started prior to discharge. Bactrim was started after discharge. He was on a beta lactam, so would suggest we continue vancomycin for methicillin-resistant Staphylococcus aureus coverage and switch him to Azactam for gram-negative coverage with Surgery to see. 2. Metastatic thyroid cancer, management per his oncologist. The case was discussed with the hospitalist. SHANICE WEISS M.D. [id number]
[2018-03-27] MEDS: AZTREONAM 1 GM in DEXTROSE 5%-WATER - 50 ML IVPB SCH ×3 (02:32→17:55)
[2018-03-27] MEDS ORDERED: FUROSEMIDE 40 MG TABLET (FP) ONE (05:55)
[2018-03-27] MEDS ORDERED: VANCOMYCIN 1 GRAM (PRE-DOCKED) 1,000 MG/250 ML BAG IVPB ONE ×2 (05:56→16:28)
[2018-03-27] MEDS: VANCOMYCIN 1 GRAM (PRE-DOCKED) 1,000 MG/250 ML BAG IVPB SCH ×2 (06:08→19:00)
[2018-03-27] MEDS: FUROSEMIDE 20 MG TABLET (FP) PO SCH ×2 (06:08→13:15)
[2018-03-27] MEDS: HEPARIN NA (PORCINE) 5,000 UNITS/ML 1ML VIAL SQ SCH ×3 (06:08→23:13)
[2018-03-27] MEDS: LEVOTHYROXINE 200 MCG, LEVOTHYROXINE 25 MCG PO SCH (06:08)
[2018-03-27 06:22] LABS: BASO % 0.5 % (0-2.0); EOS % 3.6 % (0-4.5); HEMATOCRIT 31.1 % (35.4-49); HEMOGLOBIN 9.8 GM/dL (11.7-16.9); MCH 31.1 pg (25.7-33.7); MCHC 31.5 g/dl (32.0-35.9); MEAN CELL VOLUME 98.8 fl (80-96); MEAN PLT VOLUME 7.6 fl (7.5-11.1); MONO % 8.5 % (3.8-10.2); NEUT % 72.4 % (42.8-82.8); PLATELET COUNT 275 K/MM3 (134-434); RBC 3.14 M/mm3 (4.00-5.60); RDW 16.2 % (11.9-15.9); WHITE BLOOD COUNT 9.9 K/mm3 (4.0-10.0)
[2018-03-27 06:51] LABS: ANION GAP 5 MMOL/L (8-16); BLOOD UREA NITROGEN 26 mg/dL (7-18); CALCIUM 7.8 mg/dL (8.5-10.1); CHLORIDE 105 mmol/L (98-107); CO2 31 mmol/L (21-32); CREATININE 1.1 mg/dL (0.55-1.3); GLUCOSE,RANDOM 90 mg/dL (74-106); MAGNESIUM 2.2 mg/dL (1.8-2.4); PHOSPHOROUS 3.7 mg/dL (2.5-4.9); POTASSIUM 4.6 mmol/L (3.5-5.1); SODIUM 140 mmol/L (136-145)
[2018-03-27] MEDS ORDERED: clonazePAM 0.5 MG TABLET ONE (09:56)
[2018-03-27] MEDS: NICOTINE 14 MG/24 HOURS TOPICAL PATCH TD SCH (10:11)
[2018-03-27] MEDS: clonazePAM 0.5 MG TABLET PO SCH (10:11)
[2018-03-27] MEDS: FERROUS SO4 325 MG TABLET (FP) PO SCH (10:11)
[2018-03-27] MEDS: CHOLECALCIFEROL (VITAMIN D3) 1,000 UNIT TABLET (FP) PO SCH (10:11)
[2018-03-27] MEDS: ATENOLOL 25 MG TABLET (FP) PO SCH (10:11)
[2018-03-27] MEDS: CALCIUM (OYSTER SHELL) 500 MG TABLET (FP) PO SCH (10:11)
[2018-03-27] MEDS: ESCITALOPRAM OXALATE 20 MG TABLET (FP) PO SCH (10:11)
[2018-03-27] MEDS ORDERED: HEPARIN NA (PORCINE) 5,000 UNITS/ML 1ML VIAL ONE (12:27)
--- NOTE | 2018-03-27 12:53 | PN ---
Physical Exam: SUBJECTIVE: Patient seen and examined at bed side this morning. States he feels better. OBJECTIVE: Vital Signs Period Temp Pulse Resp BP Sys/Perez Pulse Ox Last 24 Hr 98.1 F-98.2 F 60-72 18-22 107-130/62-75 94-100 GENERAL: The patient is awake, alert, and fully oriented, in no acute distress. HEAD: Normal with no signs of trauma. EYES: PERRL, extraocular movements intact, sclera anicteric, conjunctiva clear. No ptosis. ENT: Ears normal, nares patent, oropharynx clear without exudates, moist mucous membranes. NECK: Trachea midline, full range of motion, supple. LUNGS: Breath sounds equal, clear to auscultation bilaterally, no wheezes, no crackles, no accessory muscle use. HEART: Regular rate and rhythm, S1, S2 without murmur, rub or gallop. ABDOMEN: Soft, nontender, nondistended, normoactive bowel sounds, no guarding, no rebound, no hepatosplenomegaly, no masses. EXTREMITIES: 2+ pulses, warm, well-perfused, no edema. NEUROLOGICAL: Cranial nerves II through XII grossly intact. Normal speech, gait not observed. PSYCH: Normal mood, normal affect. SKIN: Warm, dry, normal turgor, no rashes or lesions noted Laboratory Results - last 24 hr 03/27/18 03/27/18 05:30 05:30 WBC 9.9 RBC 3.14 L Hgb 9.8 L Hct 31.1 L MCV 98.8 H MCH 31.1 MCHC 31.5 L RDW 16.2 H Plt Count 275 MPV 7.6 Absolute Neuts (auto) 7.2 Neutrophils % 72.4 Lymphocytes % 15.0 Monocytes % 8.5 Eosinophils % 3.6 Basophils % 0.5 Nucleated RBC % 0 Sodium 140 Potassium 4.6 Chloride 105 Carbon Dioxide 31 Anion Gap 5 L BUN 26 H Creatinine 1.1 Creat Clearance w eGFR > 60 Random Glucose 90 Calcium 7.8 L Phosphorus 3.7 Magnesium 2.2 Active Medications Generic Name Dose Route Start Last Admin Trade Name Freq PRN Reason Stop Dose Admin Acetaminophen 650 mg 03/25/18 17:42 Tylenol - PO Q4H PRN FEVER Atenolol 25 mg 03/26/18 10:00 03/27/18 10:11 Tenormin - PO 25 mg DAILY JOCE Administration Atorvastatin Calcium 40 mg 03/25/18 22:00 03/26/18 22:03 Lipitor - PO 40 mg HS JOCE Administration Calcium Carbonate 500 mg 03/26/18 10:00 03/27/18 10:11 Os-Sergio 500mg - PO 500 mg DAILY JOCE Administration Cholecalciferol 1,000 unit 03/26/18 10:00 03/27/18 10:11 Vitamin D3 - PO 1,000 unit DAILY JOCE Administration Clonazepam 0.5 mg 03/26/18 10:00 03/27/18 10:11 Klonopin - PO 0.5 mg DAILY JOCE Administration Escitalopram Oxalate 20 mg 03/26/18 10:00 03/27/18 10:11 Lexapro - PO 20 mg DAILY JOCE Administration Ferrous Sulfate 325 mg 03/26/18 10:00 03/27/18 10:11 Feosol - PO 325 mg DAILY JOCE Administration Furosemide 20 mg 03/26/18 06:00 03/27/18 06:08 Lasix - PO 20 mg BIDLASIX JOCE Administration Heparin Sodium (Porcine) 5,000 unit 03/25/18 22:00 03/27/18 06:08 Heparin - SQ 5,000 unit TID JOCE Administration Vancomycin HCl 1,000 mg in 250 mls @ 166.667 mls/hr 03/26/18 18:00 03/27/18 06:08 Vancomycin (Pre-Docked) IVPB 166.667 mls/hr Q12H JOCE Administration Protocol Aztreonam 1 gm/ Dextrose 50 mls @ 100 mls/hr 03/26/18 15:00 03/27/18 10:11 IVPB 100 mls/hr Q8H-IV JOCE Administration Levothyroxine Sodium 200 mcg/ 225 mcg 03/26/18 07:00 03/27/18 06:08 Levothyroxine Sodium 25 mcg PO 225 mcg DAILY@0700 JOCE Administration Nicotine 14 mg 03/25/18 18:00 03/27/18 10:11 Nicoderm Patch - TD 14 mg DAILY JOCE Administration ASSESSMENT/PLAN:
--- NOTE | 2018-03-27 14:38 | OP ---
Operative Note - Note: Operative Date: 03/27/18 Pre-Operative Diagnosis: draining left groin abscess Operation: incision and drainage of left groin abscess Findings: left groin abscess, culture sent. Thick pus non-foul smelling. matted inflamed Lymph nodes. Post-Operative Diagnosis: Other (infected matted inguinal nodes AND abscess) Surgeon: Rakesh Shirley Anesthesiologist/MRI MANAGER: Armando Ken Anesthesia: General, Local Specimens Removed: left groin abscess Estimated Blood Loss (mls): 2 Fluid Volume Replaced (mls): 100 Operative Report Dictated: Yes
--- NOTE | 2018-03-27 15:16 | PN ---
Teaching Attending Note Name of Resident: Umm Pitt ATTENDING PHYSICIAN STATEMENT I saw and evaluated the patient. I reviewed the resident's note and discussed the case with the resident. I agree with the resident's findings and plan as documented. SUBJECTIVE: Mr Marte says he is feeling well today. No cp, sob, n/v. When asked he says he has a pinch at the abscess site OBJECTIVE: Gen: nad Pulm: ctab w/o w/r/r CV: rrr w/o m/r/g Abd: +bs, s/nt/nd : L inguinal abscess with erythema Ext: no c/c/e Skin: petechial rash, improved ASSESSMENT AND PLAN: (1) Abdominopelvic abscess Assessment/Plan: -patient says it feels worse today -with increased erythema -continue vancomycin and zosyn -ID following -case d/w Dr Shirley, will I&D today Code(s): K65.1 - PERITONEAL ABSCESS (2) Cellulitis Assessment/Plan: -improved -continue above antibiotics -ID following Code(s): L03.90 - CELLULITIS, UNSPECIFIED (3) HLD (hyperlipidemia) Assessment/Plan: -continue lipitor Code(s): E78.5 - HYPERLIPIDEMIA, UNSPECIFIED (4) HTN (hypertension) Assessment/Plan: -continue lasix and atenolol Code(s): I10 - ESSENTIAL (PRIMARY) HYPERTENSION (5) Hypothyroid Assessment/Plan: -continue synthroid Code(s): E03.9 - HYPOTHYROIDISM, UNSPECIFIED (6) Thyroid cancer Assessment/Plan: -s/p thyroidectomy Code(s): C73 - MALIGNANT NEOPLASM OF THYROID GLAND (7) Edema Assessment/Plan: -continue lasix Code(s): R60.9 - EDEMA, UNSPECIFIED Qualifiers: Edema type: unspecified Qualified Code(s): R60.9 - Edema, unspecified (8) Hypocalcemia Assessment/Plan: -replaced Code(s): E83.51 - HYPOCALCEMIA (9) Rash Assessment/Plan: -suspect secondary to bactrim -improving Code(s): R21 - RASH AND OTHER NONSPECIFIC SKIN ERUPTION Problem List - Problems (1) Abdominopelvic abscess Code(s): K65.1 - PERITONEAL ABSCESS (2) Cellulitis Code(s): L03.90 - CELLULITIS, UNSPECIFIED (3) HLD (hyperlipidemia) Code(s): E78.5 - HYPERLIPIDEMIA, UNSPECIFIED Qualifiers: Hyperlipidemia type: mixed hyperlipidemia Qualified Code(s): E78.2 - Mixed hyperlipidemia (4) HTN (hypertension) Code(s): I10 - ESSENTIAL (PRIMARY) HYPERTENSION Qualifiers: Hypertension type: essential hypertension Qualified Code(s): I10 - Essential (primary) hypertension (5) Hypothyroid Code(s): E03.9 - HYPOTHYROIDISM, UNSPECIFIED (6) Thyroid cancer Code(s): C73 - MALIGNANT NEOPLASM OF THYROID GLAND (7) Edema Code(s): R60.9 - EDEMA, UNSPECIFIED Qualifiers: Edema type: unspecified Qualified Code(s): R60.9 - Edema, unspecified (8) Hypocalcemia Code(s): E83.51 - HYPOCALCEMIA (9) Rash Code(s): R21 - RASH AND OTHER NONSPECIFIC SKIN ERUPTION
--- NOTE | 2018-03-27 16:25 | PN ---
Physical Exam: SUBJECTIVE: Patient seen and examined at bed side this morning. States he feels better. Denies abdominal pain, nausea, vomiting, chest pain, sob, cough, palpitation. OBJECTIVE: Vital Signs Period Temp Pulse Resp BP Sys/Perez Pulse Ox Last 24 Hr 98.1 F-98.2 F 55-72 18-22 107-145/62-75 94-100 GENERAL: Elderly male, sleeping, arousable, patient is and fully oriented, in no acute distress. HEAD: Normal with no signs of trauma. EYES: EOM intact, no pallor or icterus. ENT: Ears normal, moist mucous membranes. FACE: Pimples on the face (d/t drug reaction-now getting better) NECK: Supple. LUNGS: Breath sounds equal, clear to auscultation bilaterally, no wheezes, no crackles, no accessory muscle use. HEART: Regular rate and rhythm, S1, S2 without murmur, rub or gallop. ABDOMEN: Left groin abscess +, serosanguinous fluid +, erythema +. Abdomen is Soft, nontender, no organomegaly, BS +. rebound, no hepatosplenomegaly, no masses. UPPER EXTREMITIES: 2+ pulses, warm, well-perfused, no edema. LOWER EXTREMITIES: R > L scabs +, erythema resolved. Pitting edema + NEUROLOGICAL: No facial droop. Normal speech, gait not observed. PSYCH: Normal mood, normal affect. SKIN: Warm, dry, normal turgor, no rashes or lesions noted Laboratory Results - last 24 hr 03/27/18 03/27/18 05:30 05:30 WBC 9.9 RBC 3.14 L Hgb 9.8 L Hct 31.1 L MCV 98.8 H MCH 31.1 MCHC 31.5 L RDW 16.2 H Plt Count 275 MPV 7.6 Absolute Neuts (auto) 7.2 Neutrophils % 72.4 Lymphocytes % 15.0 Monocytes % 8.5 Eosinophils % 3.6 Basophils % 0.5 Nucleated RBC % 0 Sodium 140 Potassium 4.6 Chloride 105 Carbon Dioxide 31 Anion Gap 5 L BUN 26 H Creatinine 1.1 Creat Clearance w eGFR > 60 Random Glucose 90 Calcium 7.8 L Phosphorus 3.7 Magnesium 2.2 Active Medications Generic Name Dose Route Start Last Admin Trade Name Freq PRN Reason Stop Dose Admin Acetaminophen 650 mg 03/25/18 17:42 Tylenol - PO Q4H PRN FEVER Atenolol 25 mg 03/26/18 10:00 03/27/18 10:11 Tenormin - PO 25 mg DAILY JOCE Administration Atorvastatin Calcium 40 mg 03/25/18 22:00 03/26/18 22:03 Lipitor - PO 40 mg HS JOCE Administration Calcium Carbonate 500 mg 03/26/18 10:00 03/27/18 10:11 Os-Sergio 500mg - PO 500 mg DAILY JOCE Administration Cholecalciferol 1,000 unit 03/26/18 10:00 03/27/18 10:11 Vitamin D3 - PO 1,000 unit DAILY JOCE Administration Clonazepam 0.5 mg 03/26/18 10:00 03/27/18 10:11 Klonopin - PO 0.5 mg DAILY JOCE Administration Escitalopram Oxalate 20 mg 03/26/18 10:00 03/27/18 10:11 Lexapro - PO 20 mg DAILY JOCE Administration Ferrous Sulfate 325 mg 03/26/18 10:00 03/27/18 10:11 Feosol - PO 325 mg DAILY JOCE Administration Furosemide 20 mg 03/26/18 06:00 03/27/18 13:15 Lasix - PO 20 mg BIDLASIX JOCE Administration Heparin Sodium (Porcine) 5,000 unit 03/25/18 22:00 03/27/18 13:15 Heparin - SQ Not Given TID JOCE Vancomycin HCl 1,000 mg in 250 mls @ 166.667 mls/hr 03/26/18 18:00 03/27/18 06:08 Vancomycin (Pre-Docked) IVPB 166.667 mls/hr Q12H JOCE Administration Protocol Aztreonam 1 gm/ Dextrose 50 mls @ 100 mls/hr 03/26/18 15:00 03/27/18 10:11 IVPB 100 mls/hr Q8H-IV JOCE Administration Levothyroxine Sodium 200 mcg/ 225 mcg 03/26/18 07:00 03/27/18 06:08 Levothyroxine Sodium 25 mcg PO 225 mcg DAILY@0700 JOCE Administration Nicotine 14 mg 03/25/18 18:00 03/27/18 10:11 Nicoderm Patch - TD 14 mg DAILY JOCE Administration ASSESSMENT/PLAN: Patient is a 78 year old male with significant PMHx of HTN, HLD, Hypothyroidism due to thyroidectomy for thyroid ca who comes in with rash and worsening inguinal mass. # Left groin abscess s/p Incision and Drainage- POD 0 I and D done today under local anesthesia Wound cx positive for staph coag. Blood cultures neg Continue IV Aztreonam 1gm Q8H Day 2 and Vancomycin 1gm BID Day 2 Dressing per surgery # Cellulitis of the LE now improved Continue the above antibiotics Patient was initially started on Bactrim but now d/c due to Rash on the face. # HTN controlled Continue Atenolol 25 mg PO daily, Lasix 20mg PO BID # HLD Continue Lipitor # Hypothyroidism s/p thyroidecomy for thyroid CA Continue Synthroid Levothyroxine 225 mcg # Active smoker Continue Nicotine patch # Normocytic anemia: H/H Stable # FEN Not on IV fluids, can tolerate PO Electrolytes WNL NPO. advance diet as per surgery # Prophylaxis For DVT: On Heparin 5000 IU sq TID FOr GI: not indicated # Code Status: Full Code # Dispo: Admitted in Med/surg. Duration of stay unknown. Illness, Investigation and plan of care explained to the patient, and daughter. They verbalized understanding. Case discussed with Dr. Cardenas. Problem List - Problems (1) Abscess of left groin Code(s): L02.214 - CUTANEOUS ABSCESS OF GROIN (2) Drug rash Code(s): L27.0 - GEN SKIN ERUPTION DUE TO DRUGS AND MEDS TAKEN INTERNALLY (3) NICOLE (acute kidney injury) Code(s): N17.9 - ACUTE KIDNEY FAILURE, UNSPECIFIED (4) Cellulitis Code(s): L03.90 - CELLULITIS, UNSPECIFIED Visit type - Emergency Visit Emergency Visit: Yes ED Registration Date: 03/25/18 Care time: The patient presented to the Emergency Department on the above date and was hospitalized for further evaluation of their emergent condition. - New Patient This patient is new to me today: Yes Date on this admission: 03/27/18 - Critical Care Critical Care patient: No - Discharge Referral Referred to [facility] No
[2018-03-27] MEDS: VANCOMYCIN 1,000 MG in DEXTROSE 5%-WATER - 250 ML IVPB SCH (19:00)
[2018-03-27] MEDS: PIPERACILLIN/TAZOB 3.375 GM 3.375 GM in DEXTROSE 5%-WATER - 50 ML IVPB SCH (19:00)
[2018-03-27] MEDS ORDERED: MIDAZOLAM HCL 2 MG/2 ML SINGLE DOSE VIAL ONE (20:57)
[2018-03-27] MEDS ORDERED: PROMETHAZINE HCL 25 MG/1 ML VIAL IVPUSH PRN (21:34)
[2018-03-27] MEDS ORDERED: oxyCODONE HCL 5 MG TABLET PO PRN (21:34)
[2018-03-27] MEDS ORDERED: ONDANSETRON 4 MG/2 ML VIAL IVPUSH PRN (21:34)
[2018-03-27] MEDS ORDERED: LACTATED RINGERS SOLUTION 1,000 ML IV SCH (21:45)
[2018-03-27] MEDS ORDERED: ACETAMINOPHEN 325 MG TABLET (FP) PO PRN (22:05)
[2018-03-27] MEDS: ATORVASTATIN CA 40 MG TABLET (FP) PO SCH (23:13)
[2018-03-28] MEDS: AZTREONAM 1 GM in DEXTROSE 5%-WATER - 50 ML IVPB SCH ×3 (01:16→16:59)
[2018-03-28] MEDS: oxyCODONE HCL 5 MG TABLET PO PRN ×3 (01:19→23:24)
[2018-03-28] MEDS: HEPARIN NA (PORCINE) 5,000 UNITS/ML 1ML VIAL SQ SCH ×3 (05:26→21:50)
[2018-03-28] MEDS: VANCOMYCIN 1 GRAM (PRE-DOCKED) 1,000 MG/250 ML BAG IVPB SCH ×2 (05:26→17:01)
[2018-03-28] MEDS: FUROSEMIDE 20 MG TABLET (FP) PO SCH ×2 (05:26→13:26)
[2018-03-28] MEDS ORDERED: LEVOTHYROXINE NA 100 MCG TABLET (FP) ONE (06:48)
[2018-03-28] MEDS ORDERED: LEVOTHYROXINE NA 25 MCG TABLET (FP) ONE (06:48)
[2018-03-28] MEDS: LEVOTHYROXINE 200 MCG, LEVOTHYROXINE 25 MCG PO SCH (06:51)
[2018-03-28] MEDS: ESCITALOPRAM OXALATE 20 MG TABLET (FP) PO SCH (09:49)
[2018-03-28] MEDS: ATENOLOL 25 MG TABLET (FP) PO SCH (09:49)
[2018-03-28] MEDS: CALCIUM (OYSTER SHELL) 500 MG TABLET (FP) PO SCH (09:49)
[2018-03-28] MEDS: CHOLECALCIFEROL (VITAMIN D3) 1,000 UNIT TABLET (FP) PO SCH (09:50)
[2018-03-28] MEDS: FERROUS SO4 325 MG TABLET (FP) PO SCH (09:50)
[2018-03-28] MEDS: NICOTINE 14 MG/24 HOURS TOPICAL PATCH TD SCH ×2 (09:50→11:30)
[2018-03-28] MEDS: clonazePAM 0.5 MG TABLET PO SCH (09:50)
--- NOTE | 2018-03-28 15:09 | PN ---
Progress Note, Physician Chief Complaint: Mr Marte says he is doing well. Denies cp, sob, n/v. No pain at I&D site. - Current Medication List Current Medications: Active Medications Acetaminophen (Tylenol -) 650 mg PO Q4H PRN PRN Reason: FEVER Last Admin: 03/28/18 05:54 Dose: 650 mg Atenolol (Tenormin -) 25 mg PO DAILY [facility] Last Admin: 03/28/18 09:49 Dose: 25 mg Atorvastatin Calcium (Lipitor -) 40 mg PO HS [facility] Calcium Carbonate (Os-Sergio 500mg -) 500 mg PO DAILY [facility] Last Admin: 03/28/18 09:49 Dose: 500 mg Cholecalciferol (Vitamin D3 -) 1,000 unit PO DAILY [facility] Last Admin: 03/28/18 09:50 Dose: 1,000 unit Clonazepam (Klonopin -) 0.5 mg PO DAILY [facility] Last Admin: 03/28/18 09:50 Dose: 0.5 mg Escitalopram Oxalate (Lexapro -) 20 mg PO DAILY [facility] Last Admin: 03/28/18 09:49 Dose: 20 mg Ferrous Sulfate (Feosol -) 325 mg PO DAILY [facility] Last Admin: 03/28/18 09:50 Dose: 325 mg Furosemide (Lasix -) 20 mg PO BIDLASIX [facility] Last Admin: 03/28/18 13:26 Dose: 20 mg Heparin Sodium (Porcine) (Heparin -) 5,000 unit SQ TID [facility] Last Admin: 03/28/18 13:24 Dose: 5,000 unit Aztreonam 1 gm/ Dextrose 50 mls @ 100 mls/hr IVPB Q8H-IV [facility] Last Admin: 03/28/18 09:50 Dose: 100 mls/hr Vancomycin HCl (Vancomycin (Pre-Docked)) 1,000 mg in 250 mls @ 166.667 mls/hr IVPB BID@0600,1800 [facility]; Protocol Last Admin: 03/28/18 05:26 Dose: 166.667 mls/hr Levothyroxine Sodium 200 mcg/ (Levothyroxine Sodium 25 mcg) 225 mcg PO DAILY@ 0700 [facility] Last Admin: 03/28/18 06:51 Dose: 225 mcg Nicotine (Nicoderm Patch -) 14 mg TD DAILY [facility] Last Admin: 03/28/18 11:30 Dose: 14 mg Oxycodone HCl (Roxicodone -) 5 mg PO Q4H PRN PRN Reason: PAIN LEVEL 1-5 Last Admin: 03/28/18 06:51 Dose: 5 mg - Objective Vital Signs: Vital Signs Temperature 36.8 C 03/28/18 10:41 Pulse Rate 68 03/28/18 10:41 Respiratory Rate 18 03/28/18 10:41 Blood Pressure 120/70 03/28/18 10:41 O2 Sat by Pulse Oximetry (%) 98 03/28/18 00:45 Constitutional: Yes: Well Nourished, No Distress, Calm Cardiovascular: Yes: Regular Rate and Rhythm. No: Gallop, Murmur, Rub Respiratory: Yes: Regular, CTA Bilaterally. No: Rales, Rhonchi, Wheezes Gastrointestinal: Yes: Normal Bowel Sounds, Soft. No: Distention, Tenderness Extremities: Yes: WNL Edema: No Labs: CBC, BMP 03/27/18 05:30 03/27/18 05:30 INR, PTT INR 1.06 (0.83-1.09) 03/25/18 15:20 Problem List - Problems (1) Abdominopelvic abscess Code(s): K65.1 - PERITONEAL ABSCESS (2) Cellulitis Code(s): L03.90 - CELLULITIS, UNSPECIFIED (3) HLD (hyperlipidemia) Code(s): E78.5 - HYPERLIPIDEMIA, UNSPECIFIED Qualifiers: Hyperlipidemia type: mixed hyperlipidemia Qualified Code(s): E78.2 - Mixed hyperlipidemia (4) HTN (hypertension) Code(s): I10 - ESSENTIAL (PRIMARY) HYPERTENSION Qualifiers: Hypertension type: essential hypertension Qualified Code(s): I10 - Essential (primary) hypertension (5) Hypothyroid Code(s): E03.9 - HYPOTHYROIDISM, UNSPECIFIED (6) Thyroid cancer Code(s): C73 - MALIGNANT NEOPLASM OF THYROID GLAND (7) Edema Code(s): R60.9 - EDEMA, UNSPECIFIED Qualifiers: Edema type: unspecified Qualified Code(s): R60.9 - Edema, unspecified (8) Hypocalcemia Code(s): E83.51 - HYPOCALCEMIA (9) Rash Code(s): R21 - RASH AND OTHER NONSPECIFIC SKIN ERUPTION Assessment/Plan (1) Abdominopelvic abscess Assessment/Plan: -s/p I&D -appreciate surgery assistance -continue vancomycin and aztreonam per ID recommendations Code(s): K65.1 - PERITONEAL ABSCESS (2) Cellulitis Assessment/Plan: -resolved Code(s): L03.90 - CELLULITIS, UNSPECIFIED (3) HLD (hyperlipidemia) Assessment/Plan: -continue lipitor Code(s): E78.5 - HYPERLIPIDEMIA, UNSPECIFIED (4) HTN (hypertension) Assessment/Plan: -continue lasix and atenolol Code(s): I10 - ESSENTIAL (PRIMARY) HYPERTENSION (5) Hypothyroid Assessment/Plan: -continue synthroid Code(s): E03.9 - HYPOTHYROIDISM, UNSPECIFIED (6) Thyroid cancer Assessment/Plan: -s/p thyroidectomy Code(s): C73 - MALIGNANT NEOPLASM OF THYROID GLAND (7) Edema Assessment/Plan: -continue lasix Code(s): R60.9 - EDEMA, UNSPECIFIED Qualifiers: Edema type: unspecified Qualified Code(s): R60.9 - Edema, unspecified (8) Hypocalcemia Assessment/Plan: -replaced Code(s): E83.51 - HYPOCALCEMIA (9) Rash Assessment/Plan: -suspect secondary to bactrim -improving Code(s): R21 - RASH AND OTHER NONSPECIFIC SKIN ERUPTION
--- NOTE | 2018-03-28 18:27 | PN ---
Progress Note, Physician History of Present Illness: S/P I&D L groin abscess Wound c/s MSSA Awake, alert Ambulatory Non toxic appearing No c/o groin pain - Current Medication List Current Medications: Active Medications Acetaminophen (Tylenol -) 650 mg PO Q4H PRN PRN Reason: FEVER Last Admin: 03/28/18 05:54 Dose: 650 mg Atenolol (Tenormin -) 25 mg PO DAILY [facility] Last Admin: 03/28/18 09:49 Dose: 25 mg Atorvastatin Calcium (Lipitor -) 40 mg PO HS [facility] Calcium Carbonate (Os-Sergio 500mg -) 500 mg PO DAILY [facility] Last Admin: 03/28/18 09:49 Dose: 500 mg Cholecalciferol (Vitamin D3 -) 1,000 unit PO DAILY [facility] Last Admin: 03/28/18 09:50 Dose: 1,000 unit Clonazepam (Klonopin -) 0.5 mg PO DAILY [facility] Last Admin: 03/28/18 09:50 Dose: 0.5 mg Escitalopram Oxalate (Lexapro -) 20 mg PO DAILY [facility] Last Admin: 03/28/18 09:49 Dose: 20 mg Ferrous Sulfate (Feosol -) 325 mg PO DAILY [facility] Last Admin: 03/28/18 09:50 Dose: 325 mg Furosemide (Lasix -) 20 mg PO BIDLASIX [facility] Last Admin: 03/28/18 13:26 Dose: 20 mg Heparin Sodium (Porcine) (Heparin -) 5,000 unit SQ TID [facility] Last Admin: 03/28/18 13:24 Dose: 5,000 unit Aztreonam 1 gm/ Dextrose 50 mls @ 100 mls/hr IVPB Q8H-IV [facility] Last Admin: 03/28/18 16:59 Dose: 100 mls/hr Vancomycin HCl (Vancomycin (Pre-Docked)) 1,000 mg in 250 mls @ 166.667 mls/hr IVPB BID@0600,1800 [facility]; Protocol Last Admin: 03/28/18 17:01 Dose: 166.667 mls/hr Levothyroxine Sodium 200 mcg/ (Levothyroxine Sodium 25 mcg) 225 mcg PO DAILY@ 0700 [facility] Last Admin: 03/28/18 06:51 Dose: 225 mcg Nicotine (Nicoderm Patch -) 14 mg TD DAILY [facility] Last Admin: 01/01/19 11:30 Dose: 14 mg Oxycodone HCl (Roxicodone -) 5 mg PO Q4H PRN PRN Reason: PAIN LEVEL 1-5 Last Admin: 03/28/18 06:51 Dose: 5 mg - Objective Vital Signs: Vital Signs Temperature 98.2 F 03/28/18 10:41 Pulse Rate 68 03/28/18 10:41 Respiratory Rate 18 03/28/18 10:41 Blood Pressure 120/70 03/28/18 10:41 O2 Sat by Pulse Oximetry (%) 98 03/28/18 09:00 Constitutional: Yes: No Distress Cardiovascular: Yes: Regular Rate and Rhythm, S1, S2 Respiratory: Yes: CTA Bilaterally Gastrointestinal: Yes: Normal Bowel Sounds, Soft Genitourinary: Yes: Other (L groin wound with packing; decreased erythema) Labs: CBC, BMP 03/27/18 05:30 03/27/18 05:30 INR, PTT INR 1.06 (0.83-1.09) 03/25/18 15:20 Assessment/Plan S/P L groin abscess MSSA ? PCN allergy Metastatic carcinoma Continue vancomycin D/C aztreonam
--- NOTE | 2018-03-28 19:34 | PN ---
Progress Note, Physician Chief Complaint: left groin abscess History of Present Illness: 78yo male PMH PAD, AAA EVAR, COPD, thyroid cancer, presents with a worsening inguinal mass. He was recently admitted at [place] where he was being treated for cellulitis of the RLE and possible L inguinal abscess. stable postoperatively. - Current Medication List Current Medications: Active Medications Acetaminophen (Tylenol -) 650 mg PO Q4H PRN PRN Reason: FEVER Last Admin: 03/28/18 05:54 Dose: 650 mg Atenolol (Tenormin -) 25 mg PO DAILY [facility] Last Admin: 03/28/18 09:49 Dose: 25 mg Atorvastatin Calcium (Lipitor -) 40 mg PO HS [facility] Calcium Carbonate (Os-Sergio 500mg -) 500 mg PO DAILY [facility] Last Admin: 03/28/18 09:49 Dose: 500 mg Cholecalciferol (Vitamin D3 -) 1,000 unit PO DAILY [facility] Last Admin: 03/28/18 09:50 Dose: 1,000 unit Clonazepam (Klonopin -) 0.5 mg PO DAILY [facility] Last Admin: 03/28/18 09:50 Dose: 0.5 mg Escitalopram Oxalate (Lexapro -) 20 mg PO DAILY [facility] Last Admin: 03/28/18 09:49 Dose: 20 mg Ferrous Sulfate (Feosol -) 325 mg PO DAILY [facility] Last Admin: 03/28/18 09:50 Dose: 325 mg Furosemide (Lasix -) 20 mg PO BIDLASIX [facility] Last Admin: 03/28/18 13:26 Dose: 20 mg Heparin Sodium (Porcine) (Heparin -) 5,000 unit SQ TID [facility] Last Admin: 03/28/18 13:24 Dose: 5,000 unit Vancomycin HCl (Vancomycin (Pre-Docked)) 1,000 mg in 250 mls @ 166.667 mls/hr IVPB BID@0600,1800 [facility]; Protocol Last Admin: 03/28/18 17:01 Dose: 166.667 mls/hr Levothyroxine Sodium 200 mcg/ (Levothyroxine Sodium 25 mcg) 225 mcg PO DAILY@ 0700 [facility] Last Admin: 03/28/18 06:51 Dose: 225 mcg Nicotine (Nicoderm Patch -) 14 mg TD DAILY [facility] Last Admin: 03/28/18 11:30 Dose: 14 mg Oxycodone HCl (Roxicodone -) 5 mg PO Q4H PRN PRN Reason: PAIN LEVEL 1-5 Last Admin: 03/28/18 06:51 Dose: 5 mg - Objective Vital Signs: Vital Signs Temperature 98.2 F 03/28/18 10:41 Pulse Rate 68 03/28/18 10:41 Respiratory Rate 18 03/28/18 10:41 Blood Pressure 120/70 03/28/18 10:41 O2 Sat by Pulse Oximetry (%) 98 03/28/18 09:00 Vital Signs Period Temp Pulse Resp BP Sys/Perez Pulse Ox Last 24 Hr 3 F-98.2 F 60-74 13-22 100-132/50-75 96-98 Constitutional: Yes: Well Nourished, No Distress, Calm Eyes: Yes: Conjunctiva Clear, EOM Intact HENT: Yes: Atraumatic, Normocephalic Neck: Yes: Supple, Trachea Midline Cardiovascular: Yes: Regular Rate and Rhythm, S1, S2 Respiratory: Yes: Regular, CTA Bilaterally Gastrointestinal: Yes: Normal Bowel Sounds, Soft. No: Tenderness ...Rectal Exam: Yes: Deferred Genitourinary: No: CVA Tenderness - Left, CVA Tenderness - Right Breast(s): Yes: Gynecomastia. No: Mass Musculoskeletal: Yes: Muscle Weakness. No: Muscle Pain Extremities: Yes: Erythema. No: Cool, Cyanosis Edema: Yes Edema: LLE: 2+, RLE: 2+ Peripheral Pulses WNL: Yes Peripheral Pulses: Left Radial: 2+, Right Radial: 2+, Left Doralis Pedis: 2+, Right Dorsalis Pedis: 2+, Left Femoral: 2+, Right Femoral: 2+ Integumentary: Yes: Erythema, Venous Stasis Changes Wound/Incision: Yes: Clean/Dry, Reddened, Unapproximated (3x2cm left groin with a base of ingunal adenopathy). No: Draining Neurological: Yes: Alert, Oriented Psychiatric: Yes: Alert, Oriented Labs: CBC, BMP 03/27/18 05:30 03/27/18 05:30 INR, PTT INR 1.06 (0.83-1.09) 03/25/18 15:20 Problem List - Problems (1) Abscess of left groin Assessment/Plan: 78 yo male with MMP LE venous changes and cellultitis with draining left groin abscess POD#1 s/p I&D of left groin abscess continue IV antibiotics adequate analgesia first dresssing by surgery Dressing Change, subsequent by nurse Vascular surgery consult Dr. Serrano Discharge at the discretion of the primary team follow up in wound Care center Code(s): L02.214 - CUTANEOUS ABSCESS OF GROIN (2) NICOLE (acute kidney injury) Code(s): N17.9 - ACUTE KIDNEY FAILURE, UNSPECIFIED (3) HLD (hyperlipidemia) Code(s): E78.5 - HYPERLIPIDEMIA, UNSPECIFIED Qualifiers: Hyperlipidemia type: mixed hyperlipidemia Qualified Code(s): E78.2 - Mixed hyperlipidemia (4) HTN (hypertension) Code(s): I10 - ESSENTIAL (PRIMARY) HYPERTENSION Qualifiers: Hypertension type: essential hypertension Qualified Code(s): I10 - Essential (primary) hypertension (5) Hypothyroid Code(s): E03.9 - HYPOTHYROIDISM, UNSPECIFIED (6) Thyroid cancer Code(s): C73 - MALIGNANT NEOPLASM OF THYROID GLAND
[2018-03-28] MEDS: ATORVASTATIN CA 40 MG TABLET (FP) PO SCH (21:50)
[2018-03-29] MEDS ORDERED: LEVOTHYROXINE NA 100 MCG TABLET (FP) ONE (04:59)
[2018-03-29] MEDS ORDERED: LEVOTHYROXINE NA 25 MCG TABLET (FP) ONE (04:59)
[2018-03-29] MEDS: VANCOMYCIN 1 GRAM (PRE-DOCKED) 1,000 MG/250 ML BAG IVPB SCH ×2 (05:31→18:49)
[2018-03-29] MEDS: FUROSEMIDE 20 MG TABLET (FP) PO SCH ×2 (05:32→13:57)
[2018-03-29] MEDS: HEPARIN NA (PORCINE) 5,000 UNITS/ML 1ML VIAL SQ SCH ×3 (05:34→21:57)
[2018-03-29] MEDS: LEVOTHYROXINE 200 MCG, LEVOTHYROXINE 25 MCG PO SCH (06:01)
[2018-03-29 06:23] LABS: BASO % 0.8 % (0-2.0); HEMATOCRIT 32.3 % (35.4-49); HEMOGLOBIN 10.1 GM/dL (11.7-16.9); LYMPH % 17.4 % (8-40); MCH 30.8 pg (25.7-33.7); MCHC 31.3 g/dl (32.0-35.9); MEAN CELL VOLUME 98.5 fl (80-96); MEAN PLT VOLUME 7.4 fl (7.5-11.1); NEUT % 67.8 % (42.8-82.8); PLATELET COUNT 303 K/MM3 (134-434); RBC 3.28 M/mm3 (4.00-5.60); RDW 16.1 % (11.9-15.9); WHITE BLOOD COUNT 7.9 K/mm3 (4.0-10.0)
[2018-03-29 06:47] LABS: ANION GAP 3 MMOL/L (8-16); BLOOD UREA NITROGEN 24 mg/dL (7-18); CALCIUM 7.9 mg/dL (8.5-10.1); CHLORIDE 109 mmol/L (98-107); CO2 31 mmol/L (21-32); CREATININE 1.1 mg/dL (0.55-1.3); GLUCOSE,RANDOM 89 mg/dL (74-106); PHOSPHOROUS 4.3 mg/dL (2.5-4.9); POTASSIUM 5.7 mmol/L (3.5-5.1); SODIUM 143 mmol/L (136-145)
--- NOTE | 2018-03-29 08:42 | PN ---
Progress Note, Physician Chief Complaint: s/p I&D abscess left groin under spinal anesthesia History of Present Illness: post op day two - Current Medication List Current Medications: Active Medications Acetaminophen (Tylenol -) 650 mg PO Q4H PRN PRN Reason: FEVER Last Admin: 03/28/18 05:54 Dose: 650 mg Atenolol (Tenormin -) 25 mg PO DAILY [facility] Last Admin: 03/28/18 09:49 Dose: 25 mg Atorvastatin Calcium (Lipitor -) 40 mg PO HS [facility] Last Admin: 03/28/18 21:50 Dose: 40 mg Calcium Carbonate (Os-Sergio 500mg -) 500 mg PO DAILY [facility] Last Admin: 03/28/18 09:49 Dose: 500 mg Cholecalciferol (Vitamin D3 -) 1,000 unit PO DAILY [facility] Last Admin: 03/28/18 09:50 Dose: 1,000 unit Clonazepam (Klonopin -) 0.5 mg PO DAILY [facility] Last Admin: 03/28/18 09:50 Dose: 0.5 mg Escitalopram Oxalate (Lexapro -) 20 mg PO DAILY [facility] Last Admin: 03/28/18 09:49 Dose: 20 mg Ferrous Sulfate (Feosol -) 325 mg PO DAILY [facility] Last Admin: 03/28/18 09:50 Dose: 325 mg Furosemide (Lasix -) 20 mg PO BIDLASIX [facility] Last Admin: 03/29/18 05:32 Dose: 20 mg Heparin Sodium (Porcine) (Heparin -) 5,000 unit SQ TID [facility] Last Admin: 03/29/18 05:34 Dose: 5,000 unit Vancomycin HCl (Vancomycin (Pre-Docked)) 1,000 mg in 250 mls @ 166.667 mls/hr IVPB BID@0600,1800 [facility]; Protocol Last Admin: 03/29/18 05:31 Dose: 166.667 mls/hr Levothyroxine Sodium 200 mcg/ (Levothyroxine Sodium 25 mcg) 225 mcg PO DAILY@ 0700 [facility] Last Admin: 03/29/18 06:01 Dose: 225 mcg Nicotine (Nicoderm Patch -) 14 mg TD DAILY [facility] Last Admin: 03/28/18 11:30 Dose: 14 mg Oxycodone HCl (Roxicodone -) 5 mg PO Q4H PRN PRN Reason: PAIN LEVEL 1-5 Last Admin: 03/28/18 23:24 Dose: 5 mg - Objective Vital Signs: Vital Signs Temperature 98 F 03/29/18 06:32 Pulse Rate 64 03/29/18 06:32 Respiratory Rate 20 03/29/18 06:32 Blood Pressure 144/98 03/29/18 06:32 O2 Sat by Pulse Oximetry (%) 98 03/28/18 09:00 Constitutional: Yes: Well Nourished Cardiovascular: Yes: WNL Respiratory: Yes: WNL Gastrointestinal: Yes: WNL Labs: CBC, BMP 03/29/18 05:30 03/29/18 05:30 INR, PTT INR 1.06 (0.83-1.09) 03/25/18 15:20 Assessment/Plan No adverse effect of anesthetic, no nausea or vomiting, dept of anesthesiology will sign off care at this time.
[2018-03-29] MEDS ORDERED: DEXTROSE 50%-WATER 25 GM/50 ML DISP.SYRIN IVPUSH ONE (09:45)
[2018-03-29] MEDS ORDERED: DEXTROSE 50%-WATER - 25 GM/50 ML VIAL IVPUSH ONE (09:45)
[2018-03-29] MEDS ORDERED: INSULIN REGULAR HUMAN 100 UNITS/ML *VIAL IVPUSH ONE (09:50)
--- NOTE | 2018-03-29 09:58 | PN ---
Progress Note, Physician Chief Complaint: left groin abscess History of Present Illness: 78yo male PMH PAD, AAA EVAR, COPD, thyroid cancer, presents with a worsening inguinal mass. He was recently admitted at [facility] where he was being treated for cellulitis of the RLE and possible L inguinal abscess. stable postoperatively. - Current Medication List Current Medications: Active Medications Acetaminophen (Tylenol -) 650 mg PO Q4H PRN PRN Reason: FEVER Last Admin: 03/28/18 05:54 Dose: 650 mg Atenolol (Tenormin -) 25 mg PO DAILY [facility] Last Admin: 03/28/18 09:49 Dose: 25 mg Atorvastatin Calcium (Lipitor -) 40 mg PO HS [facility] Last Admin: 03/28/18 21:50 Dose: 40 mg Calcium Carbonate (Os-Sergio 500mg -) 500 mg PO DAILY [facility] Last Admin: 03/28/18 09:49 Dose: 500 mg Cholecalciferol (Vitamin D3 -) 1,000 unit PO DAILY [facility] Last Admin: 03/28/18 09:50 Dose: 1,000 unit Clonazepam (Klonopin -) 0.5 mg PO DAILY [facility] Last Admin: 03/28/18 09:50 Dose: 0.5 mg Escitalopram Oxalate (Lexapro -) 20 mg PO DAILY [facility] Last Admin: 03/28/18 09:49 Dose: 20 mg Ferrous Sulfate (Feosol -) 325 mg PO DAILY [facility] Last Admin: 03/28/18 09:50 Dose: 325 mg Furosemide (Lasix -) 20 mg PO BIDLASIX [facility] Last Admin: 03/29/18 05:32 Dose: 20 mg Heparin Sodium (Porcine) (Heparin -) 5,000 unit SQ TID [facility] Last Admin: 03/29/18 05:34 Dose: 5,000 unit Vancomycin HCl (Vancomycin (Pre-Docked)) 1,000 mg in 250 mls @ 166.667 mls/hr IVPB BID@0600,1800 [facility]; Protocol Last Admin: 03/29/18 05:31 Dose: 166.667 mls/hr Levothyroxine Sodium 200 mcg/ (Levothyroxine Sodium 25 mcg) 225 mcg PO DAILY@ 0700 [facility] Last Admin: 03/29/18 06:01 Dose: 225 mcg Nicotine (Nicoderm Patch -) 14 mg TD DAILY [facility] Last Admin: 03/28/18 11:30 Dose: 14 mg Oxycodone HCl (Roxicodone -) 5 mg PO Q4H PRN PRN Reason: PAIN LEVEL 1-5 Last Admin: 03/28/18 23:24 Dose: 5 mg Sodium Polystyrene Sulfonate (Kayexalate -) 30 gm PO ONCE ONE Stop: 03/29/18 10:01 - Objective Vital Signs: Vital Signs Temperature 98 F 03/29/18 06:32 Pulse Rate 64 03/29/18 06:32 Respiratory Rate 20 03/29/18 06:32 Blood Pressure 144/98 03/29/18 06:32 O2 Sat by Pulse Oximetry (%) 98 03/28/18 09:00 Vital Signs Period Temp Pulse Resp BP Sys/Perez Pulse Ox Last 24 Hr 98 F-98.2 F 64-86 18-20 108-144/70-98 Constitutional: Yes: Well Nourished, No Distress, Calm Eyes: Yes: Conjunctiva Clear, EOM Intact HENT: Yes: Atraumatic, Normocephalic Neck: Yes: Supple, Trachea Midline Cardiovascular: Yes: Regular Rate and Rhythm, S1, S2, Varicosities Respiratory: Yes: Regular, CTA Bilaterally Gastrointestinal: Yes: Normal Bowel Sounds, Soft. No: Tenderness ...Rectal Exam: Yes: Deferred Genitourinary: No: CVA Tenderness - Left, CVA Tenderness - Right Breast(s): No: Mass, Skin Changes Musculoskeletal: Yes: Muscle Weakness. No: Muscle Pain Extremities: Yes: Cool, Cyanosis, Erythema Edema: Yes Edema: LLE: 2+, RLE: 2+ Peripheral Pulses WNL: Yes Peripheral Pulses: Left Radial: 2+, Right Radial: 2+, Left Doralis Pedis: 2+, Right Dorsalis Pedis: 2+, Left Femoral: 2+, Right Femoral: 2+ Integumentary: Yes: Erythema, Venous Stasis Changes Wound/Incision: Yes: Clean/Dry, Dressing Dry and Intact, Unapproximated Neurological: Yes: Alert, Oriented Psychiatric: Yes: Alert, Oriented Labs: CBC, BMP 03/29/18 05:30 03/29/18 05:30 INR, PTT INR 1.06 (0.83-1.09) 03/25/18 15:20 Microbiology 03/28/18 11:30 Leg - Left Lower Wound Culture - Preliminary NO GROWTH OBTAINED AFTER 24 HOURS INCUBATION, REINCUBATED. 03/25/18 15:20 Blood - Peripheral Venous Blood Culture - Preliminary NO GROWTH OBTAINED AFTER 72 HOURS, INCUBATION TO CONTINUE FOR 2 DAYS. 03/25/18 15:20 Blood - Peripheral Venous Blood Culture - Preliminary NO GROWTH OBTAINED AFTER 72 HOURS, INCUBATION TO CONTINUE FOR 2 DAYS. 03/26/18 02:00 Wound Gram Stain - Final 03/26/18 02:00 Wound Wound Culture - Final Staphylococcus Aureus Problem List - Problems (1) Abscess of left groin Assessment/Plan: 78 yo male with MMP LE venous changes and cellultitis with draining left groin abscess POD#2 s/p I&D of left groin abscess IV antibiotics per ID adequate analgesia Dressing Change by nurse Vascular surgery consult Dr. Serrano (returns 04/06/2018) Discharge at the discretion of the primary team follow up in wound Care center Code(s): L02.214 - CUTANEOUS ABSCESS OF GROIN (2) NICOLE (acute kidney injury) Code(s): N17.9 - ACUTE KIDNEY FAILURE, UNSPECIFIED (3) HLD (hyperlipidemia) Code(s): E78.5 - HYPERLIPIDEMIA, UNSPECIFIED Qualifiers: Hyperlipidemia type: mixed hyperlipidemia Qualified Code(s): E78.2 - Mixed hyperlipidemia (4) HTN (hypertension) Code(s): I10 - ESSENTIAL (PRIMARY) HYPERTENSION Qualifiers: Hypertension type: essential hypertension Qualified Code(s): I10 - Essential (primary) hypertension (5) Hypothyroid Code(s): E03.9 - HYPOTHYROIDISM, UNSPECIFIED (6) Thyroid cancer Code(s): C73 - MALIGNANT NEOPLASM OF THYROID GLAND
[2018-03-29] MEDS ORDERED: SODIUM POLYSTYRENE SULFONATE 15 GM/60 ML BOTTLE PO ONE (10:00)
[2018-03-29] MEDS ORDERED: DEXTROSE 50%-WATER 25 GM/50 ML DISP.SYRIN ONE (10:23)
[2018-03-29 10:27] LABS: ANISOCYTOSIS 1+; MACROCYTOSIS 1+; OVALOCYTE 1+; PLATELET ESTIMATE NORMAL
[2018-03-29] MEDS: CHOLECALCIFEROL (VITAMIN D3) 1,000 UNIT TABLET (FP) PO SCH (10:43)
[2018-03-29] MEDS: FERROUS SO4 325 MG TABLET (FP) PO SCH (10:43)
[2018-03-29] MEDS: NICOTINE 14 MG/24 HOURS TOPICAL PATCH TD SCH (10:43)
[2018-03-29] MEDS: clonazePAM 0.5 MG TABLET PO SCH (10:43)
[2018-03-29] MEDS: CALCIUM (OYSTER SHELL) 500 MG TABLET (FP) PO SCH (10:43)
[2018-03-29] MEDS: ATENOLOL 25 MG TABLET (FP) PO SCH (10:43)
[2018-03-29] MEDS: ESCITALOPRAM OXALATE 20 MG TABLET (FP) PO SCH (10:44)
--- NOTE | 2018-03-29 11:45 | EKG ---
Test Reason : Blood Pressure : / mmHG Vent. Rate : 062 BPM Atrial Rate : 062 BPM P-R Int : 138 ms QRS Dur : 084 ms QT Int : 460 ms P-R-T Axes : 046 020 062 degrees QTc Int : 466 ms SINUS RHYTHM WITH PREMATURE ATRIAL COMPLEXES NONSPECIFIC T WAVE ABNORMALITY PROLONGED QT ABNORMAL ECG WHEN COMPARED WITH ECG OF 18-MAR-2018 14:54, NO SIGNIFICANT CHANGE WAS FOUND Confirmed by GRACIE MILAN, EVGENY ([id number]) on 03/29/2018 11:44:48 AM Referred By: Confirmed By:EVGENY BOWMAN MD
[2018-03-29] MEDS ORDERED: MUPIROCIN CA 2% TOPICAL CREAM 15 GM TUBE TP SCH (13:37)
--- NOTE | 2018-03-29 13:56 | PN ---
Progress Note (short form) - Note Progress Note: Vascular Surgery: Pt seen today with Dr. Serrano. The patient is s/p I&D of left groin. He initially presented to the hospital for cellulitis/swelling of his lower extremities at [facility] on 03/18. 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 The patient returned to [facility] for an increase pain to his left groin and a rash. Currently, the swelling and redness to his legs have improved. Vital Signs Period Temp Pulse Resp BP Sys/Perez Pulse Ox Last 24 Hr 97.9 F-98.1 F 58-86 20-20 108-149/70-98 GEN: Appears comfortable Lower Extremities: no evidence of erythema, swelling b/l. Dry, scaly/scabbed skin to right anterior rose and left medial leg CBC, BMP 03/29/18 05:30 03/29/18 05:30 Duplex 03/07/18: no evidence of DVT to LE lower ext <Sujatha Moctezuma - Last Filed: 03/29/18 14:18> - Note Progress Note: History reviewed and patient examined. He has had a seroma of the left groin for 4 years after EVAR. A seroma of the right groin eventually healed. He is under treatement for metastatic thyroid cancer and developed leg swelling and blisters. His left groin swelled more and started to drain. An I&D was done. CT of abdomen reviewed and shows intact endograft with no leak, sac smaller than last study. Wound care to left groin as per Surgery. Vascular follow-up in my office. <Clem Serrano - Last Filed: 03/30/18 13:50> Problem List - Problems (1) Dermatitis Assessment/Plan: Bilateral lower extremities, without evidence of DVT/erythema at this time Daily dressing orders placed for bactroban/dry gauze and danisha wrap from toe to knee b/l Elevate bilateral lower extremities at all times when non-ambulatory Follow up with Dr. Serrano as needed Local wound care to the left groin as per Dr. Shirley Code(s): L30.9 - DERMATITIS, UNSPECIFIED <Sujatha Moctezuma - Last Filed: 03/29/18 14:18>
--- NOTE | 2018-03-29 15:13 | PN ---
Progress Note (short form) - Note Progress Note: s/p drainage of inguinal abscess less erythema of the legs Vital Signs Period Temp Pulse Resp BP Sys/Perez Pulse Ox Last 24 Hr 97.9 F-98.1 F 58-86 20-20 108-149/70-98 98 cor-rrr lungs clear abd soft,nt ext +swelling of the legs, erythema bilateral lower ext with excoriations left groin with packing rash improved CBC, BMP 03/29/18 05:30 03/29/18 05:30 Microbiology 03/28/18 11:30 Leg - Left Lower Gram Stain - Final 03/28/18 11:30 Leg - Left Lower Wound Culture - Preliminary NO GROWTH OBTAINED AFTER 24 HOURS INCUBATION, REINCUBATED. 03/25/18 15:20 Blood - Peripheral Venous Blood Culture - Preliminary NO GROWTH OBTAINED AFTER 72 HOURS, INCUBATION TO CONTINUE FOR 2 DAYS. 03/25/18 15:20 Blood - Peripheral Venous Blood Culture - Preliminary NO GROWTH OBTAINED AFTER 72 HOURS, INCUBATION TO CONTINUE FOR 2 DAYS. 03/26/18 02:00 Wound Gram Stain - Final 03/26/18 02:00 Wound Wound Culture - Final Staphylococcus Aureus a/p s/p drainage of groind abscess cellulitis improving metastatic thyroid cancer drug rash?? continue vancomycin check trough in am po clindamycin 300 tid when ready for discharge home Problem List - Problems (1) Abdominopelvic abscess Code(s): K65.1 - PERITONEAL ABSCESS (2) Drug rash Code(s): L27.0 - GEN SKIN ERUPTION DUE TO DRUGS AND MEDS TAKEN INTERNALLY (3) Thyroid cancer Code(s): C73 - MALIGNANT NEOPLASM OF THYROID GLAND
[2018-03-29] MEDS ORDERED: PT OWN MED DRAWER 7, Y5N ONE (17:01)
--- NOTE | 2018-03-29 17:26 | PN ---
Teaching Attending Note Name of Resident: Umm Pitt ATTENDING PHYSICIAN STATEMENT I saw and evaluated the patient. I reviewed the resident's note and discussed the case with the resident. I agree with the resident's findings and plan as documented with exceptions below. SUBJECTIVE: Patient seen and examined, no new fevers/chills. Left groin symptoms improved. Rash resolving. OBJECTIVE: Vital Signs Period Temp Pulse Resp BP Sys/Perez Pulse Ox Last 24 Hr 97.9 F-98.2 F 58-86 20-20 108-149/70-98 98 Intake & Output 03/26/18 03/27/18 03/28/18 03/29/18 23:59 23:59 23:59 23:59 Intake Total 172 223 1936 1010 Output Total 1290 600 300 Balance 300 -1040 750 710 Weight 168 lb General: ambulating with walker in room Abdomen:left groin dressing with packing, surrounding induration, minimal erythema, non tender (improved per patient) Extremities: 2+ pitting edema witherythema, scab right lower 1/3rd leg, ( improved per patient) Skin: resolving papular rash face/back, non pruritic Home Medications Medication Instructions Recorded Atenolol [Tenormin -] 25 mg PO DAILY 03/18/18 Atorvastatin Ca [Lipitor] 40 mg PO DAILY 03/18/18 Calcium Carbonate [[place]ysco-500] 500 mg PO DAILY 03/18/18 Cholecalciferol (Vitamin D3) 1,000 unit PO DAILY 03/18/18 [Vitamin D3] Clonazepam 0.5 mg PO DAILY 03/18/18 Dabrafenib Mesylate [Tafinlar] 75 mg PO Q12H 03/18/18 Denosumab [Xgeva -] 120 mg IJ ASDIR 03/18/18 Escitalopram Oxalate [Lexapro -] 20 mg PO DAILY 03/18/18 Ferrous Sulfate 325 mg PO DAILY 03/18/18 Furosemide 20 mg PO BID 03/18/18 Levothyroxine Sodium [Synthroid] 225 mcg PO DAILY 03/18/18 Sulfamethoxazole/Trimethoprim 1 tab PO BID #14 tablet 03/22/18 [Bactrim Ds -] Active Medications Acetaminophen (Tylenol -) 650 mg PO Q4H PRN PRN Reason: FEVER Last Admin: 03/28/18 05:54 Dose: 650 mg Atenolol (Tenormin -) 25 mg PO DAILY [facility] Last Admin: 03/29/18 10:43 Dose: 25 mg Atorvastatin Calcium (Lipitor -) 40 mg PO HS [facility] Last Admin: 03/28/18 21:50 Dose: 40 mg Calcium Carbonate (Os-Sergio 500mg -) 500 mg PO DAILY [facility] Last Admin: 03/29/18 10:43 Dose: 500 mg Cholecalciferol (Vitamin D3 -) 1,000 unit PO DAILY [facility] Last Admin: 03/29/18 10:43 Dose: 1,000 unit Clonazepam (Klonopin -) 0.5 mg PO DAILY [facility] Last Admin: 03/29/18 10:43 Dose: 0.5 mg Escitalopram Oxalate (Lexapro -) 20 mg PO DAILY [facility] Last Admin: 03/29/18 10:44 Dose: 20 mg Ferrous Sulfate (Feosol -) 325 mg PO DAILY [facility] Last Admin: 03/29/18 10:43 Dose: 325 mg Furosemide (Lasix -) 20 mg PO BIDLASIX [facility] Last Admin: 03/29/18 13:57 Dose: 20 mg Heparin Sodium (Porcine) (Heparin -) 5,000 unit SQ TID [facility] Last Admin: 03/29/18 13:57 Dose: 5,000 unit Vancomycin HCl (Vancomycin (Pre-Docked)) 1,000 mg in 250 mls @ 166.667 mls/hr IVPB BID@0600,1800 [facility]; Protocol Last Admin: 03/29/18 05:31 Dose: 166.667 mls/hr Levothyroxine Sodium 200 mcg/ (Levothyroxine Sodium 25 mcg) 225 mcg PO DAILY@ 0700 [facility] Last Admin: 03/29/18 06:01 Dose: 225 mcg Mupirocin (Bactroban 2% Cream -) 1 applic TP DAILY [facility] Nicotine (Nicoderm Patch -) 14 mg TD DAILY [facility] Last Admin: 03/29/18 10:43 Dose: 14 mg Oxycodone HCl (Roxicodone -) 5 mg PO Q4H PRN PRN Reason: PAIN LEVEL 1-5 Last Admin: 03/28/18 23:24 Dose: 5 mg Laboratory Results - last 24 hr 03/29/18 03/29/18 03/29/18 05:30 05:30 10:35 WBC 7.9 RBC 3.28 L Hgb 10.1 L Hct 32.3 L MCV 98.5 H MCH 30.8 MCHC 31.3 L RDW 16.1 H Plt Count 303 MPV 7.4 L Absolute Neuts (auto) 5.4 Neutrophils % 67.8 Neutrophils % (Manual) 70.7 Band Neutrophils % 0.0 Lymphocytes % 17.4 Lymphocytes % (Manual) 14.2 Monocytes % 10.0 Monocytes % (Manual) 8 Eosinophils % 4.0 Eosinophils % (Manual) 4.0 D Basophils % 0.8 Basophils % (Manual) 1.0 D Myelocytes % (Man) 1 Promyelocytes % (Man) 0 Blast Cells % (Manual) 0 Nucleated RBC % 0 Metamyelocytes 1 Hypochromia 0 Platelet Estimate Normal Polychromasia 1+ Poikilocytosis 0 Anisocytosis 1+ Microcytosis 0 Macrocytosis 1+ Ovalocytes 1+ Sodium 143 Potassium 5.7 H Plasma Potassium TNP Chloride 109 H Carbon Dioxide 31 Anion Gap 3 L BUN 24 H Creatinine 1.1 Creat Clearance w eGFR > 60 Random Glucose 89 Calcium 7.9 L Phosphorus 4.3 Magnesium 2.0 Microbiology 03/27/18 21:25 Groin Gram Stain - Final 03/25/18 15:20 Blood - Peripheral Venous Blood Culture - Preliminary NO GROWTH OBTAINED AFTER 96 HOURS, INCUBATION TO CONTINUE FOR 1 DAYS. 03/25/18 15:20 Blood - Peripheral Venous Blood Culture - Preliminary NO GROWTH OBTAINED AFTER 96 HOURS, INCUBATION TO CONTINUE FOR 1 DAYS. 03/28/18 11:30 Leg - Left Lower Gram Stain - Final 03/28/18 11:30 Leg - Left Lower Wound Culture - Preliminary NO GROWTH OBTAINED AFTER 24 HOURS INCUBATION, REINCUBATED. 03/26/18 02:00 Wound Gram Stain - Final 03/26/18 02:00 Wound Wound Culture - Final Staphylococcus Aureus ASSESSMENT AND PLAN: 78 year old male with significant PMHx of HTN, HLD, Hypothyroidism due to thyroidectomy for thyroid ca who comes in with rash and worsening inguinal mass. -Left inguinal abscess s/p I&D -LE edema/cellulitis, improving -Papular rash, suspected from bactrim -Hyperkalemia -HTN -HLD -Hypothyroidism s/p thyroidectomy for thyroid ca -Nicotine dependence -Normocytic anemia -pAD, iliac artery aneurysm, ?femoral pseudoaneurysm Plan: Wound cx with MSSA. ID input noted. off aztreonam. continue vancomycin. Discuss with ID to transition to PO In 24 hours Cm consult for VNS/home wound care Discussed with patient and to add bactrim to allergy list. Vascular surgery consulted, input appreciated, outpatient follow up. S/p Dextrose/insulin/kayexalate. Monitor K levels. Low K diet. Continue levothyroxine DVTPPX heparin Dispo d/ [facility]ney 24hours on PO abx with VNS if improved and k levels stable. Plan discussed with patient and at bedside in detail, all questions answered.
--- NOTE | 2018-03-29 17:56 | PN ---
Physical Exam: SUBJECTIVE: Patient seen and examined at bed side. Feeling better. Denies abdominal pain, nausea, vomiting, chest pain, sob, cough, palpitation. OBJECTIVE: Vital Signs Period Temp Pulse Resp BP Sys/Perez Pulse Ox Last 24 Hr 97.9 F-98.2 F 58-66 20-20 117-149/71-98 98 GENERAL: Elderly male, sleeping, arousable, patient is and fully oriented, in no acute distress. HEAD: Normal with no signs of trauma. EYES: EOM intact, no pallor or icterus. ENT: Ears normal, moist mucous membranes. FACE: Pimples on the face (d/t drug reaction-now getting better) NECK: Supple. LUNGS: Breath sounds equal, clear to auscultation bilaterally, no wheezes, no crackles, no accessory muscle use. HEART: Regular rate and rhythm, S1, S2 without murmur, rub or gallop. ABDOMEN: Left groin abscess +, serosanguinous fluid +, erythema +. Abdomen is Soft, nontender, no organomegaly, BS +. rebound, no hepatosplenomegaly, no masses. UPPER EXTREMITIES: 2+ pulses, warm, well-perfused, no edema. LOWER EXTREMITIES: R > L scabs +, erythema resolved. Pitting edema + NEUROLOGICAL: No facial droop. Normal speech, gait not observed. PSYCH: Normal mood, normal affect. SKIN: Warm, dry, normal turgor, no rashes or lesions noted Laboratory Results - last 24 hr 03/29/18 03/29/18 03/29/18 05:30 05:30 10:35 WBC 7.9 RBC 3.28 L Hgb 10.1 L Hct 32.3 L MCV 98.5 H MCH 30.8 MCHC 31.3 L RDW 16.1 H Plt Count 303 MPV 7.4 L Absolute Neuts (auto) 5.4 Neutrophils % 67.8 Neutrophils % (Manual) 70.7 Band Neutrophils % 0.0 Lymphocytes % 17.4 Lymphocytes % (Manual) 14.2 Monocytes % 10.0 Monocytes % (Manual) 8 Eosinophils % 4.0 Eosinophils % (Manual) 4.0 D Basophils % 0.8 Basophils % (Manual) 1.0 D Myelocytes % (Man) 1 Promyelocytes % (Man) 0 Blast Cells % (Manual) 0 Nucleated RBC % 0 Metamyelocytes 1 Hypochromia 0 Platelet Estimate Normal Polychromasia 1+ Poikilocytosis 0 Anisocytosis 1+ Microcytosis 0 Macrocytosis 1+ Ovalocytes 1+ Sodium 143 Potassium 5.7 H Plasma Potassium TNP Chloride 109 H Carbon Dioxide 31 Anion Gap 3 L BUN 24 H Creatinine 1.1 Creat Clearance w eGFR > 60 Random Glucose 89 Calcium 7.9 L Phosphorus 4.3 Magnesium 2.0 Active Medications Generic Name Dose Route Start Last Admin Trade Name Freq PRN Reason Stop Dose Admin Acetaminophen 650 mg 03/27/18 22:05 03/28/18 05:54 Tylenol - PO 650 mg Q4H PRN Administration FEVER Atenolol 25 mg 03/28/18 10:00 03/29/18 10:43 Tenormin - PO 25 mg DAILY [facility] Administration Atorvastatin Calcium 40 mg 03/28/18 22:00 03/28/18 21:50 Lipitor - PO 40 mg HS [facility] Administration Calcium Carbonate 500 mg 03/28/18 10:00 03/29/18 10:43 Os-Sergio 500mg - PO 500 mg DAILY [facility] Administration Cholecalciferol 1,000 unit 03/28/18 10:00 03/29/18 10:43 Vitamin D3 - PO 1,000 unit DAILY [facility] Administration Clonazepam 0.5 mg 03/28/18 10:00 03/29/18 10:43 Klonopin - PO 0.5 mg DAILY [facility] Administration Escitalopram Oxalate 20 mg 03/28/18 10:00 03/29/18 10:44 Lexapro - PO 20 mg DAILY [facility] Administration Ferrous Sulfate 325 mg 03/28/18 10:00 03/29/18 10:43 Feosol - PO 325 mg DAILY [facility] Administration Furosemide 20 mg 03/28/18 06:00 03/29/18 13:57 Lasix - PO 20 mg BIDLASIX [facility] Administration Heparin Sodium (Porcine) 5,000 unit 03/28/18 06:00 03/29/18 13:57 Heparin - SQ 5,000 unit TID [facility] Administration Vancomycin HCl 1,000 mg in 250 mls @ 166.667 mls/hr 03/28/18 06:00 03/29/18 05:31 Vancomycin (Pre-Docked) IVPB 166.667 mls/hr BID@0600,1800 [facility] Administration Protocol Levothyroxine Sodium 200 mcg/ 225 mcg 03/28/18 07:00 03/29/18 06:01 Levothyroxine Sodium 25 mcg PO 225 mcg DAILY@0700 [facility] Administration Mupirocin 1 applic 03/30/18 10:00 Bactroban 2% Cream - TP DAILY [facility] Nicotine 14 mg 03/28/18 10:00 03/29/18 10:43 Nicoderm Patch - TD 14 mg DAILY [facility] Administration Oxycodone HCl 5 mg 03/27/18 22:05 03/28/18 23:24 Roxicodone - PO 5 mg Q4H PRN Administration PAIN LEVEL 1-5 ASSESSMENT/PLAN: Patient is a 78 year old male with significant PMHx of HTN, HLD, Hypothyroidism due to thyroidectomy for thyroid ca who comes in with rash and worsening inguinal mass. # Hyperkalemia without any EKG changes K-5.7, treated and repeat K 4.6 Unsure of the cause, not on any meds causing hyperkalemia, will repeat in AM # Left groin abscess s/p Incision and Drainage- POD 2 I and D done under local anesthesia Wound cx positive for staph coag. Blood cultures neg IV Aztreonam discontinue. Continue Vancomycin 1gm BID Day 4, vanc trough in AM. Can discharge on PO Clindamycin as per ID. Dressing per surgery Seen by Dr. Serrano # Cellulitis of the LE now improved Continue the above antibiotics Patient was initially started on Bactrim but now d/c due to Rash on the face. # HTN controlled Continue Atenolol 25 mg PO daily, Lasix 20mg PO BID # HLD Continue Lipitor # Hypothyroidism s/p thyroidecomy for thyroid CA Continue Synthroid Levothyroxine 225 mcg # Active smoker Continue Nicotine patch # Normocytic anemia: H/H Stable # FEN Not on IV fluids, can tolerate PO Electrolytes WNL NPO. advance diet as per surgery # Prophylaxis For DVT: On Heparin 5000 IU sq TID FOr GI: not indicated # Code Status: Full Code # Dispo: Admitted in Med/surg. D/c planning in AM. Illness, Investigation and plan of care explained to the patient, and daughter. They verbalized understanding. Case discussed with Dr. Garcia. Problem List - Problems (1) Abscess of left groin Code(s): L02.214 - CUTANEOUS ABSCESS OF GROIN (2) Drug rash Code(s): L27.0 - GEN SKIN ERUPTION DUE TO DRUGS AND MEDS TAKEN INTERNALLY (3) NICOLE (acute kidney injury) Code(s): N17.9 - ACUTE KIDNEY FAILURE, UNSPECIFIED (4) Cellulitis Code(s): L03.90 - CELLULITIS, UNSPECIFIED Visit type - Emergency Visit Emergency Visit: Yes ED Registration Date: 03/25/18 Care time: The patient presented to the Emergency Department on the above date and was hospitalized for further evaluation of their emergent condition. - New Patient This patient is new to me today: No - Critical Care Critical Care patient: No - Discharge Referral Referred to [facility] No
[2018-03-29 18:00] LABS: ANION GAP 7 MMOL/L (8-16); BLOOD UREA NITROGEN 27 mg/dL (7-18); CALCIUM 7.8 mg/dL (8.5-10.1); CHLORIDE 106 mmol/L (98-107); CO2 29 mmol/L (21-32); CREATININE 1.2 mg/dL (0.55-1.3); GLUCOSE,RANDOM 134 mg/dL (74-106); POTASSIUM 4.6 mmol/L (3.5-5.1); SODIUM 141 mmol/L (136-145)
[2018-03-29] MEDS: ATORVASTATIN CA 40 MG TABLET (FP) PO SCH (21:57)
[2018-03-30] MEDS ORDERED: LEVOTHYROXINE NA 25 MCG TABLET (FP) ONE (04:35)
[2018-03-30] MEDS ORDERED: LEVOTHYROXINE NA 100 MCG TABLET (FP) ONE (04:35)
[2018-03-30] MEDS: HEPARIN NA (PORCINE) 5,000 UNITS/ML 1ML VIAL SQ SCH ×2 (05:58→13:41)
[2018-03-30] MEDS: FUROSEMIDE 20 MG TABLET (FP) PO SCH ×2 (05:58→13:41)
[2018-03-30] MEDS: LEVOTHYROXINE 200 MCG, LEVOTHYROXINE 25 MCG PO SCH (06:00)
[2018-03-30] MEDS: VANCOMYCIN 1 GRAM (PRE-DOCKED) 1,000 MG/250 ML BAG IVPB SCH (06:00)
[2018-03-30 06:41] LABS: HEMATOCRIT 30.6 % (35.4-49); HEMOGLOBIN 9.7 GM/dL (11.7-16.9); MCH 30.9 pg (25.7-33.7); MCHC 31.5 g/dl (32.0-35.9); MEAN PLT VOLUME 7.5 fl (7.5-11.1); PLATELET COUNT 306 K/MM3 (134-434); RBC 3.13 M/mm3 (4.00-5.60); RDW 16.2 % (11.9-15.9); WHITE BLOOD COUNT 7.6 K/mm3 (4.0-10.0)
[2018-03-30 07:09] LABS: ANION GAP 7 MMOL/L (8-16); BLOOD UREA NITROGEN 24 mg/dL (7-18); CALCIUM 7.6 mg/dL (8.5-10.1); CHLORIDE 108 mmol/L (98-107); CO2 29 mmol/L (21-32); CREATININE 0.9 mg/dL (0.55-1.3); GLUCOSE,RANDOM 80 mg/dL (74-106); POTASSIUM 3.9 mmol/L (3.5-5.1); SODIUM 143 mmol/L (136-145)
[2018-03-30] MEDS ORDERED: MUPIROCIN CA 2% TOPICAL CREAM 15 GM TUBE TP SCH (10:00)
[2018-03-30] MEDS: CHOLECALCIFEROL (VITAMIN D3) 1,000 UNIT TABLET (FP) PO SCH (10:33)
[2018-03-30] MEDS: ESCITALOPRAM OXALATE 20 MG TABLET (FP) PO SCH (10:33)
[2018-03-30] MEDS: ATENOLOL 25 MG TABLET (FP) PO SCH (10:33)
[2018-03-30] MEDS: clonazePAM 0.5 MG TABLET PO SCH (10:34)
[2018-03-30] MEDS: NICOTINE 14 MG/24 HOURS TOPICAL PATCH TD SCH (10:34)
[2018-03-30] MEDS: FERROUS SO4 325 MG TABLET (FP) PO SCH (10:34)
[2018-03-30] MEDS: CALCIUM (OYSTER SHELL) 500 MG TABLET (FP) PO SCH (10:34)
[2018-03-30] MEDS ORDERED: PT OWN MED DRAWER 7, Y5N ONE ×2 (13:38→14:39)
--- NOTE | 2018-03-30 14:28 | DS ---
Physical Exam: SUBJECTIVE: Patient seen and examined at bed side. Feeling better. Denies abdominal pain, nausea, vomiting, chest pain, sob, cough, palpitation. OBJECTIVE: Vital Signs Period Temp Pulse Resp BP Sys/Perez Pulse Ox Last 24 Hr 97.9 F-98.2 F 60-66 20-20 117-120/68-71 98-98 PHYSICAL EXAM GENERAL: Elderly male, sleeping, arousable, patient is and fully oriented, in no acute distress. HEAD: Normal with no signs of trauma. EYES: EOM intact, no pallor or icterus. ENT: Ears normal, moist mucous membranes. FACE: Pimples on the face (d/t drug reaction-now getting better) NECK: Supple. LUNGS: Breath sounds equal, clear to auscultation bilaterally, no wheezes, no crackles, no accessory muscle use. HEART: Regular rate and rhythm, S1, S2 without murmur, rub or gallop. ABDOMEN: Erythema in the left roing -improving, packing in place, minimal serosanguinous fluid +. Abdomen is Soft, nontender, no organomegaly, BS +. rebound, no hepatosplenomegaly, no masses. UPPER EXTREMITIES: 2+ pulses, warm, well-perfused, no edema. LOWER EXTREMITIES: R > L scabs +, erythema resolved. Pitting edema + NEUROLOGICAL: No facial droop. Normal speech, gait not observed. PSYCH: Normal mood, normal affect. SKIN: Warm, dry, normal turgor, no rashes or lesions noted LABS Laboratory Results - last 24 hr 03/29/18 03/29/18 03/30/18 16:00 16:00 05:00 WBC RBC Hgb Hct MCV MCH MCHC RDW Plt Count MPV Sodium 141 Potassium 4.6 Chloride 106 Carbon Dioxide 29 Anion Gap 7 L BUN 27 H Creatinine 1.2 Creat Clearance w eGFR 58.56 Random Glucose 134 H Calcium 7.8 L Vancomycin Pre-Dose 21.3 21.3 03/30/18 03/30/18 06:00 06:00 WBC 7.6 RBC 3.13 L Hgb 9.7 L Hct 30.6 L MCV 98.0 H MCH 30.9 MCHC 31.5 L RDW 16.2 H Plt Count 306 MPV 7.5 Sodium 143 Potassium 3.9 Chloride 108 H Carbon Dioxide 29 Anion Gap 7 L BUN 24 H Creatinine 0.9 Creat Clearance w eGFR > 60 Random Glucose 80 Calcium 7.6 L Vancomycin Pre-Dose Microbiology 03/28/18 11:30 Leg - Left Lower Gram Stain - Final 03/28/18 11:30 Leg - Left Lower Wound Culture - Final NO GROWTH AFTER 48 HOURS INCUBATION 03/27/18 21:25 Groin Gram Stain - Final 03/27/18 21:25 Groin Wound Culture - Preliminary NO GROWTH OBTAINED AFTER 24 HOURS INCUBATION, REINCUBATED. 03/25/18 15:20 Blood - Peripheral Venous Blood Culture - Preliminary NO GROWTH OBTAINED AFTER 96 HOURS, INCUBATION TO CONTINUE FOR 1 DAYS. 03/25/18 15:20 Blood - Peripheral Venous Blood Culture - Preliminary NO GROWTH OBTAINED AFTER 96 HOURS, INCUBATION TO CONTINUE FOR 1 DAYS. 03/26/18 02:00 Wound Gram Stain - Final 03/26/18 02:00 Wound Wound Culture - Final Staphylococcus Aureus 03/25/18 Pelvic Ultrasound: Left groin complex fluid collection consistent with a hematoma or abscess. 03/20/18: CT abdomen/pelvis: In comparison to a 2014 CT study interval development of an approximately 5.3 x 4.3 x 3.9 cm nonspecific mildly thick- walled nonenhancing fluid structure is seen within the left inguinal subcutaneous region centered over the lower aspect of the common femoral artery - ? Chronic hematoma , abscess, thrombosed pseudoaneurysm. Status post endovascular repair of an abdominal aortic aneurysm with aortobiiliac endograft in place as on the prior study. 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 Diminished size of the infrarenal aortic aneurysm sac is seen currently measuring 5.7 cm in diameter, previously 7 cm. Bilateral flank subcutaneous edema is noted which may be mildly increased. Prominent diffuse colonic fecal retention. Stable L4 vertebral body osteolytic lesion with an associated moderate chronic compression fracture. Correlate with medical history. HOSPITAL COURSE: Date of Admission:03/25/18 Date of Discharge: 03/30/18 Patient is a 78 year old male with significant PMHx of Thyroid cancer w/Mets to Lung and bone( not currently taking chemotherapy drugs), HTN, HLD, sciatica, LLE aneurysm and positive MRSA wound cultures during last hospital admission, who came in with rash and worsening inguinal mass. Patient signed out AMA during last admission and was advised to follow up with vascular surgeon for evaluation of the left groin and 7 day course of Bactrim was given. However patient developed rash and came in with worsening inguinal mass. Admitted with the diagnosis of Left groin abscess. Pelvic ultrasound was done which showed Left groin complex fluid collection consistent with a hematoma or abscess. On physical exam, patient had serosangiunous yellowish color fluid coming out from the left groin. Surgical consult was placed. Incision and drainage was done on 03/27/18. Packing was done and dressing changed daily. Sending the patient on PO Clindamycin 300mg TID x 7 days. Cellulitis of the LE-Improved. Continue the above antibiotics During hospitalization, had hyperkalemia without any EKG changes, K-5.7, it was treated and repeat K 4. HTN controlled Continued Atenolol 25 mg PO daily, Lasix 20mg PO BID HLD Continue Lipitor Hypothyroidism s/p thyroidecomy for thyroid CA. Continue Synthroid Levothyroxine 225 mcg Active smoker. Continue Nicotine patch Normocytic anemia: H/H Stable Plan of care explained to the patient, and daughter. They verbalized understanding. Minutes to complete discharge: 45 Discharge Summary Reason For Visit: ABDOMINIOPELVIC ABSCESS Current Active Problems Abdominopelvic abscess (Acute) Abscess of left groin (Acute) Cellulitis (Acute) Dermatitis (Acute) Drug rash (Acute) Lymphadenopathy, inguinal (Acute) Rash (Acute) Condition: Improved - Instructions Diet, Activity, Other Instructions: Postoperative instructions: You had an I&D of left groin abscess on 03/27/[address] Rakesh Shirley of [facility]. MEDICATION: Resume all your home medications except for the chemotherapy. Please follow up with your oncologist and restart chemotherapy as per their recommendations within 1-2 weeks (Tafinlar and Denosumab) PLEASE ADD BACTRIM TO THE LIST OF YOUR ALLERGIES AND NOTIFY YOUR PROVIDERS IN THE FUTURE. WOUND CARE: 1/2inch iodoform packing in the wound,apply 4X4 gauze, and Tape it. Change it daily and whenever it is soiled. Keep wound dressing area clean. Can remove packing and dressing before shower, shower with soap and water and reapply new packing/gauze/tape as directed above. For both legs, apply bacitracin to the wounds and can cover with dressing as needed. Keep areas dry and covered to avoid trauma and future infection. Activity: Resume your usual activities gradually, but no heavy exertion or lifting more than 10-15 pounds for 4-6 weeks. Eat lightly at first, but advance to your usual diet as tolerated. Keep legs elevated as able. Pain: For pain, you may use Tylenol (acetaminophen) 1-2 pills every 6 hours each as needed; t Take medications as prescribed or indicated on the labeling. Follow-up: Call [facility] [place] at [phone] to make your postop appointment with Dr. Shirley (Tuesday in approximately 1 week after surgery as advised). Clinic is held in the Wound Care center fifth floor, [place] [facility]. Call the office if you have: * increasing pain not responsive to pain medication * fever of 101F or higher * unusual or increasing bleeding or drainage from wounds * increasing redness or swelling at wound sites Also, see your primary medical doctor within 1-2 weeks. If your symptoms are getting worse or you develop any new symptoms, please call 911 and come to the ED immediately. Referrals: Mariam May MD [Primary Care Provider] - Rakesh Shirley MD [Staff Physician] - 1 Week (Please make an appointment at the wound care within this week. ) Clem Serrano MD [Staff Physician] - Disposition: VNS/HOME HEALTH CARE - Home Medications Comprehensive Discharge Medication List: Ambulatory Orders Atenolol [Tenormin -] 25 mg PO DAILY 03/18/18 Atorvastatin Ca [Lipitor] 40 mg PO DAILY 03/18/18 Calcium Carbonate [Oysco-500] 500 mg PO DAILY 03/18/18 Cholecalciferol (Vitamin D3) [Vitamin D3] 1,000 unit PO DAILY 03/18/18 Clonazepam 0.5 mg PO DAILY 03/18/18 Escitalopram Oxalate [Lexapro -] 20 mg PO DAILY 03/18/18 Ferrous Sulfate 325 mg PO DAILY 03/18/18 Furosemide 20 mg PO BID 03/18/18 Levothyroxine Sodium [Synthroid] 225 mcg PO DAILY 03/18/18 Clindamycin [Cleocin -] 300 mg PO TID 7 Days #21 capsule 03/30/18 Problem List - Problems (1) Abscess of left groin Code(s): L02.214 - CUTANEOUS ABSCESS OF GROIN (2) Drug rash Code(s): L27.0 - GEN SKIN ERUPTION DUE TO DRUGS AND MEDS TAKEN INTERNALLY (3) NICOLE (acute kidney injury) Code(s): N17.9 - ACUTE KIDNEY FAILURE, UNSPECIFIED (4) Cellulitis Code(s): L03.90 - CELLULITIS, UNSPECIFIED - Discharge Referral [facility]erred to [facility] No
--- NOTE | 2018-03-30 14:42 | PN ---
Teaching Attending Note Name of Resident: Umm Pitt ATTENDING PHYSICIAN STATEMENT I saw and evaluated the patient. I reviewed the resident's note and discussed the case with the resident. I agree with the resident's findings and plan as documented with exceptions below. SUBJECTIVE: Patient seen and examined, doing well, no fevers/chills or new complaints. OBJECTIVE: Vital Signs Period Temp Pulse Resp BP Sys/Perez Pulse Ox Last 24 Hr 97.9 F-98.2 F 60-66 20-20 117-120/68-71 98-98 Intake & Output 03/27/18 03/28/18 03/29/18 03/30/18 23:59 23:59 23:59 23:59 Intake Total 250 1350 1010 Output Total 1290 600 300 200 Balance -1040 750 710 -200 Weight 168 lb General: sitting in bed in no acute distress Abdomen:left groin wound with packing with minimal yellowish discharge, surrounding induration, improved erythema and swelling. Extremities: bilateral LE edema and erythema improved, scabs over lower 1/3rd of both legs, no active discharge. Home Medications Medication Instructions Recorded Atenolol [Tenormin -] 25 mg PO DAILY 03/18/18 Atorvastatin Ca [Lipitor] 40 mg PO DAILY 03/18/18 Calcium Carbonate [Oysco-500] 500 mg PO DAILY 03/18/18 Cholecalciferol (Vitamin D3) 1,000 unit PO DAILY 03/18/18 [Vitamin D3] Clonazepam 0.5 mg PO DAILY 03/18/18 Escitalopram Oxalate [Lexapro -] 20 mg PO DAILY 03/18/18 Ferrous Sulfate 325 mg PO DAILY 03/18/18 Furosemide 20 mg PO BID 03/18/18 Levothyroxine Sodium [Synthroid] 225 mcg PO DAILY 03/18/18 Clindamycin [Cleocin -] 300 mg PO TID 7 Days #21 capsule 03/30/18 Mupirocin Cream [Bactroban 2% 1 applic TP DAILY #1 tube 03/30/18 Cream -] Laboratory Results - last 24 hr 03/29/18 03/29/18 03/30/18 16:00 16:00 05:00 WBC RBC Hgb Hct MCV MCH MCHC RDW Plt Count MPV Sodium 141 Potassium 4.6 Chloride 106 Carbon Dioxide 29 Anion Gap 7 L BUN 27 H Creatinine 1.2 Creat Clearance w eGFR 58.56 Random Glucose 134 H Calcium 7.8 L Vancomycin Pre-Dose 21.3 21.3 03/30/18 03/30/18 06:00 06:00 WBC 7.6 RBC 3.13 L Hgb 9.7 L Hct 30.6 L MCV 98.0 H MCH 30.9 MCHC 31.5 L RDW 16.2 H Plt Count 306 MPV 7.5 Sodium 143 Potassium 3.9 Chloride 108 H Carbon Dioxide 29 Anion Gap 7 L BUN 24 H Creatinine 0.9 Creat Clearance w eGFR > 60 Random Glucose 80 Calcium 7.6 L Vancomycin Pre-Dose ASSESSMENT AND PLAN: 78 year old male with significant PMHx of HTN, HLD, Hypothyroidism due to thyroidectomy for thyroid ca who comes in with rash and worsening inguinal mass. -Left inguinal abscess s/p I&D -LE edema/cellulitis, improving -Papular rash, suspected from bactrim -Hyperkalemia -HTN -HLD -Hypothyroidism s/p thyroidectomy for thyroid ca -Nicotine dependence -Normocytic anemia -PAD, iliac artery aneurysm, ?femoral pseudoaneurysm Plan: Wound cx with [facility]. ID input noted. off aztreonam. Transition to clindamycin for additional 1 week. Discussed with patient and case management. home vns arranged Discussed with nursing, wound care instructions provided to patient and . Discussed with patient and to add bactrim to allergy list. Vascular surgery consulted, input appreciated, outpatient follow up. Hyperkalemia resolved. Continue levothyroxine DVTPPX heparin Dispo home today with outpatient wound care follow up Plan discussed with patient in detail, went over all discharge instructions and all questions answered. Care co-ordinated with nursing, CM, Dr. Shirley.
--- NOTE | 2018-03-30 14:49 | DS ---
Physical Exam: SUBJECTIVE: Patient seen and examined at bed side. Feeling better. Denies abdominal pain, nausea, vomiting, chest pain, sob, cough, palpitation. OBJECTIVE: Vital Signs Period Temp Pulse Resp BP Sys/Perez Pulse Ox Last 24 Hr 97.9 F-98.2 F 60-66 20-20 117-120/68-71 98-98 PHYSICAL EXAM GENERAL: Elderly male, sleeping, arousable, patient is and fully oriented, in no acute distress. HEAD: Normal with no signs of trauma. EYES: EOM intact, no pallor or icterus. ENT: Ears normal, moist mucous membranes. FACE: Pimples on the face (d/t drug reaction-now getting better) NECK: Supple. LUNGS: Breath sounds equal, clear to auscultation bilaterally, no wheezes, no crackles, no accessory muscle use. HEART: Regular rate and rhythm, S1, S2 without murmur, rub or gallop. ABDOMEN: Erythema in the left groin -improving, packing in place, minimal serosanguinous fluid +. Abdomen is Soft, nontender, no organomegaly, BS +. rebound, no hepatosplenomegaly, no masses. UPPER EXTREMITIES: 2+ pulses, warm, well-perfused, no edema. LOWER EXTREMITIES: R > L scabs +, erythema resolved. Pitting edema + NEUROLOGICAL: No facial droop. Normal speech, gait not observed. PSYCH: Normal mood, normal affect. SKIN: Warm, dry, normal turgor, no rashes or lesions noted LABS Laboratory Results - last 24 hr 03/29/18 03/29/18 03/30/18 16:00 16:00 05:00 WBC RBC Hgb Hct MCV MCH MCHC RDW Plt Count MPV Sodium 141 Potassium 4.6 Chloride 106 Carbon Dioxide 29 Anion Gap 7 L BUN 27 H Creatinine 1.2 Creat Clearance w eGFR 58.56 Random Glucose 134 H Calcium 7.8 L Vancomycin Pre-Dose 21.3 21.3 03/30/18 03/30/18 06:00 06:00 WBC 7.6 RBC 3.13 L Hgb 9.7 L Hct 30.6 L MCV 98.0 H MCH 30.9 MCHC 31.5 L RDW 16.2 H Plt Count 306 MPV 7.5 Sodium 143 Potassium 3.9 Chloride 108 H Carbon Dioxide 29 Anion Gap 7 L BUN 24 H Creatinine 0.9 Creat Clearance w eGFR > 60 Random Glucose 80 Calcium 7.6 L Vancomycin Pre-Dose 03/28/18 11:30 Leg - Left Lower Gram Stain - Final 03/28/18 11:30 Leg - Left Lower Wound Culture - Final NO GROWTH AFTER 48 HOURS INCUBATION 03/27/18 21:25 Groin Gram Stain - Final 03/27/18 21:25 Groin Wound Culture - Preliminary NO GROWTH OBTAINED AFTER 24 HOURS INCUBATION, REINCUBATED. 03/25/18 15:20 Blood - Peripheral Venous Blood Culture - Preliminary NO GROWTH OBTAINED AFTER 96 HOURS, INCUBATION TO CONTINUE FOR 1 DAYS. 03/25/18 15:20 Blood - Peripheral Venous Blood Culture - Preliminary NO GROWTH OBTAINED AFTER 96 HOURS, INCUBATION TO CONTINUE FOR 1 DAYS. 03/26/18 02:00 Wound Gram Stain - Final 03/26/18 02:00 Wound Wound Culture - Final Staphylococcus Aureus 03/25/18 Pelvic Ultrasound: Left groin complex fluid collection consistent with a hematoma or abscess. 03/20/18: CT abdomen/pelvis: In comparison to a 2014 CT study interval development of an approximately 5.3 x 4.3 x 3.9 cm nonspecific mildly thick- walled nonenhancing fluid structure is seen within the left inguinal subcutaneous region centered over the lower aspect of the common femoral artery - ? Chronic hematoma , abscess, thrombosed pseudoaneurysm. Status post endovascular repair of an abdominal aortic aneurysm with aortobiiliac endograft in place as on the prior study. 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 Diminished size of the infrarenal aortic aneurysm sac is seen currently measuring 5.7 cm in diameter, previously 7 cm. Bilateral flank subcutaneous edema is noted which may be mildly increased. Prominent diffuse colonic fecal retention. Stable L4 vertebral body osteolytic lesion with an associated moderate chronic compression fracture. Correlate with medical history. HOSPITAL COURSE: Date of Admission:03/25/18 Date of Discharge: 03/30/18 Patient is a 78 year old male with significant PMHx of Thyroid cancer w/Mets to Lung and bone( not currently taking chemotherapy drugs), HTN, HLD, sciatica, LLE aneurysm and positive MRSA wound cultures during last hospital admission, who came in with rash and worsening inguinal mass. Patient signed out AMA during last admission and was advised to follow up with vascular surgeon for evaluation of the left groin and 7 day course of Bactrim was given. However patient developed rash and came this time with worsening inguinal mass. Admitted with the diagnosis of Left groin abscess. Pelvic ultrasound was done which showed Left groin complex fluid collection consistent with a hematoma or abscess. On physical exam, patient had serosangiunous yellowish color fluid coming out from the left groin. Surgical consult was placed. Incision and drainage was done on 03/27/18. Packing was done and dressing changed daily. Sending the patient on PO Clindamycin 300mg TID x 7 days. Cellulitis of the LE-Improved. Continue the above antibiotics During hospitalization, had hyperkalemia without any EKG changes, K-5.7, it was treated and repeat K 4. HTN controlled Continued Atenolol 25 mg PO daily, Lasix 20mg PO BID HLD Continue Lipitor Hypothyroidism s/p thyroidecomy for thyroid CA. Continue Synthroid Levothyroxine 225 mcg Active smoker. Continue Nicotine patch Normocytic anemia: H/H Stable Plan of care explained to the patient, and daughter. They verbalized understanding. Minutes to complete discharge: 45 Discharge Summary Reason For Visit: ABDOMINIOPELVIC ABSCESS Current Active Problems Abdominopelvic abscess (Acute) Abscess of left groin (Acute) Cellulitis (Acute) Dermatitis (Acute) Drug rash (Acute) Lymphadenopathy, inguinal (Acute) Rash (Acute) Condition: Improved - Instructions Diet, Activity, Other Instructions: Postoperative instructions: You had an I&D of left groin abscess on 03/27/[address] Rakesh Shirley of [facility]. MEDICATION: Resume all your home medications except for the chemotherapy. Please follow up with your oncologist and restart chemotherapy as per their recommendations within 1-2 weeks (Tafinlar and Denosumab) PLEASE ADD BACTRIM TO THE LIST OF YOUR ALLERGIES AND NOTIFY YOUR PROVIDERS IN THE FUTURE. WOUND CARE: 1/2inch iodoform packing in the wound,apply 4X4 gauze, and Tape it. Change it daily and whenever it is soiled. Keep wound dressing area clean. Can remove packing and dressing before shower, shower with soap and water and reapply new packing/gauze/tape as directed above. For both legs, apply bacitracin to the wounds and can cover with dressing as needed. Keep areas dry and covered to avoid trauma and future infection. Activity: Resume your usual activities gradually, but no heavy exertion or lifting more than 10-15 pounds for 4-6 weeks. Eat lightly at first, but advance to your usual diet as tolerated. Keep legs elevated as able. Pain: For pain, you may use Tylenol (acetaminophen) 1-2 pills every 6 hours each as needed; t Take medications as prescribed or indicated on the labeling. Follow-up: Call [facility] [place] at [phone] to make your postop appointment with Dr. Shirley (Tuesday in approximately 1 week after surgery as advised). Clinic is held in the Wound Care center fifth floor, [place] [facility]. Call the office if you have: * increasing pain not responsive to pain medication * fever of 101F or higher * unusual or increasing bleeding or drainage from wounds * increasing redness or swelling at wound sites Also, see your primary medical doctor within 1-2 weeks. If your symptoms are getting worse or you develop any new symptoms, please call 911 and come to the ED immediately. Referrals: Mariam May MD [Primary Care Provider] - Rakesh Shirley MD [Staff Physician] - 1 Week (Please make an appointment at the wound care within this week. ) Clem Serrano MD [Staff Physician] - Disposition: VNS/HOME HEALTH CARE - Home Medications Comprehensive Discharge Medication List: Ambulatory Orders Atenolol [Tenormin -] 25 mg PO DAILY 03/18/18 Atorvastatin Ca [Lipitor] 40 mg PO DAILY 03/18/18 Calcium Carbonate [Oysco-500] 500 mg PO DAILY 03/18/18 Cholecalciferol (Vitamin D3) [Vitamin D3] 1,000 unit PO DAILY 03/18/18 Clonazepam 0.5 mg PO DAILY 03/18/18 Escitalopram Oxalate [Lexapro -] 20 mg PO DAILY 03/18/18 Ferrous Sulfate 325 mg PO DAILY 03/18/18 Furosemide 20 mg PO BID 03/18/18 Levothyroxine Sodium [Synthroid] 225 mcg PO DAILY 03/18/18 Clindamycin [Cleocin -] 300 mg PO TID 7 Days #21 capsule 03/30/18 Lactobacillus Acidophilus [Acidophilus Lactobacilli] 1 each PO DAILY #7 capsule 03/30/18 Mupirocin Cream [Bactroban 2% Cream -] 1 applic TP DAILY #1 tube 03/30/18 Problem List - Problems (1) Abscess of left groin Code(s): L02.214 - CUTANEOUS ABSCESS OF GROIN (2) Drug rash Code(s): L27.0 - GEN SKIN ERUPTION DUE TO DRUGS AND MEDS TAKEN INTERNALLY (3) NICOLE (acute kidney injury) Code(s): N17.9 - ACUTE KIDNEY FAILURE, UNSPECIFIED (4) Cellulitis Code(s): L03.90 - CELLULITIS, UNSPECIFIED This patient is new to me today: Yes Date on this admission: 03/30/18 Emergency Visit: No Critical Care patient: No - Discharge Referral [facility]erred to [facility] No
[2018-03-30 14:52] VITALS: BP 123/66; PULSE 66; TEMP 98.2
== END 2018-03-30 15:00 | disposition home health service (06) | DRG 603 ==
LOC: JER 12:30 → JERBED 17:24 → UNDOADMIN 17:35 → J8W 03-27 18:53
PROVIDERS: ADMIT Internal Medicine; ATTEND Hospitalist
PROC: 0J9C0ZX Drainage of Pelvic Region Subcutaneous Tissue and Fascia, Open Approach, Diagnostic (ICD-10-PCS; principal; 2018-03-27 14:00)
DX: L02.214 Cutaneous abscess of groin (principal); N17.9 Acute kidney failure, unspecified; L03.314 Cellulitis of groin; E03.9 Hypothyroidism, unspecified; E83.51 Hypocalcemia; E78.00 Pure hypercholesterolemia, unspecified; K25.9 Gastric ulcer, unspecified as acute or chronic, without hemorrhage or perforation; K40.20 Bilateral inguinal hernia, without obstruction or gangrene, not specified as recurrent; J44.9 Chronic obstructive pulmonary disease, unspecified; F17.210 Nicotine dependence, cigarettes, uncomplicated; R60.9 Edema, unspecified; D64.9 Anemia, unspecified; E87.5 Hyperkalemia; I73.9 Peripheral vascular disease, unspecified; I72.3 Aneurysm of iliac artery; L27.0 Generalized skin eruption due to drugs and medicaments taken internally; T37.0X5A Adverse effect of sulfonamides, initial encounter; Y92.89 Other specified places as the place of occurrence of the external cause; M54.30 Sciatica, unspecified side; Z88.0 Allergy status to penicillin; Z85.850 Personal history of malignant neoplasm of thyroid
CPT/HCPCS: 36415; 76856-TC; 80048; 80053; 83735; 84100; 84132; 85025; 85027; 85610; 87040; 87070; 87186; 87205; 93005; 93010; 94760; 97116-GP; 97161-GP; 99284-25; G0480; J1644

== ENCOUNTER 2018-04-23 16:54 | Emergency (ER) | payer OTHER ==
[2018-04-23 17:12] VITALS: BP 155/76; PULSE 67; TEMP 98.5; BMI 28.8
--- NOTE | 2018-04-23 18:02 | PDOC ---
History of Present Illness - General Chief Complaint: Injury Stated Complaint: FINGER INJURY Time Seen by Provider: 04/23/18 17:00 History Source: Patient - History of Present Illness Occurred: reports: just prior to arrival Upper Extremity Pain Location: right: 3rd finger Past History - Past Medical History Allergies/Adverse Reactions: Allergies Allergy/AdvReac Type Severity Reaction Status Date / Time sulfamethoxazole Allergy Intermediate Hives Verified 03/25/18 14:47 [From Bactrim] trimethoprim [From Bactrim] Allergy Intermediate Hives Verified 03/25/18 14:47 Home Medications: Ambulatory Orders Atenolol [Tenormin -] 25 mg PO DAILY 03/18/18 Atorvastatin Ca [Lipitor] 40 mg PO DAILY 03/18/18 Calcium Carbonate [Oysco-500] 500 mg PO DAILY 03/18/18 Cholecalciferol (Vitamin D3) [Vitamin D3] 1,000 unit PO DAILY 03/18/18 Clonazepam 0.5 mg PO DAILY 03/18/18 Escitalopram Oxalate [Lexapro -] 20 mg PO DAILY 03/18/18 Ferrous Sulfate 325 mg PO DAILY 03/18/18 Furosemide 20 mg PO BID 03/18/18 Levothyroxine Sodium [Synthroid] 225 mcg PO DAILY 03/18/18 Lactobacillus Acidophilus [Acidophilus Lactobacilli] 1 each PO DAILY #7 capsule 03/30/18 Anemia: Yes Asthma: No 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) Cardiac Disorders: No CVA: No COPD: No CHF: No Dementia: No Diabetes: No GI Disorders: Yes (ulcers 40 years ago, AAA) Disorders: No HTN: No Hypercholesterolemia: Yes Liver Disease: No Psychiatric Problems: Yes Seizures: No Thyroid Disease: Yes (thyroid cancer) - Surgical History Abdominal Surgery: Yes (bl inguinal hernia repair, AAA stent 2013) Appendectomy: No Cardiac Surgery: No Cholecystectomy: No GI Surgery: Yes (DUODEAL ULCER GASTRECTOMY) Lung Surgery: No Neurologic Surgery: No Orthopedic Surgery: No - Immunization History Immunization Up to Date: Yes - Suicide/Smoking/Psychosocial Hx Smoking History: Never smoked Have you smoked in the past 12 months: No Number of Cigarettes Smoked Daily: 10 Information on smoking cessation initiated: No 'Breaking Loose' booklet given: 03/27/18 Hx Alcohol Use: No Drug/Substance Use Hx: No Substance Use Type: None Hx Substance Use Treatment: No Review of Systems - Review of Systems Musculoskeletal: Yes: Joint Pain *Physical Exam - Vital Signs Last Vital Signs Temp Pulse Resp BP Pulse Ox 98.5 F 67 16 155/76 98 04/23/18 17:01 04/23/18 17:01 04/23/18 17:01 04/23/18 17:01 04/23/18 17:01 - Physical Exam General Appearance: Yes: Appropriately Dressed. No: Apparent Distress HEENT: positive: Normal Voice Neck: positive: Supple Respiratory/Chest: negative: Respiratory Distress Extremity: positive: Other (jagged ~1.5 cm lac to distal phalanx of R 3rd digit , no exposed tendon, FROMI, sensation intact) Integumentary: positive: Dry, Warm Neurologic: positive: Fully Oriented, Alert, Normal Mood/Affect Moderate Sedation - Procedure Monitoring Vital Signs: Procedure Monitoring Vital Signs Temperature 98.5 F 04/23/18 17:01 Pulse Rate 67 04/23/18 17:01 Respiratory Rate 16 04/23/18 17:01 Blood Pressure 155/76 04/23/18 17:01 O2 Sat by Pulse Oximetry (%) 98 04/23/18 17:01 Procedures - Laceration/Wound Repair Right Finger Wound Length: to 2.5 cm Wound's Depth, Shape: superficial Irrigated w/ Saline: Yes Betadine Prep: Yes Anesthesia: 1% Lidocaine Amount of Anesthetic (ccs): 6 Wound Repaired With: Sutures Suture Size/Type: 5:0, nylon Number of Sutures: 12 Sterile Dressing Applied: Yes ED Treatment Course - RADIOLOGY Radiology Studies Ordered: Category Date Time Status FINGER(S) RIGHT [RAD] Stat Radiology 04/23/18 18:00 Ordered Medical Decision Making - Medical Decision Making 04/23/18 18:01 78-year-old male, no significant history, here with crush injury to right third digit after accidentally getting finger caught in car door today. No sensory changes. States tetanus up-to-date See exam Finger lac 2/2 crush injury -tetanus UTD -XR r/o fx -lac repair 04/23/18 19:04 XR negative for fracture. Patient s/p laceration repair. Will dc with wound check in 2 days *DC/Admit/Observation/Transfer Diagnosis at time of Disposition: Finger laceration Qualifiers: Encounter type: initial encounter Finger: middle finger Damage to nail status: without damage Foreign body presence: without foreign body Laterality: right Qualified Code(s): S61.212A - Laceration without foreign body of right middle finger without damage to nail, initial encounter - Discharge Dispostion Disposition: HOME Condition at time of disposition: Good - Referrals - Patient Instructions Printed Discharge Instructions: Laceration Repair Additional Instructions: Keep wound dry for the first 48 hours, then you can watch gently with mild soap and water to avoid crusting to suture knots. ou can apply bacitracin or neosporin twice a day to area until sutures are removed. REturn to ED in 2 days for wound check Return in 7 days for suture removal - Post Discharge Activity
[2018-04-23] MEDS ORDERED: LIDOCAINE HCL 1%, 10 MG/ML (50 mL VIAL) SQ ONE (18:33)
[2018-04-23] MEDS ORDERED: LIDOCAINE HCL 1%, 10 MG/ML (20ML VIAL) ONE (18:34)
== END 2018-04-23 19:19 | disposition home or self-care (01) ==
LOC: JERFT 16:54
PROC: 0HQFXZZ Repair Right Hand Skin, External Approach (ICD-10-PCS; principal; 2018-04-23)
DX: S61.212A Laceration without foreign body of right middle finger without damage to nail, initial encounter (principal); V48.4XXA Person boarding or alighting a car injured in noncollision transport accident, initial encounter; Y92.488 Other paved roadways as the place of occurrence of the external cause; Y93.89 Activity, other specified; Y99.8 Other external cause status; Z85.850 Personal history of malignant neoplasm of thyroid; Z85.118 Personal history of other malignant neoplasm of bronchus and lung; Z85.830 Personal history of malignant neoplasm of bone; E78.00 Pure hypercholesterolemia, unspecified; Z86.79 Personal history of other diseases of the circulatory system; Z88.2 Allergy status to sulfonamides
CPT/HCPCS: 12001; 73140-TC-RT-FY; 99281-25

== ENCOUNTER 2018-04-25 15:49 | Emergency (ER) | payer OTHER ==
[2018-04-25 16:15] VITALS: BP 107/55; PULSE 64; TEMP 98; BMI 25.1
--- NOTE | 2018-04-25 16:15 | PDOC ---
Rapid Medical Evaluation Time Seen by Provider: 04/25/18 16:11 Medical Evaluation: Allergies Allergy/AdvReac Type Severity Reaction Status Date / Time sulfamethoxazole Allergy Intermediate Hives Verified 03/25/18 14:47 [From Bactrim] trimethoprim [From Bactrim] Allergy Intermediate Hives Verified 03/25/18 14:47 04/25/18 16:13 I have performed a brief in-person evaluation of this patient. The patient presents with a chief complaint of: Pt is here for wound check. He had sutures placed 2 days ago after sustaining a laceration from hitting his finger against a car door. Xrays were negative. He has no medical conmplaints today. NO fever/chills, no change in appetite Pertinent physical exam findings: Wound to the middle finger, accross the DIP, healing well, mild maceration around, mild erythema of distal phalanx, full sensory function, full motor function, 5/5 strength, no signs of tendon damage. NO signs of infection. Wound dressed with bacitracin, steril gauze. FInger splint applied. Pt will return in 7 days for suture removal (because it is at a joint). Keep wound clean and dry at all times. PMD follow up 04/25/18 16:26 Discharge Disposition - Diagnosis Visit for wound check - Discharge Dispostion Disposition: HOME Condition at time of disposition: Stable Decision to Admit order: No - Referrals - Patient Instructions Additional Instructions: Keep the wound clean and dry at all times. Keep the splint on to prevent delay in wound healing. PMD follow up. Return in 7 days for suture removal or sooner for any worsening/concerning symptoms - Post Discharge Activity
== END 2018-04-25 16:57 | disposition home or self-care (01) ==
LOC: JERFT 15:49
PROC: 2W3JX1Z Immobilization of Right Finger using Splint (ICD-10-PCS; principal; 2018-04-25)
DX: Z48.817 Encounter for surgical aftercare following surgery on the skin and subcutaneous tissue (principal)
CPT/HCPCS: 29130; 99281-25

== ENCOUNTER 2018-05-02 15:59 | Emergency (ER) | payer OTHER ==
--- NOTE | 2018-05-02 16:33 | PDOC ---
Suture Removal/Wound Check HPI - History of Present Illness Stated Complaint: SUTURE REMOVAL Time Seen by Provider: 05/02/18 16:29 History Source: Yes: Patient Exam Limitations: Yes: No Limitations Treated at: [facility] ED - Previous ED Treatment Type of procedure performed on last visit: Yes: Laceration Repair Tetanus Immunization: Yes: Up to Date Antibiotics Prescribed: No Past History - Travel Traveled outside of the country in the last 30 days: No Close contact w/someone who was outside of country & ill: No - Past Medical History Allergies/Adverse Reactions: Allergies Allergy/AdvReac Type Severity Reaction Status Date / Time sulfamethoxazole Allergy Intermediate Hives Verified 05/02/18 16:33 [From Bactrim] trimethoprim [From Bactrim] Allergy Intermediate Hives Verified 05/02/18 16:33 Home Medications: Ambulatory Orders Atenolol [Tenormin -] 25 mg PO DAILY 03/18/18 Atorvastatin Ca [Lipitor] 40 mg PO DAILY 03/18/18 Calcium Carbonate [Oysco-500] 500 mg PO DAILY 03/18/18 Cholecalciferol (Vitamin D3) [Vitamin D3] 1,000 unit PO DAILY 03/18/18 Clonazepam 0.5 mg PO DAILY 03/18/18 Escitalopram Oxalate [Lexapro -] 20 mg PO DAILY 03/18/18 Ferrous Sulfate 325 mg PO DAILY 03/18/18 Furosemide 20 mg PO BID 03/18/18 Levothyroxine Sodium [Synthroid] 225 mcg PO DAILY 03/18/18 Lactobacillus Acidophilus [Acidophilus Lactobacilli] 1 each PO DAILY #7 capsule 03/30/18 Anemia: Yes Asthma: No 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) Cardiac Disorders: No CVA: No COPD: No CHF: No Dementia: No Diabetes: No GI Disorders: Yes (ulcers 40 years ago, AAA) Disorders: No HTN: No Hypercholesterolemia: Yes Liver Disease: No Psychiatric Problems: Yes Seizures: No Thyroid Disease: Yes (thyroid cancer) - Surgical History Abdominal Surgery: Yes (bl inguinal hernia repair, AAA stent 2013) Appendectomy: No Cardiac Surgery: No Cholecystectomy: No GI Surgery: Yes (DUODEAL ULCER GASTRECTOMY) Lung Surgery: No Neurologic Surgery: No Orthopedic Surgery: No - Immunization History Immunization Up to Date: Yes - Suicide/Smoking/Psychosocial Hx Smoking History: Never smoked Have you smoked in the past 12 months: Yes Number of Cigarettes Smoked Daily: 10 'Breaking Loose' booklet given: 03/27/18 Hx Alcohol Use: No Drug/Substance Use Hx: No Substance Use Type: None Hx Substance Use Treatment: No Suture Removal/Wound Check PE - Physical Exam Laceration/Wound Check Symptoms: reports: Improved Current Severity Level: None Maximum Severity Level: None Pain Localization: None Location of Laceration/Wound: right: Finger (2 simple interrupted sutures placed to the r 3rd finger. poor healing, wound appears wet.) *Review of Systems - Review of Systems Constitutional: No: Chills, Fever, Weakness Integumentary: No: Bruising, Pruritus, Rash All Other Systems: Reviewed and Negative *Physical Exam - Physical Exam General Appearance: Yes: Nourished, Appropriately Dressed. No: Apparent Distress Medical Decision Making - Medical Decision Making 05/02/18 21:34 Pt is a 78 y/o F who presents to the ED to have his stitches removed from his R 3rd finger -On exam stitcher are loose -Poor wound healing as it appears the wound has been wet over the course of the healing process -Stitches removed as they are not providing any support -Instructed to keep the wound dry and uncovered to help with healing process -Steri-strips applied -DC home -return precautions given. Pt understands all dc instructions and all questions were answered. *DC/Admit/Observation/Transfer Diagnosis at time of Disposition: Visit for suture removal - Discharge Dispostion Disposition: HOME Condition at time of disposition: Stable Decision to Admit order: No - Referrals Referrals: Feliciano Bridges MD [Staff Physician] - - Patient Instructions Printed Discharge Instructions: DI for Suture Removal Additional Instructions: You had your stitches removed today Keep the area clean and dry You may use bacitracin to the area once a day Return to the ED for pain, purulent discharge, fever, or if you have any changes in your symptoms - Post Discharge Activity
[2018-05-02 16:35] VITALS: BP 115/68; PULSE 76; TEMP 98.4; BMI 23.5
== END 2018-05-02 16:55 | disposition home or self-care (01) ==
LOC: JERFT 15:59
DX: Z48.817 Encounter for surgical aftercare following surgery on the skin and subcutaneous tissue (principal); Z48.02 Encounter for removal of sutures
CPT/HCPCS: 99281-25

== ENCOUNTER 2018-05-17 12:52 | Inpatient (IN) | payer OTHER ==
--- NOTE | 2018-05-17 13:27 | PDOC ---
Rapid Medical Evaluation Time Seen by Provider: 05/17/18 13:18 Medical Evaluation: Allergies Allergy/AdvReac Type Severity Reaction Status Date / Time sulfamethoxazole Allergy Intermediate Hives Verified 05/02/18 16:33 [From Bactrim] trimethoprim [From Bactrim] Allergy Intermediate Hives Verified 05/02/18 16:33 05/17/18 13:18 I have performed a brief in-person evaluation of this patient. The patient presents with a chief complaint of: Worsening weakness to b/l LE x weeks, unable to ambulate now. Also reports progressive swelling of legs. F/u with onc at [facility] and was seen in clinic today and told he needed admission but refused admission at [facility]. States he wants to be admitted at [facility] per pt. H/o thyroid s/p resection, s/p PET scan 1 week ago w/ normal results per pt, CAD w/ 1 stent and "1 stent in my aorta", LE weakness Pertinent physical exam findings:Stable w/ edema of b/l LE I have ordered the following:labs/dopplers The patient will proceed to the ED for further evaluation. 05/17/18 13:29 Discharge Disposition - Diagnosis Edema Qualifiers: Edema type: unspecified Qualified Code(s): R60.9 - Edema, unspecified - Referrals - Patient Instructions - Post Discharge Activity
--- NOTE | 2018-05-17 14:40 | PDOC ---
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 He was seen at [facility] today to f/u on a PET/CT completed today that showed improvement in previously noted hypermetabolic osseous metastases with resolution of many of the lesions. Previously he had been able to stand and ambulate with a walker but since dc'd 03/30/2018 with PT who did not intiate PT due to edema and serous weeping of later RLE, he was progressively been unable to weightbear or transfer positions by himself. dark discoloration of the tips of toes and fingers, worse on his toes. he was asked by his oncologist at [facility] to stay and be admitted for further diuresis and doppler study of his RLE but he preferred to be admitting to [facility]. 05/08 completed cephalexin TID course of abx from PCP for weeping RLE wound. denies fever, chest pain, sob, headaches, n/v, weightloss, nightsweats. 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) Cardiac Disorders: No CVA: No COPD: No CHF: No Dementia: No Diabetes: No GI Disorders: Yes (ulcers 40 years ago, AAA) Disorders: No HTN: No Hypercholesterolemia: Yes Liver Disease: No Psychiatric Problems: Yes Seizures: No Thyroid Disease: Yes (thyroid cancer) - Surgical History Abdominal Surgery: Yes (bl inguinal hernia repair, AAA stent 2013) Appendectomy: No Cardiac Surgery: No Cholecystectomy: No GI Surgery: Yes (DUODEAL ULCER GASTRECTOMY) Lung Surgery: No Neurologic Surgery: No Orthopedic Surgery: No - Immunization History Immunization Up to Date: Yes - Suicide/Smoking/Psychosocial Hx Smoking History: Never smoked Have you smoked in the past 12 months: Yes Number of Cigarettes Smoked Daily: 10 'Breaking Loose' booklet given: 03/27/18 Hx Alcohol Use: No Drug/Substance Use Hx: No Substance Use Type: None Hx Substance Use Treatment: No <Sherrell Lubin - Last Filed: 05/17/18 17:33> <Emily Menezes - Last Filed: 05/18/18 07:46> - Past Medical History Allergies/Adverse Reactions: Allergies Allergy/AdvReac Type Severity Reaction Status Date / Time sulfamethoxazole Allergy Intermediate Hives Verified 05/17/18 13:19 [From Bactrim] trimethoprim [From Bactrim] Allergy Intermediate Hives Verified 05/17/18 13:19 Home Medications: Ambulatory Orders Atenolol [Tenormin -] 12.5 mg PO DAILY 05/17/18 Atorvastatin Ca [Lipitor] 40 mg PO HS 05/17/18 Calcium Carbonate [Antacid] 200 mg PO DAILY 05/17/18 Cholecalciferol (Vitamin D3) [Vitamin D3 -] 1,000 unit PO DAILY 05/17/18 Dabrafenib Mesylate [Tafinlar] 75 mg PO DAILY 05/17/18 Denosumab [Xgeva] 120 mg NR ASDIR 05/17/18 Escitalopram Oxalate [Lexapro -] 20 mg PO DAILY 05/17/18 Ferrous Sulfate 325 mg PO DAILY 05/17/18 Furosemide [Lasix -] 40 mg PO BID 05/17/18 Levothyroxine Sodium [Synthroid] 200 mcg PO DAILY 05/17/18 Oxycodone HCl/Acetaminophen [Oxycodon-Acetaminophen 7.5-325] 1 each PO ASDIR Pazopanib HCl [Votrient] 200 mg PO DAILY 05/17/18 Potassium Chloride 10 meq PO DAILY 05/17/18 Trametinib Dimethyl Sulfoxide [Mekinist] 2 mg PO DAILY 05/17/18 Varenicline Tartrate [Chantix] 1 each PO DAILY 05/17/18 clonazePAM [Klonopin -] 0.5 mg PO DAILY 02/20/19 Review of Systems - Review of Systems Constitutional: Yes: Weakness, Weight Stable. No: Chills, Diaphoresis, Fever, Night Sweats, Unintentional Wgt. Loss, Unexplained wgt Loss HEENTM: No: Double Vision, Ear Pain, Ear Discharge, Nose Pain, Nose Congestion, Nose Bleeding Respiratory: No: Cough, Orthopnea, Shortness of Breath, SOB with Exertion, Wheezing, Productive cough, Hemoptysis Cardiac (ROS): Yes: Edema. No: Chest Pain, Lightheadedness, Palpitations, Syncope, Chest Tightness ABD/GI: No: Abdominal Distended, Constipated, Diarrhea, Difficulty Swallowing, Nausea, Poor Appetite, Poor Fluid Intake, Vomiting : No: Dysuria, Frequency, Flank Pain, Hematuria, Incontinence Musculoskeletal: Yes: Muscle Weakness. No: Back Pain, Joint Pain, Joint Swelling, Muscle Pain, Neck Pain Integumentary: Yes: Lesions, Pruritus. No: Dryness, Erythema, Flushing, Lumps, Pallor Neurological: Yes: Unsteady Gait. No: Headache, Numbness, Paresthesia, Tingling , Dizziness Psychiatric: No: Anxiety, Depression Hematologic/Lymphatic: Yes: Anemia, Easy Bruising <Sherrell Lubin - Last Filed: 05/17/18 17:33> *Physical Exam - Vital Signs Last Vital Signs Temp Pulse Resp BP Pulse Ox 98.0 F 62 20 125/64 100 05/17/18 13:19 05/17/18 13:19 05/17/18 13:19 05/17/18 13:19 05/17/18 13:19 - Physical Exam General Appearance: Yes: Appropriately Dressed HEENT: positive: EOMI, RUPERT, Pharynx Normal. negative: Tonsillar Exudate, Rhinorrhea, Thrush Neck: positive: Trachea midline, Supple. negative: Tender Respiratory/Chest: positive: Other (CTA on left lung, right with rales). negative: Crackles, Rhonchi, Wheezing Cardiovascular: positive: Regular Rhythm, Regular Rate. negative: Murmur Vascular Pulses: Dorsalis-Pedis (R): 1+, Doralis-Pedis (L): 1+ Gastrointestinal/Abdominal: positive: Normal Bowel Sounds, Flat. negative: Distended, Guarding, Tenderness Musculoskeletal: negative: CVA Tenderness Extremity: positive: Pedal Edema (2+), Swelling (R>L pitting edema, excoriations on b/l knees and thighs). negative: Calf Tenderness, Erythema Integumentary: negative: Dry, Ecchymosis, Bruising Neurologic: positive: Fully Oriented <Sherrell Lubin - Last Filed: 05/17/18 17:33> - Vital Signs Last Vital Signs Temp Pulse Resp BP Pulse Ox 98.1 F 81 18 117/65 99 05/18/18 02:00 05/18/18 02:00 05/18/18 02:00 05/18/18 02:00 05/17/18 17:21 <Emily Menezes - Last Filed: 05/18/18 07:46> Moderate Sedation - Procedure Monitoring Vital Signs: Procedure Monitoring Vital Signs Temperature 98.0 F 05/17/18 13:19 Pulse Rate 62 05/17/18 13:19 Respiratory Rate 20 05/17/18 13:19 Blood Pressure 125/64 05/17/18 13:19 O2 Sat by Pulse Oximetry (%) 100 05/17/18 13:19 <Sherrell Lubin - Last Filed: 05/17/18 17:33> - Procedure Monitoring Vital Signs: Procedure Monitoring Vital Signs Temperature 98.1 F 05/18/18 02:00 Pulse Rate 81 05/18/18 02:00 Respiratory Rate 18 05/18/18 02:00 Blood Pressure 117/65 05/18/18 02:00 O2 Sat by Pulse Oximetry (%) 99 05/17/18 17:21 <Emily Menezes - Last Filed: 05/18/18 07:46> ED Treatment Course - LABORATORY CBC & Chemistry Diagram: 05/17/18 14:46 05/17/18 14:45 <Sherrell Lubin - Last Filed: 05/17/18 17:33> - LABORATORY CBC & Chemistry Diagram: 05/17/18 14:46 05/17/18 14:45 - ADDITIONAL ORDERS Additional order review: 05/17/18 14:46 RBC 3.82 L MCV 96.1 H MCHC 33.5 RDW 16.0 H MPV 7.5 Neutrophils % 71.4 Lymphocytes % 13.0 D Monocytes % 11.9 H Eosinophils % 2.6 Basophils % 1.1 - RADIOLOGY Radiology Studies Ordered: Category Date Time Status CHEST X-RAY PORTABLE* [RAD] Stat Radiology 05/17/18 16:13 Completed - Medications Given in the ED: ED Medications Discontinued Medications Generic Name Dose Route Start Last Admin Trade Name Sydnie PRN Reason Stop Dose Admin Clonazepam 0.5 mg 05/17/18 18:00 05/17/18 18:42 Klonopin - PO 05/17/18 18:01 0.5 mg ONCE ONE Administration Furosemide 40 mg 05/17/18 16:13 05/17/18 17:31 Lasix Injection - IVPUSH 05/17/18 16:14 40 mg ONCE ONE Administration Levothyroxine Sodium 200 mcg 05/18/18 07:00 05/18/18 07:02 Synthroid - PO 200 mcg AM JOCE Administration Levothyroxine Sodium 200 mcg 05/18/18 07:00 05/18/18 07:16 Synthroid - PO 05/18/18 07:01 200 mcg DAILY@0700 JOCE Administration <Emily Menezes - Last Filed: 05/18/18 07:46> Medical Decision Making - Medical Decision Making 05/17/18 14:51 doppler study, CBC, CMP, PT/INR, u/a, BNP may need further diuresis for RLE edema, his lasix has been increased from 20mg BID to 40md BID po without much improvement will need to r/o VTE first given peripheral cyanosis in both upper and lower extremities, could be acute CHF, venous/arterial insufficiency(pt is a current smoker). labs with elevated BNP, duplex negative for VTE, likely acute CHF, will send microblog to hospitalist service for inpatient tele admission 05/17/18 16:32 sign-out given to MONIKA [place] <Sherrell Lubin - Last Filed: 05/17/18 17:33> *DC/Admit/Observation/Transfer - Discharge Dispostion Decision to Admit order: Yes <Sherrell Lubin - Last Filed: 05/17/18 17:33> - Discharge Dispostion Decision to Admit order: Yes Decision to Admit order Date/Time: 05/18/18 07:46 <Emily Menezes - Last Filed: 05/18/18 07:46> Diagnosis at time of Disposition: Lower extremity edema, CHF (congestive heart failure) - Discharge Dispostion Condition at time of disposition: Guarded
[2018-05-17 15:00] LABS: BASO % 1.1 % (0-2.0); EOS % 2.6 % (0-4.5); HEMATOCRIT 36.7 % (35.4-49); HEMOGLOBIN 12.3 GM/dL (11.7-16.9); MCH 32.2 pg (25.7-33.7); MCHC 33.5 g/dl (32.0-35.9); MEAN CELL VOLUME 96.1 fl (80-96); MEAN PLT VOLUME 7.5 fl (7.5-11.1); MONO % 11.9 % (3.8-10.2); NEUT % 71.4 % (42.8-82.8); PLATELET COUNT 262 K/MM3 (134-434); RBC 3.82 M/mm3 (4.00-5.60); WHITE BLOOD COUNT 9.5 K/mm3 (4.0-10.0)
[2018-05-17 15:16] LABS: INR 1.04 (0.83-1.09); PROTHROMBIN TIME (PATIENT) 12.3 SEC (9.7-13.0)
[2018-05-17 15:19] LABS: ALBUMIN 2.8 g/dl (3.4-5.0); ALK PHOS 73 U/L (45-117); ANION GAP 4 MMOL/L (8-16); BILIRUBIN,TOTAL 0.4 mg/dL (0.2-1); BLOOD UREA NITROGEN 39 mg/dL (7-18); CALCIUM 8.6 mg/dL (8.5-10.1); CHLORIDE 104 mmol/L (98-107); CO2 31 mmol/L (21-32); CREATININE 0.9 mg/dL (0.55-1.3); GLUCOSE,RANDOM 105 mg/dL (74-106); POTASSIUM 4.6 mmol/L (3.5-5.1); SGOT/AST 22 U/L (15-37); SGPT/ALT 19 U/L (13-61); SODIUM 140 mmol/L (136-145); TOT PROT 6.5 g/dl (6.4-8.2)
[2018-05-17] MEDS ORDERED: FUROSEMIDE 40 MG/4 ML INJECTABLE VIAL IVPUSH ONE (16:13)
--- NOTE | 2018-05-17 16:59 | PDOC ---
Attending Attestation - Resident Resident Name: Sherrell Lubin - ED Attending Attestation I have performed the following: I have examined & evaluated the patient, The case was reviewed & discussed with the resident, I agree w/resident's findings & plan - HPI HPI: 05/17/18 16:57 The patient is a 78 year old man with a significant past medical history of metastatic follicular thyroid cancer (mets to bone and lungs) with papillary component s/p total thyroidectomy, hypertension, AAA, HLD, who presents to the ED today with worsening LE weakness, inability to ambulate, worsening RLE edema and discoloration of the toes for past few weeks. Denies fever, chills, chest pain, SOB, palpitation, dizziness, weakness, N, V, D , abdominal pain, bladder and bowel problems, leg swelling, No sick contacts or travel. No new changes in medications. Allergies: NKA Social history: Lives with family. No smoking. No alcohol. No illicit drugs. Surgical Hx: bl inguinal hernia repair, AAA stent 2013, DUODENAL ULCER GASTRECTOMY - Physicial Exam PE: 05/17/18 16:58 NAD, well appearing, MMM, nl conjunctiva, anicteric; neck supple. (+) faint expiratory wheeze., RRR, abdomen soft nontender. SHAFFER x4, no focal neuro deficits. 4+ pitting BLE edema. no calf tenderness. normal color for ethnicity, WWP. - Medical Decision Making 05/17/18 16:58 hpi as documented VS wnl - reassuring. labs and lytes with elevated bnp, normal trop. Duplex with pop horton's cysts; no e/o DVT will diurese lasix 40mg IV x1, given he's on 40mg PO admit for CHF exacerbation/leg edema. 05/17/18 16:59 05/17/18 16:59
[2018-05-17] MEDS ORDERED: FUROSEMIDE 40 MG/4 ML INJECTABLE VIAL ONE (17:28)
--- NOTE | 2018-05-17 17:40 | HP ---
CHIEF COMPLAINT: worsening right leg edema/pain. 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 He is s/ p total thyroidectomy. He underwent treatment with iodine therapy in 2014. A pet scan 2018 showed new and worsening osseous mets as well as a new nodule in the left lung base. His chemo treatments were changed but stopped on 2017 secondary to progressive lower extremity edema. He underwent a recent pet scan that shows: " interval marked improvement in previously noted foci of increased activity within osseous structures. osseous lesions seen in T5, left 7th rib, left iliac bone, right side of sacrum, right iliac bone. the hypermetabolic in nodule of left lung has resolved" He comes to the ED today with c/o of worsening lower extremity weakness (right > left) and with inability to ambulate for the past few weeks. also reports discoloration of his toes and right lower extremity weeping edema. He is unable to ambulate and now bedbound for about 2 weeks. He has physical therapy at home and is unable to tolerate PT due to worsening lower extremity edema. He was seen by his oncologist today at [facility] who wanted patient admitted for doppler and diuresis. Patient also reports difficulty with laying flat and increased congestion. He is noted to be congested on his upper lobes, lungs otherwise clear. He reports an ongoing non productive wet cough. On 05/08/18, he completed a full course of PO antibiotics Cephalexin for weeping lower ext edema, without much improvement per . Patient recently admitted to [facility] (03/25/18-03/30/2018) for left inguinal mass and found to have a fluid collection s/p I&D and treated with antibiotics. Denies fever, chills, chest pain, SOB, palpitation, dizziness, weakness, abdominal pain, bladder and bowel problems, no sick contacts or travel. No new changes in medications. ER course was notable for: (1) lower ext edema. right > left (2) bnp 790 (3) negative for dvt Recent Travel: PAST MEDICAL HISTORY: as noted above PAST SURGICAL HISTORY: Social History: Smoking: every day smoker Alcohol: Drugs: Family History: Allergies sulfamethoxazole [From Bactrim] Allergy (Intermediate, Verified 05/17/18 13:19) Hives trimethoprim [From Bactrim] Allergy (Intermediate, Verified 05/17/18 13:19) Hives HOME MEDICATIONS: Home Medications Medication Instructions Recorded Atenolol [Tenormin -] 12.5 mg PO DAILY 05/17/18 Atorvastatin Ca [Lipitor] 40 mg PO HS 05/17/18 Calcium Carbonate [Antacid] 200 mg PO DAILY 05/17/18 Cholecalciferol (Vitamin D3) 1,000 unit PO DAILY 05/17/18 [Vitamin D3 -] Dabrafenib Mesylate [Tafinlar] 75 mg PO DAILY 05/17/18 Denosumab [Xgeva] 120 mg NR ASDIR 05/17/18 Escitalopram Oxalate [Lexapro -] 20 mg PO DAILY 05/17/18 Ferrous Sulfate 325 mg PO DAILY 05/17/18 Furosemide [Lasix -] 40 mg PO BID 05/17/18 Levothyroxine Sodium [Synthroid] 200 mcg PO DAILY 05/17/18 Oxycodone HCl/Acetaminophen 1 each PO ASDIR 05/17/18 [Oxycodon-Acetaminophen 7.5-325] Pazopanib HCl [Votrient] 200 mg PO DAILY 05/17/18 Potassium Chloride 10 meq PO DAILY 05/17/18 Trametinib Dimethyl Sulfoxide 2 mg PO DAILY 05/17/18 [Mekinist] Varenicline Tartrate [Chantix] 1 each PO DAILY 05/17/18 clonazePAM [Klonopin -] 0.5 mg PO DAILY 05/17/18 REVIEW OF SYSTEMS CONSTITUTIONAL: Absent: fever, chills, diaphoresis, loss of appetite, weight change HEENT: Absent: rhinorrhea, nasal congestion, throat pain, throat swelling, difficulty swallowing, mouth swelling, ear pain, eye pain, visual changes CARDIOVASCULAR: Absent: chest pain, syncope, palpitations, irregular heart rate, lightheadedness , GASTROINTESTINAL: Absent: abdominal pain, abdominal distension, nausea, vomiting, diarrhea, constipation, melena, hematochezia GENITOURINARY: Absent: dysuria, frequency, urgency, hesitancy, hematuria, flank pain, genital pain NEUROLOGIC: Absent: headache, focal weakness or paresthesias, dizziness, unsteady gait, seizure, mental status changes, bladder or bowel incontinence PSYCHIATRIC: Absent: anxiety, depression, suicidal or homicidal ideation, hallucinations. PHYSICAL EXAMINATION Vital Signs - 24 hr 05/17/18 05/17/18 13:19 17:21 Temperature 98.0 F Pulse Rate 62 Pulse Rate [ 70 Left] Respiratory 20 16 Rate Blood Pressure 125/64 Blood Pressure 118/65 [Arm] O2 Sat by Pulse 100 99 Oximetry (%) GENERAL: Awake, alert, and oriented, appears uncomfortable at rest. denies pain. . HEAD: Normal with no signs of trauma. EYES: Pupils equal, round and reactive to light, extraocular movements intact, sclera anicteric, conjunctiva clear. No lid lag. EARS, NOSE, THROAT: Ears normal, nares patent, oropharynx clear without exudates. Moist mucous membranes. NECK: Normal range of motion, supple without lymphadenopathy, JVD, or masses. LUNGS: mild wheezing auscultated on upper lobes, tolerating room air. will start duonebs HEART: Regular rate and rhythm ABDOMEN: Soft, nontender, not distended, normoactive bowel sounds, no guarding, no rebound, no masses. No hepatomegaly or splenomegaly. MUSCULOSKELETAL: Normal range of motion at all joints. No bony deformities or tenderness. No CVA tenderness. UPPER EXTREMITIES: No peripheral edema. LOWER EXTREMITIES: 1+ pulses, warm, No calf tenderness. Lower extremity peripheral edema from knee down to ankle, warm to touch. small abrasions seen on anterior right leg. left leg with +2 edema. NEUROLOGICAL: Normal speech. Normal gait. PSYCHIATRIC: Cooperative. mildly anxious Laboratory Results - last 24 hr 05/17/18 05/17/18 05/17/18 14:38 14:45 14:45 WBC RBC Hgb Hct MCV MCH MCHC RDW Plt Count MPV Absolute Neuts (auto) Neutrophils % Lymphocytes % Monocytes % Eosinophils % Basophils % Nucleated RBC % PT with INR 12.30 INR 1.04 Sodium 140 Potassium 4.6 Chloride 104 Carbon Dioxide 31 Anion Gap 4 L BUN 39 H Creatinine 0.9 Creat Clearance w eGFR > 60 Random Glucose 105 Calcium 8.6 Total Bilirubin 0.4 AST 22 ALT 19 Alkaline Phosphatase 73 B-Natriuretic Peptide 790.8 H Total Protein 6.5 Albumin 2.8 L 05/17/18 14:46 WBC 9.5 RBC 3.82 L Hgb 12.3 Hct 36.7 D MCV 96.1 H MCH 32.2 MCHC 33.5 RDW 16.0 H Plt Count 262 MPV 7.5 Absolute Neuts (auto) 6.8 Neutrophils % 71.4 Lymphocytes % 13.0 D Monocytes % 11.9 H Eosinophils % 2.6 Basophils % 1.1 Nucleated RBC % 0 PT with INR INR Sodium Potassium Chloride Carbon Dioxide Anion Gap BUN Creatinine Creat Clearance w eGFR Random Glucose Calcium Total Bilirubin AST ALT Alkaline Phosphatase B-Natriuretic Peptide Total Protein Albumin ASSESSMENT/PLAN: Patient is a 78 year old male who comes to the ED today with c/o of worsening lower extremity weakness (right > left) and with inability to ambulate for the past few weeks. also reports discoloration of his toes and right lower extremity weeping edema. He is unable to ambulate and now bedbound for about 2 weeks. He has physical therapy at home and is unable to tolerate PT due to worsening lower extremity edema. He was seen by his oncologist today at [facility] who wanted patient admitted for doppler and diuresis. Patient also reports difficulty with laying flat and increased congestion. He is noted to be congested on his upper lobes, lungs otherwise clear. He reports an ongoing non productive wet cough. On 05/08/18, he completed a full course of PO antibiotics Cephalexin for weeping lower ext edema, without much improvement per . Patient recently admitted to [facility] (03/25/18-03/30/2018) for left inguinal mass and found to have a fluid collection s/p I&D and treated with antibiotics. Denies fever, chills, chest pain, SOB, palpitation, dizziness, weakness, abdominal pain, bladder and bowel problems, no sick contacts or travel. No new changes in medications. ID: Right lower ext cellulitis Patient reports swelling and erythema with weeping edema. Blood cultures ordered. Uc/ua ordered. chest xray: no acute process. ID consulted. Will hold off on starting antibiotics since he is afebrile and no signs of sepsis. Monitor cbc, bmp. monitor vitals. Hx of MRSA. contact isololation Vascular: Lower extremity edema Likely secondary to cellulitis vs. lymphemdema. Has been ruled out for DVT on doppler studies. No leukocytosis, will draw lactic acid. Elevated bilateral lower extremities. Well score 2, cbc,bmp in a.m. monitor daily weights Cardiology: Non product cough/volume overload/possible CHF On Lasix 40mg iv BID Will monitor weights, intake and output. low salt diet. Echo ordered Cardiology consult. monitor on tele x 24 hours. Hypertension Monitor BP. Continue home medications. HLD Continue lipitor. monitor liver enzymes. Heme: Thyroid cancer s/p thyroidectomy. has been off chemotherapy since February per . Endocrine: Hypothyroidism Continue home dose of synthroid. Inablity to ambulate Physical therapy evaluation Will inidiate lidocaine patches and pain management with oxycodone Maintain fall precautions. fen/prophy low salt diet monitor electrolytes tolerarting PO heparin tid physical therapy Visit type - Emergency Visit Emergency Visit: Yes ED Registration Date: 05/17/18 Care time: The patient presented to the Emergency Department on the above date and was hospitalized for further evaluation of their emergent condition. - New Patient This patient is new to me today: Yes Date on this admission: 05/17/18 - Critical Care Critical Care patient: No
[2018-05-17] MEDS ORDERED: clonazePAM 0.5 MG TABLET PO ONE (18:00)
[2018-05-17] MEDS ORDERED: PT OWN MED DRAWER 7, Y5N ONE (21:32)
[2018-05-17] MEDS: clonazePAM 0.5 MG TABLET PO SCH (22:29)
[2018-05-17] MEDS: ATORVASTATIN CA 40 MG TABLET (FP) PO SCH (22:29)
[2018-05-17] MEDS: HEPARIN NA (PORCINE) 5,000 UNITS/ML 1ML VIAL SQ SCH (22:30)
[2018-05-17] MEDS: oxyCODONE HCL 5 MG TABLET PO PRN (23:46)
[2018-05-18] MEDS: oxyCODONE HCL 5 MG TABLET PO PRN ×3 (06:00→17:16)
[2018-05-18] MEDS ORDERED: FUROSEMIDE 40 MG TABLET (FP) PO SCH (06:00)
[2018-05-18] MEDS ORDERED: LEVOTHYROXINE NA 100 MCG TABLET (FP) PO SCH (07:00)
[2018-05-18] MEDS ORDERED: LEVOTHYROXINE NA 200 MCG TABLET PO SCH (07:00)
[2018-05-18] MEDS: FUROSEMIDE 40 MG/4 ML INJECTABLE VIAL IVPB SCH ×2 (07:02→14:23)
[2018-05-18] MEDS: HEPARIN NA (PORCINE) 5,000 UNITS/ML 1ML VIAL SQ SCH ×3 (07:03→21:18)
[2018-05-18] MEDS ORDERED: ALBUTEROL SO4 2.5/IPRATROPIUM 0.5 INH SOL 3 ML VIAL.NEB. NEB PRN (07:17)
[2018-05-18] MEDS ORDERED: morphine CARPU-JECT 2 MG/1 ML DISP.SYRIN IVPUSH ONE (09:15)
[2018-05-18] MEDS ORDERED: morphine SULFATE 4 MG/ML VIAL IVPUSH ONE (10:00)
[2018-05-18] MEDS: FERROUS SO4 325 MG TABLET (FP) PO SCH (10:38)
[2018-05-18] MEDS: ESCITALOPRAM OXALATE 20 MG TABLET (FP) PO SCH (10:38)
[2018-05-18] MEDS: CHOLECALCIFEROL (VITAMIN D3) 1,000 UNIT TABLET (FP) PO SCH (10:38)
[2018-05-18] MEDS: ATENOLOL 25 MG TABLET (FP) PO SCH (10:38)
[2018-05-18] MEDS: LIDOCAINE 5% TOPICAL PATCH TP SCH (10:39)
[2018-05-18] MEDS: clonazePAM 0.5 MG TABLET PO SCH ×2 (10:39→21:18)
[2018-05-18 11:51] LABS: BASO % 1.1 % (0-2.0); HEMOGLOBIN 10.9 GM/dL (11.7-16.9); LYMPH % 11.6 % (8-40); MCH 31.8 pg (25.7-33.7); MCHC 33.2 g/dl (32.0-35.9); MEAN CELL VOLUME 95.9 fl (80-96); MEAN PLT VOLUME 7.5 fl (7.5-11.1); MONO % 12.1 % (3.8-10.2); NEUT % 74.2 % (42.8-82.8); PLATELET COUNT 268 K/MM3 (134-434); RBC 3.44 M/mm3 (4.00-5.60); RDW 16.2 % (11.9-15.9); WHITE BLOOD COUNT 8.3 K/mm3 (4.0-10.0)
[2018-05-18 12:03] LABS: INR 1.08 (0.83-1.09); PROTHROMBIN TIME (PATIENT) 12.8 SEC (9.7-13.0)
--- NOTE | 2018-05-18 12:18 | ECHO ---
Name: AHSAN ACEVEDO Exam:Adult Echocardiogram Study Date: 05/18/2018 08:04 AM Age: 78 yrs Reason For Study: CHF Height: 72 in Weight: 170 lb BSA: 2.0 m2 MMode/2D Measurements & Calculations IVSd: 0.85 cm Ao root diam: 3.4 cm LVIDd: 4.4 cm LA dimension: 3.1 cm LVIDs: 3.0 cm LVPWd: 0.81 cm EDV(Teich): 88.6 ml LVOT diam: 2.0 cm ESV(Teich): 34.6 ml LAV (MOD-bp): 59.5 ml Doppler Measurements & Calculations MV E max sathish: 57.2 cm/sec MV A max sathish: 93.1 cm/sec MV dec slope: 446.8 cm/sec2 MV E/A: 0.61 Ao V2 max: 327.5 cm/sec AI max sathish: 354.2 cm/sec Ao max P.1 mmHg AI max P.2 mmHg Ao V2 mean: 223.0 cm/sec AI dec slope: 109.7 cm/sec2 Ao mean P.5 mmHg Ao V2 VTI: 74.4 cm DESIREE(I,D): 0.81 cm2 AI P1/2t: 945.3 msec DESIREE(V,D): 0.80 cm2 LV V1 max P.6 mmHg SV(LVOT): 60.6 ml LV V1 mean P.6 mmHg LV V1 max: 80.3 cm/sec LV V1 mean: 60.0 cm/sec LV V1 VTI: 18.5 cm TR max sathish: 305.4 cm/sec Med Peak E' Sathish: 6.7 cm/sec TR max P.3 mmHg Med E/e': 8.5 Lat Peak E' Sathish: 9.1 cm/sec Lat E/e': 6.3 PI Vmax: 123.5 cm/sec Procedure A complete two-dimensional transthoracic echocardiogram was performed (2D, M-mode, Doppler and color flow Doppler). The study was technically difficult with many images being suboptimal in quality. Left Ventricle The left ventricular size, thickness and function are normal. The left ventricular ejection fraction is normal. Ejection Fraction = 60-65%. No regional wall motion abnormalities noted. Right Ventricle The right ventricle is normal in size and function. Atria Normal left and right atrial size and function. Mitral Valve There is no mitral regurgitation noted. Tricuspid Valve There is trace tricuspid regurgitation. Right ventricular systolic pressure is elevated at 30-40mmHg. Aortic Valve Moderate valvular aortic stenosis. No aortic regurgitation is present. Pulmonic Valve There is no pulmonic valvular regurgitation. Great Vessels The aortic root is normal size. Pericardium/Pleura There is no pericardial effusion. Interpretation Summary The left ventricular size, thickness and function are normal The right ventricle is normal in size and function. There is trace tricuspid regurgitation. Right ventricular systolic pressure is elevated at 30-40mmHg. Moderate valvular aortic stenosis. MD Jaxon Gunn 05/18/2018 12:18 PM
[2018-05-18 12:21] LABS: ALBUMIN 2.6 g/dl (3.4-5.0); ALK PHOS 66 U/L (45-117); ANION GAP 5 MMOL/L (8-16); BILIRUBIN,TOTAL 0.4 mg/dL (0.2-1); BLOOD UREA NITROGEN 40 mg/dL (7-18); CALCIUM 8.4 mg/dL (8.5-10.1); CHLORIDE 104 mmol/L (98-107); CHOLESTEROL 142 mg/dL (50-200); CO2 31 mmol/L (21-32); CREATININE 0.9 mg/dL (0.55-1.3); GLUCOSE,RANDOM 105 mg/dL (74-106); HDL CHOLESTEROL 42 mg/dL (40-60); MAGNESIUM 2.2 mg/dL (1.8-2.4); POTASSIUM 4.1 mmol/L (3.5-5.1); SGOT/AST 21 U/L (15-37); SGPT/ALT 19 U/L (13-61); SODIUM 140 mmol/L (136-145); TOT PROT 5.8 g/dl (6.4-8.2); TRIGLYCERIDES 108 mg/dL (0-150)
[2018-05-18] MEDS: NICOTINE 21 MG/24 HOURS TOPICAL PATCH TD SCH (12:36)
--- NOTE | 2018-05-18 12:58 | PN ---
Progress Note (short form) - Note Progress Note: PULMONARY CONSULTATION DICTATED 05/18/18 IMP WEAKNESS METASTATIC THYROID CA COPD PULMONARY HTN SMOKER HTN HLD ? GINA PLAN INHALED BRONCHODILATORS O2 CHEST CT TREND TROPONIN ENDOCRINE CONSULT SLEEP SCREEN PFTS OUTPATIENT DAILY WT SMOKING CESSATION COUNSELED DR HORTON Problem List - Problems (1) Edema Code(s): R60.9 - EDEMA, UNSPECIFIED Qualifiers: Edema type: unspecified Qualified Code(s): R60.9 - Edema, unspecified (2) Lower extremity edema Code(s): R60.0 - LOCALIZED EDEMA (3) Cough Code(s): R05 - COUGH (4) Hypothyroid Code(s): E03.9 - HYPOTHYROIDISM, UNSPECIFIED (5) Thyroid cancer Code(s): C73 - MALIGNANT NEOPLASM OF THYROID GLAND (6) HLD (hyperlipidemia) Code(s): E78.5 - HYPERLIPIDEMIA, UNSPECIFIED Qualifiers: Hyperlipidemia type: mixed hyperlipidemia Qualified Code(s): E78.2 - Mixed hyperlipidemia (7) HTN (hypertension) Code(s): I10 - ESSENTIAL (PRIMARY) HYPERTENSION Qualifiers: Hypertension type: essential hypertension Qualified Code(s): I10 - Essential (primary) hypertension (8) Weakness Code(s): R53.1 - WEAKNESS
--- NOTE | 2018-05-18 13:40 | CONS ---
PULMONARY CONSULTATION DATE OF CONSULTATION: 05/18/2018 REFERRING PHYSICIAN: Ashley Balbuena NP The patient is a 78-year-old white male with past medical history of metastatic follicular thyroid CA with metastases to bone and lungs with papillary component and high-grade features, vascular invasion, history of thyroidectomy, patient is status post iodine therapy in 2014, also chemotherapy which was stopped in February secondary to increasing lower extremity edema, admitted to [facility] with complaint of worsening lower extremity edema, inability to ambulate for the past few weeks. He also noted increased of the toes and right lower extremity weeping edema. He denies any chest pain, nausea, or vomiting. He does complain of some shortness of breath with exertion as well as chronic cough. Apparently, he was seen by his oncologist on the day of admission, who wanted patient admitted for diuresis and a Doppler. Patient refused and wanted to come to the emergency room. Patient has a history of tobacco use, approximately a pack per day for greater than 50 years, currently still smoking. He denies any history of occupational exposure to chemicals or fumes. The patient denies any fevers, weight loss, or night sweats. Denies hemoptysis. PAST MEDICAL HISTORY: Again includes metastatic follicular thyroid CA with bone and lung metastases. REVIEW OF SYSTEMS: Positive weakness. Positive cough. Mild shortness of breath. No chest pain. No palpitations. Positive lower extremity edema. Positive lower extremity weakness. CURRENT MEDICATIONS: Include Lidoderm, heparin, Lexapro, NicoDerm, Klonopin, DuoNeb, Tenormin, Lipitor, Feosol, Lasix, oxycodone, Synthroid, cholecalciferol. PHYSICAL EXAMINATION: General: The patient is a well-developed, well-nourished male, awake, alert, in no acute distress. Vital Signs: He is afebrile. Blood pressure 117/62. Respiratory rate is 17. O2 saturation is 91% on room air. HEENT: Normocephalic, atraumatic. Neck: Supple. Heart: Regular. S1, S2. Chest: Diffuse bilateral wheezes. Abdomen: Soft. Bowel sounds are positive. Extremities: Bilateral extremity edema. LABORATORY DATA: WBC is 8.3, hemoglobin 10.9, hematocrit 33.0, platelet count of 268,000. INR is 1.08. BUN 40, creatinine 0.9. Troponin is 0.06. BNP is 790. Chest x-ray: There are no acute infiltrates or effusions. Duplex of lower extremities: No DVT. Echo revealed normal LV function and mild pulmonary hypertension with right ventricular systolic pressure of 30-40 mmHg. IMPRESSION: 1. Metastatic follicular thyroid cancer. 2. Chronic obstructive pulmonary disease. 3. Weakness. 4. Bilateral lower extremity edema. 5. Tobacco abuse. 6. Rule out mild obstructive sleep apnea. PLAN: IV Lasix, supplemental O2, inhaled bronchodilators, Medrol x24 hours, CT scan of the chest, consider endocrinology evaluation. Also, smoking cessation counseled. NAY HORTON M.D. [id number]
--- NOTE | 2018-05-18 14:17 | CON.CARD ---
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 Skin changes to LE. No f/c/s. No n/v/d. No chest pain or sob. No palpitations - History Source History Provided By: Patient, Medical Record - Past Medical History Cardio/Vascular: Yes: Aneurysm, HTN, Hyperlipdemia Pulmonary: Yes: COPD Endocrine: Yes: Other (thyroid cancer with mets to spine) - Past Surgical History Past Surgical History: Yes: Hernia Repair (thyroidectomy) - Alcohol/Substance Use Hx Alcohol Use: No History of Substance Use: reports: None - Smoking History Smoking history: Current some day smoker Have you smoked in the past 12 months: Yes Aproximately how many cigarettes per day: 10 - Social History ADL: Independent (with walker) History of Recent Travel: No Home Medications - Allergies Allergies/Adverse Reactions: Allergies Allergy/AdvReac Type Severity Reaction Status Date / Time sulfamethoxazole Allergy Intermediate Hives Verified 05/17/18 13:19 [From Bactrim] trimethoprim [From Bactrim] Allergy Intermediate Hives Verified 05/17/18 13:19 - Home Medications Home Medications: Ambulatory Orders Atenolol [Tenormin -] 12.5 mg PO DAILY 05/17/18 Atorvastatin Ca [Lipitor] 40 mg PO HS 05/17/18 Calcium Carbonate [Antacid] 200 mg PO DAILY 05/17/18 Cholecalciferol (Vitamin D3) [Vitamin D3 -] 1,000 unit PO DAILY 05/17/18 Dabrafenib Mesylate [Tafinlar] 75 mg PO DAILY 05/17/18 Denosumab [Xgeva] 120 mg NR ASDIR 05/17/18 Escitalopram Oxalate [Lexapro -] 20 mg PO DAILY 05/17/18 Ferrous Sulfate 325 mg PO DAILY 05/17/18 Furosemide [Lasix -] 40 mg PO BID 05/17/18 Levothyroxine Sodium [Synthroid] 200 mcg PO DAILY 05/17/18 Oxycodone HCl/Acetaminophen [Oxycodon-Acetaminophen 7.5-325] 1 each PO ASDIR Pazopanib HCl [Votrient] 200 mg PO DAILY 05/17/18 Potassium Chloride 10 meq PO DAILY 05/17/18 Trametinib Dimethyl Sulfoxide [Mekinist] 2 mg PO DAILY 05/17/18 Varenicline Tartrate [Chantix] 1 each PO DAILY 05/17/18 clonazePAM [Klonopin -] 0.5 mg PO DAILY 05/17/18 Vital Signs: Vital Signs Temperature 98.0 F 05/18/18 14:00 Pulse Rate 114 H 05/18/18 14:00 Respiratory Rate 17 05/18/18 08:30 Blood Pressure 110/64 05/18/18 14:00 O2 Sat by Pulse Oximetry (%) 91 L 05/18/18 09:00 Constitutional: Yes: No Distress Neck: Yes: Supple Respiratory: Yes: CTA Bilaterally Gastrointestinal: Yes: Soft Cardiovascular: Yes: Regular Rate and Rhythm JVD: No Carotid Bruit: No PMI: Non-Displaced Heart Sounds: Yes: S1, S2 Murmur: Yes: Systolic Murmur (RUSB) Extremities: Yes: Erythema Edema: LLE: 1+, RLE: 1+ - Other Data Labs, Other Data: CBC, BMP 05/18/18 11:20 05/18/18 11:20 INR, PTT INR 1.08 (0.83-1.09) 05/18/18 11:20 Troponin, BNP 05/17/18 05/17/18 14:38 21:00 Troponin I 0.06 H B-Natriuretic Peptide 790.8 H Troponin, BNP 05/17/18 05/17/18 14:38 21:00 Troponin I 0.06 H B-Natriuretic Peptide 790.8 H Imaging - Results Chest X-ray: Report Reviewed Assessment/Plan 78 year old male with a pmhx of htn, AAA, hld, tobacco use, and 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 Skin changes to LE. No f/c/s. No n/v/d. No chest pain or sob. No palpitations BNP 900s Echo with normal LVEF, moderate aortic stenosis 1) LE edema/Diastolic CHF -Continue to diurese with furosemide 40mg IV bid monitor lytes -Tele sinus with pac's Please get a 12 lead ekg. -BP well controlled on low dose beta penny -Smoking cessation -Sleep apnea study needed
--- NOTE | 2018-05-18 14:31 | PN ---
Progress Note (short form) - Note Progress Note: ID CELLULITIS LE ? CEPHALOSPORIN ALLERGY METASTATIC THYROID CA PENDING C/S EMPIRIC VANCOMYCIN
[2018-05-18] MEDS: methylPREDNISolone NA SUCC 40 MG/1 ML VIAL IVPUSH SCH ×2 (14:58→21:19)
[2018-05-18] MEDS: VANCOMYCIN 1 GRAM (PRE-DOCKED) 1,000 MG/250 ML BAG IVPB SCH (14:58)
--- NOTE | 2018-05-18 17:48 | PN ---
Physical Exam: SUBJECTIVE: Patient seen and examined OBJECTIVE: Vital Signs Period Temp Pulse Resp BP Sys/Perez Pulse Ox Last 24 Hr 97.8 F-99.3 F 73-114 16-18 110-122/59-65 91-94 GENERAL: The patient is awake, alert, and fully oriented, in no acute distress. HEAD: Normal with no signs of trauma. EYES: PERRL, extraocular movements intact, sclera anicteric, conjunctiva clear. No ptosis. ENT: Ears normal, nares patent, oropharynx clear without exudates, moist mucous membranes. NECK: Trachea midline, full range of motion, supple. LUNGS: Breath sounds equal, clear to auscultation bilaterally, no wheezes, no crackles, no accessory muscle use. HEART: Regular rate and rhythm, S1, S2 without murmur, rub or gallop. ABDOMEN: Soft, nontender, nondistended, normoactive bowel sounds, no guarding, no rebound, no hepatosplenomegaly, no masses. EXTREMITIES: 2+ pulses, warm, well-perfused, no edema. NEUROLOGICAL: Cranial nerves II through XII grossly intact. Normal speech, gait not observed. PSYCH: Normal mood, normal affect. SKIN: Warm, dry, normal turgor, no rashes or lesions noted Laboratory Results - last 24 hr 05/17/18 05/17/18 05/18/18 21:00 21:00 11:20 WBC 8.3 RBC 3.44 L Hgb 10.9 L Hct 33.0 L MCV 95.9 MCH 31.8 MCHC 33.2 RDW 16.2 H Plt Count 268 MPV 7.5 Absolute Neuts (auto) 6.2 Neutrophils % 74.2 Lymphocytes % 11.6 Monocytes % 12.1 H Eosinophils % 1.0 Basophils % 1.1 Nucleated RBC % 0 PT with INR INR Sodium Potassium Chloride Carbon Dioxide Anion Gap BUN Creatinine Creat Clearance w eGFR Random Glucose Lactic Acid 0.9 Calcium Magnesium Total Bilirubin AST ALT Alkaline Phosphatase Troponin I 0.06 H Total Protein Albumin Triglycerides Cholesterol Total LDL Cholesterol HDL Cholesterol 05/18/18 05/18/18 11:20 11:20 WBC RBC Hgb Hct MCV MCH MCHC RDW Plt Count MPV Absolute Neuts (auto) Neutrophils % Lymphocytes % Monocytes % Eosinophils % Basophils % Nucleated RBC % PT with INR 12.80 INR 1.08 Sodium 140 Potassium 4.1 Chloride 104 Carbon Dioxide 31 Anion Gap 5 L BUN 40 H Creatinine 0.9 Creat Clearance w eGFR > 60 Random Glucose 105 Lactic Acid Calcium 8.4 L Magnesium 2.2 Total Bilirubin 0.4 AST 21 ALT 19 Alkaline Phosphatase 66 Troponin I Total Protein 5.8 L Albumin 2.6 L Triglycerides 108 Cholesterol 142 Total LDL Cholesterol 73 HDL Cholesterol 42 Active Medications Generic Name Dose Route Start Last Admin Trade Name Freq PRN Reason Stop Dose Admin Albuterol/Ipratropium 1 amp 05/18/18 07:17 Duoneb - NEB Q6H PRN SHORTNESS OF BREATH Atenolol 12.5 mg 05/18/18 10:00 05/18/18 10:38 Tenormin - PO 12.5 mg DAILY JOCE Administration Atorvastatin Calcium 40 mg 05/17/18 22:00 05/17/18 22:29 Lipitor - PO 40 mg HS JOCE Administration Cholecalciferol 1,000 unit 05/18/18 10:00 05/18/18 10:38 Vitamin D3 - PO 1,000 unit DAILY JOCE Administration Clonazepam 0.5 mg 05/17/18 22:00 05/18/18 10:39 Klonopin - PO 0.5 mg BID JOCE Administration Escitalopram Oxalate 20 mg 05/18/18 10:00 05/18/18 10:38 Lexapro - PO 20 mg DAILY JOCE Administration Ferrous Sulfate 325 mg 05/18/18 10:00 05/18/18 10:38 Feosol - PO 325 mg DAILY JOCE Administration Furosemide 40 mg 05/18/18 06:00 05/18/18 14:23 Lasix Injection - IVPB 40 mg BIDLASIX JOCE Administration Heparin Sodium (Porcine) 5,000 unit 05/17/18 22:00 05/18/18 14:23 Heparin - SQ 5,000 unit TID JOCE Administration Vancomycin HCl 1,000 mg in 250 mls @ 166.667 mls/hr 05/18/18 14:45 05/18/18 14:58 Vancomycin (Pre-Docked) IVPB 166.667 mls/hr Q12H JOCE Administration Protocol Levothyroxine Sodium 200 mcg 05/19/18 07:00 Synthroid - PO AM JOCE Lidocaine 2 patch 05/18/18 10:00 05/18/18 10:39 Lidoderm Patch - TP 2 patch DAILY JOCE Administration Methylprednisolone Sodium Succinate 40 mg 05/18/18 15:00 05/18/18 14:58 Solu-Medrol - IVPUSH 40 mg Q6H-IV JOCE Administration Miscellaneous 2 each 05/18/18 22:00 Lidoderm Patch Removal MC DAILY@2200 JOCE Nicotine 21 mg 05/18/18 12:30 05/18/18 12:36 Nicoderm Patch - TD 21 mg DAILY JOCE Administration Oxycodone HCl 10 mg 05/18/18 09:00 05/18/18 17:16 Roxicodone - PO 10 mg Q6H PRN Administration PAIN LEVEL 7 - 10 ASSESSMENT/PLAN: Patient is a 78 year old male who comes to the ED today with c/o of worsening lower extremity weakness (right > left) and with inability to ambulate for the past few weeks. also reports discoloration of his toes and right lower extremity weeping edema. He is unable to ambulate and now bedbound for about 2 weeks. He has physical therapy at home and is unable to tolerate PT due to worsening lower extremity edema. He was seen by his oncologist at [facility] who wanted patient admitted for doppler and diuresis. Patient also reports difficulty with laying flat and increased congestion. He is noted to be congested on his upper lobes, lungs otherwise clear. He reports an ongoing non productive wet cough. On 05/08/18, he completed a full course of PO antibiotics Cephalexin for weeping lower ext edema, without much improvement per . Patient recently admitted to [facility] (03/25/18-03/30/2018) for left inguinal mass and found to have a fluid collection s/p I&D and treated with antibiotics. Denies fever, chills, chest pain, SOB, palpitation, dizziness, weakness, abdominal pain, bladder and bowel problems, no sick contacts or travel. No new changes in medications. ID: Right lower ext cellulitis Patient reports swelling and erythema with weeping edema. Blood cultures ordered. Uc/ua ordered. chest xray: no acute process. Started on Vancomycin per ID. Hx of MRSA. contact isololation Vascular: Lower extremity edema Likely secondary to cellulitis vs. lymphemdema. Has been ruled out for DVT on doppler studies. No leukocytosis, negative lactic acid. Elevate bilateral lower extremities to heart level. noted to have less edema today monitor daily weights Cardiology: Non product cough/volume overload/possible CHF On Lasix 40mg iv BID Will monitor weights, intake and output. low salt diet. Echo ordered and pending Cardiology consult. Hypertension Monitor BP. Continue home medications. HLD Continue lipitor. monitor liver enzymes. Pulmonary: Wheezing/shortness of breath On solumedrol will need sleep study abg ordered. Heme: Thyroid cancer s/p thyroidectomy. has been off chemotherapy since February per . endocrine consulted. Endocrine: Hypothyroidism Continue home dose of synthroid. Inablity to ambulate Physical therapy evaluation 2/2 to chronic back pain Increase oxycodone to 10mg q6. Maintain fall precautions. fen/prophy low salt diet monitor electrolytes tolerarting PO heparin tid physical therapy Visit type - Emergency Visit Emergency Visit: Yes ED Registration Date: 05/17/18 Care time: The patient presented to the Emergency Department on the above date and was hospitalized for further evaluation of their emergent condition. - New Patient This patient is new to me today: No - Critical Care Critical Care patient: No
[2018-05-18 18:17] LABS: ARTERIAL BLD GAS O2 SATURATION 90.5 % (90-98.9); ARTERIAL BLOOD GAS BASE EXCESS 2.3 meq/l (-2-2); ARTERIAL BLOOD GAS PCO2 43.6 mmHg (35-45); ARTERIAL BLOOD GAS PO2 62.1 mmHg (70-100); ARTERIAL BLOOD GAS pH 7.41 (7.35-7.45)
[2018-05-18 18:56] LABS: ALLENS TEST POSITIVE
[2018-05-18] MEDS: ATORVASTATIN CA 40 MG TABLET (FP) PO SCH (21:18)
[2018-05-18] MEDS: LIDOCAINE PATCH REMOVAL MC SCH (22:22)
--- NOTE | 2018-05-19 00:38 | CONS ---
DATE OF CONSULTATION: DATE OF DICTATION: 05/18/2018 The patient is a 78-year-old male with a history of metastatic thyroid cancer, evaluated for cellulitis of the lower extremity. He was admitted to the hospital on May 17, 2018, with bilateral lower extremity weakness and increased swelling. He was evaluated in the emergency room where a Doppler examination was performed and was negative for DVT. 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 He had been treated as an outpatient with Keflex up until May 08, 2018. Of note, the patient was admitted to the hospital in February 2018, at which time he had cellulitis of the left lower extremity with a left groin abscess. He was treated with intravenous ceftriaxone and vancomycin and was discharged home on Bactrim. He was readmitted with a diffuse rash secondary to drug allergy. According to the notes, the daughter had insisted that the rash developed prior to his discharge from the hospital and prior to the initiation of sulfa. He is somnolent and offers limited history. He denies any pain at the present time. No reports of fever or chills. PAST MEDICAL HISTORY: Positive for thyroid cancer with metastasis to the lung and bone. History of coronary artery disease, hypertension. PAST SURGICAL HISTORY: Status post thyroid resection, coronary artery stent, bilateral inguinal hernia repair, and aortic aneurysm stent. ALLERGIES: SULFA. MEDICATIONS: At the present time include albuterol, Tenormin, Lipitor, Lexapro, Lasix, Synthroid, oxycodone. SOCIAL HISTORY: He resides in the community. Positive history of tobacco use. REVIEW OF SYSTEMS: Neurologic: No loss of consciousness, seizure activity, focal weakness. Cardiac: Negative chest pain or palpitations. Respiratory: Negative cough or sputum production. Gastrointestinal: Negative vomiting or diarrhea. Genitourinary: Negative for urinary tract infection. LABORATORY DATA: White count 8.3, hematocrit 33.0, platelet count 268. BUN 40, creatinine 0.9. Chest x-ray: Negative for acute infiltrate. Blood cultures are pending. PHYSICAL EXAMINATION: General: He is somnolent. He dozes off during the interview. In no acute distress. Vital Signs: Temperature 98.0, blood pressure 110/64, pulse 114 and regular, respirations 20 per minute. HEENT: Sclerae anicteric. Heart sounds: S1, S1. Lungs: Grossly clear. Poor inspiratory effort. Abdomen: Soft, obese, nontender. Extremities: Examination of the lower extremities shows bilateral lower extremity edema. There is an area of erythema present over the right pretibial area to approximately 10 x 8 cm. He is tender to touch. There is no crepitus or fluctuance. No lymphangitic streaking. IMPRESSION: 1. Cellulitis of the right lower extremity. 2. Questionable cephalosporin allergy. 3. Metastatic thyroid cancer. PLAN: Await cultures. Empiric antibiotic coverage in this patient with possible cephalosporin allergy with vancomycin. Elevation. Analgesics. Will follow. Thank you for the kind referral. ARMANDO GARCIA M.D. [id number]
[2018-05-19] MEDS: VANCOMYCIN 1 GRAM (PRE-DOCKED) 1,000 MG/250 ML BAG IVPB SCH ×2 (03:07→14:01)
[2018-05-19] MEDS: methylPREDNISolone NA SUCC 40 MG/1 ML VIAL IVPUSH SCH ×4 (03:07→21:59)
[2018-05-19] MEDS: oxyCODONE HCL 5 MG TABLET PO PRN (03:30)
[2018-05-19] MEDS: FUROSEMIDE 40 MG/4 ML INJECTABLE VIAL IVPB SCH ×2 (06:28→14:01)
[2018-05-19] MEDS: HEPARIN NA (PORCINE) 5,000 UNITS/ML 1ML VIAL SQ SCH ×3 (06:28→22:01)
[2018-05-19] MEDS ORDERED: LEVOTHYROXINE NA 100 MCG TABLET (FP) PO SCH (07:00)
[2018-05-19] MEDS ORDERED: LEVOTHYROXINE NA 200 MCG TABLET PO SCH (07:00)
[2018-05-19 08:15] LABS: BASO % 0.3 % (0-2.0); HEMATOCRIT 31.3 % (35.4-49); HEMOGLOBIN 10.7 GM/dL (11.7-16.9); LYMPH % 11.2 % (8-40); MCH 32.3 pg (25.7-33.7); MCHC 34.1 g/dl (32.0-35.9); MEAN CELL VOLUME 94.6 fl (80-96); MEAN PLT VOLUME 7.5 fl (7.5-11.1); MONO % 2.1 % (3.8-10.2); NEUT % 86.4 % (42.8-82.8); PLATELET COUNT 255 K/MM3 (134-434); RBC 3.31 M/mm3 (4.00-5.60); RDW 15.7 % (11.9-15.9); WHITE BLOOD COUNT 6.4 K/mm3 (4.0-10.0)
[2018-05-19 08:51] LABS: ALBUMIN 2.3 g/dl (3.4-5.0); ALK PHOS 62 U/L (45-117); ANION GAP 7 MMOL/L (8-16); BILIRUBIN,TOTAL 0.3 mg/dL (0.2-1); BLOOD UREA NITROGEN 42 mg/dL (7-18); CHLORIDE 102 mmol/L (98-107); CO2 28 mmol/L (21-32); CREATININE 0.8 mg/dL (0.55-1.3); GLUCOSE,RANDOM 157 mg/dL (74-106); MAGNESIUM 2.3 mg/dL (1.8-2.4); POTASSIUM 4.1 mmol/L (3.5-5.1); SGOT/AST 22 U/L (15-37); SGPT/ALT 24 U/L (13-61); SODIUM 138 mmol/L (136-145); TOT PROT 5.6 g/dl (6.4-8.2)
[2018-05-19] MEDS: NICOTINE 21 MG/24 HOURS TOPICAL PATCH TD SCH (09:43)
[2018-05-19] MEDS: LIDOCAINE 5% TOPICAL PATCH TP SCH (09:43)
[2018-05-19] MEDS: CHOLECALCIFEROL (VITAMIN D3) 1,000 UNIT TABLET (FP) PO SCH (09:44)
[2018-05-19] MEDS: clonazePAM 0.5 MG TABLET PO SCH ×2 (09:44→22:01)
[2018-05-19] MEDS: ATENOLOL 25 MG TABLET (FP) PO SCH (09:44)
[2018-05-19] MEDS: ESCITALOPRAM OXALATE 20 MG TABLET (FP) PO SCH (09:44)
[2018-05-19] MEDS: FERROUS SO4 325 MG TABLET (FP) PO SCH (09:45)
--- NOTE | 2018-05-19 10:45 | PN ---
Progress Note (short form) - Note Progress Note: PULMONARY CHART REVIEWED LYING IN BED DENIES CP OR SOB WEARING NICOTINE PATCH VSS/AFEBRILE SPO2 95/ ROOM AIR PALE DISTANT BUT CLEAR BREATH SOUNDS S1S2 BS + LEFT LOWER EXT WITH CELLULITIC CHANGES LABS/MEDS/NOTES/IMAGES REVIEWED IMP WEAKNESS METASTATIC THYROID CA/BONE/LUNG COPD PULMONARY HTN SMOKER HTN HLD ? [employer] PL[employer] INHALED BRONCHODILATORS O2 SLEEP SCREEN PFTS OUTPATIENT DAILY WT SMOKING CESSATION COUNSELED Gretta WEBB MD
[2018-05-19] MEDS ORDERED: DOCUSATE SODIUM 100 MG CAPSULE (FP) PO ONE (13:20)
[2018-05-19] MEDS ORDERED: POLYETHYLENE GLYCOL 3350 119 GM BTL PO ONE (13:20)
[2018-05-19] MEDS ORDERED: BISACODYL 10 MG SUPP.RECT RC PRN (13:20)
[2018-05-19] MEDS ORDERED: SENNOSIDES 8.6MG TABLET (FP) PO PRN (13:21)
--- NOTE | 2018-05-19 13:22 | PN ---
Physical Exam: SUBJECTIVE: Patient seen and examined at the bedside. more awake and alert, in no acute distress. OBJECTIVE: more alert and oriented, on 2 liters of nasal cannula after abg noted low blood oxygen pre and post prior to d/c Vital Signs Period Temp Pulse Resp BP Sys/Perez Pulse Ox Last 24 Hr 97.5 F-98.6 F 65-114 20-20 110-130/64-72 94-95 GENERAL: Awake, alert, and oriented, appears uncomfortable at rest. denies pain. . HEAD: Normal with no signs of trauma. EYES: Pupils equal, round and reactive to light, extraocular movements intact, sclera anicteric, conjunctiva clear. No lid lag. EARS, NOSE, THROAT: Ears normal, nares patent, oropharynx clear without exudates. Moist mucous membranes. NECK: Normal range of motion, supple without lymphadenopathy, JVD, or masses. LUNGS: mild wheezing auscultated on upper lobes, tolerating room air. will start duonebs HEART: Regular rate and rhythm ABDOMEN: Soft, nontender, not distended, normoactive bowel sounds, no guarding, no rebound, no masses. No hepatomegaly or splenomegaly. MUSCULOSKELETAL: Normal range of motion at all joints. No bony deformities or tenderness. No CVA tenderness. UPPER EXTREMITIES: No peripheral edema. LOWER EXTREMITIES: 1+ pulses, warm, No calf tenderness. Lower extremity peripheral edema from knee down to ankle, warm to touch. small abrasions seen on anterior right leg. NEUROLOGICAL: Normal speech. Normal gait. PSYCHIATRIC: Cooperative. mildly anxious Laboratory Results - last 24 hr 05/18/18 05/18/18 05/19/18 11:20 18:00 07:30 WBC 6.4 RBC 3.31 L Hgb 10.7 L Hct 31.3 L MCV 94.6 MCH 32.3 MCHC 34.1 RDW 15.7 Plt Count 255 MPV 7.5 Absolute Neuts (auto) 5.6 Neutrophils % 86.4 H Lymphocytes % 11.2 Monocytes % 2.1 L D Eosinophils % 0.0 D Basophils % 0.3 Nucleated RBC % 0 Anticoagulation Therapy No Result Required. Puncture Site Left radial ABG pH 7.41 ABG pCO2 at Pt Temp 43.6 ABG pO2 at Pt Temp 62.1 L ABG HCO3 26.8 H ABG O2 Sat (Measured) 90.5 ABG O2 Content 12.9 L ABG Base Excess 2.3 H Lex Test Positive O2 Delivery Device No Result Required. Oxygen Flow Rate No Vent Mode No Result Required. Vent Rate No Result Required. Mechanical Rate No Result Required. Pressure Support Vent No Result Required. Sodium Potassium Chloride Carbon Dioxide Anion Gap BUN Creatinine Creat Clearance w eGFR Random Glucose Calcium Magnesium Total Bilirubin AST ALT Alkaline Phosphatase Troponin I 0.08 H Total Protein Albumin 05/19/18 07:30 WBC RBC Hgb Hct MCV MCH MCHC RDW Plt Count MPV Absolute Neuts (auto) Neutrophils % Lymphocytes % Monocytes % Eosinophils % Basophils % Nucleated RBC % Anticoagulation Therapy Puncture Site ABG pH ABG pCO2 at Pt Temp ABG pO2 at Pt Temp ABG HCO3 ABG O2 Sat (Measured) ABG O2 Content ABG Base Excess Lex Test O2 Delivery Device Oxygen Flow Rate Vent Mode Vent Rate Mechanical Rate Pressure Support Vent Sodium 138 Potassium 4.1 Chloride 102 Carbon Dioxide 28 Anion Gap 7 L BUN 42 H Creatinine 0.8 Creat Clearance w eGFR > 60 Random Glucose 157 H Calcium 8.0 L Magnesium 2.3 Total Bilirubin 0.3 AST 22 ALT 24 Alkaline Phosphatase 62 Troponin I Total Protein 5.6 L Albumin 2.3 L Active Medications Generic Name Dose Route Start Last Admin Trade Name Freq PRN Reason Stop Dose Admin Albuterol/Ipratropium 1 amp 05/18/18 07:17 Duoneb - NEB Q6H PRN SHORTNESS OF BREATH Atenolol 12.5 mg 05/18/18 10:00 05/19/18 09:44 Tenormin - PO 12.5 mg DAILY JOCE Administration Atorvastatin Calcium 40 mg 05/17/18 22:00 05/18/18 21:18 Lipitor - PO 40 mg HS JOCE Administration Bisacodyl 10 mg 05/19/18 13:20 Dulcolax Suppository - AK DAILY PRN CONSTIPATION Cholecalciferol 1,000 unit 05/18/18 10:00 05/19/18 09:44 Vitamin D3 - PO 1,000 unit DAILY JOCE Administration Clonazepam 0.5 mg 05/17/18 22:00 05/19/18 09:44 Klonopin - PO 0.5 mg BID JOCE Administration Docusate Sodium 200 mg 05/19/18 13:20 Colace - PO 05/19/18 13:21 ONCE ONE Docusate Sodium 100 mg 05/19/18 14:00 Colace - PO TID JOCE Escitalopram Oxalate 20 mg 05/18/18 10:00 05/19/18 09:44 Lexapro - PO 20 mg DAILY JOCE Administration Ferrous Sulfate 325 mg 05/18/18 10:00 05/19/18 09:45 Feosol - PO 325 mg DAILY JOCE Administration Furosemide 40 mg 05/18/18 06:00 05/19/18 06:28 Lasix Injection - IVPB 40 mg BIDLASIX JOCE Administration Heparin Sodium (Porcine) 5,000 unit 05/17/18 22:00 05/19/18 06:28 Heparin - SQ 5,000 unit TID JOCE Administration Vancomycin HCl 1,000 mg in 250 mls @ 166.667 mls/hr 05/18/18 14:45 05/19/18 03:07 Vancomycin (Pre-Docked) IVPB 166.667 mls/hr Q12H JOCE Administration Protocol Levothyroxine Sodium 200 mcg 05/20/18 07:00 Synthroid - PO AM JOCE Lidocaine 2 patch 05/18/18 10:00 05/19/18 09:43 Lidoderm Patch - TP 2 patch DAILY JOCE Administration Methylprednisolone Sodium Succinate 40 mg 05/18/18 15:00 05/19/18 09:44 Solu-Medrol - IVPUSH 40 mg Q6H-IV JOCE Administration Miscellaneous 2 each 05/18/18 22:00 05/18/18 22:22 Lidoderm Patch Removal MC 2 each DAILY@2200 JOCE Administration Nicotine 21 mg 05/18/18 12:30 05/19/18 09:43 Nicoderm Patch - TD 21 mg DAILY JOCE Administration Oxycodone HCl 10 mg 05/18/18 09:00 05/19/18 03:30 Roxicodone - PO 10 mg Q6H PRN Administration PAIN LEVEL 7 - 10 Polyethylene Glycol 17 gm 05/19/18 13:20 Miralax (For Daily Use) - PO 05/19/18 13:21 ONCE ONE Senna 2 tab 05/19/18 13:21 Senna - PO HS PRN CONSTIPATION ASSESSMENT/PLAN: ASSESSMENT/PLAN: Patient is a 78 year old male who comes to the ED today with c/o of worsening lower extremity weakness (right > left) and with inability to ambulate for the past few weeks. also reports discoloration of his toes and right lower extremity weeping edema. He is unable to ambulate and now bedbound for about 2 weeks. He has physical therapy at home and is unable to tolerate PT due to worsening lower extremity edema. He was seen by his oncologist at [facility] who wanted patient admitted for doppler and diuresis. Patient also reports difficulty with laying flat and increased congestion. He is noted to be congested on his upper lobes, lungs otherwise clear. He reports an ongoing non productive wet cough. On 05/08/18, he completed a full course of PO antibiotics Cephalexin for weeping lower ext edema, without much improvement per . Patient recently admitted to [facility] (03/25/18-03/30/2018) for left inguinal mass and found to have a fluid collection s/p I&D and treated with antibiotics. Denies fever, chills, chest pain, SOB, palpitation, dizziness, weakness, abdominal pain, bladder and bowel problems, no sick contacts or travel. No new changes in medications. ID: Right lower ext cellulitis Patient reports swelling and erythema with weeping edema. Blood cultures, Uc/ UA ordered and pending. chest xray: no acute process. Started on Vancomycin per ID. Hx of MRSA. contact isolation Vascular: Lower extremity edema Likely secondary to cellulitis vs. lymphemdema. Has been ruled out for DVT on doppler studies. No leukocytosis, negative lactic acid. Elevate bilateral lower extremities to heart level. noted to have less edema today monitor daily weights Cardiology: Non product cough/volume overload/possible CHF On Lasix 40mg iv BID Will monitor weights, intake and output. low salt diet. Echo ordered and pending Hypertension Monitor BP. Continue home medications. HLD Continue lipitor. monitor liver enzymes. Pulmonary: Wheezing/shortness of breath On solumedrol will need sleep study abg ordered and reviewed, started on oxygen therapy Heme: Thyroid cancer s/p thyroidectomy. has been off chemotherapy since February per . endocrine consulted. Endocrine: Hypothyroidism Continue home dose of synthroid. Inablity to ambulate Physical therapy evaluation 2/2 to chronic back pain Increase oxycodone to 10mg q6. Maintain fall precautions. fen/prophy low salt diet monitor electrolytes tolerarting PO heparin tid physical therapy Visit type - Emergency Visit Emergency Visit: Yes ED Registration Date: 05/17/18 Care time: The patient presented to the Emergency Department on the above date and was hospitalized for further evaluation of their emergent condition. - New Patient This patient is new to me today: No - Critical Care Critical Care patient: No - Discharge Referral Referred to [facility] No
--- NOTE | 2018-05-19 14:10 | PN ---
Progress Note, Physician History of Present Illness: MORE AWAKE AND ALERT TODAY NO C/O LEG PAIN AFEBRILE WBC WNL TOLERATED VANCOMYCIN - Current Medication List Current Medications: Active Medications Albuterol/Ipratropium (Duoneb -) 1 amp NEB Q6H PRN PRN Reason: SHORTNESS OF BREATH Atenolol (Tenormin -) 12.5 mg PO DAILY [facility] Last Admin: 05/19/18 09:44 Dose: 12.5 mg Atorvastatin Calcium (Lipitor -) 40 mg PO HS [facility] Last Admin: 05/18/18 21:18 Dose: 40 mg Bisacodyl (Dulcolax Suppository -) 10 mg RC DAILY PRN PRN Reason: CONSTIPATION Cholecalciferol (Vitamin D3 -) 1,000 unit PO DAILY [facility] Last Admin: 05/19/18 09:44 Dose: 1,000 unit Clonazepam (Klonopin -) 0.5 mg PO BID [facility] Last Admin: 05/19/18 09:44 Dose: 0.5 mg Docusate Sodium (Colace -) 100 mg PO TID [facility] Escitalopram Oxalate (Lexapro -) 20 mg PO DAILY [facility] Last Admin: 05/19/18 09:44 Dose: 20 mg Ferrous Sulfate (Feosol -) 325 mg PO DAILY [facility] Last Admin: 05/19/18 09:45 Dose: 325 mg Furosemide (Lasix Injection -) 40 mg IVPB BIDLASIX [facility] Last Admin: 05/19/18 14:01 Dose: 40 mg Heparin Sodium (Porcine) (Heparin -) 5,000 unit SQ TID [facility] Last Admin: 05/19/18 14:01 Dose: 5,000 unit Vancomycin HCl (Vancomycin (Pre-Docked)) 1,000 mg in 250 mls @ 166.667 mls/hr IVPB Q12H [facility]; Protocol Last Admin: 05/19/18 14:01 Dose: 166.667 mls/hr Levothyroxine Sodium (Synthroid -) 200 mcg PO AM [facility] Lidocaine (Lidoderm Patch -) 2 patch TP DAILY [facility] Last Admin: 05/19/18 09:43 Dose: 2 patch Methylprednisolone Sodium Succinate (Solu-Medrol -) 40 mg IVPUSH Q6H-IV [facility] Last Admin: 05/19/18 14:01 Dose: 40 mg Miscellaneous (Lidoderm Patch Removal) 2 each MC DAILY@2200 [facility] Last Admin: 05/18/18 22:22 Dose: 2 each Nicotine (Nicoderm Patch -) 21 mg TD DAILY [facility] Last Admin: 05/19/18 09:43 Dose: 21 mg Oxycodone HCl (Roxicodone -) 10 mg PO Q6H PRN PRN Reason: PAIN LEVEL 7 - 10 Last Admin: 05/19/18 03:30 Dose: 10 mg Senna (Senna -) 2 tab PO HS PRN PRN Reason: CONSTIPATION Last Admin: 05/19/18 14:01 Dose: 2 tab - Objective Vital Signs: Vital Signs Temperature 97.5 F L 05/19/18 10:00 Pulse Rate 77 05/19/18 10:00 Respiratory Rate 20 05/19/18 10:00 Blood Pressure 125/71 05/19/18 10:00 O2 Sat by Pulse Oximetry (%) 95 05/19/18 09:00 Constitutional: Yes: No Distress Eyes: Yes: Conjunctiva Clear Cardiovascular: Yes: Regular Rate and Rhythm, S1, S2 Respiratory: Yes: Rhonchi, Wheezes Gastrointestinal: Yes: Normal Bowel Sounds, Soft. No: Tenderness Extremities: Yes: Other (+ DRY ABRASION R PRETIBIAL AREA + ERYTHEMA) Labs: CBC, BMP 05/19/18 07:30 05/19/18 07:30 INR, PTT INR 1.08 (0.83-1.09) 05/18/18 11:20 Assessment/Plan CELLULITIS R LE COPD METASTATIC CA ? CEPHALOSPORIN ALLERGY CONTINUE EMPIRIC VANCOMYCIN
--- NOTE | 2018-05-19 14:46 | PN ---
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 Skin changes to LE. No f/c/s. No n/v/d. No chest pain or sob. No palpitations - Current Medication List Current Medications: Active Medications Albuterol/Ipratropium (Duoneb -) 1 amp NEB Q6H PRN PRN Reason: SHORTNESS OF BREATH Atenolol (Tenormin -) 12.5 mg PO DAILY [facility] Last Admin: 05/19/18 09:44 Dose: 12.5 mg Atorvastatin Calcium (Lipitor -) 40 mg PO HS [facility] Last Admin: 05/18/18 21:18 Dose: 40 mg Bisacodyl (Dulcolax Suppository -) 10 mg RC DAILY PRN PRN Reason: CONSTIPATION Cholecalciferol (Vitamin D3 -) 1,000 unit PO DAILY [facility] Last Admin: 05/19/18 09:44 Dose: 1,000 unit Clonazepam (Klonopin -) 0.5 mg PO BID [facility] Last Admin: 05/19/18 09:44 Dose: 0.5 mg Docusate Sodium (Colace -) 100 mg PO TID [facility] Escitalopram Oxalate (Lexapro -) 20 mg PO DAILY [facility] Last Admin: 05/19/18 09:44 Dose: 20 mg Ferrous Sulfate (Feosol -) 325 mg PO DAILY [facility] Last Admin: 05/19/18 09:45 Dose: 325 mg Furosemide (Lasix Injection -) 40 mg IVPB BIDLASIX [facility] Last Admin: 05/19/18 14:01 Dose: 40 mg Heparin Sodium (Porcine) (Heparin -) 5,000 unit SQ TID [facility] Last Admin: 05/19/18 14:01 Dose: 5,000 unit Vancomycin HCl (Vancomycin (Pre-Docked)) 1,000 mg in 250 mls @ 166.667 mls/hr IVPB Q12H [facility]; Protocol Last Admin: 05/19/18 14:01 Dose: 166.667 mls/hr Levothyroxine Sodium (Synthroid -) 200 mcg PO AM [facility] Lidocaine (Lidoderm Patch -) 2 patch TP DAILY [facility] Last Admin: 05/19/18 09:43 Dose: 2 patch Methylprednisolone Sodium Succinate (Solu-Medrol -) 40 mg IVPUSH Q6H-IV [facility] Last Admin: 05/19/18 14:01 Dose: 40 mg Miscellaneous (Lidoderm Patch Removal) 2 each MC DAILY@2200 [facility] Last Admin: 05/18/18 22:22 Dose: 2 each Nicotine (Nicoderm Patch -) 21 mg TD DAILY [facility] Last Admin: 05/19/18 09:43 Dose: 21 mg Oxycodone HCl (Roxicodone -) 10 mg PO Q6H PRN PRN Reason: PAIN LEVEL 7 - 10 Last Admin: 05/19/18 03:30 Dose: 10 mg Senna (Senna -) 2 tab PO HS PRN PRN Reason: CONSTIPATION Last Admin: 05/19/18 14:01 Dose: 2 tab - Objective Vital Signs: Vital Signs Temperature 98.2 F 05/19/18 14:33 Pulse Rate 74 05/19/18 14:33 Respiratory Rate 20 05/19/18 14:33 Blood Pressure 132/71 05/19/18 14:33 O2 Sat by Pulse Oximetry (%) 95 05/19/18 09:00 Constitutional: Yes: No Distress Neck: Yes: Supple Cardiovascular: Yes: Regular Rate and Rhythm, S1, S2. 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 Skin changes to LE. No f/c/s. No n/v/d. No chest pain or sob. No palpitations BNP 900s Echo with normal LVEF, moderate aortic stenosis 1) LE edema/Diastolic CHF Normal LVEF with moderate aortic stenosis. -Patient appears comfortable and LE edema much improved. Would consider changing his furosemide tomorrow back to 40mg PO bid monitor lytes and replete if needed -BP well controlled on low dose beta penny -Smoking cessation -Sleep apnea study needed -Abx for cellulitis as per primary team Please call back if needed Outpt can follow up with Dr. Corona [phone]
[2018-05-19] MEDS: guaiFENesin 200 MG/10 ML 10 ML UNIT-DOSE CUPS PO PRN (16:24)
[2018-05-19] MEDS: LIDOCAINE PATCH REMOVAL MC SCH (22:00)
[2018-05-19] MEDS: ATORVASTATIN CA 40 MG TABLET (FP) PO SCH (22:01)
[2018-05-19] MEDS: DOCUSATE SODIUM 100 MG CAPSULE (FP) PO SCH (22:01)
[2018-05-20] MEDS: methylPREDNISolone NA SUCC 40 MG/1 ML VIAL IVPUSH SCH ×4 (02:07→20:46)
[2018-05-20] MEDS: VANCOMYCIN 1 GRAM (PRE-DOCKED) 1,000 MG/250 ML BAG IVPB SCH ×2 (02:07→14:21)
[2018-05-20] MEDS: FUROSEMIDE 40 MG/4 ML INJECTABLE VIAL IVPB SCH (06:10)
[2018-05-20] MEDS: HEPARIN NA (PORCINE) 5,000 UNITS/ML 1ML VIAL SQ SCH ×3 (06:11→22:22)
[2018-05-20] MEDS: DOCUSATE SODIUM 100 MG CAPSULE (FP) PO SCH ×3 (06:11→22:22)
[2018-05-20] MEDS: LEVOTHYROXINE NA 200 MCG TABLET PO SCH (06:12)
[2018-05-20 08:25] LABS: BASO % 0.1 % (0-2.0); HEMATOCRIT 31.6 % (35.4-49); HEMOGLOBIN 10.8 GM/dL (11.7-16.9); LYMPH % 7.1 % (8-40); MCH 32.2 pg (25.7-33.7); MCHC 34.1 g/dl (32.0-35.9); MEAN CELL VOLUME 94.3 fl (80-96); MEAN PLT VOLUME 7.8 fl (7.5-11.1); MONO % 4.4 % (3.8-10.2); NEUT % 88.4 % (42.8-82.8); PLATELET COUNT 275 K/MM3 (134-434); RBC 3.35 M/mm3 (4.00-5.60); RDW 15.7 % (11.9-15.9)
[2018-05-20 08:53] LABS: ALBUMIN 2.3 g/dl (3.4-5.0); ALK PHOS 61 U/L (45-117); ANION GAP 5 MMOL/L (8-16); BILIRUBIN,TOTAL 0.3 mg/dL (0.2-1); BLOOD UREA NITROGEN 48 mg/dL (7-18); CALCIUM 7.9 mg/dL (8.5-10.1); CHLORIDE 103 mmol/L (98-107); CO2 31 mmol/L (21-32); CREATININE 0.9 mg/dL (0.55-1.3); GLUCOSE,RANDOM 119 mg/dL (74-106); MAGNESIUM 2.1 mg/dL (1.8-2.4); POTASSIUM 4.1 mmol/L (3.5-5.1); SGOT/AST 30 U/L (15-37); SGPT/ALT 34 U/L (13-61); SODIUM 139 mmol/L (136-145); TOT PROT 5.7 g/dl (6.4-8.2)
[2018-05-20] MEDS: clonazePAM 0.5 MG TABLET PO SCH ×2 (09:22→22:22)
[2018-05-20] MEDS: ESCITALOPRAM OXALATE 20 MG TABLET (FP) PO SCH (09:22)
[2018-05-20] MEDS: FERROUS SO4 325 MG TABLET (FP) PO SCH (09:22)
[2018-05-20] MEDS: ATENOLOL 25 MG TABLET (FP) PO SCH (09:23)
[2018-05-20] MEDS: CHOLECALCIFEROL (VITAMIN D3) 1,000 UNIT TABLET (FP) PO SCH (09:25)
[2018-05-20] MEDS: NICOTINE 21 MG/24 HOURS TOPICAL PATCH TD SCH (09:26)
[2018-05-20] MEDS: LIDOCAINE 5% TOPICAL PATCH TP SCH (09:27)
[2018-05-20] MEDS ORDERED: PT OWN MED DRAWER 7, Y5N ONE ×3 (10:33→23:04)
[2018-05-20] MEDS: oxyCODONE HCL 5 MG TABLET PO PRN ×2 (10:34→18:13)
--- NOTE | 2018-05-20 12:34 | PN ---
Physical Exam: SUBJECTIVE: Patient seen and examined at the bedside. feels well, has a small posterior head cyst that he wants dermatology to evaluate. OBJECTIVE: is asking for a hospital bed. will discuss with SW. Vital Signs Period Temp Pulse Resp BP Sys/Perez Pulse Ox Last 24 Hr 97.3 F-98.2 F 63-74 20-20 120-140/65-78 92-95 GENERAL: Awake, alert, and oriented, appears uncomfortable at rest. denies pain. . HEAD: Normal with no signs of trauma. EYES: Pupils equal, round and reactive to light, extraocular movements intact, sclera anicteric, conjunctiva clear. No lid lag. EARS, NOSE, THROAT: Ears normal, nares patent, oropharynx clear without exudates. Moist mucous membranes. NECK: Normal range of motion, supple without lymphadenopathy, JVD, or masses. LUNGS: mild wheezing auscultated on upper lobes, tolerating room air. will start duonebs HEART: Regular rate and rhythm ABDOMEN: Soft, nontender, not distended, normoactive bowel sounds, no guarding, no rebound, no masses. No hepatomegaly or splenomegaly. MUSCULOSKELETAL: Normal range of motion at all joints. No bony deformities or tenderness. No CVA tenderness. UPPER EXTREMITIES: No peripheral edema. LOWER EXTREMITIES: 1+ pulses, warm, No calf tenderness. Lower extremity peripheral edema from knee down to ankle, warm to touch. small abrasions seen on anterior right leg. edema overall improved. NEUROLOGICAL: Normal speech. PSYCHIATRIC: Cooperative. Laboratory Results - last 24 hr 05/19/18 05/20/18 05/20/18 21:57 06:50 06:50 WBC 10.0 RBC 3.35 L Hgb 10.8 L Hct 31.6 L MCV 94.3 MCH 32.2 MCHC 34.1 RDW 15.7 Plt Count 275 MPV 7.8 Absolute Neuts (auto) 8.9 H Neutrophils % 88.4 H Lymphocytes % 7.1 L D Monocytes % 4.4 D Eosinophils % 0.0 Basophils % 0.1 Nucleated RBC % 0 Sodium 139 Potassium 4.1 Chloride 103 Carbon Dioxide 31 Anion Gap 5 L BUN 48 H Creatinine 0.9 Creat Clearance w eGFR > 60 POC Glucometer 135 Random Glucose 119 H Calcium 7.9 L Magnesium 2.1 Total Bilirubin 0.3 AST 30 ALT 34 Alkaline Phosphatase 61 Total Protein 5.7 L Albumin 2.3 L 05/20/18 11:45 WBC RBC Hgb Hct MCV MCH MCHC RDW Plt Count MPV Absolute Neuts (auto) Neutrophils % Lymphocytes % Monocytes % Eosinophils % Basophils % Nucleated RBC % Sodium Potassium Chloride Carbon Dioxide Anion Gap BUN Creatinine Creat Clearance w eGFR POC Glucometer 202 Random Glucose Calcium Magnesium Total Bilirubin AST ALT Alkaline Phosphatase Total Protein Albumin Active Medications Generic Name Dose Route Start Last Admin Trade Name Freq PRN Reason Stop Dose Admin Albuterol/Ipratropium 1 amp 05/18/18 07:17 Duoneb - NEB Q6H PRN SHORTNESS OF BREATH Atenolol 12.5 mg 05/18/18 10:00 05/20/18 09:23 Tenormin - PO 12.5 mg DAILY JOCE Administration Atorvastatin Calcium 40 mg 05/17/18 22:00 05/19/18 22:01 Lipitor - PO 40 mg HS JOCE Administration Benzocaine/Menthol 1 each 05/20/18 11:24 Cepacol Lozenge - MM PRN PRN SORE THROAT Bisacodyl 10 mg 05/19/18 13:20 Dulcolax Suppository - RC DAILY PRN CONSTIPATION Cholecalciferol 1,000 unit 05/18/18 10:00 05/20/18 09:25 Vitamin D3 - PO 1,000 unit DAILY JOCE Administration Clonazepam 0.5 mg 05/17/18 22:00 05/20/18 09:22 Klonopin - PO 0.5 mg BID JOCE Administration Docusate Sodium 100 mg 05/19/18 22:00 05/20/18 06:11 Colace - PO 100 mg TID JOCE Administration Escitalopram Oxalate 20 mg 05/18/18 10:00 05/20/18 09:22 Lexapro - PO 20 mg DAILY JOCE Administration Ferrous Sulfate 325 mg 05/18/18 10:00 05/20/18 09:22 Feosol - PO 325 mg DAILY [facility] Administration Furosemide 40 mg 05/18/18 06:00 05/20/18 06:10 Lasix Injection - IVPB 40 mg BIDLASIX [facility]OCE Administration Guaifenesin 10 ml 05/19/18 16:13 05/19/18 16:24 Robitussin - PO 10 ml Q4H PRN Administration COUGH Heparin Sodium (Porcine) 5,000 unit 05/17/18 22:00 05/20/18 06:11 Heparin - SQ 5,000 unit TID [facility] Administration Vancomycin HCl 1,000 mg in 250 mls @ 166.667 mls/hr 05/18/18 14:45 05/20/18 02:07 Vancomycin (Pre-Docked) IVPB 166.667 mls/hr Q12H [facility] Administration Protocol Levothyroxine Sodium 200 mcg 05/20/18 07:00 05/20/18 06:12 Synthroid - PO 200 mcg AM JOCE Administration Lidocaine 2 patch 05/18/18 10:00 05/20/18 09:27 Lidoderm Patch - TP 2 patch DAILY [facility] Administration Methylprednisolone Sodium Succinate 40 mg 05/18/18 15:00 05/20/18 09:25 Solu-Medrol - IVPUSH 40 mg Q6H-IV [facility] Administration Miscellaneous 2 each 05/18/18 22:00 05/19/18 22:00 Lidoderm Patch Removal MC 2 each DAILY@2200 [facility] Administration Nicotine 21 mg 05/18/18 12:30 05/20/18 09:26 Nicoderm Patch - TD 21 mg DAILY [facility] Administration Oxycodone HCl 10 mg 05/18/18 09:00 05/20/18 10:34 Roxicodone - PO 10 mg Q6H PRN Administration PAIN LEVEL 7 - 10 Phenol/Menthol 1 spray 05/20/18 11:27 Chloraseptic - MM Q6HPO PRN SORE THROAT Senna 2 tab 05/19/18 13:21 05/19/18 14:01 Senna - PO 2 tab HS PRN Administration CONSTIPATION ASSESSMENT/PLAN: Patient is a 78 year old male who comes to the ED today with c/o of worsening lower extremity weakness (right > left) and with inability to ambulate for the past few weeks. On 05/08/18, he completed a full course of PO antibiotics Cephalexin for weeping lower ext edema, without much improvement per . Patient recently admitted to [facility] (03/25/18-03/30/2018) for left inguinal mass and found to have a fluid collection s/p I&D and treated with antibiotics. Denies fever, chills, chest pain, SOB, palpitation, dizziness, weakness, abdominal pain, bladder and bowel problems, no sick contacts or travel. No new changes in medications. ID: Right lower ext cellulitis Patient reports swelling and erythema with weeping edema. Blood cultures, Uc/ UA negative to date. chest xray: no acute process. Started on Vancomycin per ID. Hx of MRSA. contact isolation Vascular: Lower extremity edema Likely secondary to cellulitis. Has been ruled out for DVT on doppler studies. No leukocytosis, negative lactic acid. Elevate bilateral lower extremities to heart level. noted to have less edema today monitor daily weights Cardiology: Non product cough/volume overload/possible CHF On Lasix 40mg iv BID Will monitor weights, intake and output. low salt diet. Echo shows moderate aortic stenosis Hypertension Monitor BP. Continue home medications. HLD Continue lipitor. monitor liver enzymes. Pulmonary: Wheezing/shortness of breath On solumedrol will need sleep study abg ordered and reviewed, started on oxygen therapy Heme: Thyroid cancer s/p thyroidectomy. has been off chemotherapy since February per . Oncology follow up as an outpatient. Endocrine: Hypothyroidism Continue home dose of synthroid. Inablity to ambulate Physical therapy evaluation 2/2 to chronic back pain Increase oxycodone to 10mg q6. Maintain fall precautions. fen/prophy low salt diet monitor electrolytes tolerarting PO heparin tid physical therapy Visit type - Emergency Visit Emergency Visit: Yes ED Registration Date: 05/17/18 Care time: The patient presented to the Emergency Department on the above date and was hospitalized for further evaluation of their emergent condition. - New Patient This patient is new to me today: No - Critical Care Critical Care patient: No - Discharge Referral Referred to [facility] No
[2018-05-20] MEDS: PHENOL 177 ML SPRAY BOTTLE MM PRN ×2 (13:00→20:46)
--- NOTE | 2018-05-20 14:34 | PN ---
Progress Note (short form) - Note Progress Note: PULMONARY CHART REVIEWED LYING IN BED DENIES CP OR SOB WEARING NICOTINE PATCH VSS/AFEBRILE SPO2 92/ ROOM AIR PALE DISTANT BUT CLEAR BREATH SOUNDS S1S2 BS + LEFT LOWER EXT WITH CELLULITIC CHANGES LABS/MEDS/NOTES/IMAGES REVIEWED IMP WEAKNESS METASTATIC THYROID CA/BONE/LUNG COPD PULMONARY HTN SMOKER HTN HLD ? [employer] INHALED BRONCHODILATORS O2 SLEEP SCREEN PFTS OUTPATIENT DAILY WT SMOKING CESSATION COUNSELED Gretta WEBB MD
[2018-05-20] MEDS ORDERED: INSULIN (NOVOLOG) ASPART 100 UNITS/ML 10ML VIAL ONE (16:28)
[2018-05-20] MEDS: LIDOCAINE VISCOUS 2% ORAL/TOP 20 ML UNIT-DOSE CUP MM PRN ×2 (16:33→23:06)
[2018-05-20] MEDS: ATORVASTATIN CA 40 MG TABLET (FP) PO SCH (22:22)
[2018-05-20] MEDS: LIDOCAINE PATCH REMOVAL MC SCH (22:23)
[2018-05-21] MEDS: VANCOMYCIN 1 GRAM (PRE-DOCKED) 1,000 MG/250 ML BAG IVPB SCH (01:54)
[2018-05-21] MEDS: methylPREDNISolone NA SUCC 40 MG/1 ML VIAL IVPUSH SCH ×4 (02:51→21:37)
[2018-05-21] MEDS ORDERED: PT OWN MED DRAWER 7, Y5N ONE ×4 (05:49→20:27)
[2018-05-21] MEDS: FUROSEMIDE 40 MG TABLET (FP) PO SCH ×2 (06:30→14:45)
[2018-05-21] MEDS: HEPARIN NA (PORCINE) 5,000 UNITS/ML 1ML VIAL SQ SCH ×3 (06:30→21:36)
[2018-05-21] MEDS: DOCUSATE SODIUM 100 MG CAPSULE (FP) PO SCH ×3 (06:30→21:37)
[2018-05-21] MEDS: LEVOTHYROXINE NA 200 MCG TABLET PO SCH (06:30)
[2018-05-21] MEDS: LIDOCAINE VISCOUS 2% ORAL/TOP 20 ML UNIT-DOSE CUP MM PRN ×3 (06:31→15:19)
[2018-05-21] MEDS: oxyCODONE HCL 5 MG TABLET PO PRN ×2 (07:38→14:47)
[2018-05-21] MEDS: FERROUS SO4 325 MG TABLET (FP) PO SCH (09:43)
[2018-05-21] MEDS: clonazePAM 0.5 MG TABLET PO SCH ×2 (09:43→21:37)
[2018-05-21] MEDS: ATENOLOL 25 MG TABLET (FP) PO SCH (09:44)
[2018-05-21] MEDS: ESCITALOPRAM OXALATE 20 MG TABLET (FP) PO SCH (09:44)
[2018-05-21] MEDS: CHOLECALCIFEROL (VITAMIN D3) 1,000 UNIT TABLET (FP) PO SCH (09:45)
[2018-05-21] MEDS: NICOTINE 21 MG/24 HOURS TOPICAL PATCH TD SCH (09:45)
[2018-05-21] MEDS: LIDOCAINE 5% TOPICAL PATCH TP SCH (09:45)
[2018-05-21 10:47] LABS: HEMATOCRIT 33.5 % (35.4-49); HEMOGLOBIN 11.3 GM/dL (11.7-16.9); LYMPH % 8.7 % (8-40); MCH 31.9 pg (25.7-33.7); MCHC 33.9 g/dl (32.0-35.9); MEAN CELL VOLUME 94.2 fl (80-96); MEAN PLT VOLUME 8.1 fl (7.5-11.1); MONO % 6.7 % (3.8-10.2); NEUT % 84.6 % (42.8-82.8); PLATELET COUNT 286 K/MM3 (134-434); RBC 3.55 M/mm3 (4.00-5.60); RDW 15.8 % (11.9-15.9); WHITE BLOOD COUNT 8.1 K/mm3 (4.0-10.0)
[2018-05-21 11:08] LABS: ALBUMIN 2.4 g/dl (3.4-5.0); ALK PHOS 61 U/L (45-117); ANION GAP 5 MMOL/L (8-16); BILIRUBIN,TOTAL 0.3 mg/dL (0.2-1); BLOOD UREA NITROGEN 50 mg/dL (7-18); CALCIUM 7.9 mg/dL (8.5-10.1); CHLORIDE 104 mmol/L (98-107); CO2 30 mmol/L (21-32); CREATININE 0.9 mg/dL (0.55-1.3); GLUCOSE,RANDOM 151 mg/dL (74-106); MAGNESIUM 2.2 mg/dL (1.8-2.4); POTASSIUM 4.1 mmol/L (3.5-5.1); SGOT/AST 27 U/L (15-37); SGPT/ALT 38 U/L (13-61); SODIUM 139 mmol/L (136-145); TOT PROT 5.7 g/dl (6.4-8.2)
--- NOTE | 2018-05-21 12:53 | PN ---
Progress Note (short form) - Note Progress Note: PULMONARY CHART REVIEWED LYING IN BED DENIES CP OR SOB WEARING NICOTINE PATCH THROAT PAIN CONTINUES VSS/AFEBRILE SPO2 92/ ROOM AIR PALE/NO THRUSH DISTANT BUT CLEAR BREATH SOUNDS S1S2 BS + LEFT LOWER EXT WITH CELLULITIC CHANGES LABS/MEDS/NOTES/IMAGES REVIEWED IMP WEAKNESS METASTATIC THYROID CA/BONE/LUNG COPD PULMONARY HTN SMOKER HTN HLD ? [employer] PL[employer] INHALED BRONCHODILATORS O2/ENT EVAL SLEEP SCREEN PFTS OUTPATIENT DAILY WT SMOKING CESSATION COUNSELED Gretta WEBB MD
--- NOTE | 2018-05-21 13:10 | PN ---
Progress Note, Physician History of Present Illness: C/O SORE THROAT AWAKE AND ALERT NO C/O LEG PAIN AFEBRILE WBC WNL VANCOMYCIN LEVEL NOTED - Current Medication List Current Medications: Active Medications Albuterol/Ipratropium (Duoneb -) 1 amp NEB Q6H PRN PRN Reason: SHORTNESS OF BREATH Atenolol (Tenormin -) 12.5 mg PO DAILY [facility] Last Admin: 05/21/18 09:44 Dose: 12.5 mg Atorvastatin Calcium (Lipitor -) 40 mg PO HS [facility] Last Admin: 05/20/18 22:22 Dose: 40 mg Benzocaine/Menthol (Cepacol Lozenge -) 1 each MM PRN PRN PRN Reason: SORE THROAT Bisacodyl (Dulcolax Suppository -) 10 mg RC DAILY PRN PRN Reason: CONSTIPATION Cholecalciferol (Vitamin D3 -) 1,000 unit PO DAILY [facility] Last Admin: 05/21/18 09:45 Dose: 1,000 unit Clonazepam (Klonopin -) 0.5 mg PO BID [facility] Last Admin: 05/21/18 09:43 Dose: 0.5 mg Docusate Sodium (Colace -) 100 mg PO TID [facility] Last Admin: 05/21/18 06:30 Dose: 100 mg Escitalopram Oxalate (Lexapro -) 20 mg PO DAILY [facility] Last Admin: 05/21/18 09:44 Dose: 20 mg Ferrous Sulfate (Feosol -) 325 mg PO DAILY [facility] Last Admin: 05/21/18 09:43 Dose: 325 mg Furosemide (Lasix -) 40 mg PO BID@0600,1400 [facility] Last Admin: 05/21/18 06:30 Dose: 40 mg Guaifenesin (Robitussin -) 10 ml PO Q4H PRN PRN Reason: COUGH Last Admin: 05/19/18 16:24 Dose: 10 ml Heparin Sodium (Porcine) (Heparin -) 5,000 unit SQ TID [facility] Last Admin: 05/21/18 06:30 Dose: 5,000 unit Levothyroxine Sodium (Synthroid -) 200 mcg PO AM [facility] Last Admin: 05/21/18 06:30 Dose: 200 mcg Lidocaine (Lidoderm Patch -) 2 patch TP DAILY [facility] Last Admin: 05/21/18 09:45 Dose: 2 patch Lidocaine HCl (Xylocaine 2% Viscous Oral -) 20 ml MM Q8H PRN PRN Reason: ORAL PAIN/MOUTH SORES Last Admin: 05/21/18 06:43 Dose: 20 ml Methylprednisolone Sodium Succinate (Solu-Medrol -) 40 mg IVPUSH Q6H-IV [facility] Last Admin: 05/21/18 09:42 Dose: 40 mg Miscellaneous (Lidoderm Patch Removal) 2 each MC DAILY@2200 [facility] Last Admin: 05/20/18 22:23 Dose: 2 each Nicotine (Nicoderm Patch -) 21 mg TD DAILY [facility] Last Admin: 05/21/18 09:45 Dose: 21 mg Oxycodone HCl (Roxicodone -) 10 mg PO Q6H PRN PRN Reason: PAIN LEVEL 7 - 10 Last Admin: 05/21/18 07:38 Dose: 10 mg Phenol/Menthol (Chloraseptic -) 1 spray MM Q6HPO PRN PRN Reason: SORE THROAT Last Admin: 05/20/18 20:46 Dose: 1 spray Senna (Senna -) 2 tab PO HS PRN PRN Reason: CONSTIPATION Last Admin: 05/19/18 14:01 Dose: 2 tab - Objective Vital Signs: Vital Signs Temperature 98.3 F 05/21/18 07:45 Pulse Rate 63 05/21/18 07:45 Respiratory Rate 20 05/21/18 07:45 Blood Pressure 142/84 05/21/18 07:45 O2 Sat by Pulse Oximetry (%) 95 05/20/18 21:00 Constitutional: Yes: No Distress Eyes: Yes: Conjunctiva Clear Cardiovascular: Yes: Regular Rate and Rhythm, S1, S2 Respiratory: Yes: Rhonchi Extremities: Yes: Other (DECFREASED ERYTHEMA/ WARMTH LE) Edema: Yes Edema: LLE: 1+, RLE: 1+ Labs: CBC, BMP 05/21/18 09:35 05/21/18 09:35 INR, PTT INR 1.08 (0.83-1.09) 05/18/18 11:20 Assessment/Plan CELLULITIS R LE IMPROVED COPD METASTATIC CA ? CEPHALOSPORIN ALLERGY HOLD VANCOMYCIN REPEAT RANDOM LEVEL AM
--- NOTE | 2018-05-21 14:04 | PN ---
Physical Exam: SUBJECTIVE: Patient seen and examined at the bedside. OBJECTIVE: throat pain when eating - and swallowing. has been going on for weeks. will order swallow eval Vital Signs Period Temp Pulse Resp BP Sys/Perez Pulse Ox Last 24 Hr 97.8 F-98.3 F 63-75 18-20 112-142/63-84 95 GENERAL: Awake, alert, and oriented, appears uncomfortable at rest. denies pain. . HEAD: Normal with no signs of trauma. EYES: Pupils equal, round and reactive to light, extraocular movements intact, sclera anicteric, conjunctiva clear. No lid lag. EARS, NOSE, THROAT: Ears normal, nares patent, oropharynx clear without exudates. Moist mucous membranes. NECK: Normal range of motion, supple without lymphadenopathy, JVD, or masses. LUNGS: mild wheezing auscultated on upper lobes, tolerating room air. will start duonebs HEART: Regular rate and rhythm ABDOMEN: Soft, nontender, not distended, normoactive bowel sounds, no guarding, no rebound, no masses. No hepatomegaly or splenomegaly. MUSCULOSKELETAL: Normal range of motion at all joints. No bony deformities or tenderness. No CVA tenderness. UPPER EXTREMITIES: No peripheral edema. LOWER EXTREMITIES: 1+ pulses, warm, No calf tenderness. Lower extremity peripheral edema from knee down to ankle, warm to touch. small abrasions seen on anterior right leg. edema overall improved. NEUROLOGICAL: Normal speech. PSYCHIATRIC: Cooperative. Laboratory Results - last 24 hr 05/20/18 05/20/18 05/21/18 14:40 16:38 09:35 WBC 8.1 RBC 3.55 L Hgb 11.3 L Hct 33.5 L MCV 94.2 MCH 31.9 MCHC 33.9 RDW 15.8 Plt Count 286 MPV 8.1 Absolute Neuts (auto) 6.9 Neutrophils % 84.6 H Lymphocytes % 8.7 D Monocytes % 6.7 Eosinophils % 0.0 Basophils % 0.0 Nucleated RBC % 0 Sodium Potassium Chloride Carbon Dioxide Anion Gap BUN Creatinine Creat Clearance w eGFR POC Glucometer 181 Random Glucose Calcium Magnesium Total Bilirubin AST ALT Alkaline Phosphatase Total Protein Albumin Vancomycin Pre-Dose 24.7 05/21/18 09:35 WBC RBC Hgb Hct MCV MCH MCHC RDW Plt Count MPV Absolute Neuts (auto) Neutrophils % Lymphocytes % Monocytes % Eosinophils % Basophils % Nucleated RBC % Sodium 139 Potassium 4.1 Chloride 104 Carbon Dioxide 30 Anion Gap 5 L BUN 50 H Creatinine 0.9 Creat Clearance w eGFR > 60 POC Glucometer Random Glucose 151 H Calcium 7.9 L Magnesium 2.2 Total Bilirubin 0.3 AST 27 ALT 38 Alkaline Phosphatase 61 Total Protein 5.7 L Albumin 2.4 L Vancomycin Pre-Dose Active Medications Generic Name Dose Route Start Last Admin Trade Name Freq PRN Reason Stop Dose Admin Albuterol/Ipratropium 1 amp 05/18/18 07:17 Duoneb - NEB Q6H PRN SHORTNESS OF BREATH Atenolol 12.5 mg 05/18/18 10:00 05/21/18 09:44 Tenormin - PO 12.5 mg DAILY [facility]E Administration Atorvastatin Calcium 40 mg 05/17/18 22:00 05/20/18 22:22 Lipitor - PO 40 mg HS [facility]E Administration Benzocaine/Menthol 1 each 05/20/18 11:24 Cepacol Lozenge - MM PRN PRN SORE THROAT Bisacodyl 10 mg 05/19/18 13:20 Dulcolax Suppository - RC DAILY PRN CONSTIPATION Cholecalciferol 1,000 unit 05/18/18 10:00 05/21/18 09:45 Vitamin D3 - PO 1,000 unit DAILY [facility] Administration Clonazepam 0.5 mg 05/17/18 22:00 05/21/18 09:43 Klonopin - PO 0.5 mg BID JOCE Administration Docusate Sodium 100 mg 05/19/18 22:00 05/21/18 06:30 Colace - PO 100 mg TID [facility] Administration Escitalopram Oxalate 20 mg 05/18/18 10:00 05/21/18 09:44 Lexapro - PO 20 mg DAILY [facility] Administration Ferrous Sulfate 325 mg 05/18/18 10:00 05/21/18 09:43 Feosol - PO 325 mg DAILY [facility] Administration Furosemide 40 mg 05/21/18 06:00 05/21/18 06:30 Lasix - PO 40 mg BID@0600,1400 [facility] Administration Guaifenesin 10 ml 05/19/18 16:13 05/19/18 16:24 Robitussin - PO 10 ml Q4H PRN Administration COUGH Heparin Sodium (Porcine) 5,000 unit 05/17/18 22:00 05/21/18 06:30 Heparin - SQ 5,000 unit TID [facility] Administration Levothyroxine Sodium 200 mcg 05/20/18 07:00 05/21/18 06:30 Synthroid - PO 200 mcg AM [facility] Administration Lidocaine 2 patch 05/18/18 10:00 05/21/18 09:45 Lidoderm Patch - TP 2 patch DAILY [facility] Administration Lidocaine HCl 20 ml 05/20/18 15:52 05/21/18 06:43 Xylocaine 2% Viscous Oral - MM 20 ml Q8H PRN Administration ORAL PAIN/MOUTH SORES Methylprednisolone Sodium Succinate 40 mg 05/18/18 15:00 05/21/18 09:42 Solu-Medrol - IVPUSH 40 mg Q6H-IV [facility] Administration Miscellaneous 2 each 05/18/18 22:00 05/20/18 22:23 Lidoderm Patch Removal MC 2 each DAILY@2200 [facility] Administration Nicotine 21 mg 05/18/18 12:30 05/21/18 09:45 Nicoderm Patch - TD 21 mg DAILY [facility] Administration Oxycodone HCl 10 mg 05/18/18 09:00 05/21/18 07:38 Roxicodone - PO 10 mg Q6H PRN Administration PAIN LEVEL 7 - 10 Phenol/Menthol 1 spray 05/20/18 11:27 05/20/18 20:46 Chloraseptic - MM 1 spray Q6HPO PRN Administration SORE THROAT Senna 2 tab 05/19/18 13:21 05/19/18 14:01 Senna - PO 2 tab HS PRN Administration CONSTIPATION ASSESSMENT/PLAN: Patient is a 78 year old male who comes to the ED today with c/o of worsening lower extremity weakness (right > left) and with inability to ambulate for the past few weeks. On 05/08/18, he completed a full course of PO antibiotics Cephalexin for weeping lower ext edema, without much improvement per . Patient recently admitted to [facility] (03/25/18-03/30/2018) for left inguinal mass and found to have a fluid collection s/p I&D and treated with antibiotics. Denies fever, chills, chest pain, SOB, palpitation, dizziness, weakness, abdominal pain, bladder and bowel problems, no sick contacts or travel. No new changes in medications. ID: Right lower ext cellulitis Patient reports swelling and erythema with weeping edema. Blood cultures, Uc/ UA negative to date. chest xray: no acute process. Started on Vancomycin per ID. with significant improvement of his leg. Hx of MRSA. contact isolation Vascular: Lower extremity edema Likely secondary to cellulitis. Has been ruled out for DVT on doppler studies. No leukocytosis, negative lactic acid. Elevate bilateral lower extremities to heart level. noted to have less edema today monitor daily weights Cardiology: Non product cough/volume overload/possible CHF On Lasix 40mg BID Will monitor weights, intake and output. low salt diet. Echo shows moderate aortic stenosis Hypertension Monitor BP. Continue home medications. HLD Continue lipitor. monitor liver enzymes. Pulmonary: Wheezing/shortness of breath On solumedrol will need sleep study abg ordered and reviewed, started on oxygen therapy Heme: Thyroid cancer s/p thyroidectomy. has been off chemotherapy since February per . Oncology follow up as an outpatient. GI: throat pain, difficulty swallowing Has been going on for a few weeks Lidocaine, lozenges not helping. Reports poor PO intake Will have swallow test done No thrush seen in oral cavity Endocrine: Hypothyroidism Continue home dose of synthroid. Inablity to ambulate Physical therapy evaluation 2/2 to chronic back pain Increase oxycodone to 10mg q6. Maintain fall precautions. fen/prophy low salt diet monitor electrolytes tolerarting PO heparin tid physical therapy Visit type - Emergency Visit Emergency Visit: Yes ED Registration Date: 05/17/18 Care time: The patient presented to the Emergency Department on the above date and was hospitalized for further evaluation of their emergent condition. - New Patient This patient is new to me today: No - Critical Care Critical Care patient: No - Discharge Referral Referred to [facility] No
[2018-05-21] MEDS: LIDOCAINE PATCH REMOVAL MC SCH (21:37)
[2018-05-21] MEDS: ATORVASTATIN CA 40 MG TABLET (FP) PO SCH (21:37)
[2018-05-21] MEDS: PHENOL 177 ML SPRAY BOTTLE MM PRN (21:38)
[2018-05-22] MEDS: oxyCODONE HCL 5 MG TABLET PO PRN ×4 (00:30→20:08)
[2018-05-22] MEDS: methylPREDNISolone NA SUCC 40 MG/1 ML VIAL IVPUSH SCH ×2 (03:00→09:07)
[2018-05-22] MEDS: DOCUSATE SODIUM 100 MG CAPSULE (FP) PO SCH ×3 (05:48→21:38)
[2018-05-22] MEDS: FUROSEMIDE 40 MG TABLET (FP) PO SCH ×2 (05:48→14:33)
[2018-05-22] MEDS: HEPARIN NA (PORCINE) 5,000 UNITS/ML 1ML VIAL SQ SCH ×3 (05:50→21:38)
[2018-05-22] MEDS: LEVOTHYROXINE NA 200 MCG TABLET PO SCH (07:13)
[2018-05-22] MEDS: clonazePAM 0.5 MG TABLET PO SCH ×2 (09:05→21:38)
[2018-05-22] MEDS: ATENOLOL 25 MG TABLET (FP) PO SCH (09:05)
[2018-05-22] MEDS: FERROUS SO4 325 MG TABLET (FP) PO SCH (09:06)
[2018-05-22] MEDS: CHOLECALCIFEROL (VITAMIN D3) 1,000 UNIT TABLET (FP) PO SCH (09:06)
[2018-05-22] MEDS: ESCITALOPRAM OXALATE 20 MG TABLET (FP) PO SCH (09:06)
[2018-05-22] MEDS: LIDOCAINE 5% TOPICAL PATCH TP SCH (09:07)
[2018-05-22] MEDS: NICOTINE 21 MG/24 HOURS TOPICAL PATCH TD SCH (09:07)
[2018-05-22 09:19] LABS: BASO % 0.3 % (0-2.0); HEMATOCRIT 36.4 % (35.4-49); HEMOGLOBIN 12.1 GM/dL (11.7-16.9); MCH 31.1 pg (25.7-33.7); MCHC 33.3 g/dl (32.0-35.9); MEAN CELL VOLUME 93.5 fl (80-96); MEAN PLT VOLUME 7.7 fl (7.5-11.1); NEUT % 82.7 % (42.8-82.8); PLATELET COUNT 292 K/MM3 (134-434); RBC 3.89 M/mm3 (4.00-5.60); RDW 16.3 % (11.9-15.9); WHITE BLOOD COUNT 9.6 K/mm3 (4.0-10.0)
--- NOTE | 2018-05-22 09:59 | PN ---
Progress Note (short form) - Note Progress Note: PULMONARY Denies shortness of breath, cough or wheezing. No fevers or chills. Wants to go home. Vital Signs Period Temp Pulse Resp BP Sys/Perez Pulse Ox Last 24 Hr 97.9 F-98.9 F 59-85 17-20 115-144/67-85 95 Gen: NAD at rest Heart: RRR Lung: decreased breath sounds at the bases Abd: soft, nontender Ext: no edema CBC, BMP 05/22/18 09:05 Active Medications Albuterol/Ipratropium (Duoneb -) 1 amp NEB Q6H PRN PRN Reason: SHORTNESS OF BREATH Atenolol (Tenormin -) 12.5 mg PO DAILY [facility] Last Admin: 05/22/18 09:05 Dose: 12.5 mg Atorvastatin Calcium (Lipitor -) 40 mg PO HS [facility] Last Admin: 05/21/18 21:37 Dose: 40 mg Benzocaine/Menthol (Cepacol Lozenge -) 1 each MM PRN PRN PRN Reason: SORE THROAT Bisacodyl (Dulcolax Suppository -) 10 mg RC DAILY PRN PRN Reason: CONSTIPATION Cholecalciferol (Vitamin D3 -) 1,000 unit PO DAILY [facility] Last Admin: 05/22/18 09:06 Dose: 1,000 unit Clonazepam (Klonopin -) 0.5 mg PO BID [facility] Last Admin: 05/22/18 09:05 Dose: 0.5 mg Docusate Sodium (Colace -) 100 mg PO TID [facility] Last Admin: 05/22/18 05:48 Dose: 100 mg Escitalopram Oxalate (Lexapro -) 20 mg PO DAILY [facility] Last Admin: 05/22/18 09:06 Dose: 20 mg Ferrous Sulfate (Feosol -) 325 mg PO DAILY [facility] Last Admin: 05/22/18 09:06 Dose: 325 mg Furosemide (Lasix -) 40 mg PO BID@0600,1400 [facility] Last Admin: 05/22/18 05:48 Dose: 40 mg Guaifenesin (Robitussin -) 10 ml PO Q4H PRN PRN Reason: COUGH Last Admin: 05/19/18 16:24 Dose: 10 ml Heparin Sodium (Porcine) (Heparin -) 5,000 unit SQ TID [facility] Last Admin: 05/22/18 05:50 Dose: 5,000 unit Levothyroxine Sodium (Synthroid -) 200 mcg PO AM [facility] Last Admin: 05/22/18 07:13 Dose: 200 mcg Lidocaine (Lidoderm Patch -) 2 patch TP DAILY [facility] Last Admin: 05/22/18 09:07 Dose: 2 patch Lidocaine HCl (Xylocaine 2% Viscous Oral -) 20 ml MM Q8H PRN PRN Reason: ORAL PAIN/MOUTH SORES Last Admin: 05/21/18 15:19 Dose: 20 ml Methylprednisolone Sodium Succinate (Solu-Medrol -) 40 mg IVPUSH Q6H-IV [facility] Last Admin: 05/22/18 09:07 Dose: 40 mg Miscellaneous (Lidoderm Patch Removal) 2 each MC DAILY@2200 [facility] Last Admin: 05/21/18 21:37 Dose: 2 each Nicotine (Nicoderm Patch -) 21 mg TD DAILY [facility] Last Admin: 05/22/18 09:07 Dose: 21 mg Oxycodone HCl (Roxicodone -) 10 mg PO Q6H PRN PRN Reason: PAIN LEVEL 7 - 10 Last Admin: 05/22/18 05:32 Dose: 10 mg Phenol/Menthol (Chloraseptic -) 1 spray MM Q6HPO PRN PRN Reason: SORE THROAT Last Admin: 05/21/18 21:38 Dose: 1 spray Senna (Senna -) 2 tab PO HS PRN PRN Reason: CONSTIPATION Last Admin: 05/19/18 14:01 Dose: 2 tab A/P Cellulitis Metastatic Thyroid Cancer COPD Pulmonary HTN Hyperlipidemia Smoker - antibiotics per ID - will change steroids to PO prednisone 40mg daily and can taper as outpt - inhaled bronchodilators as needed - smoking cessation - DVT prophylaxis
[2018-05-22 10:10] LABS: BLOOD UREA NITROGEN 51 mg/dL (7-18); CHLORIDE 102 mmol/L (98-107); CO2 30 mmol/L (21-32); CREATININE 0.9 mg/dL (0.55-1.3); GLUCOSE,RANDOM 115 mg/dL (74-106); POTASSIUM 4.1 mmol/L (3.5-5.1); SODIUM 140 mmol/L (136-145)
[2018-05-22 10:11] LABS: ALBUMIN 2.7 g/dl (3.4-5.0); ALK PHOS 65 U/L (45-117); ANION GAP 8 MMOL/L (8-16); BILIRUBIN,TOTAL 0.4 mg/dL (0.2-1); CALCIUM 7.8 mg/dL (8.5-10.1); MAGNESIUM 1.9 mg/dL (1.8-2.4); SGOT/AST 22 U/L (15-37); SGPT/ALT 36 U/L (13-61); TOT PROT 6.4 g/dl (6.4-8.2)
--- NOTE | 2018-05-22 11:17 | CONSULT ---
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 History Source: Patient, Family Member (Pt's wants pt to go to rehab. She is concerned he will sign out AMA.) Limitations to Obtaining History: No Limitations - Past Medical History Cardiovascular: Yes: Aneurysm, HTN, Hyperlipdemia Pulmonary: Yes: COPD Endocrine: Yes: Other (thyroid cancer with mets to spine) - Past Surgical History Past Surgical History: Yes: Hernia Repair (thyroidectomy) - Smoking History Smoking history: Current some day smoker Have you smoked in the past 12 months: Yes Aproximately how many cigarettes per day: 10 - Alcohol/Substance Use Hx Alcohol Use: No History of Substance Use: reports: None - Social History ADL: Independent (with walker) History of Recent Travel: No History - Admission Reason For Visit: DIASTOLIC CONGESTIVE HEART FAILURE,EDEMA OF LOWER - Diagnostics X-ray: Report Reviewed CT Scan: Report Reviewed - General Mental Status: Alert and Oriented, Awake and Alert, Able to Follow Commands Attention: Intact Ability to Follow Directions: Excellent Head/Neck Control: WFL - Hearing Hearing: Normal Speech Evaluation - Communication Primary Language: NEPALI Communication: Yes: Within Normal Limits Oral Expression Ability: Yes: No Impairment - Speech Production Able to Make Needs Known: Yes: WNL Intelligibility: Yes: WNL - Speech Characteristics Voice Loudness: Normal Voice Pitch: Yes: Normal Voice Phonatory-based Quality: Yes: Normal Speech Pattern: Normal Speech Clarity: < 100% Nasal Resonance: Normal Articulation: Yes: Precise Rate of Speech: Intact - Language/Auditory Comprehension Follows: Yes: 2 Stage Simple Commands - Language/Verbal Expression Able to Respond to Simple Queries: Yes: WNL Able to Communicate Wants and Needs: Yes: WNL Functional Communication Status: Yes: WNL - Memory/Perception assisted Memory: Yes: WNL Short Term Memory: Yes: WNL - Swallow Evaluation/Bedside Assessment Current Nutritional Intake: Regular, Thin Liquids Oral Secretions: Yes: WFL Dentition: Yes: Adequate Facial Symmetry at Rest: Symmetrical Facial Symmetry on Retraction: Symmetrical Sensation: Normal Against Resistance Opening: Normal Against Resistance Closing: Normal Pucker Lips: Normal Smile: Normal Lingual Movement: Normal, Symmetric Lingual Speed of Movement: Normal Lingual Movement Strgth Against Opposition: Normal Lingual Movement Characteristics: Normal Velopharyngeal Movement: Normal Laryngeal Movement: Able to Palpate Rate of Intake: WFL Bolus Size: WFL Labial Seal: WFL Chewing: WFL Oral Prep Time: WFL A-P Transit: WFL Pocketing: None Timing of Swallow: WFL Odynophagia: Pharyngeal Coughing/Throat Clear: No Change in Voice: No Recommendations - Speech Evaluation, Impression/Plan Impression: Vocal quality/Swallowing overtly intact. c/o odynophagia/treated with Chloraseptic spray.Good appetite and PO tolerance. Pending ENT evaluation. - Disposition Discharge to: Home with Assist - Dysphagia Impressions/Plan Swallowing Skills: [facility] Dysphagia Impressions: No Impairment *Silent aspiration: cannot be R/O at bedside - Recommendations Diet Consistency: Regular Medication Administration: Whole with water Liquids: Thin Liquids
--- NOTE | 2018-05-22 12:20 | PN ---
Progress Note, Physician History of Present Illness: C/O SORE THROAT ENT CONSULT PENDING AWAKE AND ALERT OOB IN CHAIR NO C/O LEG PAIN AFEBRILE WBC WNL - Current Medication List Current Medications: Active Medications Albuterol/Ipratropium (Duoneb -) 1 amp NEB Q6H PRN PRN Reason: SHORTNESS OF BREATH Atenolol (Tenormin -) 12.5 mg PO DAILY [facility] Last Admin: 05/22/18 09:05 Dose: 12.5 mg Atorvastatin Calcium (Lipitor -) 40 mg PO HS [facility] Last Admin: 05/21/18 21:37 Dose: 40 mg Benzocaine/Menthol (Cepacol Lozenge -) 1 each MM PRN PRN PRN Reason: SORE THROAT Bisacodyl (Dulcolax Suppository -) 10 mg RC DAILY PRN PRN Reason: CONSTIPATION Cholecalciferol (Vitamin D3 -) 1,000 unit PO DAILY [facility] Last Admin: 05/22/18 09:06 Dose: 1,000 unit Clonazepam (Klonopin -) 0.5 mg PO BID [facility] Last Admin: 05/22/18 09:05 Dose: 0.5 mg Docusate Sodium (Colace -) 100 mg PO TID [facility] Last Admin: 05/22/18 05:48 Dose: 100 mg Escitalopram Oxalate (Lexapro -) 20 mg PO DAILY [facility] Last Admin: 05/22/18 09:06 Dose: 20 mg Ferrous Sulfate (Feosol -) 325 mg PO DAILY [facility] Last Admin: 05/22/18 09:06 Dose: 325 mg Furosemide (Lasix -) 40 mg PO BID@0600,1400 [facility] Last Admin: 05/22/18 05:48 Dose: 40 mg Guaifenesin (Robitussin -) 10 ml PO Q4H PRN PRN Reason: COUGH Last Admin: 05/19/18 16:24 Dose: 10 ml Heparin Sodium (Porcine) (Heparin -) 5,000 unit SQ TID [facility] Last Admin: 05/22/18 05:50 Dose: 5,000 unit Levothyroxine Sodium (Synthroid -) 200 mcg PO AM [facility] Last Admin: 05/22/18 07:13 Dose: 200 mcg Lidocaine (Lidoderm Patch -) 2 patch TP DAILY [facility] Last Admin: 05/22/18 09:07 Dose: 2 patch Lidocaine HCl (Xylocaine 2% Viscous Oral -) 20 ml MM Q8H PRN PRN Reason: ORAL PAIN/MOUTH SORES Last Admin: 05/21/18 15:19 Dose: 20 ml Miscellaneous (Lidoderm Patch Removal) 2 each MC DAILY@2200 [facility] Last Admin: 05/21/18 21:37 Dose: 2 each Nicotine (Nicoderm Patch -) 21 mg TD DAILY [facility] Last Admin: 05/22/18 09:07 Dose: 21 mg Oxycodone HCl (Roxicodone -) 10 mg PO Q6H PRN PRN Reason: PAIN LEVEL 7 - 10 Last Admin: 05/22/18 10:57 Dose: 10 mg Phenol/Menthol (Chloraseptic -) 1 spray MM Q6HPO PRN PRN Reason: SORE THROAT Last Admin: 05/21/18 21:38 Dose: 1 spray Prednisone (Deltasone -) 40 mg PO DAILY [facility] Senna (Senna -) 2 tab PO HS PRN PRN Reason: CONSTIPATION Last Admin: 05/19/18 14:01 Dose: 2 tab - Objective Vital Signs: Vital Signs Temperature 98.2 F 05/22/18 10:00 Pulse Rate 82 05/22/18 10:00 Respiratory Rate 20 05/22/18 10:00 Blood Pressure 144/89 05/22/18 10:00 O2 Sat by Pulse Oximetry (%) 95 05/22/18 09:00 Constitutional: Yes: No Distress Cardiovascular: Yes: Regular Rate and Rhythm, S1, S2 Respiratory: Yes: Rhonchi Gastrointestinal: Yes: Normal Bowel Sounds, Soft. No: Tenderness Extremities: Yes: Other (ERYTHEMA LE RESOLVED) Labs: CBC, BMP 05/22/18 09:05 05/22/18 09:05 INR, PTT INR 1.08 (0.83-1.09) 05/18/18 11:20 Assessment/Plan CELLULITIS R LE RESOLVED COPD METASTATIC CA OBSERVE OFF ANTIBIOTICS
--- NOTE | 2018-05-22 12:50 | PN ---
Physical Exam: SUBJECTIVE: Patient seen and examined at the bedside. patient awaiting bed offer at facility for rehab. OBJECTIVE: Vital Signs Period Temp Pulse Resp BP Sys/Perez Pulse Ox Last 24 Hr 97.9 F-98.9 F 59-85 17-20 115-144/67-89 95-95 GENERAL: Awake, alert, and oriented, appears uncomfortable at rest. denies pain. . HEAD: Normal with no signs of trauma. EYES: Pupils equal, round and reactive to light, extraocular movements intact, sclera anicteric, conjunctiva clear. No lid lag. EARS, NOSE, THROAT: Ears normal, nares patent, oropharynx clear without exudates. Moist mucous membranes. NECK: Normal range of motion, supple without lymphadenopathy, JVD, or masses. LUNGS: mild wheezing auscultated on upper lobes, tolerating room air. HEART: Regular rate and rhythm ABDOMEN: Soft, nontender, not distended, normoactive bowel sounds, no guarding, no rebound, no masses. No hepatomegaly or splenomegaly. MUSCULOSKELETAL: Normal range of motion at all joints. No bony deformities or tenderness. No CVA tenderness. UPPER EXTREMITIES: No peripheral edema. LOWER EXTREMITIES: 1+ pulses, warm, No calf tenderness. Lower extremity peripheral edema from knee down to ankle, warm to touch. small abrasions seen on anterior right leg. edema overall improved. NEUROLOGICAL: Normal speech. PSYCHIATRIC: Cooperative. Laboratory Results - last 24 hr 05/22/18 05/22/18 05/22/18 06:10 09:05 09:05 WBC 9.6 RBC 3.89 L Hgb 12.1 Hct 36.4 MCV 93.5 MCH 31.1 MCHC 33.3 RDW 16.3 H Plt Count 292 MPV 7.7 Absolute Neuts (auto) 8.0 Neutrophils % 82.7 Lymphocytes % 10.0 Monocytes % 7.0 Eosinophils % 0.0 Basophils % 0.3 D Nucleated RBC % 0 Sodium 140 Potassium 4.1 Chloride 102 Carbon Dioxide 30 Anion Gap 8 BUN 51 H Creatinine 0.9 Creat Clearance w eGFR > 60 Random Glucose 115 H Calcium 7.8 L Magnesium 1.9 Total Bilirubin 0.4 AST 22 ALT 36 Alkaline Phosphatase 65 Total Protein 6.4 Albumin 2.7 L Random Vancomycin 11.0 L Active Medications Generic Name Dose Route Start Last Admin Trade Name Freq PRN Reason Stop Dose Admin Albuterol/Ipratropium 1 amp 05/18/18 07:17 Duoneb - NEB Q6H PRN SHORTNESS OF BREATH Atenolol 12.5 mg 05/18/18 10:00 05/22/18 09:05 Tenormin - PO 12.5 mg DAILY [facility] Administration Atorvastatin Calcium 40 mg 05/17/18 22:00 05/21/18 21:37 Lipitor - PO 40 mg HS [facility] Administration Benzocaine/Menthol 1 each 05/20/18 11:24 Cepacol Lozenge - MM PRN PRN SORE THROAT Bisacodyl 10 mg 05/19/18 13:20 Dulcolax Suppository - RC DAILY PRN CONSTIPATION Cholecalciferol 1,000 unit 05/18/18 10:00 05/22/18 09:06 Vitamin D3 - PO 1,000 unit DAILY [facility] Administration Clonazepam 0.5 mg 05/17/18 22:00 05/22/18 09:05 Klonopin - PO 0.5 mg BID [facility] Administration Docusate Sodium 100 mg 05/19/18 22:00 05/22/18 05:48 Colace - PO 100 mg TID [facility] Administration Escitalopram Oxalate 20 mg 05/18/18 10:00 05/22/18 09:06 Lexapro - PO 20 mg DAILY [facility] Administration Ferrous Sulfate 325 mg 05/18/18 10:00 05/22/18 09:06 Feosol - PO 325 mg DAILY [facility] Administration Furosemide 40 mg 05/21/18 06:00 05/22/18 05:48 Lasix - PO 40 mg BID@0600,1400 [facility] Administration Guaifenesin 10 ml 05/19/18 16:13 05/19/18 16:24 Robitussin - PO 10 ml Q4H PRN Administration COUGH Heparin Sodium (Porcine) 5,000 unit 05/17/18 22:00 05/22/18 05:50 Heparin - SQ 5,000 unit TID [facility] Administration Levothyroxine Sodium 200 mcg 05/20/18 07:00 05/22/18 07:13 Synthroid - PO 200 mcg AM [facility] Administration Lidocaine 2 patch 05/18/18 10:00 05/22/18 09:07 Lidoderm Patch - TP 2 patch DAILY [facility] Administration Lidocaine HCl 20 ml 05/20/18 15:52 05/21/18 15:19 Xylocaine 2% Viscous Oral - MM 20 ml Q8H PRN Administration ORAL PAIN/MOUTH SORES Miscellaneous 2 each 05/18/18 22:00 05/21/18 21:37 Lidoderm Patch Removal MC 2 each DAILY@2200 [facility] Administration Nicotine 21 mg 05/18/18 12:30 05/22/18 09:07 Nicoderm Patch - TD 21 mg DAILY [facility] Administration Oxycodone HCl 10 mg 05/18/18 09:00 05/22/18 10:57 Roxicodone - PO 10 mg Q6H PRN Administration PAIN LEVEL 7 - 10 Phenol/Menthol 1 spray 05/20/18 11:27 05/21/18 21:38 Chloraseptic - MM 1 spray Q6HPO PRN Administration SORE THROAT Prednisone 40 mg 05/23/18 10:00 Deltasone - PO DAILY [facility] Senna 2 tab 05/19/18 13:21 05/19/18 14:01 Senna - PO 2 tab HS PRN Administration CONSTIPATION ASSESSMENT/PLAN: Patient is a 78 year old male who comes to the ED today with c/o of worsening lower extremity weakness (right > left) and with inability to ambulate for the past few weeks. On 05/08/18, he completed a full course of PO antibiotics Cephalexin for weeping lower ext edema, without much improvement per . Patient recently admitted to [facility] (03/25/18-03/30/2018) for left inguinal mass and found to have a fluid collection s/p I&D and treated with antibiotics. Denies fever, chills, chest pain, SOB, palpitation, dizziness, weakness, abdominal pain, bladder and bowel problems, no sick contacts or travel. No new changes in medications. ID: Right lower ext cellulitis, resolved. completed Vancomycin therapy. off antibiotics per ID. No further swelling or erythema. Will order aquafor for dryness of skin. Blood cultures, Uc/Ua negative to date. chest xray: no acute process. Hx of MRSA. contact isolation Vascular: Lower extremity edema, improved. On lasix bid. Cardiology: Non product cough/volume overload/possible CHF On Lasix 40mg BID Will monitor weights, intake and output. low salt diet. Echo shows moderate aortic stenosis Hypertension Monitor BP. Continue home medications. HLD Continue lipitor. monitor liver enzymes. Pulmonary: Wheezing/shortness of breath Tapered off Medrol, now on Prednisone with slow taper. Sleep study as outpatient. Heme: Thyroid cancer s/p thyroidectomy. has been off chemotherapy since February per . Oncology follow up as an outpatient. GI: throat pain, difficulty swallowing Has been going on for a few weeks Lidocaine, lozenges not helping. Reports poor PO intake Swallow eval done. recommend ent consult. No thrush seen in oral cavity Endocrine: Hypothyroidism Continue home dose of synthroid. Inablity to ambulate Physical therapy evaluation 2/2 to chronic back pain Increase oxycodone to 10mg q6. Maintain fall precautions. fen/prophy low salt diet monitor electrolytes tolerarting PO heparin tid physical therapy discharge planning to rehab. awaiting insurance approval. Visit type - Emergency Visit Emergency Visit: Yes ED Registration Date: 05/17/18 Care time: The patient presented to the Emergency Department on the above date and was hospitalized for further evaluation of their emergent condition. - New Patient This patient is new to me today: No - Critical Care Critical Care patient: No - Discharge Referral Referred to [facility] Med P.C.: No
[2018-05-22 15:08] VITALS: BMI 24.0
--- NOTE | 2018-05-22 18:51 | CON.ENT ---
Consult Consult Specialty:: ENT Reason for Consultation:: Throat pain when swallowing for 3 weeks, no mucus, no fever, no voice change. 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 He was seen at [facility] today to f/u on a PET/CT completed today that showed improvement in previously noted hypermetabolic osseous metastases with resolution of many of the lesions. Previously he had been able to stand and ambulate with a walker but since dc'd 03/30/2018 with PT who did not intiate PT due to edema and serous weeping of later RLE, he was progressively been unable to weightbear or transfer positions by himself. dark discoloration of the tips of toes and fingers, worse on his toes. he was asked by his oncologist at [facility] to stay and be admitted for further diuresis and doppler study of his RLE but he preferred to be admitting to [facility]. 05/08 completed cephalexin TID course of abx from PCP for weeping RLE wound. denies fever, chest pain, sob, headaches, n/v, weightloss, nightsweats. has chronic cough 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) - Past Surgical History Past Surgical History: Yes: Hernia Repair (thyroidectomy) - Alcohol/Substance Use Hx Alcohol Use: No History of Substance Use: reports: None - Smoking History Smoking history: Current some day smoker Have you smoked in the past 12 months: Yes Aproximately how many cigarettes per day: 10 - Social History ADL: Independent (with walker) History of Recent Travel: No Home Medications - Allergies Allergies/Adverse Reactions: Allergies Allergy/AdvReac Type Severity Reaction Status Date / Time sulfamethoxazole Allergy Intermediate Hives Verified 05/17/18 13:19 [From Bactrim] trimethoprim [From Bactrim] Allergy Intermediate Hives Verified 05/17/18 13:19 - Home Medications Home Medications: Ambulatory Orders Atenolol [Tenormin -] 12.5 mg PO DAILY 05/17/18 Atorvastatin Ca [Lipitor] 40 mg PO HS 05/17/18 Calcium Carbonate [Antacid] 200 mg PO DAILY 05/17/18 Cholecalciferol (Vitamin D3) [Vitamin D3 -] 1,000 unit PO DAILY 05/17/18 Dabrafenib Mesylate [Tafinlar] 75 mg PO DAILY 05/17/18 Denosumab [Xgeva] 120 mg NR ASDIR 05/17/18 Escitalopram Oxalate [Lexapro -] 20 mg PO DAILY 05/17/18 Ferrous Sulfate 325 mg PO DAILY 05/17/18 Furosemide [Lasix -] 40 mg PO BID 05/17/18 Levothyroxine Sodium [Synthroid] 200 mcg PO DAILY 05/17/18 Oxycodone HCl/Acetaminophen [Oxycodon-Acetaminophen 7.5-325] 1 each PO [facility]IR Pazopanib HCl [Votrient] 200 mg PO DAILY 05/17/18 Potassium Chloride 10 meq PO DAILY 05/17/18 Trametinib Dimethyl Sulfoxide [Mekinist] 2 mg PO DAILY 05/17/18 Varenicline Tartrate [Chantix] 1 each PO DAILY 05/17/18 clonazePAM [Klonopin -] 0.5 mg PO DAILY 05/17/18 Physical Exam-ENT Vital Signs: Vital Signs Temperature 98.2 F 05/22/18 14:46 Pulse Rate 56 L 05/22/18 14:46 Respiratory Rate 16 05/22/18 14:46 Blood Pressure 109/56 L 05/22/18 14:46 O2 Sat by Pulse Oximetry (%) 95 05/22/18 09:00 Constitutional: Yes: Well Nourished, No Distress Head: Yes: WNL, Atraumatic Face: Yes: WNL, Symmetrical Eyes: Yes: WNL, Conjunctiva Clear Nose: Yes: WNL Nasal Passage: Yes: WNL Oral/Pharynx: Yes: WNL Outer Ear: Yes: WNL Neck: Yes: Supple, Other (No masses, tender to deep palpation on left upper thyroid cartilage) Problem List - Problems (1) Sore throat Assessment/Plan: No visible pathology for a pain of 3 weeks, no fever. I would try clotrimazole troches 5x/day for 7 days for empiric treatment of possible esophageal adán. If no better consider EGD. Code(s): J02.9 - ACUTE PHARYNGITIS, UNSPECIFIED Procedure - Procedure and Findings -: Fiberoptic laryngoscopy thru left nostril with verbal consent and lido/afrin spray anesthesia. No lesions, no masses. No paralysis, no pooling, essentially normal exam.
[2018-05-22] MEDS: BENZOCAINE/MENTH/CETYLPYRD CL 1 EACH LOZENGE MM PRN (20:09)
[2018-05-22] MEDS: LIDOCAINE PATCH REMOVAL MC SCH (21:38)
[2018-05-22] MEDS: ATORVASTATIN CA 40 MG TABLET (FP) PO SCH (21:38)
[2018-05-22] MEDS: CLOTRIMAZOLE 10 MG TROCHE (FP) PO SCH (22:36)
[2018-05-23] MEDS: BENZOCAINE/MENTH/CETYLPYRD CL 1 EACH LOZENGE MM PRN (01:10)
[2018-05-23] MEDS: oxyCODONE HCL 5 MG TABLET PO PRN ×3 (01:10→13:01)
[2018-05-23] MEDS: DOCUSATE SODIUM 100 MG CAPSULE (FP) PO SCH ×2 (05:30→14:04)
[2018-05-23] MEDS: CLOTRIMAZOLE 10 MG TROCHE (FP) PO SCH ×3 (05:30→14:03)
[2018-05-23] MEDS: HEPARIN NA (PORCINE) 5,000 UNITS/ML 1ML VIAL SQ SCH ×2 (06:30→14:03)
[2018-05-23] MEDS: FUROSEMIDE 40 MG TABLET (FP) PO SCH ×2 (06:30→14:03)
[2018-05-23] MEDS: LEVOTHYROXINE NA 200 MCG TABLET PO SCH (06:33)
[2018-05-23] MEDS: FUROSEMIDE 40 MG/4 ML INJECTABLE VIAL IVPB SCH (07:32)
[2018-05-23] MEDS ORDERED: PT OWN MED DRAWER 7, Y5N ONE ×2 (09:20→14:02)
[2018-05-23] MEDS: PHENOL 177 ML SPRAY BOTTLE MM PRN (09:26)
[2018-05-23] MEDS: CHOLECALCIFEROL (VITAMIN D3) 1,000 UNIT TABLET (FP) PO SCH (09:26)
[2018-05-23] MEDS: NICOTINE 21 MG/24 HOURS TOPICAL PATCH TD SCH (09:26)
[2018-05-23] MEDS: guaiFENesin 200 MG/10 ML 10 ML UNIT-DOSE CUPS PO PRN (09:26)
[2018-05-23] MEDS: ESCITALOPRAM OXALATE 20 MG TABLET (FP) PO SCH (09:26)
[2018-05-23] MEDS: LIDOCAINE 5% TOPICAL PATCH TP SCH (09:26)
[2018-05-23] MEDS: FERROUS SO4 325 MG TABLET (FP) PO SCH (09:26)
[2018-05-23] MEDS: clonazePAM 0.5 MG TABLET PO SCH (09:26)
[2018-05-23] MEDS: ATENOLOL 25 MG TABLET (FP) PO SCH (09:26)
--- NOTE | 2018-05-23 09:59 | PN ---
Progress Note (short form) - Note Progress Note: PULMONARY c/o throat discomfort. Denies shortness of breath, cough or wheezing. No fevers or chills. Vital Signs Period Temp Pulse Resp BP Sys/Perez Pulse Ox Last 24 Hr 98 F-98.4 F 56-82 16-20 109-149/56-89 95 Gen: NAD at rest Heart: RRR Lung: decreased breath sounds at the bases Abd: soft, nontender Ext: no edema CBC, BMP 05/22/18 09:05 05/22/18 09:05 Active Medications Albuterol/Ipratropium (Duoneb -) 1 amp NEB Q6H PRN PRN Reason: SHORTNESS OF BREATH Atenolol (Tenormin -) 12.5 mg PO DAILY [facility] Last Admin: 05/23/18 09:26 Dose: 12.5 mg Atorvastatin Calcium (Lipitor -) 40 mg PO HS [facility] Last Admin: 05/22/18 21:38 Dose: 40 mg Benzocaine/Menthol (Cepacol Lozenge -) 1 each MM PRN PRN PRN Reason: SORE THROAT Last Admin: 05/23/18 01:10 Dose: 1 each Bisacodyl (Dulcolax Suppository -) 10 mg RC DAILY PRN PRN Reason: CONSTIPATION Cholecalciferol (Vitamin D3 -) 1,000 unit PO DAILY [facility] Last Admin: 05/23/18 09:26 Dose: 1,000 unit Clonazepam (Klonopin -) 0.5 mg PO BID [facility] Last Admin: 05/23/18 09:26 Dose: 0.5 mg Clotrimazole (Mycelex Belkys's -) 10 mg PO 5XD [facility] Last Admin: 05/23/18 09:27 Dose: 10 mg Docusate Sodium (Colace -) 100 mg PO TID [facility] Last Admin: 05/23/18 05:30 Dose: 100 mg Emollient Ointment (Aquaphor -) 1 applic TP DAILY [facility] Last Admin: 05/23/18 09:26 Dose: 1 applic Escitalopram Oxalate (Lexapro -) 20 mg PO DAILY [facility] Last Admin: 05/23/18 09:26 Dose: 20 mg Ferrous Sulfate (Feosol -) 325 mg PO DAILY [facility] Last Admin: 05/23/18 09:26 Dose: 325 mg Furosemide (Lasix -) 40 mg PO BID@0600,1400 [facility] Last Admin: 05/23/18 06:30 Dose: 40 mg Guaifenesin (Robitussin -) 10 ml PO Q4H PRN PRN Reason: COUGH Last Admin: 05/23/18 09:26 Dose: 10 ml Heparin Sodium (Porcine) (Heparin -) 5,000 unit SQ TID [facility] Last Admin: 05/23/18 06:30 Dose: 5,000 unit Levothyroxine Sodium (Synthroid -) 200 mcg PO AM [facility] Last Admin: 05/23/18 06:33 Dose: 200 mcg Lidocaine (Lidoderm Patch -) 2 patch TP DAILY [facility] Last Admin: 05/23/18 09:26 Dose: 2 patch Lidocaine HCl (Xylocaine 2% Viscous Oral -) 20 ml MM Q8H PRN PRN Reason: ORAL PAIN/MOUTH SORES Last Admin: 05/21/18 15:19 Dose: 20 ml Miscellaneous (Lidoderm Patch Removal) 2 each MC DAILY@2200 [facility] Last Admin: 05/22/18 21:38 Dose: 2 each Nicotine (Nicoderm Patch -) 21 mg TD DAILY [facility] Last Admin: 05/23/18 09:26 Dose: 21 mg Oxycodone HCl (Roxicodone -) 10 mg PO Q6H PRN PRN Reason: PAIN LEVEL 7 - 10 Last Admin: 05/23/18 06:30 Dose: 10 mg Phenol/Menthol (Chloraseptic -) 1 spray MM Q6HPO PRN PRN Reason: SORE THROAT Last Admin: 05/23/18 09:26 Dose: 1 spray Prednisone (Deltasone -) 40 mg PO DAILY [facility] Last Admin: 05/23/18 09:26 Dose: 40 mg Senna (Senna -) 2 tab PO HS PRN PRN Reason: CONSTIPATION Last Admin: 05/19/18 14:01 Dose: 2 tab A/P Cellulitis Metastatic Thyroid Cancer COPD Pulmonary HTN Hyperlipidemia Smoker - will start magic mouthwash - monitoring off antibiotics - prednisone taper - inhaled bronchodilators as needed - smoking cessation - DVT prophylaxis
[2018-05-23] MEDS ORDERED: MINERAL OIL/PET HY-PHL TOPICAL OINTMENT 454 GM JAR TP SCH (10:00)
[2018-05-23] MEDS ORDERED: predniSONE 20 MG TABLET (UD) PO SCH (10:00)
--- NOTE | 2018-05-23 11:55 | PN ---
Progress Note, [employer] - Note Progress Note: Selected Entries 05/22/18 05/22/18 05/22/18 04:13 10:00 12:22 Breakfast 75% Lunch Supper Temperature 97.9 F 98.2 F 05/22/18 05/22/18 05/22/18 14:46 20:01 22:41 Breakfast Lunch 75% Supper 75% Temperature 98.2 F 98 F 05/23/18 05/23/18 06:36 11:49 Breakfast 75% Lunch Supper Temperature 98.4 F Laboratory Tests 05/22/18 09:05 WBC 9.6 Appreciate ENT consult- Fiberoptic laryngoscopy -No lesions, no masses. No paralysis, no pooling, essentially normal exam. Suggested- clotrimazole troches 5x/day for 7 days for empiric treatment of possible esophageal adán. If no better consider EGD. Tolerating diet with good appetite. Pending d/c to [facility].
[2018-05-23] MEDS ORDERED: MAG HYDROX/ALH/SMC/DPHA/LIDO 240 ML MOUTHWASH MM SCH (12:00)
[2018-05-23 12:42] VITALS: BP 136/74; PULSE 73; TEMP 98
--- NOTE | 2018-05-23 13:38 | DS ---
Physical Examination Vital Signs: Vital Signs Temperature 98.0 F 05/23/18 10:00 Pulse Rate 73 05/23/18 10:00 Respiratory Rate 16 05/23/18 10:00 Blood Pressure 136/74 05/23/18 10:00 O2 Sat by Pulse Oximetry (%) 95 05/22/18 21:00 Constitutional: Yes: Anxious Eyes: Yes: Conjunctiva Clear, PERRL HENT: Yes: Atraumatic, Normocephalic Neck: Yes: Supple Cardiovascular: Yes: Regular Rate and Rhythm Respiratory: Yes: Regular, Diminished Gastrointestinal: Yes: Normal Bowel Sounds, Soft ...Rectal Exam: Yes: Deferred Musculoskeletal: Yes: Joint Stiffness, Muscle Pain, Muscle Weakness Edema: No Peripheral Pulses WNL: Yes Peripheral Pulses: Left Radial: 2+, Right Radial: 2+ Neurological: Yes: Alert, Oriented ...Motor Strength: LUE (decreased x 4 extremities), LLE, RUE, RLE Psychiatric: Yes: Alert, Oriented Labs: CBC, BMP 05/22/18 09:05 05/22/18 09:05 Discharge Summary Reason For Visit: DIASTOLIC CONGESTIVE HEART FAILURE,EDEMA OF LOWER Current Active Problems CHF (congestive heart failure) (Acute) Edema (Acute) Lower extremity edema (Acute) Sore throat (Acute) Weakness (Acute) Procedures: Principal: CT chest 05/18/2018. IMPRESSION: Atelectatic changes with airspace disease/pneumonia in the dependent portion of the right lower lobe and a questionable trace of right pleural effusion. Follow-up is needed. Borderline cardiomegaly. No gross enlarged mediastinal or hilar lymph nodes are identified on this noncontrast exam. Over distended included portion of the gallbladder measuring 11.8 cm in sagittal length. Reported By: Joaquin Philip MD. 05/19/18 1010. CXR 05/17/2018. Impression: No acute chest pathology. Reported By: Armando Elizalde MD. 05/17/18 [id number]. 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 He is s/p total thyroidectomy. He underwent treatment with iodine therapy in 2014. A pet scan 2018 showed new and worsening osseous mets as well as a new nodule in the left lung base. His chemo treatments were changed but stopped on 03/18/2018 secondary to progressive lower extremity edema. He underwent a recent pet scan that shows: " interval marked improvement in previously noted foci of increased activity within osseous structures. osseous lesions seen in T5, left 7th rib, left iliac bone, right side of sacrum, right iliac bone. the hypermetabolic in nodule of left lung has resolved" He comes to the ED today with c/o of worsening lower extremity weakness (right > left) and with inability to ambulate for the past few weeks. also reports discoloration of his toes and right lower extremity weeping edema. He is unable to ambulate and now bedbound for about 2 weeks. He has physical therapy at home and is unable to tolerate PT due to worsening lower extremity edema. He was seen by his oncologist today at [facility] who wanted patient admitted for doppler and diuresis. Patient also reports difficulty with laying flat and increased congestion. He is noted to be congested on his upper lobes, lungs otherwise clear. He reports an ongoing non productive wet cough. On 05/08/18, he completed a full course of PO antibiotics Cephalexin for weeping lower ext edema, without much improvement per . Patient recently admitted to [facility] (03/25/18-03/30/2018) for left inguinal mass and found to have a fluid collection s/p I&D and treated with antibiotics. Denies fever, chills, chest pain, SOB, palpitation, dizziness, weakness, abdominal pain, bladder and bowel problems, no sick contacts or travel. No new changes in medications. Events of 6 day hospital course: ID: Right lower ext cellulitis, resolved. completed Vancomycin therapy. off antibiotics per ID. No further swelling or erythema. Blood cultures, Uc/Ua negative to date. chest xray: no acute process. PULM: Wheezing/shortness of breath:Tapered off Medrol, now on Prednisone with slow taper. He will need outpatient Sleep study. ENT: pt complains of throat pain. He underwent Fiberoptic laryngoscopy thru left nostril with verbal consent and lido/afrin spray anesthesia. No lesions, no masses. No paralysis, no pooling, essentially normal exam. Condition: Guarded - Instructions Disposition: SNF FACILITY - Home Medications Comprehensive Discharge Medication List: Ambulatory Orders Atenolol [Tenormin -] 12.5 mg PO DAILY 05/17/18 Atorvastatin Ca [Lipitor] 40 mg PO HS 05/17/18 Cholecalciferol (Vitamin D3) [Vitamin D -] 1,000 unit PO DAILY 05/17/18 Escitalopram Oxalate [Lexapro -] 20 mg PO DAILY 05/17/18 Ferrous Sulfate 325 mg PO DAILY 05/17/18 Levothyroxine Sodium [Synthroid] 200 mcg PO DAILY 05/17/18 Potassium Chloride 10 meq PO DAILY 05/17/18 clonazePAM [Klonopin -] 0.5 mg PO DAILY 05/17/18 Albuterol 2.5/Ipratropium 0.5 [Duoneb -] 1 amp NEB Q6H PRN amp 05/23/18 Bisacodyl Suppository [Dulcolax Suppository -] 10 mg RC DAILY PRN supp.rect Clotrimazole [Mycelex -] 10 mg PO 5XD josie 05/23/18 Docusate Sodium [Colace -] 100 mg PO TID capsule 05/23/18 Furosemide [Lasix -] 40 mg PO BID@0600,1400 tablet 05/23/18 Guaifenesin [Robitussin -] 10 ml PO Q4H PRN cup 05/23/18 Lidocaine 5% Patch [Lidoderm -] 2 patch TP DAILY patch 05/23/18 Mag Hydrox/Alh/Smc/Dpha/Lido [Magic Mouthwash *Sjr Formula* -] 5 ml MM Q6HPO bottle 05/23/18 Mineral Oil/Pet Hy-Phl [Aquaphor -] 1 applic TP DAILY jar 05/23/18 Nicotine Patch [Nicoderm Patch -] 21 mg TD DAILY patch 05/23/18 Sennosides [Senna -] 2 tab PO HS PRN tablet 05/23/18 oxyCODONE HCL [Roxicodone -] 10 mg PO Q6H PRN tablet MDD 4 tabs 05/23/18 predniSONE [Deltasone -] 40 mg PO DAILY tablet 05/23/18 (taper down by 5mg daily until off) This patient is new to me today: Yes Date on this admission: 05/23/18 Emergency Visit: Yes ED Registration Date: 05/17/18 Care time: The patient presented to the Emergency Department on the above date and was hospitalized for further evaluation of their emergent condition. Critical Care patient: No - Discharge Referral Referred to [facility] No
== END 2018-05-23 15:30 | DRG 602 ==
LOC: JER 12:52 → JERBED 16:37 → J4W 18:36 → J8W 05-18 15:47
PROVIDERS: ADMIT Internal Medicine; ATTEND Nurse Practitioner Family
PROC: 0CJS8ZZ Inspection of Larynx, Via Natural or Artificial Opening Endoscopic (ICD-10-PCS; principal; 2018-05-22)
DX: L03.115 Cellulitis of right lower limb (principal); I50.33 Acute on chronic diastolic (congestive) heart failure; I11.0 Hypertensive heart disease with heart failure; J44.9 Chronic obstructive pulmonary disease, unspecified; J02.9 Acute pharyngitis, unspecified; E03.9 Hypothyroidism, unspecified; I27.20 Pulmonary hypertension, unspecified; R53.1 Weakness; E78.5 Hyperlipidemia, unspecified; R05 Cough; I71.4 Abdominal aortic aneurysm, without rupture; F17.210 Nicotine dependence, cigarettes, uncomplicated; M54.5 Low back pain; I35.0 Nonrheumatic aortic (valve) stenosis; Z85.118 Personal history of other malignant neoplasm of bronchus and lung; Z85.850 Personal history of malignant neoplasm of thyroid; Z85.830 Personal history of malignant neoplasm of bone
CPT/HCPCS: 36415; 36600; 71045-TC-FY; 71250-TC; 80053; 80061; 82803; 82962; 83605; 83721; 83735; 83880; 84484; 85025; 85610; 87040; 87086; 93306-TC; 93970-TC; 97161-GP; 99284-25; G0480; J1644

== ENCOUNTER 2018-06-21 17:02 | Inpatient (IN) | payer OTHER ==
--- NOTE | 2018-06-21 17:09 | PDOC ---
Rapid Medical Evaluation Time Seen by Provider: 06/21/18 17:03 Medical Evaluation: Allergies Allergy/AdvReac Type Severity Reaction Status Date / Time sulfamethoxazole Allergy Intermediate Hives Verified 05/17/18 13:19 [From Bactrim] trimethoprim [From Bactrim] Allergy Intermediate Hives Verified 05/17/18 13:19 06/21/18 17:03 Pt presents for evaluation of low back pain radiating into the knees b/l. Pt has hx of active thyroid ca with mets. Worsening pain today. There was concern from his PCP for spinal cord involvement. Exam: wheelchair bound, NAD Orders: labs Pt to proceed to the ED for further evaluation Discharge Disposition - Diagnosis Back pain - Referrals - Patient Instructions - Post Discharge Activity
[2018-06-21 17:30] LABS: BASO % 0.9 % (0-2.0); HEMATOCRIT 38.8 % (35.4-49); HEMOGLOBIN 12.3 GM/dL (11.7-16.9); LYMPH % 16.4 % (8-40); MCH 29.5 pg (25.7-33.7); MCHC 31.8 g/dl (32.0-35.9); MEAN CELL VOLUME 92.6 fl (80-96); MEAN PLT VOLUME 7.5 fl (7.5-11.1); MONO % 5.2 % (3.8-10.2); NEUT % 75.5 % (42.8-82.8); PLATELET COUNT 245 K/MM3 (134-434); RBC 4.19 M/mm3 (4.00-5.60); RDW 16.9 % (11.9-15.9); WHITE BLOOD COUNT 7.4 K/mm3 (4.0-10.0)
[2018-06-21 17:55] LABS: INR 1.04 (0.83-1.09); PROTHROMBIN TIME (PATIENT) 12.3 SEC (9.7-13.0)
[2018-06-21 18:23] LABS: ALBUMIN 2.5 g/dl (3.4-5.0); ALK PHOS 81 U/L (45-117); ANION GAP 7 MMOL/L (8-16); BILIRUBIN,TOTAL 0.3 mg/dL (0.2-1); BLOOD UREA NITROGEN 18 mg/dL (7-18); CALCIUM 8.6 mg/dL (8.5-10.1); CHLORIDE 106 mmol/L (98-107); CO2 25 mmol/L (21-32); CREATININE 0.6 mg/dL (0.55-1.3); GLUCOSE,RANDOM 139 mg/dL (74-106); POTASSIUM 4.7 mmol/L (3.5-5.1); SGOT/AST 30 U/L (15-37); SGPT/ALT 30 U/L (13-61); SODIUM 138 mmol/L (136-145); TOT PROT 5.7 g/dl (6.4-8.2)
[2018-06-21] MEDS ORDERED: morphine CARPU-JECT 4 MG/1 ML DISP.SYRIN IVPUSH ONE ×2 (19:17→23:12)
--- NOTE | 2018-06-21 19:17 | PDOC ---
Attending Attestation - HPI HPI: 06/21/18 20:19 Patient is a 78 year old male with a significant past medical history of thyroid ca w/ mets (h/o T5 and L4 mets), HTN, diastolic dysfunction who presents to the ED with complaints of bilateral leg weakness that began x2 months ago. Patient reports being recently admitted for weakness as well as bilateral leg edema. He reports being discharged after the leg edema subsided but states he still has been unable to walk, prompting him to come into the ED for further evaluation. Denies chest pain, Sob. Denies nausea, vomiting. Denies fevers, chills. Denies dysuria, hematuria. Denies constipation, diarrhea. Denies contact with sick individuals, out of state travelling. Denies any other symptoms. Allergies: sulfamethoxazole, trimethoprim Social history: Former smoker. No alcohol. No illicit drugs. Surgical history: bl Inguinal hernia repair, AAA stent 2013, DUODENAL ULCER GASTRECTOMY, PMD: Dr. May - Physicial Exam PE: 06/21/18 20:19 Agree with residents Physical Exam. <Zurdo Meadows - Last Filed: 06/21/18 20:19> - Resident Resident Name: Santos Perla - ED Attending Attestation I have performed the following: I have examined & evaluated the patient, The case was reviewed & discussed with the resident, I agree w/resident's findings & plan - Medical Decision Making 06/21/18 20:58 78-year-old male with a history of metastatic cancer sent in for evaluation of increasing back pain and leg weakness Case discussed with neurosurgery by the emergency department resident who is requesting MRIs of the cervical thoracic and lumbar spine Patient's symptoms have been present for some time but are worsening MRIs will be initiated this evening and completed according to patient's tolerance, the remainder will be completed in the morning <Olena Cristobal - Last Filed: 06/21/18 21:01>
[2018-06-21] MEDS ORDERED: morphine SULFATE 4 MG/ML VIAL ONE ×2 (19:32→23:45)
[2018-06-21] MEDS ORDERED: DEXAMETHASONE SOD PHOSPHATE 10 MG/1 ML VIAL IVPUSH ONE (19:36)
--- NOTE | 2018-06-21 19:56 | PDOC ---
History of Present Illness - General Chief Complaint: Pain, Acute Stated Complaint: LEG PAIN/SENT BY PCP Time Seen by Provider: 06/21/18 17:03 History Source: Patient Exam Limitations: No Limitations - History of Present Illness Initial Comments: 06/21/18 19:56 Patient is a 78M with history of thyroid ca w/ mets (h/o T5 and L4 mets), HTN, diastolic dysfunction here today with back pain. Patient states that symptoms started two months ago, and he went from ambulatory to wheelchair bound in that time. He reports severe leg weakness, R worse than left. Endorses saddle anesthesia. Denies fevers, urinary incontinence and retention. Denies chest pain and shortness of breath. Past History - Past Medical History Allergies/Adverse Reactions: Allergies Allergy/AdvReac Type Severity Reaction Status Date / Time sulfamethoxazole Allergy Intermediate Hives Verified 05/17/18 13:19 [From Bactrim] trimethoprim [From Bactrim] Allergy Intermediate Hives Verified 05/17/18 13:19 Home Medications: Ambulatory Orders Atenolol [Tenormin -] 12.5 mg PO DAILY 05/17/18 Atorvastatin Ca [Lipitor] 40 mg PO HS 05/17/18 Cholecalciferol (Vitamin D3) [Vitamin D -] 1,000 unit PO DAILY 05/17/18 Dabrafenib Mesylate [Tafinlar] 75 mg PO DAILY 05/17/18 Denosumab [Xgeva -] 120 mg NR ASDIR 05/17/18 Escitalopram Oxalate [Lexapro -] 20 mg PO DAILY 05/17/18 Ferrous Sulfate 325 mg PO DAILY 05/17/18 Levothyroxine Sodium [Synthroid] 200 mcg PO DAILY 05/17/18 Pazopanib HCl [Votrient] 200 mg PO DAILY 05/17/18 Potassium Chloride 10 meq PO DAILY 05/17/18 Trametinib Dimethyl Sulfoxide [Mekinist] 2 mg PO DAILY 05/17/18 clonazePAM [Klonopin -] 0.5 mg PO DAILY 05/17/18 Albuterol 2.5/Ipratropium 0.5 [Duoneb -] 1 amp NEB Q6H PRN amp 05/23/18 Bisacodyl Suppository [Dulcolax Suppository -] 10 mg RC DAILY PRN supp.rect Clotrimazole [Mycelex -] 10 mg PO 5XD josie 05/23/18 Docusate Sodium [Colace -] 100 mg PO TID capsule 05/23/18 Furosemide [Lasix -] 40 mg PO BID@0600,1400 tablet 05/23/18 Guaifenesin [Robitussin -] 10 ml PO Q4H PRN cup 05/23/18 Lidocaine 5% Patch [Lidoderm -] 2 patch TP DAILY patch 05/23/18 Mag Hydrox/Alh/Smc/Dpha/Lido [Magic Mouthwash *Sjr Formula* -] 5 ml MM Q6HPO bottle 05/23/18 Mineral Oil/Pet Hy-Phl [Aquaphor -] 1 applic TP DAILY jar 05/23/18 Nicotine Patch [Nicoderm Patch -] 21 mg TD DAILY patch 05/23/18 Prednisone See Taper PO DAILY 6 Days tablet 05/23/18 Sennosides [Senna -] 2 tab PO HS PRN tablet 05/23/18 oxyCODONE HCL [Roxicodone -] 10 mg PO Q6H PRN tablet MDD 4 tabs 05/23/18 predniSONE [Deltasone -] 40 mg PO DAILY tablet 05/23/18 Anemia: Yes Asthma: No Cancer: Yes (Papillary thyroid Ca w/ mets to lung/bone) Cardiac Disorders: (CAD) CVA: No COPD: No CHF: Yes Dementia: No Diabetes: No GI Disorders: Yes (Ulcers 40 years ago, AAA) Disorders: No HTN: Yes Hypercholesterolemia: Yes Liver Disease: No Psychiatric Problems: Yes Seizures: No Thyroid Disease: Yes (Metastatic Thyroid Ca - S/P total thyroidectomy) - Surgical History Abdominal Surgery: Yes (bl Inguinal hernia repair, AAA stent 2013) Appendectomy: No Cardiac Surgery: No Cholecystectomy: No GI Surgery: Yes (DUODEAL ULCER GASTRECTOMY) Lung Surgery: No Neurologic Surgery: No Orthopedic Surgery: No - Immunization History Immunization Up to Date: Yes - Suicide/Smoking/Psychosocial Hx Smoking History: Former smoker Have you smoked in the past 12 months: Yes Number of Cigarettes Smoked Daily: 10 If you are a former smoker, when did you quit?: few months ago Information on smoking cessation initiated: No 'Breaking Loose' booklet given: 05/17/18 Hx Alcohol Use: No Drug/Substance Use Hx: No Substance Use Type: None Hx Substance Use Treatment: No Review of Systems - Review of Systems Able to Perform ROS?: Yes Comments:: 06/21/18 20:03 GENERAL/CONSTITUTIONAL: No fever or chills. + weakness. HEAD, EYES, EARS, NOSE AND THROAT: No change in vision. No sore throat. CARDIOVASCULAR: No chest pain or shortness of breath RESPIRATORY: No cough, wheezing, or hemoptysis. GASTROINTESTINAL: No nausea, vomiting, diarrhea or constipation. GENITOURINARY: No dysuria, frequency, or change in urination. MUSCULOSKELETAL: No joint or muscle swelling or pain. No neck pain +back pain. SKIN: No rash NEUROLOGIC: No headache, vertigo, loss of consciousness, or change in strength/ sensation. HEMATOLOGIC/LYMPHATIC: No anemia, easy bleeding, or history of blood clots. ALLERGIC/IMMUNOLOGIC: No hives or skin allergy. *Physical Exam - Vital Signs Last Vital Signs Temp Pulse Resp BP Pulse Ox 98.9 F 68 18 109/60 95 06/21/18 17:05 06/21/18 17:05 06/21/18 17:05 06/21/18 17:05 06/21/18 17:05 - Physical Exam Comments: 06/21/18 20:04 GENERAL: Awake, alert, and fully oriented, in no acute distress HEAD: No signs of trauma, normocephalic, atraumatic EYES: PERRLA, EOMI, sclera anicteric, conjunctiva clear ENT: Auricles normal inspection, hearing grossly normal, nares patent, oropharynx clear without exudates. Moist mucosa NECK: Normal ROM, supple, no lymphadenopathy, JVD, or masses LUNGS: No distress, speaks full sentences, clear to auscultation bilaterally HEART: Regular rate and rhythm, normal S1 and S2, no murmurs, rubs or gallops, peripheral pulses normal and equal bilaterally. ABDOMEN: Soft, nontender, normoactive bowel sounds. No guarding, no rebound. No masses EXTREMITIES: Normal inspection, Normal range of motion, no edema. No clubbing or cyanosis. NEUROLOGICAL: Cranial nerves II through XII grossly intact. Normal speech, unable to ambulate. 2/5 leg flexion bilaterally, 1/5 foot flexion in 5, 2/5 in L. SKIN: Warm, Dry, normal turgor, no rashes or lesions noted. ED Treatment Course - LABORATORY CBC & Chemistry Diagram: 06/21/18 17:17 06/21/18 17:17 - ADDITIONAL ORDERS Additional order review: Laboratory Results 06/21/18 06/21/18 06/21/18 17:17 17:17 17:17 PT with INR 12.30 INR 1.04 Sodium 138 Potassium 4.7 Chloride 106 Carbon Dioxide 25 Anion Gap 7 L BUN 18 Creatinine 0.6 Creat Clearance w eGFR 130.30 Random Glucose 139 H Calcium 8.6 Total Bilirubin 0.3 AST 30 ALT 30 Alkaline Phosphatase 81 Total Protein 5.7 L Albumin 2.5 L Blood Type O NEGATIVE Antibody Screen Negative 06/21/18 17:17 RBC 4.19 MCV 92.6 MCHC 31.8 L RDW 16.9 H MPV 7.5 Neutrophils % 75.5 Lymphocytes % 16.4 D Monocytes % 5.2 Eosinophils % 2.0 D Basophils % 0.9 - RADIOLOGY Radiology Studies Ordered: Category Date Time Status CERVICAL SPINE MRI WITH CONTR [MRI] Stat MRI 06/21/18 19:36 Ordered LUMBAR SPINE MRI WITH CONTR [MRI] Stat MRI 06/21/18 19:36 Ordered THORACIC SPINE MRI WITH CONTR [MRI] Stat MRI 06/21/18 19:36 Ordered - Medications Given in the ED: ED Medications Discontinued Medications Generic Name Dose Route Start Last Admin Trade Name Mohanq PRN Reason Stop Dose Admin Morphine Sulfate 4 mg 06/21/18 19:17 06/21/18 19:36 Morphine Injection - IVPUSH 06/21/18 19:18 4 mg ONCE ONE Administration Medical Decision Making - Medical Decision Making 06/21/18 20:05 Patient is 78M with history of thyroid ca with mets, htn, diastolic dysfunction here today with back pain, concerning for cord compression. Vitals normal and stable. Dr Whitley from [facility] paged, recommends giving dexamethasone, imaging whole spine with contrast. Basic labs drawn, show no acute abnormalities. Given morphine for pain. MRI ordered, hospitalist paged. 06/21/18 20:39 Patient had Ovation Endograft and contra limb stent. MRI aware, referred to note from Dr Serrano. business systems technician's indicating they cannot do whole spine tonight. Will do L/T spine, Dr Whitley consulted on this decision. *DC/Admit/Observation/Transfer Diagnosis at time of Disposition: Back pain, Leg weakness - Discharge Dispostion Condition at time of disposition: Stable Decision to Admit order: Yes - Referrals Referrals: Mariam May MD [Primary Care Provider] - - Patient Instructions - Post Discharge Activity
[2018-06-21] MEDS ORDERED: DEXAMETHASONE SOD PHOSPHATE 10 MG/1 ML VIAL ONE (20:05)
--- NOTE | 2018-06-21 20:05 | PN ---
Teaching Attending Note Name of Resident: Andrade Rosario ATTENDING PHYSICIAN STATEMENT I saw and evaluated the patient. I reviewed the resident's note and discussed the case with the resident. I agree with the resident's findings and plan as documented. SUBJECTIVE: Patient is a 78 year old man with metastatic follicular thyroid cancer with papillary component s/p total thyroidectomy, T5 and L4 mets, current everyday smoker, diastolic dysfuntion and HTN here today with back pain and lower extremity weakness. Patient states that symptoms started two months ago, and he went from ambulatory to wheelchair bound in that time. He reports severe leg weakness, R worse than left. Also has saddle anesthesia. Denies fevers, urinary incontinence and retention. Has been having increased difficulty urinating and defeacating. Denies chest pain and shortness of breath. On 05/17/18 he was admitted to [facility] with worsening LE weakness with inability to ambulate, worsening RLE edema and discoloration of the toes. OBJECTIVE: Alert Vital Signs Period Temp Pulse Resp BP Sys/Perez Pulse Ox Last 24 Hr 98.9 F 68 18 109/60 95 HEENT: No Jaundice, eye redness or discharge, PERRLA, EOMI. Normocephalic, atraumatic. External ears are normal and hearing is grossly intact. No nasal discharge. Neck: Supple, nontender. No palpable adenopathy or thyromegaly. No JVD Chest: Good effort. Clear to auscultation and percussion. Heart: Regular. No S3, rub or murmur Abdomen: Not distended, soft, nontender and no HSM. No rebound or guarding. Normal bowel sounds. Ext: Peripheral pulses intact. No leg edema. Skin: Warm and dry. No petechiae, rash or ecchymosis. Neuro: Alert. Oriented x3. Mild tremors. CN 2-12 grossly intact. Sensation grossly intact in all four extremities; reduced strength and motor function in both legs. Psych: Appropriate mood and affect. Good insight. Home Medications Medication Instructions Recorded Atenolol [Tenormin -] 12.5 mg PO DAILY 05/17/18 Atorvastatin Ca [Lipitor] 40 mg PO HS 05/17/18 Cholecalciferol (Vitamin D3) 1,000 unit PO DAILY 05/17/18 [Vitamin D -] Dabrafenib Mesylate [Tafinlar] 75 mg PO DAILY 05/17/18 Denosumab [Xgeva -] 120 mg NR ASDIR 05/17/18 Escitalopram Oxalate [Lexapro -] 20 mg PO DAILY 05/17/18 Ferrous Sulfate 325 mg PO DAILY 05/17/18 Levothyroxine Sodium [Synthroid] 200 mcg PO DAILY 05/17/18 Pazopanib HCl [Votrient] 200 mg PO DAILY 05/17/18 Potassium Chloride 10 meq PO DAILY 05/17/18 Trametinib Dimethyl Sulfoxide 2 mg PO DAILY 05/17/18 [Mekinist] clonazePAM [Klonopin -] 0.5 mg PO DAILY 05/17/18 Albuterol 2.5/Ipratropium 0.5 1 amp NEB Q6H PRN amp 05/23/18 [Duoneb -] Bisacodyl Suppository [Dulcolax 10 mg RC DAILY PRN supp.rect 05/23/18 Suppository -] Clotrimazole [Mycelex -] 10 mg PO 5XD josie 05/23/18 Docusate Sodium [Colace -] 100 mg PO TID capsule 05/23/18 Furosemide [Lasix -] 40 mg PO BID@0600,1400 tablet 05/23/18 Guaifenesin [Robitussin -] 10 ml PO Q4H PRN cup 05/23/18 Lidocaine 5% Patch [Lidoderm -] 2 patch TP DAILY patch 05/23/18 Mag Hydrox/Alh/Smc/Dpha/Lido 5 ml MM Q6HPO bottle 05/23/18 [Magic Mouthwash *Sjr Formula* -] Mineral Oil/Pet Hy-Phl [Aquaphor -] 1 applic TP DAILY jar 05/23/18 Nicotine Patch [Nicoderm Patch -] 21 mg TD DAILY patch 05/23/18 Prednisone See Taper PO DAILY 6 Days tablet 05/23/18 Sennosides [Senna -] 2 tab PO HS PRN tablet 05/23/18 oxyCODONE HCL [Roxicodone -] 10 mg PO Q6H PRN tablet MDD 4 tabs 05/23/18 predniSONE [Deltasone -] 40 mg PO DAILY tablet 05/23/18 Abnormal Lab Results 06/21/18 06/21/18 17:17 17:17 MCHC 31.8 L RDW 16.9 H Anion Gap 7 L Random Glucose 139 H Total Protein 5.7 L Albumin 2.5 L ASSESSMENT AND PLAN: 1. Lower extremity weakness and metastatic thyroid cancer - No acute pathology on head CT. MRI shows possible lumbar cord compression. Neurosurgery consulted. Started on decadron. Will treat with protonix. Consult PT and provide generous emotional support. Polypharmacy is a major concern. Will work with his PCP to reduce the total number of medications. Check HbA1c and get urinalysis. Continue care of his primary cancer - consult oncology. 2. Hypoalbuminemia - Possibly due to combined effects of malnutrition and inflammation associated with metastatic cancer. Will ensure adequate dietary protein intake and also consult sports physician. 3. Tobacco Use Counseled on risks associated with tobacco use. We will provide patient all the necessary assistance to facilitate smoking cessation and prescribe Nicotine patch. 4. Hypertension - Has low normal BP. Will not restart outpatient antihypertensive drugs at this time until clinically warranted. 5. Alcohol abuse - Implement [facility] alcohol withdrawal protocol, seizure, fall and aspiration precautions. Treat with thiamine and folic acid and monitor electrolytes (Ca,Mg,K,P). Commercial Counsel patient about abstaining from alcohol and refer to alcohol detox upon discharge. 6. DVT prophylaxis - Lovenox 40 mg SQ q 24 hours. 7. Advance directives - Full code
--- NOTE | 2018-06-21 22:12 | HP ---
CHIEF COMPLAINT: worsening back pain PCP: Dr. Nunes HISTORY OF PRESENT ILLNESS: Pt. is a 78 y.o. M presenting for worsening back pain that started 2 months ago. Pt. endorses progressive lower extremity weakness over that has left him unable to ambulate and dependant on a wheel chair. Pt. endorses progressive worsening of difficulty urinating and defecating. Pt, states that he started taking stool softeners a few weeks ago to help with his bowel movements. Pt, endorses numbness and tingling in his extremities that also began 3-4 months ago. Pt. denies any numbness in the groin , fever, chills, shortness of breath, chest pain, headache, changes in vision, change in appetite, or weight loss. Pt. denies any blood in urine or stool. 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 Allergies sulfamethoxazole [From Bactrim] Allergy (Intermediate, Verified 05/17/18 13:19) Hives trimethoprim [From Bactrim] Allergy (Intermediate, Verified 05/17/18 13:19) Hives HOME MEDICATIONS: Home Medications Medication Instructions Recorded Atenolol [Tenormin -] 12.5 mg PO DAILY 05/17/18 Atorvastatin Ca [Lipitor] 40 mg PO HS 05/17/18 Cholecalciferol (Vitamin D3) 1,000 unit PO DAILY 05/17/18 [Vitamin D -] Dabrafenib Mesylate [Tafinlar] 75 mg PO DAILY 05/17/18 Denosumab [Xgeva -] 120 mg NR ASDIR 05/17/18 Escitalopram Oxalate [Lexapro -] 20 mg PO DAILY 05/17/18 Ferrous Sulfate 325 mg PO DAILY 05/17/18 Levothyroxine Sodium [Synthroid] 200 mcg PO DAILY 05/17/18 Pazopanib HCl [Votrient] 200 mg PO DAILY 05/17/18 Potassium Chloride 10 meq PO DAILY 05/17/18 Trametinib Dimethyl Sulfoxide 2 mg PO DAILY 05/17/18 [Mekinist] clonazePAM [Klonopin -] 0.5 mg PO DAILY 05/17/18 Albuterol 2.5/Ipratropium 0.5 1 amp NEB Q6H PRN amp 05/23/18 [Duoneb -] Bisacodyl Suppository [Dulcolax 10 mg RC DAILY PRN supp.rect 05/23/18 Suppository -] Clotrimazole [Mycelex -] 10 mg PO 5XD josie 05/23/18 Docusate Sodium [Colace -] 100 mg PO TID capsule 05/23/18 Furosemide [Lasix -] 40 mg PO BID@0600,1400 tablet 05/23/18 Guaifenesin [Robitussin -] 10 ml PO Q4H PRN cup 05/23/18 Lidocaine 5% Patch [Lidoderm -] 2 patch TP DAILY patch 05/23/18 Mag Hydrox/Alh/Smc/Dpha/Lido 5 ml MM Q6HPO bottle 05/23/18 [Magic Mouthwash *Sjr Formula* -] Mineral Oil/Pet Hy-Phl [Aquaphor -] 1 applic TP DAILY jar 05/23/18 Nicotine Patch [Nicoderm Patch -] 21 mg TD DAILY patch 05/23/18 Prednisone See Taper PO DAILY 6 Days tablet 05/23/18 Sennosides [Senna -] 2 tab PO HS PRN tablet 05/23/18 oxyCODONE HCL [Roxicodone -] 10 mg PO Q6H PRN tablet MDD 4 tabs 05/23/18 predniSONE [Deltasone -] 40 mg PO DAILY tablet 05/23/18 REVIEW OF SYSTEMS As per HPI PHYSICAL EXAMINATION Vital Signs - 24 hr 06/21/18 17:05 Temperature 98.9 F Pulse Rate 68 Respiratory 18 Rate Blood Pressure 109/60 O2 Sat by Pulse 95 Oximetry (%) GENERAL: Awake, alert, and fully oriented, in mild distress. HEAD: Normal with no signs of trauma. EYES: Pupils equal, round and reactive to light, extraocular movements intact, sclera anicteric, conjunctiva clear. No lid lag. EARS, NOSE, THROAT: Ears normal, nares patent, oropharynx clear without exudates. Moist mucous membranes. NECK: Normal range of motion, supple without lymphadenopathy, JVD, or masses. LUNGS: Bibasilar crackles. No accessory muscle use. HEART: Regular rate and rhythm, normal S1 and S2 without murmur, rub or gallop. ABDOMEN: Soft, nontender, not distended, normoactive bowel sounds, no guarding, no rebound, no masses. MUSCULOSKELETAL: No CVA tenderness UPPER EXTREMITIES: 2+ radial pulses, warm, well-perfused. No cyanosis. No clubbing. No peripheral edema. LOWER EXTREMITIES: 2+ dorsal pedal pulses, cool, No calf tenderness. No peripheral edema. Sensation in tact bilaterally. Pt. able to wiggle left toes. Pt. unable to move rest of lower extremities. NEUROLOGICAL: Cranial nerves II-XII intact. Normal speech. Normal gait. PSYCHIATRIC: Cooperative. Good eye contact. Appropriate mood and affect. SKIN: Warm, dry, normal turgor, no rashes or lesions noted, normal capillary refill. Laboratory Results - last 24 hr 06/21/18 06/21/18 06/21/18 17:17 17:17 17:17 WBC 7.4 RBC 4.19 Hgb 12.3 Hct 38.8 MCV 92.6 MCH 29.5 MCHC 31.8 L RDW 16.9 H Plt Count 245 MPV 7.5 Absolute Neuts (auto) 5.6 Neutrophils % 75.5 Lymphocytes % 16.4 D Monocytes % 5.2 Eosinophils % 2.0 D Basophils % 0.9 Nucleated RBC % 0 PT with INR 12.30 INR 1.04 Sodium 138 Potassium 4.7 Chloride 106 Carbon Dioxide 25 Anion Gap 7 L BUN 18 Creatinine 0.6 Creat Clearance w eGFR 130.30 Random Glucose 139 H Calcium 8.6 Total Bilirubin 0.3 AST 30 ALT 30 Alkaline Phosphatase 81 Total Protein 5.7 L Albumin 2.5 L Blood Type Antibody Screen 06/21/18 17:17 WBC RBC Hgb Hct MCV MCH MCHC RDW Plt Count MPV Absolute Neuts (auto) Neutrophils % Lymphocytes % Monocytes % Eosinophils % Basophils % Nucleated RBC % PT with INR INR Sodium Potassium Chloride Carbon Dioxide Anion Gap BUN Creatinine Creat Clearance w eGFR Random Glucose Calcium Total Bilirubin AST ALT Alkaline Phosphatase Total Protein Albumin Blood Type O NEGATIVE Antibody Screen Negative ASSESSMENT/PLAN: Pt. is a 78 y.o. M w/ PMHx. 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 #Back Pain/Leg weakness 2/2 Thyroid Ca Mets MRI w/o contrast of Lumbar and Thoracic Spine showed likely metastatic soft tissue masses in L1 and L2 vertebrae extending into anterior subarachnoid space at L1 producing incompletely severe thecal sac compression, bilateral pleural effusion, multi-level sponylosis and bilateral renal cysts f/u C-Spine MRI Neurosurgery (Dr. Whiltey) consult appreciated--> given 10mg Dexamethasone in ED Morphine 4mg Q4H Pt. denies saddle anesthesia however endorses progressively worsening difficulty urinating and defecating( c/w Colace 100mg TID, Senna and Dulcolax) c/w Tramatenib, Dabrofenib and Denosumab, consider oncology consult c/w Synthroid 200mcg Head CT negative for acute pathology PET Scan 05/12/18 appreciated Neurochecks worsening deficits #dCHF c/w Lasix 40mg BID Echo appreciated #HTN c/w Atenolol 12.5mg #HLD c/w Atorvastatin #Anxiety /Depression c/w Klonipin 0.5mg and Lexapro 20mg #Polypharmacy consider consolidating and reconciling medications on discharge #FEN encourage PO intake monitor electrolytes replete as needed Regular Diet #DVT Ppx. Lovenox 40mg SQ Visit type - Emergency Visit Emergency Visit: Yes ED Registration Date: 06/22/18 Care time: The patient presented to the Emergency Department on the above date and was hospitalized for further evaluation of their emergent condition. - New Patient This patient is new to me today: Yes Date on this admission: 06/22/18 - Critical Care Critical Care patient: No
[2018-06-22] MEDS: morphine SULFATE 4 MG/ML VIAL IVPUSH PRN ×3 (04:03→19:41)
[2018-06-22 07:54] LABS: HEMATOCRIT 35.5 % (35.4-49); HEMOGLOBIN 11.1 GM/dL (11.7-16.9); MCH 28.7 pg (25.7-33.7); MCHC 31.2 g/dl (32.0-35.9); MEAN CELL VOLUME 91.9 fl (80-96); PLATELET COUNT 239 K/MM3 (134-434); RBC 3.87 M/mm3 (4.00-5.60); RDW 16.8 % (11.9-15.9); WHITE BLOOD COUNT 5.7 K/mm3 (4.0-10.0)
[2018-06-22 08:16] LABS: INR 1.05 (0.83-1.09); PROTHROMBIN TIME (PATIENT) 12.4 SEC (9.7-13.0)
[2018-06-22 08:34] LABS: ANION GAP 5 MMOL/L (8-16); BLOOD UREA NITROGEN 21 mg/dL (7-18); CALCIUM 8.6 mg/dL (8.5-10.1); CHLORIDE 103 mmol/L (98-107); CO2 27 mmol/L (21-32); CREATININE 0.6 mg/dL (0.55-1.3); GLUCOSE,RANDOM 99 mg/dL (74-106); MAGNESIUM 1.9 mg/dL (1.8-2.4); PHOSPHOROUS 5.8 mg/dL (2.5-4.9); POTASSIUM 4.6 mmol/L (3.5-5.1); SODIUM 136 mmol/L (136-145)
[2018-06-22] MEDS: ENOXAPARIN NA (PORCINE) 40 MG/0.4 ML DISP.SYRIN SQ SCH (09:06)
--- NOTE | 2018-06-22 09:48 | CONSULT ---
Consultation: ONCOLOGY CONSULTATION REQUESTING PROVIDER: Dr. 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 He tells me he came here for an MRI, denying an overt acute phenomenon that brought him to the hospital. he reports progressive weakness of his legs, with right greater than left, and mild difficulty with continence, both fecal and urinary. Patient states that he is now chronically bedbound as he is not able to move anymore. Patient denies chest pain, shortness of breath, nausea, vomiting, diarrhea, fevers, chills. We are consulted for the evaluation of metastatic thyroid carcinoma with papillary component and high grade features. 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 Yoo at [facility] -2013- DX of thyroid cancer -2012- radiation therapy -- total thyroidectomy -2013- radiation therapy to L4 metastatic lesion -2014- radioactive iodine treatment -2017- PET scan showed new and worse osseous metastatic lesion and new lung nodule -03/18/18- chemo stopped due to lower extremity edema Was on Xgeva, lenvatinib, and drabrafenib/trametinib of unknown time frames from current reports obtained from [facility]. REVIEW OF SYSTEMS: CONSTITUTIONAL: generalized weakness Absent: fever, chills, diaphoresis, malaise, loss of appetite, weight change HEENT: Absent: rhinorrhea, nasal congestion, throat pain, throat swelling, difficulty swallowing, mouth swelling, ear pain, eye pain, visual changes CARDIOVASCULAR: peripheral edema Absent: chest pain, syncope, palpitations, irregular heart rate, lightheadedness , RESPIRATORY: Absent: cough, shortness of breath, dyspnea with exertion, orthopnea, wheezing, stridor, hemoptysis GASTROINTESTINAL: Absent: abdominal pain, abdominal distension, nausea, vomiting, diarrhea, constipation, melena, hematochezia GENITOURINARY: Absent: dysuria, frequency, urgency, hesitancy, hematuria, flank pain, genital pain MUSCULOSKELETAL: back pain Absent: myalgia, arthralgia, joint swelling, neck pain SKIN: Absent: rash, itching, pallor HEMATOLOGIC/IMMUNOLOGIC: Absent: easy bleeding, easy bruising, lymphadenopathy, frequent infections ENDOCRINE: Absent: unexplained weight gain, unexplained weight loss, heat intolerance, cold intolerance NEUROLOGIC: focal weakness Absent: headache, or paresthesias, dizziness, unsteady gait, seizure, mental status changes, bladder or bowel incontinence PSYCHIATRIC: Absent: anxiety, depression, suicidal or homicidal ideation, hallucinations. PHYSICAL EXAMINATION Vital Signs - 24 hr 06/21/18 06/21/18 06/22/18 17:05 23:25 00:03 Temperature 98.9 F Pulse Rate 68 Pulse Rate [ 69 Left Radial] Respiratory 18 16 Rate Blood Pressure 109/60 Blood Pressure 96/54 L [Right Arm] O2 Sat by Pulse 95 96 96 Oximetry (%) 06/22/18 06/22/18 06/22/18 04:09 05:57 09:00 Temperature 97.6 F 98.3 F 98.4 F Pulse Rate 64 62 69 Pulse Rate [ Left Radial] Respiratory 18 18 20 Rate Blood Pressure 114/73 101/62 121/71 Blood Pressure [Right Arm] O2 Sat by Pulse 98 Oximetry (%) GENERAL: A&Ox3, no acute distress EYES: PERRLA, EOMI ENT: Moist mucus membranes NECK: No JVD, no lymphadenopathy noted, thyroid not palpated BREAST EXAM: no masses or nodules noted LUNGS: CTA, no wheezes HEART: RRR, no murmurs ABDOMEN: Soft, nontender, BS present MUSCULOSKELETAL: No CVA Tenderness EXTREMITIES: 2+ pulses, 2+ pitting edema NEUROLOGICAL: Cranial nerves II-XII intact. RLE 1/5 motor strength, LLE 2/5 motor strength, upper extremities 5/5 motor strength. Sensation diminshed in b/ l lower extremities Laboratory Results - last 24 hr 06/21/18 06/21/18 06/21/18 17:17 17:17 17:17 WBC 7.4 RBC 4.19 Hgb 12.3 Hct 38.8 MCV 92.6 MCH 29.5 MCHC 31.8 L RDW 16.9 H Plt Count 245 MPV 7.5 Absolute Neuts (auto) 5.6 Neutrophils % 75.5 Lymphocytes % 16.4 D Monocytes % 5.2 Eosinophils % 2.0 D Basophils % 0.9 Nucleated RBC % 0 PT with INR 12.30 INR 1.04 Sodium 138 Potassium 4.7 Chloride 106 Carbon Dioxide 25 Anion Gap 7 L BUN 18 Creatinine 0.6 Creat Clearance w eGFR 130.30 Random Glucose 139 H Calcium 8.6 Phosphorus Magnesium Total Bilirubin 0.3 AST 30 ALT 30 Alkaline Phosphatase 81 Total Protein 5.7 L Albumin 2.5 L Blood Type Antibody Screen 06/21/18 06/22/18 06/22/18 17:17 06:30 06:30 WBC 5.7 RBC 3.87 L Hgb 11.1 L Hct 35.5 MCV 91.9 MCH 28.7 MCHC 31.2 L RDW 16.8 H Plt Count 239 MPV 7.0 L Absolute Neuts (auto) Neutrophils % Lymphocytes % Monocytes % Eosinophils % Basophils % Nucleated RBC % PT with INR 12.40 INR 1.05 Sodium Potassium Chloride Carbon Dioxide Anion Gap BUN Creatinine Creat Clearance w eGFR Random Glucose Calcium Phosphorus Magnesium Total Bilirubin AST ALT Alkaline Phosphatase Total Protein Albumin Blood Type O NEGATIVE Antibody Screen Negative 06/22/18 06:30 WBC RBC Hgb Hct MCV MCH MCHC RDW Plt Count MPV Absolute Neuts (auto) Neutrophils % Lymphocytes % Monocytes % Eosinophils % Basophils % Nucleated RBC % PT with INR INR Sodium 136 Potassium 4.6 Chloride 103 Carbon Dioxide 27 Anion Gap 5 L BUN 21 H Creatinine 0.6 Creat Clearance w eGFR 130.30 Random Glucose 99 Calcium 8.6 Phosphorus 5.8 H Magnesium 1.9 Total Bilirubin AST ALT Alkaline Phosphatase Total Protein Albumin Blood Type Antibody Screen Active Medications Generic Name Dose Route Start Last Admin Trade Name Freq PRN Reason Stop Dose Admin Enoxaparin Sodium 40 mg 06/22/18 10:00 06/22/18 09:06 Lovenox - SQ 40 mg DAILY JOCE Administration Morphine Sulfate 4 mg 06/22/18 00:24 06/22/18 09:05 Morphine Sulfate IVPUSH 4 mg Q4H PRN Administration PAIN LEVEL 7 - 10 ASSESSMENT/PLAN: DRAFT 78 year old gentleman with a 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 #Metastatic Follicular Thyroid Cancer- patient appears to have possibly spinal cord compression and numerous bony metastatic lesions -ECOG score of 3-4, low performance status -will obtain records of treatment from Dr. 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 Thank you for this consultative opportunity. Amrando Solorio, PGY2 Will discuss with Dr. Aguero Visit type - Emergency Visit Emergency Visit: No - New Patient This patient is new to me today: No - Critical Care Critical Care patient: No
--- NOTE | 2018-06-22 11:05 | PN ---
Progress Note (short form) - Note Progress Note: NEUROSURGERY CONSULT DICTATED Pt examined History obtained MRI reviewed H/o thyroid ca w/ mets (h/o T5 and L4 mets), HTN, diastolic dysfunction here today with worsening back pain. Symptoms started two months ago, and he went from ambulatory to wheelchair bound in that time. Reports severe leg weakness, R worse than left. Reports saddle anesthesia. Denies fevers, urinary incontinence and retention. Denies chest pain and shortness of breath. No fever or chill. Given decadron 10 mg in ED last night PE: AF,VSS HEENT- NC/At; Neck- supple; Cor- RR; Lungs- CTA B; Abd-benign; Ext- B LE edema/ chronic venous changes CN- intact; Motor- B UE 4+, R LE 1/5; L LE 2/5; Sensation- intact LT, decreased distal LE vibration; DTR- hyporeflexic B WBC 5.7, Hgb 11.1 T spine MRI- multilevel T spine disease at T4, T6, T7, T8, T10, T12 with anterior and posterior element involvement; no cord compression LS spine MRI- L1 and L2 extensive vertebral mets with pedicle and epidural involvement; thecal sac compression at L1 and L2; L2-3 spondylolisthesis with HNP; L3 vertebral and B pedicle involvement; L4 pathological compression fx with L4-5 spondylolisthesis and marked stenosis, L5 pathological involvement Extensive stage IV thyroid CA with vertebral mets Not a surgical candidate given extent of metastatic disease and overall poor prognosis for neurological recovery Med onc and rad onc input for palliative tx At some point comprehensive palliative care should be considered Cont iv decadron for now
--- NOTE | 2018-06-22 12:16 | CONS ---
DATE OF CONSULTATION: 06/22/2018 REQUESTING PHYSICIAN: ACOUSTICS TEACHER: Santos Whitley MD, Neurosurgery CHIEF COMPLAINT: Metastatic thyroid cancer. HISTORY OF PRESENT ILLNESS: The patient is a 78-year-old, right-handed male with history of thyroid cancer and vertebral metastases status post radiation approximately 2 years ago, hypertension, diastolic dysfunction, aortic abdominal aneurysm status post stent placement, total thyroidectomy, and hernia repair, who complains of 2-month history of progressive lower back pain and bilateral lower extremity weakness. The patient has been wheelchair dependent since 2 months ago. He had pain even prior to 2 months ago. He was initially diagnosed with thyroid cancer a couple years ago and underwent palliative radiation treatment by report. He has not received any recent chemotherapy. He has been experiencing numbness and tingling in his leg for several months. He has no loss of bowel or bladder control. He has no chest pain, shortness of breath. He denies any recent infection, but stated that he might have had some issues with anterior right rose infection a couple months ago. He does not see a physician regularly. His pain is worse with exertional movements. PAST MEDICAL HISTORY: Significant for stage IV thyroid cancer with METs to his vertebral bodies, hypertension, diastolic heart failure, coronary artery disease , AAA status post stent placement, total thyroidectomy, hernia repair. CURRENT MEDICATIONS: Include Lovenox and morphine. ALLERGIES: SULFA. SOCIAL HISTORY: He used to smoke and has stopped recently. He drinks alcohol socially. He lives at home. He is retired. REVIEW OF SYSTEMS: Otherwise negative for major constitutional, head and neck, cardiovascular, pulmonary, gastrointestinal, genitourinary, endocrinological, neurological, and psychological problems except for the above. PHYSICAL EXAMINATION: Vital Signs: Temperature is 98.4. Blood pressure is 121/71 with pulse rate of 69, O2 saturation 98% on room air. HEENT: Normocephalic, atraumatic, anicteric. Neck: Supple with no lymphadenopathy. No carotid bruit. Coronary: Examination demonstrated regular rhythm without a murmur. Lungs: Showed decreased breath sounds at the bases. Abdomen: Benign. Extremity: Examination showed edema to both distal bilateral lower extremities. There are chronic venous changes. There are no signs of active infection. Neurologic: He is awake, alert, oriented x3. Cranial nerve examination intact 2-12. Motor examination shows 4+/5 strength in bilateral upper extremities. Right lower extremity is 1/5; left lower extremity is 2/5. Sensory examination demonstrated diminished distal vibratory sensation in lower extremities. Deep tendon reflexes are hyporeflexic throughout. LABORATORY: Examination shows white blood cell count of 5.7. Hemoglobin is 11.1. INR is 1.05. Serum sodium is 136, and potassium is 4.6. BUN is 21 and creatinine 0.6. MRI of the thoracic spine demonstrated multi-level vertebral pathological involvement secondary to metastases. This is noticeable at T4, T6, T7, T8, T10, and T12. There is no significant spinal cord impingement. There is an incidental finding of bilateral pleural effusion. MRI of the lumbar spine with and without gadolinium demonstrated multi-level pathological involvement. There is extensive L1 and L2 vertebral body as well as bilateral pedicle and posterior element involvement with epidural extension causing significant thecal sac compression. There is L2-3 DDD with associated disk herniation. There is moderate spinal stenosis at L2-3. The L3 vertebral body had bilateral pedicle involvement. There is L4 pathological compression fracture with involvement of the left L4 pedicle. There is L5 vertebral body involvement. L4 -5 spondylolisthesis noted with marked spinal stenosis. IMPRESSION: 1. Extensive stage IV thyroid cancer with metastases to the lumbar and thoracic vertebrae with involvement of both anterior and posterior elements. 2. Epidural metastasis at L1 and L2. 3. Hypertension/diastolic heart failure. 4. History of coronary artery disease. 5. History of AAA status post stent placement. RECOMMENDATIONS: The patient presents with several-month history of progressive weakness, numbness, tingling of the lower extremities. He has not been ambulatory for a couple months. He has no antigravity strength of either bilateral lower extremity. His pain actually is controllable at this time and is rated a 3 on a 1-10 scale. Given the degree of extensive metastatic involvement of both anterior and posterior elements of the lumbar spine, neurosurgical management is not indicated nor recommended. Prognosis for neurological functional recovery with any treatment modalities is rather poor. Surgical adverse events would be extremely high given poor local anatomy, poor bonr quality, poor neurological condition and advanced stage IV disease. Surgery i not recommended and patient concurs with recommendations. Palliative radiation or chemotherapy could be considered for pain control. The prognosis overall is extremely poor. At some point, palliative care should be considered. The above was discussed with the patient at bedside in detail. The pros and cons of treatment approaches were discussed. All questions were answered. Anisa ARMAS/[id number] MTDD
[2018-06-22] MEDS ORDERED: ESCITALOPRAM OXALATE 10 MG TABLET (FP) ONE (13:01)
[2018-06-22] MEDS: ESCITALOPRAM OXALATE 20 MG TABLET (FP) PO SCH (13:07)
[2018-06-22] MEDS ORDERED: clonazePAM 0.5 MG TABLET PO SCH (13:10)
[2018-06-22] MEDS ORDERED: PANTOPRAZOLE 40 MG TABLET (FP) PO ONE (13:15)
--- NOTE | 2018-06-22 14:21 | PN ---
Physical Exam: SUBJECTIVE: Patient seen and examined at bedside. at bedside. OBJECTIVE: Vital Signs Period Temp Pulse Resp BP Sys/Perez Pulse Ox Last 24 Hr 97.6 F-98.9 F 62-69 16-20 96-121/54-73 95-98 GENERAL: AAOX3, NAD HEAD: AT/NC EYES: EOMI Sclera Clear ENT: MMM NECK: Trachea midline, full range of motion, supple. LUNGS: CTAB HEART: Regular rate and rhythm, S1, S2 without murmur, rub or gallop. ABDOMEN: CTAB EXTREMITIES: No CCE. NEUROLOGICAL: Cranial nerves II through XII grossly intact. Normal speech. Paraplegia. Strength 0/5 b/l lower extremities. SILT b/l PSYCH: Normal mood, normal affect. SKIN: No rashes or lesions appreciated Laboratory Results - last 24 hr 06/21/18 06/21/18 06/21/18 17:17 17:17 17:17 WBC 7.4 RBC 4.19 Hgb 12.3 Hct 38.8 MCV 92.6 MCH 29.5 MCHC 31.8 L RDW 16.9 H Plt Count 245 MPV 7.5 Absolute Neuts (auto) 5.6 Neutrophils % 75.5 Lymphocytes % 16.4 D Monocytes % 5.2 Eosinophils % 2.0 D Basophils % 0.9 Nucleated RBC % 0 PT with INR 12.30 INR 1.04 Sodium 138 Potassium 4.7 Chloride 106 Carbon Dioxide 25 Anion Gap 7 L BUN 18 Creatinine 0.6 Creat Clearance w eGFR 130.30 Random Glucose 139 H Calcium 8.6 Phosphorus Magnesium Total Bilirubin 0.3 AST 30 ALT 30 Alkaline Phosphatase 81 Total Protein 5.7 L Albumin 2.5 L TSH Blood Type Antibody Screen 06/21/18 06/22/18 06/22/18 17:17 06:30 06:30 WBC 5.7 RBC 3.87 L Hgb 11.1 L Hct 35.5 MCV 91.9 MCH 28.7 MCHC 31.2 L RDW 16.8 H Plt Count 239 MPV 7.0 L Absolute Neuts (auto) Neutrophils % Lymphocytes % Monocytes % Eosinophils % Basophils % Nucleated RBC % PT with INR 12.40 INR 1.05 Sodium Potassium Chloride Carbon Dioxide Anion Gap BUN Creatinine Creat Clearance w eGFR Random Glucose Calcium Phosphorus Magnesium Total Bilirubin AST ALT Alkaline Phosphatase Total Protein Albumin TSH Blood Type O NEGATIVE Antibody Screen Negative 06/22/18 06:30 WBC RBC Hgb Hct MCV MCH MCHC RDW Plt Count MPV Absolute Neuts (auto) Neutrophils % Lymphocytes % Monocytes % Eosinophils % Basophils % Nucleated RBC % PT with INR INR Sodium 136 Potassium 4.6 Chloride 103 Carbon Dioxide 27 Anion Gap 5 L BUN 21 H Creatinine 0.6 Creat Clearance w eGFR 130.30 Random Glucose 99 Calcium 8.6 Phosphorus 5.8 H Magnesium 1.9 Total Bilirubin AST ALT Alkaline Phosphatase Total Protein Albumin TSH 0.35 L D Blood Type Antibody Screen Active Medications Generic Name Dose Route Start Last Admin Trade Name Freq PRN Reason Stop Dose Admin Clonazepam 0.5 mg 06/22/18 13:10 06/22/18 13:02 Klonopin - PO 0.5 mg DAILY JOCE Administration Dexamethasone Sodium Phosphate 4 mg 06/22/18 15:00 Decadron Injection - IVPUSH Q6H-IV JOCE Enoxaparin Sodium 40 mg 06/22/18 10:00 06/22/18 09:06 Lovenox - SQ 40 mg DAILY JOCE Administration Escitalopram Oxalate 20 mg 06/22/18 13:00 06/22/18 13:07 Lexapro - PO 20 mg DAILY JOCE Administration Morphine Sulfate 4 mg 06/22/18 00:24 06/22/18 09:05 Morphine Sulfate IVPUSH 4 mg Q4H PRN Administration PAIN LEVEL 7 - 10 ASSESSMENT/PLAN: Pt. is a 78 y.o. M w/ PMHx. 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 #Paraplegia/Back Pain/Leg weakness 2/2 Thyroid Ca Mets T spine MRI- multilevel T spine disease at T4, T6, T7, T8, T10, T12 with anterior and posterior element involvement; no cord compression LS spine MRI- L1 and L2 extensive vertebral mets with pedicle and epidural involvement; thecal sac compression at L1 and L2; L2-3 spondylolisthesis with HNP; L3 vertebral and B pedicle involvement; L4 pathological compression fx with L4-5 spondylolisthesis and marked stenosis, L5 pathological involvement Dr Whitley on board-> given 10mg Dexamethasone in ED. Does not believe surgical intervention necessary at this juncture given extent of metastatic disease and overall poor prognosis for neurological recovery Dr Schafer on board. Possible palliative Radiation to Spine? Morphine 4mg Q4H Heme/Onc on board Dr White/Dr Solorio c/w Synthroid 200mcg Head CT negative for acute pathology #dCHF c/w Lasix 40mg BID Echo appreciated #HTN Atenolol 12.5mg #HLD Atorvastatin #Anxiety /Depression Klonipin 0.5mg BID and Lexapro 20mg #FEN No Fluids Monitor Electrolytes Regular Diet #DVT Ppx. Lovenox 40mg SQ Visit type - Emergency Visit Emergency Visit: Yes ED Registration Date: 06/22/18 Care time: The patient presented to the Emergency Department on the above date and was hospitalized for further evaluation of their emergent condition. - New Patient This patient is new to me today: Yes Date on this admission: 06/22/18 - Critical Care Critical Care patient: No - Discharge Referral Referred to [facility] Med P.C.: No
[2018-06-22] MEDS: DEXAMETHASONE SOD PHOSPHATE 4 MG/1 ML VIAL IVPUSH SCH ×2 (15:24→21:10)
--- NOTE | 2018-06-22 17:56 | PN ---
Teaching Attending Note Name of Resident: Eduardo Pizano ATTENDING PHYSICIAN STATEMENT I saw and evaluated the patient. I reviewed the resident's note and discussed the case with the resident. I agree with the resident's findings and plan as documented. 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 Patient denies any fever or chills, no shortness of breath. OBJECTIVE: Vital Signs Temperature 98.4 F 06/22/18 09:00 Pulse Rate 69 06/22/18 09:00 Respiratory Rate 20 06/22/18 09:00 Blood Pressure 121/71 06/22/18 09:00 O2 Sat by Pulse Oximetry (%) 98 06/22/18 04:09 GENERAL: A&Ox3, no acute distress EYES: PERRLA, EOMI ENT: Moist mucus membranes NECK: No JVD, no lymphadenopathy noted, thyroid not palpated BREAST EXAM: no masses or nodules noted LUNGS: CTA, no wheezes HEART: RRR, no murmurs ABDOMEN: Soft, nontender, BS present MUSCULOSKELETAL: No CVA Tenderness EXTREMITIES: 2+ pulses, 2+ pitting edema NEUROLOGICAL: Cranial nerves II-XII intact. RLE 1/5 motor strength, LLE 2/5 motor strength, upper extremities 5/5 motor strength. sensation diminished in b/l lower extremities, barely moves RLe. CBCD WBC 5.7 K/mm3 (4.0-10.0) 06/22/18 06:30 RBC 3.87 M/mm3 (4.00-5.60) L 06/22/18 06:30 Hgb 11.1 GM/dL (11.7-16.9) L 06/22/18 06:30 Hct 35.5 % (35.4-49) 06/22/18 06:30 MCV 91.9 fl (80-96) 06/22/18 06:30 MCHC 31.2 g/dl (32.0-35.9) L 06/22/18 06:30 RDW 16.8 % (11.9-15.9) H 06/22/18 06:30 Plt Count 239 K/MM3 (134-434) 06/22/18 06:30 MPV 7.0 fl (7.5-11.1) L 06/22/18 06:30 CMP Sodium 136 mmol/L (136-145) 06/22/18 06:30 Potassium 4.6 mmol/L (3.5-5.1) 06/22/18 06:30 Chloride 103 mmol/L (98-107) 06/22/18 06:30 Carbon Dioxide 27 mmol/L (21-32) 06/22/18 06:30 Anion Gap 5 MMOL/L (8-16) L 06/22/18 06:30 BUN 21 mg/dL (7-18) H 06/22/18 06:30 Creatinine 0.6 mg/dL (0.55-1.3) 06/22/18 06:30 Creat Clearance w eGFR 130.30 (>60) 06/22/18 06:30 Random Glucose 99 mg/dL (74-106) 06/22/18 06:30 Calcium 8.6 mg/dL (8.5-10.1) 06/22/18 06:30 Total Bilirubin 0.3 mg/dL (0.2-1) 06/21/18 17:17 AST 30 U/L (15-37) 06/21/18 17:17 ALT 30 U/L (13-61) 06/21/18 17:17 Alkaline Phosphatase 81 U/L (45-117) 06/21/18 17:17 Total Protein 5.7 g/dl (6.4-8.2) L 06/21/18 17:17 Albumin 2.5 g/dl (3.4-5.0) L 06/21/18 17:17 Current Medications Generic Name Dose Route Start Last Admin Trade Name Freq PRN Reason Stop Dose Admin Atenolol 12.5 mg 06/23/18 10:00 Tenormin - PO DAILY JOCE Clonazepam 0.5 mg 06/22/18 22:00 Klonopin - PO BID JOCE Dexamethasone Sodium Phosphate 4 mg 06/22/18 15:00 06/22/18 15:24 Decadron Injection - IVPUSH 4 mg Q6H-IV JOCE Administration Docusate Sodium 100 mg 06/22/18 22:00 Colace - PO TID JOCE Enoxaparin Sodium 40 mg 06/22/18 10:00 03/28/19 09:06 Lovenox - SQ 40 mg DAILY JOCE Administration Escitalopram Oxalate 20 mg 06/22/18 13:00 06/22/18 13:07 Lexapro - PO 20 mg DAILY JOCE Administration Levothyroxine Sodium 150 mcg 06/23/18 07:00 Synthroid - PO DAILY@0700 JOCE Morphine Sulfate 4 mg 06/22/18 00:24 06/22/18 09:05 Morphine Sulfate IVPUSH 4 mg Q4H PRN Administration PAIN LEVEL 7 - 10 Home Medications Medication Instructions Recorded Atenolol [Tenormin -] 12.5 mg PO DAILY 05/17/18 Atorvastatin Ca [Lipitor] 40 mg PO HS 05/17/18 Cholecalciferol (Vitamin D3) 1,000 unit PO DAILY 05/17/18 [Vitamin D -] Escitalopram Oxalate [Lexapro -] 20 mg PO DAILY 05/17/18 Ferrous Sulfate 325 mg PO DAILY 05/17/18 Levothyroxine Sodium [Synthroid] 150 mcg PO DAILY 05/17/18 clonazePAM [Klonopin -] 0.5 mg PO DAILY 05/17/18 Docusate Sodium [Colace -] 100 mg PO TID capsule 05/23/18 Morphine Sulfate [Morphabond ER] 15 mg PO Q12H 06/21/18 T spine MRI- multilevel T spine disease at T4, T6, T7, T8, T10, T12 with anterior and posterior element involvement; no cord compression LS spine MRI- L1 and L2 extensive vertebral mets with pedicle and epidural involvement; thecal sac compression at L1 and L2; L2-3 spondylolisthesis with HNP; L3 vertebral and B pedicle involvement; L4 pathological compression fx with L4-5 spondylolisthesis and marked stenosis, L5 pathological involvement 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 # L1-L2 extensive vertebral mets with pedicle and epidural involvement; Tspine disease; patient is not a surgical candidate as per Dr. Leonel Whitley, neurosurgeon, given extent of metastatic disease and overall poor prognosis for neurological recovery; on IV decadron continue ,onc and rad onc consult for possible palliative Rtx. on IV decadron # Anxiety disorder on Klonipin continue #Hypothyroidism continue levoxyl # Hld continue lipitor # HTN: continue BP meds. DVT Px: SCDs, lovenox
[2018-06-22] MEDS: clonazePAM 0.5 MG TABLET PO SCH (21:28)
[2018-06-22] MEDS: DOCUSATE SODIUM 100 MG CAPSULE (FP) PO SCH (21:28)
--- NOTE | 2018-06-22 22:25 | PN ---
Progress Note (short form) - Note Progress Note: Radiation Oncology Pt seen and examined, chart/films reviewed, full consult to follow. 78 yo gentleman with hx of metastatic thyroid cancer s/p thyroidectomy, [facility], RT to L-spine in 2013, on multiple lines of therapy at [facility] since then, recent leg swelling and leg weakness, non ambulatory at least 3 weeks while at rehab. Pain radiating down posterior thighs. Controlled with current meds. Denies bowel or bladder incontinence. Exam c/w BLE paraparesis with no antigravity. MRI spine demonstrates multilevel vertebral metastases with extensive epidural disease associated with thecal sac compression at T12-L2, pathologic compression fracture of L4 with canal stenosis. Seen by neurosurgery and not a candidate for decompression or stabilization. Will review prior L-spine RT zamorano to determine if additional RT can be given. Given chronicity of weakness, RT would unlikely significantly reverse leg weakness but it could preserve bowel and bladder function and improve pain control which was discussed with the patient. He seems indifferent and wants to also consider palliative and hospice care which is reasonable. Continue decadron and supportive care.
--- NOTE | 2018-06-22 23:41 | CONSULT ---
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 he reports progressive weakness of his legs , with right greater than left, and mild difficulty with continence, both fecal and urinary. Patient states that he is now chronically bedbound as he is not able to move anymore. Smoking: quit last month, smoked 40 years 1/2 pack a day Family history: sister with lung cancer Surgical Hx: AAA repair (infrarenal) 01/02/14, total thyroidectomy, bilroth II many years ago, hemorrhoidectomy PHYSICAL EXAMINATION AFVSS LUNGS: CTA, no wheezes HEART: RRR, no murmurs ABDOMEN: Soft, nontender, BS present EXTREMITIES: 2+ pulses, 2+ pitting edema NEUROLOGICAL: Cranial nerves II-XII intact. RLE 1/5 motor strength, LLE 2/5 motor strength, upper extremities 5/5 motor strength. Sensation diminshed in b/ l lower extremities Laboratory Results - last 24 hr 06/21/18 06/21/18 06/21/18 17:17 17:17 17:17 WBC 7.4 RBC 4.19 Hgb 12.3 Hct 38.8 MCV 92.6 MCH 29.5 MCHC 31.8 L RDW 16.9 H Plt Count 245 MPV 7.5 Absolute Neuts (auto) 5.6 Neutrophils % 75.5 Lymphocytes % 16.4 D Monocytes % 5.2 Eosinophils % 2.0 D Basophils % 0.9 Nucleated RBC % 0 PT with INR 12.30 INR 1.04 Sodium 138 Potassium 4.7 Chloride 106 Carbon Dioxide 25 Anion Gap 7 L BUN 18 Creatinine 0.6 Creat Clearance w eGFR 130.30 Random Glucose 139 H Calcium 8.6 Phosphorus Magnesium Total Bilirubin 0.3 AST 30 ALT 30 Alkaline Phosphatase 81 Total Protein 5.7 L Albumin 2.5 L Blood Type Antibody Screen 06/21/18 06/22/18 06/22/18 17:17 06:30 06:30 WBC 5.7 RBC 3.87 L Hgb 11.1 L Hct 35.5 MCV 91.9 MCH 28.7 MCHC 31.2 L RDW 16.8 H Plt Count 239 MPV 7.0 L Absolute Neuts (auto) Neutrophils % Lymphocytes % Monocytes % Eosinophils % Basophils % Nucleated RBC % PT with INR 12.40 INR 1.05 Sodium Potassium Chloride Carbon Dioxide Anion Gap BUN Creatinine Creat Clearance w eGFR Random Glucose Calcium Phosphorus Magnesium Total Bilirubin AST ALT Alkaline Phosphatase Total Protein Albumin Blood Type O NEGATIVE Antibody Screen Negative 06/22/18 06:30 WBC RBC Hgb Hct MCV MCH MCHC RDW Plt Count MPV Absolute Neuts (auto) Neutrophils % Lymphocytes % Monocytes % Eosinophils % Basophils % Nucleated RBC % PT with INR INR Sodium 136 Potassium 4.6 Chloride 103 Carbon Dioxide 27 Anion Gap 5 L BUN 21 H Creatinine 0.6 Creat Clearance w eGFR 130.30 Random Glucose 99 Calcium 8.6 Phosphorus 5.8 H Magnesium 1.9 Total Bilirubin AST ALT Alkaline Phosphatase Total Protein Albumin Blood Type Antibody Screen Active Medications Generic Name Dose Route Start Last Admin Trade Name Freq PRN Reason Stop Dose Admin Enoxaparin Sodium 40 mg 06/22/18 10:00 06/22/18 09:06 Lovenox - SQ 40 mg DAILY JOCE Administration Morphine Sulfate 4 mg 06/22/18 00:24 06/22/18 09:05 Morphine Sulfate IVPUSH 4 mg Q4H PRN Administration PAIN LEVEL 7 - 10 A/P Mr. Marte is a 78yo male who was diagnosed w/ thyroid cancer after MRI LS in Jan 2013 showed a [address] C/A/P showed anenlarged right thyroid and bone scan showedbilateral rib cage and left sternoclavicular joint activity.L4 core biopsy wasTg+, TTF-1 +, ae1 and ae3 and ck7+ - cytology - metastatic thyroid cancer.Seen by radiation oncologyin March 2013 and was treated with 3500 cGY in 14 fractions to L3-L5 vertebral bodies.This was followed by a thyroidectomy (06/07/13).Pathology showed thyroid carcinoma, 3.6 cm, with follicular and papillary features and high-grade areas.The tumor was encapsulated with extensive vascular invasion within the tumor capsule. No microscopic ETE noted, but had + LN metastasis.Areas in the tumor with high- grade features.. He was treated [id number] [id number] [facility], by W. PET 11/09/13:Mildly FDG avid lytic sternal lesion consistent with known metastatic disease.L4 lytic lesion with peripheral rim of activity, consistent with metastatic involvement. Was on Xgeva since 2013. Pt then had various imaging concerning for mets to the lung and progression in multiple bony sites. Pt was started on lenvatinib on 09/22/16 (inital dose 24 mg; lowered to 20 mg on 01/26/17 due to toxicities- PET-CT scan on 12/13/17 showed progression of disease with increased thyroglobulin. 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 He has developed progressive LE edema Plan was to start pazopanib Presents with lower extremity weakness/paraperesis Denies back pain Nonambulatory for 1 month MRI T/L spine - vertebral mets, epdural extension at multiple levels, no cord compression, spinal stenosis , ? thecal sac compression on decadron/protonix will discuss with Dr. Schafer from rad-onc Neurosurgery input noted will request neurology input
[2018-06-23] MEDS: morphine SULFATE 4 MG/ML VIAL IVPUSH PRN ×5 (01:02→22:31)
[2018-06-23] MEDS: DEXAMETHASONE SOD PHOSPHATE 4 MG/1 ML VIAL IVPUSH SCH ×4 (03:38→20:45)
[2018-06-23] MEDS: DOCUSATE SODIUM 100 MG CAPSULE (FP) PO SCH ×3 (05:54→21:14)
[2018-06-23] MEDS: LEVOTHYROXINE NA 150 MCG TABLET PO SCH (06:05)
[2018-06-23 08:28] LABS: HEMATOCRIT 37.7 % (35.4-49); HEMOGLOBIN 11.9 GM/dL (11.7-16.9); MCH 28.6 pg (25.7-33.7); MCHC 31.7 g/dl (32.0-35.9); MEAN CELL VOLUME 90.3 fl (80-96); MEAN PLT VOLUME 7.5 fl (7.5-11.1); PLATELET COUNT 268 K/MM3 (134-434); RBC 4.17 M/mm3 (4.00-5.60); WHITE BLOOD COUNT 6.2 K/mm3 (4.0-10.0)
[2018-06-23 08:32] LABS: ANION GAP 10 MMOL/L (8-16); BLOOD UREA NITROGEN 24 mg/dL (7-18); CALCIUM 8.7 mg/dL (8.5-10.1); CHLORIDE 101 mmol/L (98-107); CO2 25 mmol/L (21-32); CREATININE 0.8 mg/dL (0.55-1.3); GLUCOSE,RANDOM 103 mg/dL (74-106); MAGNESIUM 1.9 mg/dL (1.8-2.4); PHOSPHOROUS 4.8 mg/dL (2.5-4.9); POTASSIUM 4.6 mmol/L (3.5-5.1); SODIUM 136 mmol/L (136-145)
[2018-06-23] MEDS ORDERED: PT OWN MED DRAWER 7, Y5N ONE (09:06)
[2018-06-23] MEDS ORDERED: ESCITALOPRAM OXALATE 10 MG TABLET (FP) ONE (09:06)
[2018-06-23] MEDS: ENOXAPARIN NA (PORCINE) 40 MG/0.4 ML DISP.SYRIN SQ SCH (09:12)
[2018-06-23] MEDS: PANTOPRAZOLE 40 MG TABLET (FP) PO SCH (09:12)
[2018-06-23] MEDS: ATENOLOL 25 MG TABLET (FP) PO SCH (09:12)
[2018-06-23] MEDS: clonazePAM 0.5 MG TABLET PO SCH ×3 (09:12→21:14)
[2018-06-23] MEDS: ESCITALOPRAM OXALATE 20 MG TABLET (FP) PO SCH (09:12)
--- NOTE | 2018-06-23 13:29 | PN ---
Physical Exam: SUBJECTIVE: Patient seen and examined at bedside. No acute events overnight. at bedside. OBJECTIVE: Vital Signs Period Temp Pulse Resp BP Sys/Perez Pulse Ox Last 24 Hr 98.2 F-98.7 F 79-82 20-22 140-142/70-92 96 GENERAL: No acute distress HEAD: AT/NC EYES: EOMI Sclera Clear ENT: MMM NECK: Trachea midline, full range of motion, supple. LUNGS: CTAB HEART: RRR nl S1S2 ABDOMEN: CTAB EXTREMITIES: No CCE. NEUROLOGICAL: Cranial nerves II through XII grossly intact. Normal speech. Paraplegia. Strength 0/5 b/l lower extremities. SILT b/l PSYCH: Normal mood, normal affect. SKIN: No rashes or lesions appreciated Laboratory Results - last 24 hr 06/23/18 06/23/18 07:30 07:30 WBC 6.2 RBC 4.17 Hgb 11.9 Hct 37.7 MCV 90.3 MCH 28.6 MCHC 31.7 L RDW 17.0 H Plt Count 268 MPV 7.5 Sodium 136 Potassium 4.6 Chloride 101 Carbon Dioxide 25 Anion Gap 10 BUN 24 H Creatinine 0.8 Creat Clearance w eGFR 93.49 Random Glucose 103 Calcium 8.7 Phosphorus 4.8 Magnesium 1.9 Active Medications Generic Name Dose Route Start Last Admin Trade Name Mohanq PRN Reason Stop Dose Admin Atenolol 12.5 mg 06/23/18 10:00 06/23/18 09:12 Tenormin - PO 12.5 mg DAILY JOCE Administration Clonazepam 0.5 mg 06/23/18 14:00 Klonopin - PO TID JOCE Dexamethasone Sodium Phosphate 4 mg 06/22/18 15:00 06/23/18 09:11 Decadron Injection - IVPUSH 4 mg Q6H-IV JOCE Administration Docusate Sodium 100 mg 06/22/18 22:00 06/23/18 05:54 Colace - PO 100 mg TID JOCE Administration Enoxaparin Sodium 40 mg 06/22/18 10:00 06/23/18 09:12 Lovenox - SQ 40 mg DAILY JOCE Administration Escitalopram Oxalate 20 mg 06/22/18 13:00 06/23/18 09:12 Lexapro - PO 20 mg DAILY JOCE Administration Levothyroxine Sodium 150 mcg 06/23/18 07:00 06/23/18 06:05 Synthroid - PO 150 mcg DAILY@0700 JOCE Administration Morphine Sulfate 4 mg 06/22/18 00:24 06/23/18 09:11 Morphine Sulfate IVPUSH 4 mg Q4H PRN Administration PAIN LEVEL 7 - 10 Pantoprazole Sodium 40 mg 06/23/18 10:00 06/23/18 09:12 Protonix - PO 40 mg DAILY JOCE Administration ASSESSMENT/PLAN: Pt. is a 78 y.o. M w/ PMHx. 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 #Paraplegia/Back Pain/Leg weakness 2/2 Thyroid Ca Mets T spine MRI- multilevel T spine disease at T4, T6, T7, T8, T10, T12 with anterior and posterior element involvement; no cord compression LS spine MRI- L1 and L2 extensive vertebral mets with pedicle and epidural involvement; thecal sac compression at L1 and L2; L2-3 spondylolisthesis with HNP; L3 vertebral and B pedicle involvement; L4 pathological compression fx with L4-5 spondylolisthesis and marked stenosis, L5 pathological involvement Dr Whitley on board-> given 10mg Dexamethasone in ED. Does not believe surgical intervention necessary at this juncture given extent of metastatic disease and overall poor prognosis for neurological recovery Dr Schafer on board. Recs appreciated. Pt may benefit from palliative radiation. Rad Onc will continue to follow. Morphine 4mg Q4H Heme/Onc on board Dr White/Dr Solorio c/w Synthroid 200mcg Head CT negative for acute pathology #HTN Atenolol 12.5mg #HLD Atorvastatin #Anxiety /Depression Klonipin 0.5mg TID and Lexapro 20mg #FEN No Fluids Monitor Electrolytes Regular Diet #DVT Ppx. Lovenox 40mg SQ Visit type - Emergency Visit Emergency Visit: Yes ED Registration Date: 06/22/18 Care time: The patient presented to the Emergency Department on the above date and was hospitalized for further evaluation of their emergent condition. - New Patient This patient is new to me today: No - Critical Care Critical Care patient: No - Discharge Referral Referred to [facility] Med P.C[facility] No
--- NOTE | 2018-06-23 13:56 | CONS ---
DATE OF CONSULTATION: 06/22/2018 REFERRING PHYSICIAN: Eduardo Pizano MD REASON FOR CONSULTATION: Leg weakness, vertebral metastases and compression fractures from thyroid cancer HISTORY OF PRESENT ILLNESS: The patient is a 78-year-old gentleman with a history of metastatic thyroid carcinoma associated with bone and lung metastases. He had palliative radiation therapy to the lumbar spine in 2013 as well as thyroidectomy, radioactive iodine treatment, and multiple lines of systemic therapy with Dr. Merritt at [facility]. He has had Xgeva, Linsitinib, and most recently dabrafenib, and trametinib most recently in February. Therapy has been on hold due to lower extremity edema, which has been improving with physical therapy. He presents to [facility] with lower extremity weakness and history of non- ambulatory status for at least 3 weeks. He has had associated pain radiating down the posterior thigh. MRI of the thoracolumbar spine shows multi-level vertebral metastases associated with epidural extension into the spinal canal at T12 and L1 as well as L2, where there is thecal sac compression. There is a vertebral compression fracture at L4 associated with neuroforaminal narrowing and canal stenosis. There is canal stenosis at L5. He had prior radiotherapy to this region. He denies numbness, tingling sensations in the extremities, weakness in the upper extremities, loss of bowel or bladder control. He states that his pain is controlled with the current analgesic regimen. Again, he has not walked in over 3 weeks and was in the rehab facility much of that time. PAST MEDICAL HISTORY: Hypertension, hypothyroidism, abdominal aortic stent, hernia repair, hemorrhoid repair. PAST SURGICAL HISTORY: As noted above. ALLERGIES: SULFAMETHOXAZOLE, TRIMETHOPRIM. CURRENT MEDICATIONS: Decadron 10 mg followed by 4 mg q.6 hours, Lovenox subcutaneous, Lexapro, Klonopin, atenolol, Colace, Protonix, Synthroid, morphine sulfate p.r.n. SOCIAL HISTORY: He lives with his . He smokes half-pack per day. He does not use alcohol. REVIEW OF SYSTEMS: As noted previously. PHYSICAL EXAMINATION General: Well- nourished male in no acute distress. Vital signs: Temperature 98.4, blood pressure 121/71, pulse 69, respiratory rate 20. HEENT: Normocephalic, atraumatic. Moist mucous membranes. Clear oral cavity. Neck: Supple without adenopathy. Chest: Decreased breath sounds bilaterally. Cardiovascular: Regular. Abdomen: Soft, nontender, nondistended. Extremities: Minimal edema in the lower extremities. No calf tenderness. Musculoskeletal: Mild point tenderness in the thoracolumbar spine. No paraspinal mass. Neurologic: Alert and oriented x3. Cranial nerves 2 through 12 are intact. Sensation to light touch is intact. Motor examination significant for lower extremity paraparesis, 1-2 out of 5 bilaterally with no antigravity. Gait was not tested for the patients safety. LABORATORY DATA: WBC 5.7, hemoglobin 11.1, platelets 239,000. Electrolytes within normal limits, BUN 21, creatinine 0.6, calcium 8.6. RADIOLOGIC DATA: MRI thoracolumbar spine June 21, 2018. See HPI. 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 He has longstanding lower extremity weakness, most likely the result of neurologic compromise by progressive disease in the lumbar spine. He was seen by neurosurgery and is not a candidate for decompression or stabilization. We will need to review the prior radiation zamorano to determine if additional radiotherapy can be safely given. Given the chronicity of the weakness, I doubt radiotherapy would significantly provide a benefit to reverse the leg weakness at this point, but palliative treatment could help preserve bowel and bladder function and improve the pain control which I discussed with the patient. He seems indifferent to having treatment and wishes to also consider palliative and hospice care, which is a very reasonable decision. He will continue Decadron and supportive care. PLAN: Obtain prior radiotherapy records to review. Will follow up with recommendations. Thank you for the courtesy of this consultation. HANNAH MCMULLEN M.D. OSCAR/[id number] MTDD
--- NOTE | 2018-06-23 18:19 | PN ---
Teaching Attending Note Name of Resident: Eduardo Pizano ATTENDING PHYSICIAN STATEMENT I saw and evaluated the patient. I reviewed the resident's note and discussed the case with the resident. I agree with the resident's findings and plan as documented. SUBJECTIVE: Patient continues to have lower back pain. Feels better with no acute distress. OBJECTIVE: Vital Signs Temperature 98.4 F 06/23/18 15:08 Pulse Rate 76 06/23/18 15:08 Respiratory Rate 20 06/23/18 09:00 Blood Pressure 150/100 06/23/18 15:08 O2 Sat by Pulse Oximetry (%) 96 06/22/18 22:00 GENERAL: A&Ox3, no acute distress EYES: PERRLA, EOMI ENT: Moist mucus membranes NECK: No JVD, no lymphadenopathy noted, BREAST EXAM: no masses or nodules noted LUNGS: CTA, no wheezes, HEART: RRR, no murmurs ABDOMEN: Soft, nontender, BS present MUSCULOSKELETAL: No CVA Tenderness EXTREMITIES: 2+ pulses, 2+ pitting edema NEUROLOGICAL: Cranial nerves II-XII intact. RLE 1/5 motor strength, LLE 2/5 motor strength, upper extremities 5/5 motor strength. sensation diminished in b/l lower extremities, barely moves RLe. CBCD WBC 6.2 K/mm3 (4.0-10.0) 06/23/18 07:30 RBC 4.17 M/mm3 (4.00-5.60) 06/23/18 07:30 Hgb 11.9 GM/dL (11.7-16.9) 06/23/18 07:30 Hct 37.7 % (35.4-49) 06/23/18 07:30 MCV 90.3 fl (80-96) 06/23/18 07:30 MCHC 31.7 g/dl (32.0-35.9) L 06/23/18 07:30 RDW 17.0 % (11.9-15.9) H 06/23/18 07:30 Plt Count 268 K/MM3 (134-434) 06/23/18 07:30 MPV 7.5 fl (7.5-11.1) 06/23/18 07:30 CMP Sodium 136 mmol/L (136-145) 06/23/18 07:30 Potassium 4.6 mmol/L (3.5-5.1) 06/23/18 07:30 Chloride 101 mmol/L (98-107) 06/23/18 07:30 Carbon Dioxide 25 mmol/L (21-32) 06/23/18 07:30 Anion Gap 10 MMOL/L (8-16) 06/23/18 07:30 BUN 24 mg/dL (7-18) H 06/23/18 07:30 Creatinine 0.8 mg/dL (0.55-1.3) 06/23/18 07:30 Creat Clearance w eGFR 93.49 (>60) 06/23/18 07:30 Random Glucose 103 mg/dL (74-106) 06/23/18 07:30 Calcium 8.7 mg/dL (8.5-10.1) 06/23/18 07:30 Total Bilirubin 0.3 mg/dL (0.2-1) 06/21/18 17:17 AST 30 U/L (15-37) 06/21/18 17:17 ALT 30 U/L (13-61) 06/21/18 17:17 Alkaline Phosphatase 81 U/L (45-117) 06/21/18 17:17 Total Protein 5.7 g/dl (6.4-8.2) L 06/21/18 17:17 Albumin 2.5 g/dl (3.4-5.0) L 06/21/18 17:17 Current Medications Generic Name Dose Route Start Last Admin Trade Name Freq PRN Reason Stop Dose Admin Atenolol 12.5 mg 06/23/18 10:00 06/23/18 09:12 Tenormin - PO 12.5 mg DAILY JOCE Administration Clonazepam 0.5 mg 06/23/18 14:00 06/23/18 14:00 Klonopin - PO 0.5 mg TID JOCE Administration Dexamethasone Sodium Phosphate 4 mg 06/22/18 15:00 06/23/18 14:03 Decadron Injection - IVPUSH 4 mg Q6H-IV JOCE Administration Docusate Sodium 100 mg 06/22/18 22:00 06/23/18 13:59 Colace - PO 100 mg TID JOCE Administration Enoxaparin Sodium 40 mg 06/22/18 10:00 06/23/18 09:12 Lovenox - SQ 40 mg DAILY JOCE Administration Escitalopram Oxalate 20 mg 06/22/18 13:00 06/23/18 09:12 Lexapro - PO 20 mg DAILY JOCE Administration Levothyroxine Sodium 150 mcg 06/23/18 07:00 06/23/18 06:05 Synthroid - PO 150 mcg DAILY@0700 JOCE Administration Morphine Sulfate 4 mg 06/22/18 00:24 06/23/18 18:02 Morphine Sulfate IVPUSH 4 mg Q4H PRN Administration PAIN LEVEL 7 - 10 Pantoprazole Sodium 40 mg 06/23/18 10:00 06/23/18 09:12 Protonix - PO 40 mg DAILY JOCE Administration Home Medications Medication Instructions Recorded Atenolol [Tenormin -] 12.5 mg PO DAILY 05/17/18 Atorvastatin Ca [Lipitor] 40 mg PO HS 05/17/18 Cholecalciferol (Vitamin D3) 1,000 unit PO DAILY 05/17/18 [Vitamin D -] Escitalopram Oxalate [Lexapro -] 20 mg PO DAILY 05/17/18 Ferrous Sulfate 325 mg PO DAILY 05/17/18 Levothyroxine Sodium [Synthroid] 150 mcg PO DAILY 05/17/18 clonazePAM [Klonopin -] 0.5 mg PO DAILY 05/17/18 Docusate Sodium [Colace -] 100 mg PO TID capsule 05/23/18 Morphine Sulfate [Morphabond ER] 15 mg PO Q12H 06/21/18 T spine MRI- multilevel T spine disease at T4, T6, T7, T8, T10, T12 with anterior and posterior element involvement; no cord compression LS spine MRI- L1 and L2 extensive vertebral mets with pedicle and epidural involvement; thecal sac compression at L1 and L2; L2-3 spondylolisthesis with HNP; L3 vertebral and B pedicle involvement; L4 pathological compression fx with L4-5 spondylolisthesis and marked stenosis, L5 pathological involvement 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 # L1-L2 extensive vertebral mets with pedicle and epidural involvement; T-spine disease; patient is not a surgical candidate as per Dr. Leonel Whitley, neurosurgeon, given extent of metastatic disease and overall poor prognosis for neurological recovery; on IV decadron continue ,onc and rad onc consulted, possible palliative Rtx. on IV decadron. will call the transfer center at [facility] since all his drs are in [facility]. # Anxiety disorder on Klonipin continue as per tid #Hypothyroidism continue levoxyl # Hld continue lipitor # HTN: continue BP meds. DVT Px: SCDs, lovenox
[2018-06-24] MEDS: DEXAMETHASONE SOD PHOSPHATE 4 MG/1 ML VIAL IVPUSH SCH ×4 (02:45→20:50)
[2018-06-24] MEDS: morphine SULFATE 4 MG/ML VIAL IVPUSH PRN ×3 (05:20→17:54)
[2018-06-24] MEDS: DOCUSATE SODIUM 100 MG CAPSULE (FP) PO SCH ×3 (05:47→21:15)
[2018-06-24] MEDS: clonazePAM 0.5 MG TABLET PO SCH ×3 (05:47→21:16)
[2018-06-24] MEDS: LEVOTHYROXINE NA 150 MCG TABLET PO SCH (06:00)
[2018-06-24 08:34] LABS: HEMATOCRIT 36.9 % (35.4-49); HEMOGLOBIN 11.9 GM/dL (11.7-16.9); MCH 29.7 pg (25.7-33.7); MCHC 32.3 g/dl (32.0-35.9); MEAN CELL VOLUME 91.8 fl (80-96); MEAN PLT VOLUME 7.8 fl (7.5-11.1); PLATELET COUNT 263 K/MM3 (134-434); RBC 4.02 M/mm3 (4.00-5.60); RDW 17.1 % (11.9-15.9)
[2018-06-24 08:58] LABS: ANION GAP 6 MMOL/L (8-16); BLOOD UREA NITROGEN 27 mg/dL (7-18); CALCIUM 8.5 mg/dL (8.5-10.1); CHLORIDE 101 mmol/L (98-107); CO2 28 mmol/L (21-32); CREATININE 0.7 mg/dL (0.55-1.3); GLUCOSE,RANDOM 88 mg/dL (74-106); MAGNESIUM 2.2 mg/dL (1.8-2.4); PHOSPHOROUS 4.7 mg/dL (2.5-4.9); POTASSIUM 4.5 mmol/L (3.5-5.1); SODIUM 135 mmol/L (136-145)
[2018-06-24] MEDS ORDERED: ESCITALOPRAM OXALATE 10 MG TABLET (FP) ONE (09:24)
[2018-06-24] MEDS: ATENOLOL 25 MG TABLET (FP) PO SCH (09:30)
[2018-06-24] MEDS: PANTOPRAZOLE 40 MG TABLET (FP) PO SCH (09:30)
[2018-06-24] MEDS: ESCITALOPRAM OXALATE 20 MG TABLET (FP) PO SCH (09:31)
[2018-06-24] MEDS: ENOXAPARIN NA (PORCINE) 40 MG/0.4 ML DISP.SYRIN SQ SCH (09:32)
--- NOTE | 2018-06-24 11:24 | PN ---
Physical Exam: SUBJECTIVE: Patient seen and examined at bedside. No acute complaints. OBJECTIVE: Vital Signs Period Temp Pulse Resp BP Sys/Perez Pulse Ox Last 24 Hr 97.6 F-98.6 F 76-108 20-20 108-150/63-100 96 GENERAL: A&Ox3, no acute distress EYES: PERRLA, EOMI ENT: Moist mucus membranes NECK: No JVD, no lymphadenopathy noted, thyroid not palpated BREAST EXAM: no masses or nodules noted LUNGS: CTA, no wheezes HEART: RRR, no murmurs ABDOMEN: Soft, nontender, BS present MUSCULOSKELETAL: No CVA Tenderness EXTREMITIES: 2+ pulses, 2+ pitting edema NEUROLOGICAL: Cranial nerves II-XII intact. RLE 1/5 motor strength, LLE 2/5 motor strength, upper extremities 5/5 motor strength. Sensation diminshed in b/ l lower extremities Laboratory Results - last 24 hr 06/24/18 06/24/18 06:09 06:09 WBC 7.0 RBC 4.02 Hgb 11.9 Hct 36.9 MCV 91.8 MCH 29.7 MCHC 32.3 RDW 17.1 H Plt Count 263 MPV 7.8 Sodium 135 L Potassium 4.5 Chloride 101 Carbon Dioxide 28 Anion Gap 6 L BUN 27 H Creatinine 0.7 Creat Clearance w eGFR 109.07 Random Glucose 88 Calcium 8.5 Phosphorus 4.7 Magnesium 2.2 Active Medications Generic Name Dose Route Start Last Admin Trade Name Freq PRN Reason Stop Dose Admin Atenolol 12.5 mg 06/23/18 10:00 06/24/18 09:30 Tenormin - PO 12.5 mg DAILY JOCE Administration Clonazepam 0.5 mg 06/23/18 14:00 06/24/18 05:47 Klonopin - PO 0.5 mg TID JOCE Administration Dexamethasone Sodium Phosphate 4 mg 06/22/18 15:00 06/24/18 08:53 Decadron Injection - IVPUSH 4 mg Q6H-IV JOCE Administration Docusate Sodium 100 mg 06/22/18 22:00 06/24/18 05:47 Colace - PO 100 mg TID JOCE Administration Enoxaparin Sodium 40 mg 06/22/18 10:00 06/24/18 09:32 Lovenox - SQ 40 mg DAILY JOCE Administration Escitalopram Oxalate 20 mg 06/22/18 13:00 06/24/18 09:31 Lexapro - PO 20 mg DAILY JOCE Administration Levothyroxine Sodium 150 mcg 06/23/18 07:00 06/24/18 06:00 Synthroid - PO 150 mcg DAILY@0700 JOCE Administration Morphine Sulfate 4 mg 06/22/18 00:24 06/24/18 09:28 Morphine Sulfate IVPUSH 4 mg Q4H PRN Administration PAIN LEVEL 7 - 10 Pantoprazole Sodium 40 mg 06/23/18 10:00 06/24/18 09:30 Protonix - PO 40 mg DAILY JOCE Administration T spine MRI- multilevel T spine disease at T4, T6, T7, T8, T10, T12 with anterior and posterior element involvement; no cord compression LS spine MRI- L1 and L2 extensive vertebral mets with pedicle and epidural involvement; thecal sac compression at L1 and L2; L2-3 spondylolisthesis with HNP; L3 vertebral and B pedicle involvement; L4 pathological compression fx with L4-5 spondylolisthesis and marked stenosis, L5 pathological involvement ASSESSMENT/PLAN: 78 year old gentleman with a 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 #Metastatic Follicular Thyroid Cancer- patient appears to have possibly spinal cord compression and numerous bony metastatic lesions -ECOG score of 3-4, low performance status -Dr. 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 Lovenox 40mg SQ #Disposition -continue to monitor on med surg, anticipate another 1-2 days Armando Solorio, PGY2 Visit type - Emergency Visit Emergency Visit: No - New Patient This patient is new to me today: No - Critical Care Critical Care patient: No
--- NOTE | 2018-06-24 11:58 | PN ---
Teaching Attending Note Name of Resident: Armando Solorio ATTENDING PHYSICIAN STATEMENT I saw and evaluated the patient. I reviewed the resident's note and discussed the case with the resident. I agree with the resident's findings and plan as documented. SUBJECTIVE: Patient is feeling on IV Decadron. As per patient he is bed ridden. OBJECTIVE: Vital Signs Temperature 98.6 F 06/24/18 09:00 Pulse Rate 87 06/24/18 09:00 Respiratory Rate 20 06/24/18 09:00 Blood Pressure 108/63 06/24/18 09:00 O2 Sat by Pulse Oximetry (%) 96 06/23/18 21:00 GENERAL: A&Ox3, no acute distress EYES: PERRLA, EOMI ENT: Moist mucus membranes NECK: No JVD, no lymphadenopathy noted, LUNGS: CTA, no wheezes. HEART: RRR, no murmurs ABDOMEN: Soft, nontender, BS present MUSCULOSKELETAL: No CVA Tenderness EXTREMITIES: 2+ pulses, 2+ pitting edema NEUROLOGICAL: Cranial nerves II-XII intact. RLE 1/5 motor strength, LLE 2/5 motor strength, upper extremities 5/5 motor strength. sensation diminished in b/l lower extremities, barely moves RLe. CBCD WBC 7.0 K/mm3 (4.0-10.0) 06/24/18 06:09 RBC 4.02 M/mm3 (4.00-5.60) 06/24/18 06:09 Hgb 11.9 GM/dL (11.7-16.9) 06/24/18 06:09 Hct 36.9 % (35.4-49) 06/24/18 06:09 MCV 91.8 fl (80-96) 06/24/18 06:09 MCHC 32.3 g/dl (32.0-35.9) 06/24/18 06:09 RDW 17.1 % (11.9-15.9) H 06/24/18 06:09 Plt Count 263 K/MM3 (134-434) 06/24/18 06:09 MPV 7.8 fl (7.5-11.1) 06/24/18 06:09 CMP Sodium 135 mmol/L (136-145) L 06/24/18 06:09 Potassium 4.5 mmol/L (3.5-5.1) 06/24/18 06:09 Chloride 101 mmol/L (98-107) 06/24/18 06:09 Carbon Dioxide 28 mmol/L (21-32) 06/24/18 06:09 Anion Gap 6 MMOL/L (8-16) L 06/24/18 06:09 BUN 27 mg/dL (7-18) H 06/24/18 06:09 Creatinine 0.7 mg/dL (0.55-1.3) 06/24/18 06:09 Creat Clearance w eGFR 109.07 (>60) 06/24/18 06:09 Random Glucose 88 mg/dL (74-106) 06/24/18 06:09 Calcium 8.5 mg/dL (8.5-10.1) 06/24/18 06:09 Total Bilirubin 0.3 mg/dL (0.2-1) 06/21/18 17:17 AST 30 U/L (15-37) 06/21/18 17:17 ALT 30 U/L (13-61) 06/21/18 17:17 Alkaline Phosphatase 81 U/L (45-117) 06/21/18 17:17 Total Protein 5.7 g/dl (6.4-8.2) L 06/21/18 17:17 Albumin 2.5 g/dl (3.4-5.0) L 06/21/18 17:17 Current Medications Generic Name Dose Route Start Last Admin Trade Name Freq PRN Reason Stop Dose Admin Atenolol 12.5 mg 06/23/18 10:00 06/24/18 09:30 Tenormin - PO 12.5 mg DAILY JOCE Administration Clonazepam 0.5 mg 06/23/18 14:00 06/24/18 05:47 Klonopin - PO 0.5 mg TID JOCE Administration Dexamethasone Sodium Phosphate 4 mg 06/22/18 15:00 06/24/18 08:53 Decadron Injection - IVPUSH 4 mg Q6H-IV JOCE Administration Docusate Sodium 100 mg 06/22/18 22:00 06/24/18 05:47 Colace - PO 100 mg TID JOCE Administration Enoxaparin Sodium 40 mg 06/22/18 10:00 06/24/18 09:32 Lovenox - SQ 40 mg DAILY JOCE Administration Escitalopram Oxalate 20 mg 06/22/18 13:00 06/24/18 09:31 Lexapro - PO 20 mg DAILY JOCE Administration Levothyroxine Sodium 150 mcg 06/23/18 07:00 06/24/18 06:00 Synthroid - PO 150 mcg DAILY@0700 JOCE Administration Morphine Sulfate 4 mg 06/22/18 00:24 06/24/18 09:28 Morphine Sulfate IVPUSH 4 mg Q4H PRN Administration PAIN LEVEL 7 - 10 Pantoprazole Sodium 40 mg 06/23/18 10:00 06/24/18 09:30 Protonix - PO 40 mg DAILY JOCE Administration Home Medications Medication Instructions Recorded Atenolol [Tenormin -] 12.5 mg PO DAILY 05/17/18 Atorvastatin Ca [Lipitor] 40 mg PO HS 05/17/18 Cholecalciferol (Vitamin D3) 1,000 unit PO DAILY 05/17/18 [Vitamin D -] Escitalopram Oxalate [Lexapro -] 20 mg PO DAILY 05/17/18 Ferrous Sulfate 325 mg PO DAILY 05/17/18 Levothyroxine Sodium [Synthroid] 150 mcg PO DAILY 05/17/18 clonazePAM [Klonopin -] 0.5 mg PO DAILY 05/17/18 Docusate Sodium [Colace -] 100 mg PO TID capsule 05/23/18 Morphine Sulfate [Morphabond ER] 15 mg PO Q12H 06/21/18 T spine MRI- multilevel T spine disease at T4, T6, T7, T8, T10, T12 with anterior and posterior element involvement; no cord compression LS spine MRI- L1 and L2 extensive vertebral mets with pedicle and epidural involvement; thecal sac compression at L1 and L2; L2-3 spondylolisthesis with HNP; L3 vertebral and B pedicle involvement; L4 pathological compression fx with L4-5 spondylolisthesis and marked stenosis, L5 pathological involvement 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 # L1-L2 extensive vertebral mets with pedicle and epidural involvement: T-spine disease; patient is not a surgical candidate as per Dr. Leonel Whitley, neurosurgeon, given extent of metastatic disease and overall poor prognosis for neurological recovery; on IV decadron continue ,onc and rad onc consulted, possible palliative Rtx. on IV decadron. will continue current care, Onc/rtx will check old records and will decide whether he is a candidate for RTx therapy. # Anxiety disorder on Klonipin continue #Hypothyroidism continue levoxyl # Hld continue lipitor # HTN: continue BP meds. DVT Px: SCDs, lovenox
[2018-06-24 15:36] VITALS: BMI 24.0
[2018-06-24] MEDS ORDERED: ACETAMINOPHEN 325 MG TABLET (FP) PO ONE (19:53)
[2018-06-25] MEDS: DEXAMETHASONE SOD PHOSPHATE 4 MG/1 ML VIAL IVPUSH SCH ×4 (02:20→21:20)
[2018-06-25] MEDS: morphine SULFATE 4 MG/ML VIAL IVPUSH PRN ×4 (02:52→18:36)
[2018-06-25] MEDS: clonazePAM 0.5 MG TABLET PO SCH ×3 (06:06→21:21)
[2018-06-25] MEDS: LEVOTHYROXINE NA 150 MCG TABLET PO SCH (06:06)
[2018-06-25] MEDS: DOCUSATE SODIUM 100 MG CAPSULE (FP) PO SCH ×3 (06:06→21:21)
--- NOTE | 2018-06-25 08:18 | PN ---
Physical Exam: SUBJECTIVE: Patient seen and examined at bedside. No acute events overnight. OBJECTIVE: Vital Signs Period Temp Pulse Resp BP Sys/Perez Pulse Ox Last 24 Hr 98.0 F-99.0 F 58-87 20-20 108-143/63-79 96-96 GENERAL: No acute distress HEAD: AT/NC EYES: EOMI Sclera Clear ENT: MMM NECK: Trachea midline, full range of motion, supple. LUNGS: CTAB HEART: RRR nl S1S2 ABDOMEN: CTAB EXTREMITIES: No CCE. NEUROLOGICAL: Cranial nerves II through XII grossly intact. Normal speech. Paraplegia. Strength 0/5 b/l lower extremities. SILT b/l PSYCH: Normal mood, normal affect. SKIN: No rashes or lesions appreciated Laboratory Results - last 24 hr 06/24/18 06/24/18 06:09 06:09 WBC 7.0 RBC 4.02 Hgb 11.9 Hct 36.9 MCV 91.8 MCH 29.7 MCHC 32.3 RDW 17.1 H Plt Count 263 MPV 7.8 Sodium 135 L Potassium 4.5 Chloride 101 Carbon Dioxide 28 Anion Gap 6 L BUN 27 H Creatinine 0.7 Creat Clearance w eGFR 109.07 Random Glucose 88 Calcium 8.5 Phosphorus 4.7 Magnesium 2.2 Active Medications Generic Name Dose Route Start Last Admin Trade Name Mohanq PRN Reason Stop Dose Admin Atenolol 12.5 mg 06/23/18 10:00 06/24/18 09:30 Tenormin - PO 12.5 mg DAILY JOCE Administration Clonazepam 0.5 mg 06/23/18 14:00 06/25/18 06:06 Klonopin - PO 0.5 mg TID JOCE Administration Dexamethasone Sodium Phosphate 4 mg 06/22/18 15:00 06/25/18 02:20 Decadron Injection - IVPUSH 4 mg Q6H-IV JOCE Administration Docusate Sodium 100 mg 06/22/18 22:00 06/25/18 06:06 Colace - PO 100 mg TID JOCE Administration Enoxaparin Sodium 40 mg 06/22/18 10:00 06/24/18 09:32 Lovenox - SQ 40 mg DAILY JOCE Administration Escitalopram Oxalate 20 mg 06/22/18 13:00 06/24/18 09:31 Lexapro - PO 20 mg DAILY JOCE Administration Levothyroxine Sodium 150 mcg 06/23/18 07:00 06/25/18 06:06 Synthroid - PO 150 mcg DAILY@0700 JOCE Administration Morphine Sulfate 4 mg 06/25/18 02:36 06/25/18 02:52 Morphine Sulfate IVPUSH 4 mg Q4H PRN Administration PAIN LEVEL 7 - 10 Pantoprazole Sodium 40 mg 06/23/18 10:00 06/24/18 09:30 Protonix - PO 40 mg DAILY JOCE Administration ASSESSMENT/PLAN: Pt. is a 78 y.o. M w/ PMHx. 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 #Paraplegia/Back Pain/Leg weakness 2/2 Thyroid Ca Mets T spine MRI- multilevel T spine disease at T4, T6, T7, T8, T10, T12 with anterior and posterior element involvement; no cord compression LS spine MRI- L1 and L2 extensive vertebral mets with pedicle and epidural involvement; thecal sac compression at L1 and L2; L2-3 spondylolisthesis with HNP; L3 vertebral and B pedicle involvement; L4 pathological compression fx with L4-5 spondylolisthesis and marked stenosis, L5 pathological involvement Dr Whitley on board-> given 10mg Dexamethasone in ED. Does not believe surgical intervention necessary at this juncture given extent of metastatic disease and overall poor prognosis for neurological recovery Dr Schafer on board. Recs appreciated. Pt may benefit from palliative radiation. Rad Onc will continue to follow. Morphine 4mg Q4H Heme/Onc on board Dr White/Dr Solorio c/w Synthroid [address] negative for acute pathology #HTN Atenolol 12.5mg #HLD Atorvastatin #Anxiety /Depression Klonipin 0.5mg TID and Lexapro 20mg #FEN No Fluids Monitor Electrolytes Regular Diet #DVT Ppx. Lovenox 40mg SQ Visit type - Emergency Visit Emergency Visit: Yes ED Registration Date: 06/22/18 Care time: The patient presented to the Emergency Department on the above date and was hospitalized for further evaluation of their emergent condition. - New Patient This patient is new to me today: No - Critical Care Critical Care patient: No - Discharge Referral Referred to [facility] Med P.C.: No
[2018-06-25] MEDS ORDERED: ESCITALOPRAM OXALATE 10 MG TABLET (FP) ONE (09:19)
[2018-06-25] MEDS: PANTOPRAZOLE 40 MG TABLET (FP) PO SCH (09:23)
[2018-06-25] MEDS: ESCITALOPRAM OXALATE 20 MG TABLET (FP) PO SCH (09:23)
[2018-06-25] MEDS: ATENOLOL 25 MG TABLET (FP) PO SCH (09:24)
[2018-06-25] MEDS: ENOXAPARIN NA (PORCINE) 40 MG/0.4 ML DISP.SYRIN SQ SCH (09:24)
--- NOTE | 2018-06-25 14:27 | PN ---
Teaching Attending Note Name of Resident: Eduardo Pizano ATTENDING PHYSICIAN STATEMENT I saw and evaluated the patient. I reviewed the resident's note and discussed the case with the resident. I agree with the resident's findings and plan as documented. SUBJECTIVE: Patient's pain improving on decadron. OBJECTIVE: Vital Signs Temperature 97.8 F 06/25/18 09:00 Pulse Rate 73 06/25/18 09:00 Respiratory Rate 20 06/25/18 09:00 Blood Pressure 128/53 L 06/25/18 09:00 O2 Sat by Pulse Oximetry (%) 96 06/25/18 09:00 GENERAL: A&Ox3, no acute distress, patient is bedridden. EYES: PERRLA, EOMI ENT: Moist mucus membranes NECK: No JVD, no lymphadenopathy noted. LUNGS: CTA, no wheezes HEART: RRR, no murmurs ABDOMEN: Soft, nontender, BS present MUSCULOSKELETAL: No CVA Tenderness EXTREMITIES: 2+ pulses, 2+ pitting edema NEUROLOGICAL: Cranial nerves II-XII intact. RLE 1/5 motor strength, LLE 2/5 motor strength, upper extremities 5/5 motor strength. sensation diminished in b/l lower extremities, barely moves RLe. CBCD WBC 7.0 K/mm3 (4.0-10.0) 06/24/18 06:09 RBC 4.02 M/mm3 (4.00-5.60) 06/24/18 06:09 Hgb 11.9 GM/dL (11.7-16.9) 06/24/18 06:09 Hct 36.9 % (35.4-49) 06/24/18 06:09 MCV 91.8 fl (80-96) 06/24/18 06:09 MCHC 32.3 g/dl (32.0-35.9) 06/24/18 06:09 RDW 17.1 % (11.9-15.9) H 06/24/18 06:09 Plt Count 263 K/MM3 (134-434) 06/24/18 06:09 MPV 7.8 fl (7.5-11.1) 06/24/18 06:09 CMP Sodium 135 mmol/L (136-145) L 06/24/18 06:09 Potassium 4.5 mmol/L (3.5-5.1) 06/24/18 06:09 Chloride 101 mmol/L (98-107) 06/24/18 06:09 Carbon Dioxide 28 mmol/L (21-32) 06/24/18 06:09 Anion Gap 6 MMOL/L (8-16) L 06/24/18 06:09 BUN 27 mg/dL (7-18) H 06/24/18 06:09 Creatinine 0.7 mg/dL (0.55-1.3) 06/24/18 06:09 Creat Clearance w eGFR 109.07 (>60) 06/24/18 06:09 Random Glucose 88 mg/dL (74-106) 06/24/18 06:09 Calcium 8.5 mg/dL (8.5-10.1) 06/24/18 06:09 Total Bilirubin 0.3 mg/dL (0.2-1) 06/21/18 17:17 AST 30 U/L (15-37) 06/21/18 17:17 ALT 30 U/L (13-61) 06/21/18 17:17 Alkaline Phosphatase 81 U/L (45-117) 06/21/18 17:17 Total Protein 5.7 g/dl (6.4-8.2) L 06/21/18 17:17 Albumin 2.5 g/dl (3.4-5.0) L 06/21/18 17:17 Current Medications Generic Name Dose Route Start Last Admin Trade Name Freq PRN Reason Stop Dose Admin Atenolol 12.5 mg 06/23/18 10:00 06/25/18 09:24 Tenormin - PO 12.5 mg DAILY JOCE Administration Clonazepam 0.5 mg 06/23/18 14:00 06/25/18 13:10 Klonopin - PO 0.5 mg TID JOCE Administration Dexamethasone Sodium Phosphate 4 mg 06/22/18 15:00 06/25/18 14:25 Decadron Injection - IVPUSH 4 mg Q6H-IV JOCE Administration Docusate Sodium 100 mg 06/22/18 22:00 06/25/18 13:10 Colace - PO 100 mg TID JOCE Administration Enoxaparin Sodium 40 mg 06/22/18 10:00 06/25/18 09:24 Lovenox - SQ 40 mg DAILY JOCE Administration Escitalopram Oxalate 20 mg 06/22/18 13:00 06/25/18 09:23 Lexapro - PO 20 mg DAILY JOCE Administration Levothyroxine Sodium 150 mcg 06/23/18 07:00 06/25/18 06:06 Synthroid - PO 150 mcg DAILY@0700 JOCE Administration Morphine Sulfate 4 mg 06/25/18 02:36 06/25/18 14:24 Morphine Sulfate IVPUSH 4 mg Q4H PRN Administration PAIN LEVEL 7 - 10 Pantoprazole Sodium 40 mg 06/23/18 10:00 06/25/18 09:23 Protonix - PO 40 mg DAILY JOCE Administration Home Medications Medication Instructions Recorded Atenolol [Tenormin -] 12.5 mg PO DAILY 05/17/18 Atorvastatin Ca [Lipitor] 40 mg PO HS 05/17/18 Cholecalciferol (Vitamin D3) 1,000 unit PO DAILY 05/17/18 [Vitamin D -] Escitalopram Oxalate [Lexapro -] 20 mg PO DAILY 05/17/18 Ferrous Sulfate 325 mg PO DAILY 05/17/18 Levothyroxine Sodium [Synthroid] 150 mcg PO DAILY 05/17/18 clonazePAM [Klonopin -] 0.5 mg PO DAILY 05/17/18 Docusate Sodium [Colace -] 100 mg PO TID capsule 05/23/18 Morphine Sulfate [Morphabond ER] 15 mg PO Q12H 06/21/18 T spine MRI- multilevel T spine disease at T4, T6, T7, T8, T10, T12 with anterior and posterior element involvement; no cord compression LS spine MRI- L1 and L2 extensive vertebral mets with pedicle and epidural involvement; thecal sac compression at L1 and L2; L2-3 spondylolisthesis with HNP; L3 vertebral and B pedicle involvement; L4 pathological compression fx with L4-5 spondylolisthesis and marked stenosis, L5 pathological involvement 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 # L1-L2 extensive vertebral mets with pedicle and epidural involvement: T-spine disease, patient is not a surgical candidate as per Dr. Leonel Whitley, neurosurgeon, given extent of metastatic disease and overall poor prognosis for neurological recovery; on IV decadron continue ,onc and rad onc consulted, possible palliative Rtx. on IV decadron. will continue current care, RTx palliatively to be determined. # Anxiety disorder on Klonipin continue #Hypothyroidism continue levoxyl # Hld continue lipitor # HTN: continue BP meds. DVT Px: SCDs, lovenox
[2018-06-26] MEDS: morphine SULFATE 4 MG/ML VIAL IVPUSH PRN ×4 (01:08→18:14)
[2018-06-26] MEDS: DEXAMETHASONE SOD PHOSPHATE 4 MG/1 ML VIAL IVPUSH SCH ×3 (03:04→14:14)
[2018-06-26] MEDS: LEVOTHYROXINE NA 150 MCG TABLET PO SCH (06:37)
[2018-06-26] MEDS: DOCUSATE SODIUM 100 MG CAPSULE (FP) PO SCH ×2 (06:37→14:15)
[2018-06-26] MEDS: clonazePAM 0.5 MG TABLET PO SCH ×2 (06:37→14:15)
[2018-06-26 07:25] LABS: HEMATOCRIT 39.3 % (35.4-49); HEMOGLOBIN 12.4 GM/dL (11.7-16.9); MCH 28.6 pg (25.7-33.7); MCHC 31.6 g/dl (32.0-35.9); MEAN CELL VOLUME 90.6 fl (80-96); MEAN PLT VOLUME 7.2 fl (7.5-11.1); PLATELET COUNT 263 K/MM3 (134-434); RBC 4.33 M/mm3 (4.00-5.60); RDW 16.9 % (11.9-15.9); WHITE BLOOD COUNT 11.2 K/mm3 (4.0-10.0)
[2018-06-26 08:03] LABS: ANION GAP 7 MMOL/L (8-16); BLOOD UREA NITROGEN 25 mg/dL (7-18); CALCIUM 8.3 mg/dL (8.5-10.1); CHLORIDE 102 mmol/L (98-107); CO2 28 mmol/L (21-32); CREATININE 0.8 mg/dL (0.55-1.3); GLUCOSE,RANDOM 78 mg/dL (74-106); MAGNESIUM 1.8 mg/dL (1.8-2.4); PHOSPHOROUS 3.6 mg/dL (2.5-4.9); POTASSIUM 4.1 mmol/L (3.5-5.1); SODIUM 138 mmol/L (136-145)
[2018-06-26] MEDS ORDERED: ESCITALOPRAM OXALATE 10 MG TABLET (FP) ONE (10:07)
[2018-06-26] MEDS: ENOXAPARIN NA (PORCINE) 40 MG/0.4 ML DISP.SYRIN SQ SCH (10:42)
[2018-06-26] MEDS: ESCITALOPRAM OXALATE 20 MG TABLET (FP) PO SCH (10:43)
[2018-06-26] MEDS: PANTOPRAZOLE 40 MG TABLET (FP) PO SCH (10:43)
[2018-06-26] MEDS: ATENOLOL 25 MG TABLET (FP) PO SCH (10:43)
--- NOTE | 2018-06-26 11:22 | PN ---
Progress Note (short form) - Note Progress Note: NEUROSURGERY less pain, wants to go home H/o thyroid ca w/ mets, HTN, diastolic dysfunction. Lumbar symptoms started 2+ months ago, and he went from ambulatory to wheelchair bound. Reports severe leg weakness, R worse than left. Denies fevers, urinary incontinence and retention. Denies chest pain and shortness of breath. No fever or chill. PE: AF,VSS HEENT- NC/At; Neck- supple; Cor- RR; Lungs- CTA B; Abd-benign; Ext- B LE edema/ chronic venous changes CN- intact; Motor- B UE 4+, R LE 1/5; L LE 2/5; Sensation- intact LT, decreased distal LE vibration; DTR- hyporeflexic B T spine MRI- multilevel T spine disease at T4, T6, T7, T8, T10, T12 with anterior and posterior element involvement; no cord compression LS spine MRI- L1 and L2 extensive vertebral mets with pedicle and epidural involvement; thecal sac compression at L1 and L2; L2-3 spondylolisthesis with HNP; L3 vertebral and B pedicle involvement; L4 pathological compression fx with L4-5 spondylolisthesis and marked stenosis, L5 pathological involvement 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
[2018-06-26 14:53] VITALS: BP 130/80
--- NOTE | 2018-06-26 15:47 | DS ---
Physical Exam: SUBJECTIVE: Patient seen and examined at bedside. No acute events overnight. Denies any pain at moment. at bedside. OBJECTIVE: Vital Signs Period Temp Pulse Resp BP Sys/Perez Pulse Ox Last 24 Hr 98.2 F-98.6 F 56-92 17-20 130-132/69-80 PHYSICAL EXAM GENERAL: NAD, pleasant HEAD: AT/NC EYES: EOMI Sclera Clear ENT: MMM NECK: Trachea midline, full range of motion, supple. LUNGS: CTAB HEART: RRR nl S1S2 ABDOMEN: CTAB EXTREMITIES: No CCE. NEUROLOGICAL: Cranial nerves II through XII grossly intact. Normal speech. Paraplegia. Strength 0/5 b/l lower extremities. SILT b/l PSYCH: Normal mood, normal affect. SKIN: No rashes or lesions appreciated LABS Laboratory Results - last 24 hr 06/26/18 06/26/18 06:30 06:30 WBC 11.2 H RBC 4.33 Hgb 12.4 Hct 39.3 MCV 90.6 MCH 28.6 MCHC 31.6 L RDW 16.9 H Plt Count 263 MPV 7.2 L Sodium 138 Potassium 4.1 Chloride 102 Carbon Dioxide 28 Anion Gap 7 L BUN 25 H Creatinine 0.8 Creat Clearance w eGFR 93.49 Random Glucose 78 Calcium 8.3 L Phosphorus 3.6 Magnesium 1.8 HOSPITAL COURSE: Date of Admission:06/22/18 Pt. is a 78 y/o gentleman w/ PMHx. 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 T spine MRI revealed " multilevel T spine disease at T4, T6, T7, T8, T10, T12 with anterior and posterior element involvement; no cord compression. LS spine MRI- L1 and L2 extensive vertebral mets with pedicle and epidural involvement; thecal sac compression at L1 and L2; L2-3 spondylolisthesis; L3 vertebral and B pedicle involvement; L4 pathological compression fx with L4-5 spondylolisthesis and marked stenosis, L5 pathological involvement." Neurosurgery did not believe that surgery would benefit patient given extent of metastases and poor outcome. Pt was placed on I.V decadron. Radiation oncology was consulted, Dr Schafer, who stated that he had treated the patient in the past and believed patient may benefit from palliative radiation to his thoracic and lumbar area contingent upon him having never received radiation in those areas in the past. Pt was previously treated by [address] [place] [address] Oncology group. Medical Records were requested by Dr Schafer however at time of discharge he did not receive them yet. Pt was also seen by palliative RN Paradise who thoroughly explained to pt details of hospice care and answered pt's questions regarding. Pt was given referral to visit Dr Schafer as an outpatient this week to assess if he qualifies for radiation treatment. Date of Discharge: 06/26/18 Minutes to complete discharge: 35 Discharge Summary Reason For Visit: BACK PAIN Current Active Problems Back pain (Acute) Thyroid cancer (Acute) Weakness (Acute) Condition: Improved - Instructions Diet, Activity, Other Instructions: You presented to the hospital due to lower extremity weakness and back pain. Please follow up with the radiation oncologist, Dr Schafer for possible radiation to your back. Please follow up this week. His office phone number has been provided to you. Please continue to take your home medication. Added a new medication called Medrol dose pack ; take as directed with food. Please follow up with your primary care doctor, Dr May. Please return to the emergency department if you begin to experience worsening back pain, chest pain, shortness of breath, nausea/vomiting or any other abnormal symptom. Referrals: Pavan Schafer MD [Staff Physician] - 1 Week Mariam May MD [Primary Care Provider] - Disposition: VNS/HOME HEALTH CARE - Home Medications Comprehensive Discharge Medication List: Ambulatory Orders Atenolol [Tenormin -] 12.5 mg PO DAILY 05/17/18 Cholecalciferol (Vitamin D3) [Vitamin D -] 1,000 unit PO DAILY 05/17/18 Escitalopram Oxalate [Lexapro -] 20 mg PO DAILY 05/17/18 Ferrous Sulfate 325 mg PO DAILY 05/17/18 Levothyroxine Sodium [Synthroid] 150 mcg PO DAILY 05/17/18 Docusate Sodium [Colace -] 100 mg PO TID capsule 05/23/18 Morphine Sulfate [Morphabond ER] 15 mg PO Q12H 06/21/18 Methylprednisolone [Medrol Dose Hang] 4 mg PO ASDIR #21 tablet 06/26/18 clonazePAM [Klonopin -] 0.5 mg PO TID tablet MDD 1.5 mg 06/26/18 This patient is new to me today: No Emergency Visit: Yes ED Registration Date: 06/22/18 Care time: The patient presented to the Emergency Department on the above date and was hospitalized for further evaluation of their emergent condition. Critical Care patient: No - Discharge Referral Referred to [facility] Med P.C.: No
[2018-06-26 19:11] VITALS: PULSE 68; TEMP 98.4
--- NOTE | 2018-06-26 19:18 | PN ---
Teaching Attending Note Name of Resident: Eduardo Pizano ATTENDING PHYSICIAN STATEMENT I saw and evaluated the patient. I reviewed the resident's note and discussed the case with the resident. I agree with the resident's findings and plan as documented. SUBJECTIVE: Patient is comfortable with no acute distress, patient wants to go home. OBJECTIVE: Vital Signs Temperature 98.4 F 06/26/18 18:30 Pulse Rate 68 06/26/18 18:30 Respiratory Rate 17 06/26/18 18:30 Blood Pressure 130/80 06/26/18 18:30 O2 Sat by Pulse Oximetry (%) 96 06/25/18 09:00 GENERAL: A&Ox3, no acute distress, patient is bedridden. EYES: PERRLA, EOMI, ENT: Moist mucus membranes NECK: No JVD, no lymphadenopathy noted. LUNGS: CTA, no wheezes, HEART: RRR, no murmurs ABDOMEN: Soft, nontender, BS present MUSCULOSKELETAL: No CVA Tenderness EXTREMITIES: 2+ pulses, 2+ pitting edema NEUROLOGICAL: Cranial nerves II-XII intact. RLE 1/5 motor strength, LLE 2/5 motor strength, upper extremities 5/5 motor strength. sensation diminished in b/l lower extremities, RLE slightly better .CBCD WBC 11.2 K/mm3 (4.0-10.0) H 06/26/18 06:30 RBC 4.33 M/mm3 (4.00-5.60) 06/26/18 06:30 Hgb 12.4 GM/dL (11.7-16.9) 06/26/18 06:30 Hct 39.3 % (35.4-49) 06/26/18 06:30 MCV 90.6 fl (80-96) 06/26/18 06:30 MCHC 31.6 g/dl (32.0-35.9) L 06/26/18 06:30 RDW 16.9 % (11.9-15.9) H 06/26/18 06:30 Plt Count 263 K/MM3 (134-434) 06/26/18 06:30 MPV 7.2 fl (7.5-11.1) L 06/26/18 06:30 CMP Sodium 138 mmol/L (136-145) 06/26/18 06:30 Potassium 4.1 mmol/L (3.5-5.1) 06/26/18 06:30 Chloride 102 mmol/L (98-107) 06/26/18 06:30 Carbon Dioxide 28 mmol/L (21-32) 06/26/18 06:30 Anion Gap 7 MMOL/L (8-16) L 06/26/18 06:30 BUN 25 mg/dL (7-18) H 06/26/18 06:30 Creatinine 0.8 mg/dL (0.55-1.3) 06/26/18 06:30 Creat Clearance w eGFR 93.49 (>60) 06/26/18 06:30 Random Glucose 78 mg/dL (74-106) 06/26/18 06:30 Calcium 8.3 mg/dL (8.5-10.1) L 06/26/18 06:30 Total Bilirubin 0.3 mg/dL (0.2-1) 06/21/18 17:17 AST 30 U/L (15-37) 06/21/18 17:17 ALT 30 U/L (13-61) 06/21/18 17:17 Alkaline Phosphatase 81 U/L (45-117) 06/21/18 17:17 Total Protein 5.7 g/dl (6.4-8.2) L 06/21/18 17:17 Albumin 2.5 g/dl (3.4-5.0) L 06/21/18 17:17 Current Medications Generic Name Dose Route Start Last Admin Trade Name Freq PRN Reason Stop Dose Admin Atenolol 12.5 mg 06/23/18 10:00 06/26/18 10:43 Tenormin - PO 12.5 mg DAILY JOCE Administration Clonazepam 0.5 mg 06/23/18 14:00 06/26/18 14:15 Klonopin - PO 0.5 mg TID JOCE Administration Dexamethasone Sodium Phosphate 4 mg 06/22/18 15:00 06/26/18 14:14 Decadron Injection - IVPUSH 4 mg Q6H-IV JOCE Administration Docusate Sodium 100 mg 06/22/18 22:00 06/26/18 14:15 Colace - PO 100 mg TID JOCE Administration Enoxaparin Sodium 40 mg 06/22/18 10:00 06/26/18 10:42 Lovenox - SQ 40 mg DAILY JOCE Administration Escitalopram Oxalate 20 mg 06/22/18 13:00 06/26/18 10:43 Lexapro - PO 20 mg DAILY JOCE Administration Levothyroxine Sodium 150 mcg 06/23/18 07:00 06/26/18 06:37 Synthroid - PO 150 mcg DAILY@0700 JOCE Administration Morphine Sulfate 4 mg 06/25/18 02:36 06/26/18 18:14 Morphine Sulfate IVPUSH 4 mg Q4H PRN Administration PAIN LEVEL 7 - 10 Pantoprazole Sodium 40 mg 06/23/18 10:00 06/26/18 10:43 Protonix - PO 40 mg DAILY JOCE Administration Home Medications Medication Instructions Recorded Atenolol [Tenormin -] 12.5 mg PO DAILY 05/17/18 Cholecalciferol (Vitamin D3) 1,000 unit PO DAILY 05/17/18 [Vitamin D -] Escitalopram Oxalate [Lexapro -] 20 mg PO DAILY 05/17/18 Ferrous Sulfate 325 mg PO DAILY 05/17/18 Levothyroxine Sodium [Synthroid] 150 mcg PO DAILY 05/17/18 Docusate Sodium [Colace -] 100 mg PO TID capsule 05/23/18 Morphine Sulfate [Morphabond ER] 15 mg PO Q12H 06/21/18 Methylprednisolone [Medrol Dose 4 mg PO ASDIR #21 tablet 06/26/18 Hang] clonazePAM [Klonopin -] 0.5 mg PO TID tablet MDD 1.5 mg 06/26/18 T spine MRI- multilevel T spine disease at T4, T6, T7, T8, T10, T12 with anterior and posterior element involvement; no cord compression LS spine MRI- L1 and L2 extensive vertebral mets with pedicle and epidural involvement; thecal sac compression at L1 and L2; L2-3 spondylolisthesis with HNP; L3 vertebral and B pedicle involvement; L4 pathological compression fx with L4-5 spondylolisthesis and marked stenosis, L5 pathological involvement 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 # L1-L2 extensive vertebral mets with pedicle and epidural involvement: T-spine disease, patient is not a surgical candidate as per Dr. Leonel Whitley, neurosurgeon, given extent of metastatic disease and overall poor prognosis for neurological recovery. s/p IV decadron , will change to oral medrol dose pack for his back pain, with home VNS , for home hospice and follow Dr. Huston RTx oncologist as an outpatient. for palliative Rtx. # Anxiety disorder on Klonipin continue #Hypothyroidism continue levoxyl # Hld continue lipitor # HTN: continue BP meds. will discharge patient home with VNS.
== END 2018-06-26 20:31 | disposition home health service (06) | DRG 543 ==
LOC: JER 17:02 → JERBED 20:13 → OBSVTOIN 06-22 00:16 → J6S 06-22 03:29
PROVIDERS: ADMIT Internal Medicine; ATTEND Internal Medicine
DX: C79.51 Secondary malignant neoplasm of bone (principal); G82.20 Paraplegia, unspecified; G95.29 Other cord compression; C78.00 Secondary malignant neoplasm of unspecified lung; M84.48XA Pathological fracture, other site, initial encounter for fracture; I50.30 Unspecified diastolic (congestive) heart failure; C73 Malignant neoplasm of thyroid gland; I10 Essential (primary) hypertension; D64.9 Anemia, unspecified; I25.10 Atherosclerotic heart disease of native coronary artery without angina pectoris; E78.00 Pure hypercholesterolemia, unspecified; E88.09 Other disorders of plasma-protein metabolism, not elsewhere classified; F10.10 Alcohol abuse, uncomplicated; F41.8 Other specified anxiety disorders; D63.8 Anemia in other chronic diseases classified elsewhere; M48.061 Spinal stenosis, lumbar region without neurogenic claudication; M43.16 Spondylolisthesis, lumbar region; I11.0 Hypertensive heart disease with heart failure; Z95.5 Presence of coronary angioplasty implant and graft; Z87.891 Personal history of nicotine dependence
CPT/HCPCS: 36415; 72147-TC; 72149-TC; 80048; 80053; 82310; 83735; 83970; 84100; 84443; 85025; 85027; 85610; 86850; 86900; 86901; 99283-25; G0378; J1100